=== PATIENT | female | born 1940 | race Caucasian/White ===

== ENCOUNTER → 2017-01-07 | Outpatient (CLI) | payer MEDICARE ==
[~2017-01-07] MED LIST: REGADENOSON 0.4 MG/5 ML SYRINGE IV ONE
--- NOTE | 2017-01-07 14:35 | NM ---
EXAMINATION TYPE: NM stress lexiscan cardiolite DATE OF EXAM: 01/07/2017 COMPARISON: NONE HISTORY: Shortness of breath TECHNIQUE: After the intravenous administration of 10.6 mCi Tc 99m Sestamibi - Cardiolite resting SP ECT images acquired 45 minutes post injection. The patient received 0.4mg Lexiscan, 28.1 mCi Tc 99m Sestamibi - Stress images obtained [address] injection FINDINGS: Review of stress and rest SPECT images demonstrates suggestion of a small area of stress-induced reve rsibility within the apex of the myocardium.. Gated analysis shows normal wall motion with an estima jazmyne left ventricular ejection fraction of 57 %. IMPRESSION: 1. Findings suggestive of an area of stress-induced reversibility apex of the myocardium. Some of thi s may be artifactual correlate clinically. A Yellow message has been communicated to Mike Loza MD via the [employer] [address] [employer] system on 01/07/2017 2:32 PM, Message ID [id number].
--- NOTE | 2017-01-07 16:17 | EST ---
EXERCISE STRESS AGE: 76 SEX: Female HT: 5'3" WT: 223 pounds PROTOCOL: Lexiscan Cardiolite STAGE: DURATION OF EXERCISE: HEART RATE REST: @@65 BLOOD PRESSURE REST: 141/55 MAXIMUM HEART RATE ACHIEVED: 80 MAXIMUM BLOOD PRESSURE: 216/51 85% MPHR: 121 100% MPHR: 142 METS: INDICATIONS: CLINICAL INFORMATION: Evaluate for CAD in a patient with type 2 diabetes, hypertension, hyperlipidemia. Baseline EKG revealed normal sinus rhythm with minor nonspecific ST abnormality. With Lexiscan administration, heart rate changed from 65 to 80 beats per minute. Blood pressure changed from 141/55 to 216/51 and then came back slowly to baseline. EKG revealed more prominent inferolateral ST-segment abnormality. However, given the fact there were some minor changes to begin with, this is considered as a technically inconclusive Lexiscan stress test, but ischemia cannot be totally excluded. The nuclear scan results, which are more pertinent, will be reported by the radiologist. By EKG criteria, this is considered as a positive stress test without subjective symptoms of angina. However, these changes may be considered equivocal, given the fact the patient had minor changes to begin with. The nuclear scan results, which are more pertinent, will be helpful in determining if she has ischemia or not. MMODL / IJN: [id number] /
== END | disposition home or self-care (01) ==
LOC: RADNMMAIN 08:55
PROVIDERS: ATTEND Internal Medicine
DX: R06.09 Other forms of dyspnea (principal)
CPT/HCPCS: 93017; 78452; A9500; J2785

== ENCOUNTER 2017-01-22 07:24 | Day surgery (SDC) | payer MEDICARE ==
[2017-01-16 15:54] VITALS: BMI 40.4
[~2017-01-22 07:24] MED LIST changes: +ALPRAZolam 0.25 MG TAB PO PRN; +ASPIRIN 325 MG TAB PO ONE; -REGADENOSON 0.4 MG/5 ML SYRINGE IV ONE; +SODIUM CHLORIDE 0.9% 1,000 ML in EMPTY BAG 1 BAG IV ONE
[2017-01-22] MEDS: SODIUM CHLORIDE 0.9% 1,000 ML IV SCH ×2 (08:16→20:11)
[2017-01-22 08:29] LABS: Glucose,Whole Blood 152 mg/dL (75-99)
[2017-01-22 08:34] LABS: Basophils # (A) 0.1 k/uL (0-0.2); Basophils % (A) 1 %; CH 30.1; CHCM 34.2; Eosinophils # (A) 0.2 k/uL (0-0.7); Eosinophils % (A) 2 %; HCT 33.5 % (34.0-46.0); HDW 2.53; HGB 10.9 gm/dL (11.4-16.0); Luc # (Auto) 0.23; Luc % (Auto) 2; Lymphocytes # (A) 2.1 k/uL (1.0-4.8); Lymphocytes % (A) 22 %; MCH 28.9 pg (25.0-35.0); MCHC 32.7 g/dL (31.0-37.0); MCV 88.4 fL (80.0-100.0); Monocytes # (A) 0.8 k/uL (0-1.0); Monocytes % (A) 8 %; Neutrophils # (A) 6.2 k/uL (1.3-7.7); Neutrophils % (A) 65 %; RBC 3.79 m/uL (3.80-5.40); RDW 15.1 % (11.5-15.5); WBC 9.6 k/uL (3.8-10.6); WBC (Perox) 9.95
[2017-01-22 08:44] LABS: Calcium 9.9 mg/dL (8.4-10.2); Potassium 4.5 mmol/L (3.5-5.1)
[2017-01-22] MEDS ORDERED: VERAPAMIL 2.5 MG/ML 2 ML AMP ONE (12:41)
[2017-01-22] MEDS ORDERED: LIDOCAINE 2% INJ 20 MG/ML (20 ML MDV) ONE (12:42)
[2017-01-22] MEDS ORDERED: diphenhydrAMINE 50 MG/ML 1 ML VIAL ONE (13:08)
[2017-01-22] MEDS ORDERED: fentaNYL (PF) 50 MCG/ML 2 ML AMP ONE (13:09)
[2017-01-22] MEDS ORDERED: fentaNYL (PF) 50 MCG/ML 2 ML AMP IV ONE (13:18)
[2017-01-22] MEDS ORDERED: diphenhydrAMINE 50 MG/ML 1 ML VIAL IVP ONE (13:18)
[2017-01-22] MEDS ORDERED: LIDOCAINE 2% INJ 20 MG/ML SQ ONE (13:19)
[2017-01-22] MEDS: VERAPAMIL SYRINGE (5 MG/10 ML) INTRAARTER ONE ×2 (13:20→13:35)
[2017-01-22] MEDS ORDERED: HEPARIN SODIUM 1,000 UN/ML (10ML VL) ONE (13:21)
[2017-01-22] MEDS ORDERED: MIDAZOLAM 2 MG/2 ML VIAL ONE (13:21)
[2017-01-22] MEDS ORDERED: HEPARIN SODIUM 1,000 UN/ML (10ML VL) IV ONE (13:23)
[2017-01-22] MEDS ORDERED: MIDAZOLAM 2 MG/2 ML VIAL IV ONE (13:24)
[2017-01-22] MEDS ORDERED: ADENOSINE 90 MG in SODIUM CHLORIDE 0.9% 60 ML IVP ONE (13:58)
[2017-01-22] MEDS ORDERED: IODIXANOL 320 MG/ML 100 ML INTRAARTER ONE (14:02)
[2017-01-22] MEDS ORDERED: RX INFO: IV CONTRAST WAS GIVEN 1 EACH MISC MISCELLANE PRN (14:25)
[2017-01-22] MEDS ORDERED: SODIUM CHLORIDE 0.9% 1,000 ML IV SCH (14:30)
[2017-01-22 15:56] LABS: Glucose,Whole Blood 167 mg/dL (75-99)
[2017-01-22 17:06] VITALS: RESP 18
[2017-01-22 17:06] LABS: Glucose,Whole Blood 211 mg/dL (75-99)
[2017-01-22] MEDS ORDERED: ATORVASTATIN 40 MG TAB PO SCH (17:30)
--- NOTE | 2017-01-22 19:36 | CC ---
CARDIAC CATHETERIZATION REPORT Mrs. Cruz is a 76-year-old female with known history of hypertension, hyperlipidemia, diabetes mellitus, who has been complaining of progressive dyspnea on exertion. In view of that, she underwent a myocardial perfusion imaging that revealed evidence of apical ischemia. In view of that, recommendation made regarding cardiac catheterization. The procedure as well as risks and complication were discussed with the patient who were in full understanding and agreement. PROCEDURE: Patient was brought to the dental laboratory technician in a fasting semi state after receiving fentanyl and Benadryl and achieving moderate conscious sedation state. Using Xylocaine anesthesia and Seldinger technique, a 6-Greenlandic sheath was introduced in the left radial artery. Selective right and left coronary angiography performed using 5-Greenlandic 3-1/2 bend right Olga catheter, attempt to cannulate the left main using his 5-Greenlandic 4 bend and 5-Greenlandic 3-1/2 bend left Olga were unsuccessful. Those catheters were exchanged to a 6-Greenlandic ultimate 1 catheter and images of the left main were obtained. Following that, a Doppler flow wire was introduced into the ultimate wire, positioned in the LAD and fractional flow reserve was calculated in the left main. Following the cath and sheaths were removed. Hemostasis was obtained with deployment of a TR band. There was no immediate complication. Patient is returned to her room in stable condition. Of note, the patient received 5000 units of intravenous heparin as well as intra-arterial verapamil. She received adenosine infusion per protocol. There was no immediate complication. RESULTS: 1. Fluoroscopy there was significant calcification involving all the coronary arteries. 2. Left main: This is a large-sized vessel, bifurcating into the left circumflex, left anterior descending artery. Left main coronary artery has a 40-50% plaque distally at the bifurcation. 3. Left anterior descending artery: This is a large-sized vessel reaching to the apex with a wraparound apex segment. It is calcified proximally, giving rise to 1 diagonal branch. The left anterior descending artery proximally has a 20% plaque. The rest of the vessel has no high-grade stenosis. 4. Left circumflex: This is a nondominant vessel giving rise to 2 large obtuse marginal branches that are proximal. The left circumflex proximally has a plaque of about 40-50%. The rest of the vessel has no high-grade stenosis. 5. Right coronary artery: This is a calcified artery proximally, dominant, bifurcating PDA and posterior lateral descending branches. The proximal segment of the right coronary artery has a 40-50% plaque. There is mild plaque in the distal segment. The rest of the vessel has no high-grade stenosis. 6. Left ventriculogram is not performed. HEMODYNAMICS: 1. There was no gradient across the aortic valve. The left ventricle end-diastolic pressure was 10-12 mm/Hg. CONCLUSION: 1. Calcified coronary artery. 2. Borderline lesion in the distal left main. 3. Mild disease involving the ostium right coronary artery as well as the proximal left circumflex and the proximal LAD. 4. Normal fractional flow reserve of the left main was 99%. RECOMMENDATION: In view of finding anatomy and results of the fractional flow reserve, I would recommend continue medical therapy and maximizing her treatment and depending on her progress further recommendation will be made. Those findings and recommendation were discussed with the patient and her family and they are in full understanding and agreement. Duration the procedure 45 minutes. LIMA / ROGELIO: [id number] /
--- NOTE | 2017-01-22 19:42 | LTR ---
January 22, 2017 RE: Carol Cruz Dear Dr. Loza: I had the pleasure of performing cardiac catheterization on Mrs. Cruz at [facility] on January 22 and full copy of procedure note will be forwarded to you. In brief she was found to have calcified coronary arteries with borderline lesion in the distal left main with mild disease in the proximal right coronary artery, left circumflex and the LAD. She underwent fractional flow reserve of the measurement of the left main that was nonhemodynamically significant. In view of that, I would recommend to maximize her medical therapy and depending on her progress further recommendation will be made. Thank you again for allowing me to participate in her care. Please feel free to call for any questions. Sincerely, MMRAOL / IJN: [id number] /
[2017-01-22] MEDS: amLODIPine 5 MG TAB PO SCH (20:09)
[2017-01-22] MEDS: hydrALAZINE HCL 25 MG TAB PO SCH (20:10)
[2017-01-22] MEDS: DORZOLAMIDE HCL 2% DROPS 10 ML BTL BOTH EYES SCH (20:10)
[2017-01-22] MEDS: FAMOTIDINE 20 MG TAB PO SCH (20:10)
[2017-01-22 22:14] LABS: Glucose,Whole Blood 192 mg/dL (75-99)
[2017-01-23 06:53] LABS: Glucose,Whole Blood 175 mg/dL (75-99)
[2017-01-23] MEDS: hydrALAZINE HCL 25 MG TAB PO SCH (08:26)
[2017-01-23] MEDS: FAMOTIDINE 20 MG TAB PO SCH (08:26)
[2017-01-23] MEDS: amLODIPine 5 MG TAB PO SCH (08:26)
--- NOTE | 2017-01-23 08:27 | PN ---
PROGRESS NOTE Ms. Cruz is a 76-year-old female with known history of hypertension, hyperlipidemia and diabetes mellitus, who presented with an abnormal myocardial perfusion imaging, underwent cardiac catheterization and was found to have a borderline lesion in the left main and underwent fractional flow reserve measurement that was 99%. She has some dyspnea on exertion, but no chest pain. No palpitation or syncope. She is continued to be on amlodipine 5 mg twice a day, aspirin once a day, Lipitor 40 mg daily, hydralazine 25 mg twice a day. PHYSICAL EXAMINATION: Blood pressure 140/59 with the heart rate in the 60s. LUNGS: Clear. HEART: Regular rate and rhythm. S1, S2. No S3 with systolic murmur. ABDOMEN: Soft, nontender. EXTREMITIES: No edema. Left radial pulse is intact. LAB DATA: Still pending. IMPRESSION: 1. 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 2. Hypertension. 3. Hyperlipidemia. 4. Diabetes mellitus. 5. Obesity. RECOMMENDATION: I reviewed the results of her lab data from today. If they are stable, she should be able to be discharged home. Continue to hold the Lasix for 2 days as well as the metformin. Depending on her progress, further recommendation will be made. MMODL / IJN: [id number] /
[2017-01-23] MEDS: DORZOLAMIDE HCL 2% DROPS 10 ML BTL BOTH EYES SCH (08:28)
[2017-01-23 08:52] LABS: Calcium 9.3 mg/dL (8.4-10.2); Potassium 4.5 mmol/L (3.5-5.1)
[2017-01-23] MEDS ORDERED: FLUCONAZOLE 100 MG TAB PO SCH (09:00)
[2017-01-23] MEDS ORDERED: ASPIRIN 81 MG PO SCH (09:00)
[2017-01-23] MEDS ORDERED: INSULIN GLARGINE 100 UNIT/ML 10 ML VIAL SQ SCH (09:00)
[2017-01-23] MEDS ORDERED: FERROUS SULFATE 325 MG TAB PO SCH (09:00)
[2017-01-23] MEDS ORDERED: FUROSEMIDE 20 MG TAB PO SCH (09:15)
[2017-01-23 11:52] LABS: Glucose,Whole Blood 298 mg/dL (75-99)
[2017-01-23 12:03] VITALS: BP 165/47; PULSE 82; TEMP 97.5
[2017-01-23 13:02] LABS: Hemoglobin A1C 6.8 % (4.2-6.1)
== END 2017-01-23 13:11 | disposition home or self-care (01) ==
LOC: CATHCVL 07:24 → 3OBS 14:02 → CATHCVL 01-23 13:11
PROVIDERS: ATTEND Internal Medicine Interventional Cardiology
DX: I25.10 Atherosclerotic heart disease of native coronary artery without angina pectoris (principal); I25.84 Coronary atherosclerosis due to calcified coronary lesion; E78.2 Mixed hyperlipidemia; E11.9 Type 2 diabetes mellitus without complications; I12.9 Hypertensive chronic kidney disease with stage 1 through stage 4 chronic kidney disease, or unspecified chronic kidney disease; N18.9 Chronic kidney disease, unspecified; E66.9 Obesity, unspecified; Z68.39 Body mass index [BMI] 39.0-39.9, adult; Z88.0 Allergy status to penicillin; Z88.2 Allergy status to sulfonamides; Z79.84 Long term (current) use of oral hypoglycemic drugs; Z79.82 Long term (current) use of aspirin; Z79.4 Long term (current) use of insulin; Z79.899 Other long term (current) drug therapy
CPT/HCPCS: 93571; 93458; 99153 ×2; 99152; 80048 ×2; 83036; 85025; C1894; C1769; J2001; J2250; J1200; Q9967; J3010; J1644; J0153

== ENCOUNTER → 2017-08-05 | Outpatient (CLI) | payer MEDICARE ==
--- NOTE | 2017-08-05 14:30 | MM ---
Reason for exam: additional evaluation requested from abnormal screening. Last mammogram was performed 1 month ago. History: Patient is postmenopausal. Benign excisional biopsy of the left breast. Benign excisional biopsy of the right breast. Physical Findings: Nurse did not find any significant physical abnormalities on exam. MG 3D Work Up W/Cad LT CC with magnification, LM with magnification, and LM view(s) were taken of the left breast. Prior study comparison: July 15, 2017, mammogram, performed at [facility]. May 08, 2016, mammogram, performed at [facility]. March 27, 2015, mammogram, performed at [facility]. Finding: There are increasing indeterminate calcifications in the upper central position of the left breast. These results were verbally communicated with the patient and result sheet given to the patient on 08/05/17. ASSESSMENT: Suspicious, BI-RAD 4 RECOMMENDATION: Stereotactic core biopsy of the left breast. Called Dr. Loza with mammographic findings and has scheduled an appointment for the patient for 08/21/17 at 9:[address] Pena. PRELIMINARY REPORT CALLED AND FAXED TO DR. PENA ON 08/05/17.
== END | disposition home or self-care (01) ==
LOC: RADMAMWWP 12:48
PROVIDERS: ATTEND Internal Medicine
DX: R92.8 Other abnormal and inconclusive findings on diagnostic imaging of breast (principal)
CPT/HCPCS: 77065; G0279

== ENCOUNTER → 2017-09-04 | Outpatient (CLI) | payer MEDICARE ==
[2017-09-04 12:09] LABS: HCT 37.6 % (34.0-46.0); HGB 12.3 gm/dL (11.4-16.0); MCH 29.9 pg (25.0-35.0); MCHC 32.6 g/dL (31.0-37.0); MCV 91.8 fL (80.0-100.0); Mean Platelet Volume 6.8; Platelet Count 383 k/uL (150-450); WBC 8.4 k/uL (3.8-10.6)
[2017-09-04 12:23] LABS: Albumin 4.3 g/dL (3.5-5.0); Calcium 10.1 mg/dL (8.4-10.2); Magnesium 1.7 mg/dL (1.6-2.3); Phosphorus 3.6 mg/dL (2.5-4.5); Potassium 4.5 mmol/L (3.5-5.1); Uric Acid 8.1 mg/dL (3.7-7.4)
[2017-09-04 12:43] LABS: Appearance,Urine Clear (Clear); Bacteria,Urine Rare /hpf; Bilirubin,Urine Negative (Negative); Blood,Urine Negative (Negative); Color,Urine Colorless; Glucose,Urine (UA) Negative (Negative); Ketones,Urine Negative (Negative); Leukocyte Esterase,Urine Moderate (Negative); Mucus,Urine Rare /hpf; Nitrite,Urine Negative (Negative); Protein,Urine Negative (Negative); RBC,Urine <1 /hpf (0-5); Specific Gravity,Urine 1.007 (1.001-1.035); Squamous Epithelial Cell,Urine <1 /hpf (0-4); Urobilinogen,Urine <2.0 mg/dL (<2.0); WBC,Urine 7 /hpf (0-5)
[2017-09-04 12:51] LABS: Hyaline Casts,Urine 3 /lpf (0-2)
[2017-09-04 16:55] LABS: Iron Saturation 14.45 (12.00-45.00)
[2017-09-04 17:03] LABS: Vitamin D 25 Hydroxy 30.1 ng/mL (30.0-100.0)
[2017-09-04 17:05] LABS: Parathyroid Hormone Intact 115.4 pg/mL (14.0-72.0)
[2017-09-04 21:42] LABS: Hemoglobin A1C 7.1 % (4.0-6.0)
== END | disposition home or self-care (01) ==
LOC: LABWHC1 11:26
PROVIDERS: ATTEND Nurse Practitioner Family
DX: E11.9 Type 2 diabetes mellitus without complications (principal); D50.9 Iron deficiency anemia, unspecified; E55.9 Vitamin D deficiency, unspecified; E21.3 Hyperparathyroidism, unspecified; N18.3 Chronic kidney disease, stage 3 (moderate); N39.0 Urinary tract infection, site not specified; R80.9 Proteinuria, unspecified; M10.9 Gout, unspecified
CPT/HCPCS: 36415; 80048; 81001; 82040; 82043; 82306; 82570; 82728; 83036; 83540; 83550; 83735; 83970; 84100; 84550; 85027

== ENCOUNTER → 2017-09-25 | Day surgery (SDC) | payer MEDICARE ==
[2017-09-25 07:43] VITALS: RESP 16; BMI 39.8
--- NOTE | 2017-09-25 09:26 | MM ---
EXAMINATION TYPE: MG stereo VAD BX LT DATE OF EXAM: 09/25/2017 COMPARISON: 08/05/2017 CLINICAL HISTORY: Indeterminate left breast calcifications for which stereotactic biopsy was recommended. TECHNIQUE: Stereotactic guided core biopsy of the left breast. FINDINGS: The procedure of stereotactic guided core biopsy was explained to the patient. Benefits, alternatives, and risks were discussed. An informed consent was then obtained. Preprocedural timeout was performed. The patient was informed of an increased risk of bleeding due to low dose aspirin intake but wish to proceed with the procedure. [facility]. Shortness pathway was CC from above approach. I performed the localization, then surgeon, Dr. Robert Caceres performed the remainder of the procedure. A vacuum assisted biopsy gun was used to obtain multiple core samples. The patient tolerated the procedure well without any immediate complication. The patient was kept in the radiology department for short stay after the procedure and then discharged home in stable condition. Targeted calcifications are identified in specimen mammogram. Post biopsy mammogram shows the clip to appear in satisfactory position relative to the targeted area of concern on the preprocedure images. IMPRESSION: SUCCESSFUL, UNCOMPLICATED STEREOTACTIC GUIDED CORE BIOPSY OF A 6 MM GROUP OF CALCIFICATIONS IN THE UPPER OUTER QUADRANT OF THE LEFT BREAST AT MIDDLE DEPTH, FULL PATHOLOGY RESULTS TO FOLLOW. Pathology Results: High Risk BREAST, LEFT, STEREOTACTIC CORE BIOPSY: Focal lobular neoplasia (ALH/LCIS). Fibroadenomatoid hyperplasia/fibroadenoma formation with hyalinization and calcifications. See note. Recommendation Surgical consult of the left breast. RONALDO
--- NOTE | 2017-09-25 09:47 | PCN ---
PROCEDURE NOTE PREPROCEDURE DIAGNOSIS: Microcalcifications of concern, left breast. The patient is a 76-year-old white female who on a mammogram was noted to have an area of microcalcifications of concern in the left breast. These were in the upper midportion of the breast and the approach used to localize these was lateral to medial. The patient on physical examination did not have any dominant mass or nodules of concern in either breast. Radiographs were reviewed and no other lesions of concern were identified in the right or left breast. The patient was taken to the stereo unit and placed on the stereo table. The area of concern in the left breast was identified. The area was targeted. The skin was prepped using Betadine. One percent lidocaine without epinephrine was used to anesthetize the area of concern. Approximately 20 mL total were used. Needle was driven to the correct coordinates. A vacuum-assisted core biopsy needle was utilized. Multiple core biopsies were obtained, approximately 12. The specimen was radiographed and evidence that the area of concern had been removed by microcalcifications in the specimen. The vacuum-assisted core biopsy was a 9-gauge needle. A [employer] top-western felt hat blocker was placed. The patient tolerated the procedure in stable condition with no immediate complications. The patient is going to follow with Dr. Jones in 1 week. The specimen was sent to pathology. MMODL / IJN: [id number] /
[2017-09-25 11:37] VITALS: BP 150/65; PULSE 68; TEMP 98.1
== END ==
LOC: RADMAMWWP 07:15
PROVIDERS: ATTEND Surgery
DX: D24.2 Benign neoplasm of left breast (principal); R92.8 Other abnormal and inconclusive findings on diagnostic imaging of breast; R92.1 Mammographic calcification found on diagnostic imaging of breast; N62 Hypertrophy of breast; Z88.0 Allergy status to penicillin; Z88.2 Allergy status to sulfonamides
CPT/HCPCS: 88305; 88342; 88341; 19081; A4648; J2001

== ENCOUNTER → 2017-10-03 | Outpatient (CLI) | payer MEDICARE ==
[2017-10-03 11:18] VITALS: BMI 39.8
--- NOTE | 2017-10-03 11:35 | P.PN ---
Progress Note - Text Progress Note Date: 10/03/17 Patient is status post stero-biopsy which showed lobular atypia/LCIS. The case was discussed with pathology. It is felt secondary to the atypia that re- excision of the area would be beneficial this would be done in the operating room. The patient understands the risks and benefits and this will be scheduled in the near future. The patient has had no complications related to the stereotactic core biopsy. The patient's puncture site is clean and dry with no evidence of any infection. Cc: Dr. Loza
== END ==
LOC: WWCWWP 11:11
PROVIDERS: ATTEND Surgery
DX: Z53.9 Procedure and treatment not carried out, unspecified reason (principal)

== ENCOUNTER 2017-11-04 10:16 | Day surgery (SDC) | payer MEDICARE ==
[2017-10-27 10:15] VITALS: BMI 39.6
[~2017-11-04 10:16] MED LIST changes: -ALPRAZolam 0.25 MG TAB PO PRN; -ASPIRIN 325 MG TAB PO ONE; +HEPARIN SODIUM,PORCINE 5,000 UNIT/ML 1 ML VIAL SQ ONE; +HYDROmorphone 0.5 MG/0.5 ML SYRINGE IVP PRN; +LACTATED RINGERS 1,000 ML IV SCH; +ONDANSETRON 4 MG/2 ML VIAL IVP ONE; +Pre Op ABX Message 1 EACH MISC MISCELLANE ONE; -SODIUM CHLORIDE 0.9% 1,000 ML in EMPTY BAG 1 BAG IV ONE
[2017-11-04 10:49] VITALS: TEMP 97.6
[2017-11-04 10:59] LABS: Glucose,Whole Blood 192 mg/dL (75-99)
[2017-11-04] MEDS ORDERED: ONDANSETRON 4 MG/2 ML VIAL IVP ONE (11:02)
[2017-11-04] MEDS ORDERED: ALPRAZolam 0.25 MG TAB PO ONE (11:03)
[2017-11-04] MEDS ORDERED: SODIUM BICARB 4% 5 ML VIAL (0.48 MEQ/ML) MISCELLANE ONE (11:50)
[2017-11-04] MEDS ORDERED: LIDOCAINE 2%-EPI 1:100,000 20 ML VIAL SQ ONE (11:50)
[2017-11-04] MEDS ORDERED: LIDOCAINE 1% INJ 10MG/ML (20 ML MDV) SQ ONE ×3 (11:50→15:00)
[2017-11-04] MEDS ORDERED: HEPARIN SODIUM,PORCINE 5,000 UNIT/ML 1 ML VIAL SQ ONE ×2 (13:06→13:43)
[2017-11-04] MEDS ORDERED: fentaNYL (PF) 50 MCG/ML 2 ML AMP ONE (13:57)
[2017-11-04] MEDS ORDERED: LIDOCAINE 1% INJ 10MG/ML (20 ML MDV) ONE (13:57)
[2017-11-04] MEDS ORDERED: MIDAZOLAM 2 MG/2 ML VIAL ONE (13:57)
[2017-11-04] MEDS ORDERED: SUCCINYLCHOLINE CHLORIDE 100 MG/5 ML SYR IV ONE (13:57)
[2017-11-04] MEDS ORDERED: PROPOFOL 10 MG/ML 20 ML VIAL IV ONE (13:57)
[2017-11-04] MEDS ORDERED: LACTATED RINGERS 1,000 ML IV ONE (14:50)
--- NOTE | 2017-11-04 15:03 | P.OP ---
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 Incision was made and carried down to the hook of the needle localization needle. Surrounding tissue was excised. Hemostasis was attained using electrocautery device and harmonic scalpel. After the specimen was removed it was painted for orientation. Was then sent to x-ray where confirmation that the area of concern about a removed was obtained. Following this the wound was well irrigated. The deep tissues were closed after titanium clips had been placed. There were closed using 3-0 Vicryl suture. Following this the skin was closed using a 4-0 Monocryl. Was further reimplanted first with a nylon suture. The patient tolerated the procedure in stable condition. All instrument and sponge counts were correct at the end of the case
--- NOTE | 2017-11-04 15:04 | P.DS ---
Providers Attending physician: Janey Pena Primary care physician: Mike Loza Plan - Discharge Summary New Discharge Prescriptions: No Action Ferrous Sulfate [Iron] 325 mg PO BID Dorzolamide 2% [Trusopt 2%] 1 drops BOTH EYES BID Aspirin [Adult Low Dose Aspirin EC] 81 mg PO QAM amLODIPine [Norvasc] 5 mg PO BID Furosemide [Lasix] 20 mg PO DAILY Ranitidine HCl 150 mg PO BID Insulin Glulisine [Apidra Solostar] 0 unit SQ AC-BID PRN PRN Reason: Blood Sugar - High metFORMIN HCL [Glucophage] 500 mg PO HS Insulin Glargine [Lantus] 60 unit SQ DAILY Spironolactone [Aldactone] 25 mg PO DAILY Losartan Potassium [Cozaar] 100 mg PO HS Allopurinol [Zyloprim] 100 mg PO DAILY Atorvastatin [Lipitor] 10 mg PO W/SUPPER Cholecalciferol (Vitamin D3) [Vitamin D3] 2,000 unit PO DAILY Acetaminophen [Tylenol Arthritis] 650 mg PO Q4H Discharge Medication List Aspirin [Adult Low Dose Aspirin EC] 81 mg PO QAM 01/16/17 [History] Dorzolamide 2% [Trusopt 2%] 1 drops BOTH EYES BID 01/16/17 [History] Ferrous Sulfate [Iron] 325 mg PO BID 01/16/17 [History] Furosemide [Lasix] 20 mg PO DAILY 01/16/17 [History] Insulin Glargine [Lantus] 60 unit SQ DAILY 01/16/17 [History] Insulin Glulisine [Apidra Solostar] 0 unit SQ AC-BID PRN 01/16/17 [History] Ranitidine HCl 150 mg PO BID 01/16/17 [History] amLODIPine [Norvasc] 5 mg PO BID 01/16/17 [History] metFORMIN HCL [Glucophage] 500 mg PO HS 01/16/17 [History] Allopurinol [Zyloprim] 100 mg PO DAILY 09/09/17 [History] Atorvastatin [Lipitor] 10 mg PO W/SUPPER 09/09/17 [History] Losartan Potassium [Cozaar] 100 mg PO HS 09/09/17 [History] Spironolactone [Aldactone] 25 mg PO DAILY 09/09/17 [History] Acetaminophen [Tylenol Arthritis] 650 mg PO Q4H 10/27/17 [History] Cholecalciferol (Vitamin D3) [Vitamin D3] 2,000 unit PO DAILY 10/27/17 [History] Follow up Appointment(s)/Referral(s): Janey Pena MD [STAFF PHYSICIAN] - 1 Week Activity/Diet/Wound Care/Special Instructions: Do not drive today Patient may shower after 48 hours Discharge Disposition: HOME SELF-CARE
[2017-11-04 15:15] VITALS: RESP 16
--- NOTE | 2017-11-04 15:15 | MM ---
EXAMINATION TYPE: MG pre op needle loc LT, MG surgical specimen LT DATE OF EXAM: 11/04/2017 COMPARISON: Stereotactic guided core biopsy September 25, 2017 and older studies. CLINICAL HISTORY: ALH/LCIS on recent stereotactic guided biopsy. TECHNIQUE: Needle localization with wire placement and surgical excision of area of concern in the le ft breast. FINDINGS: The procedure of needle localization with wire placement and than surgical excision was exp lained to the patient. Benefits, alternatives, and risks were discussed. An informed consent was th en obtained. The shortest pathway for procedure was chosen. Shortest pathway was cranial approach. The overlying skin was prepped and draped in usual sterile fashion. Lidocaine buffered with bicarbonate was used a s anesthetic into the skin and subcutaneous tissue up to the level of area of concern. A 5 cm needle was used. It was placed via a cranial approach under mammographic guidance. Subsequent 90 degrees mammogram show the needle to be in satisfactory position relative to the targeted area. At this poin t, wire was placed and the needle was withdrawn. Wire advanced roughly 3 to 4 cm deep to clip without needle. The wire was fixed to patient's skin. Images were marked for surgeon. The patient tolerated the procedure well without any immediate complication. The patient was kept in the radiology department for short stay after the procedure and then taken to surgery for surgical e xcision. Targeted biopsy clip and wire are identified in specimen mammogram. The patient was kept i hospital for short stay after the procedure and then discharged home in stable condition. IMPRESSION: Successful, uncomplicated needle localization with wire placement and surgical excision o f targeted biopsy clip in the left breast, full pathology results to follow.
[2017-11-04] MEDS ORDERED: MORPHINE SULFATE 4 MG/ML SYRINGE IVP ONE (16:45)
[2017-11-04 16:46] LABS: Glucose,Whole Blood 137 mg/dL (75-99)
[2017-11-04 17:08] VITALS: BP 134/49; PULSE 62
== END 2017-11-04 17:36 | disposition home or self-care (01) ==
LOC: OR 10:16
PROVIDERS: ATTEND Surgery
DX: D05.02 Lobular carcinoma in situ of left breast (principal); E11.9 Type 2 diabetes mellitus without complications; I10 Essential (primary) hypertension; E78.5 Hyperlipidemia, unspecified; M19.90 Unspecified osteoarthritis, unspecified site; G47.33 Obstructive sleep apnea (adult) (pediatric); I25.10 Atherosclerotic heart disease of native coronary artery without angina pectoris; K21.9 Gastro-esophageal reflux disease without esophagitis; N28.9 Disorder of kidney and ureter, unspecified; Z99.89 Dependence on other enabling machines and devices; Z88.0 Allergy status to penicillin; Z88.2 Allergy status to sulfonamides; Z79.82 Long term (current) use of aspirin; Z79.899 Other long term (current) drug therapy; Z79.4 Long term (current) use of insulin
CPT/HCPCS: 76098; 19281; 19125; J2250; J2270; J1644; J2405; J2001; J3010; J0330; J2704

== ENCOUNTER → 2017-11-14 | Outpatient (CLI) | payer MEDICARE ==
[2017-11-14 11:34] VITALS: BMI 39.3
--- NOTE | 2017-11-14 12:08 | P.PN ---
Progress Note - Text Progress Note Date: 11/14/17 The patient is a 77-year-old white female who presents for postoperative evaluation. 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 Radiographs were reviewed and it does appear that the whole area has been removed. I discussed with the patient the pathology findings as well as a recommendation to be followed by medical and radiation oncology and presented at tumor board. I do not believe there is any role for further surgical intervention. Physical examination: Incision clean and dry sutures removed Impression/Plan: 1. 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 Awaiting ER/[place] receptor status 3. appointment with medical and radiation oncology 4. Presentation at tumor board 5. Follow-up in 2 weeks cc: Dago
== END ==
LOC: WWCWWP 10:49
PROVIDERS: ATTEND Surgery
DX: Z53.9 Procedure and treatment not carried out, unspecified reason (principal)

== ENCOUNTER → 2017-12-04 | Outpatient (CLI) | payer MEDICARE ==
[2017-12-04 10:42] VITALS: BP 154/73; PULSE 66; RESP 16; TEMP 97.4; BMI 40.4
--- NOTE | 2017-12-04 11:11 | P.PN ---
Progress Note - Text Progress Note Date: 12/04/17 Patient is a 77-year-old white female status post left breast excisional biopsy which revealed an area of DCIS. This was completely excised. At this time she states that she has some mild erythema of the lateral aspect of the incision. Her case was presented at tumor board and this is ER/MO negative however to reduce the risk of a second cancer she would be a candidate for an estrogen receptor blocking agent. Additionally her case was discussed with respect to radiation oncology and they were willing to see her for discussion although she seems to be resistant to any radiation therapy. At this time there is no reason for further surgical intervention. Physical examination: Incision is clean and dry there is some mild erythema with slight swelling at the lateral aspect of the incision and what appears to be some reaction to tape at the lateral aspect of the incision just superior and inferior to the incision. The area of the lateral aspect was evaluated to assure that there was not a suture protruding and this was not the case. A clean dressing was applied. We discussed antibiotic treatment but at this time was not felt necessary. Impression/plan: 1. DCIS completely excised left breast 2. Results of tumor board discussion discussed with the patient and her daughter 3. Appointment with medical and radiation oncology 4. Follow up here in 2 weeks related to the incision if any questions will be happy to see her sooner 5. Continue follow-up with Dr. Loza 6. Left breast mammogram in 6 months time, bilateral mammogram in 1 year CC: Dr. Loza
== END | disposition home or self-care (01) ==
LOC: WWCWWP 09:57
PROVIDERS: ATTEND Surgery
DX: Z53.9 Procedure and treatment not carried out, unspecified reason (principal)

== ENCOUNTER → 2018-06-04 | Outpatient (CLI) | payer MEDICARE ==
[2018-06-04 11:50] VITALS: BP 185/77; PULSE 59; RESP 18; TEMP 96.1; BMI 38.6
== END ==
LOC: WWCWWP 10:54
PROVIDERS: ATTEND Surgery
DX: Z53.9 Procedure and treatment not carried out, unspecified reason (principal)

== ENCOUNTER → 2018-06-04 | Outpatient (CLI) | payer MEDICARE ==
--- NOTE | 2018-06-04 11:58 | MM ---
Reason for exam: follow-up at short interval from prior study. Last mammogram was performed 10 months ago. History: Patient is postmenopausal, has history of breast cancer at age 77, and has history of high-risk lesion on a previous biopsy at age 76. Malignant MG pre op needle loc LT of the left breast, November 04, 2017. Lumpectomy of the left breast, October 2017. High risk MG stereo VAD BX LT of the left breast, September 25, 2017. Benign excisional biopsy of the left breast. Benign excisional biopsy of the right breast. Physical Findings: Nurse did not find any significant physical abnormalities on exam. MG Diagnostic Mammo LT w CAD CC, MLO, and ML view(s) were taken of the left breast. Prior study comparison: August 05, 2017, left breast MG 3d work up w/cad LT. July 15, 2017, mammogram, performed at [facility]. There are scattered fibroglandular densities. Benign calcifications. Stable post operative changes left breast. No recurrent mass. These results were verbally communicated with the patient and result sheet given to the patient on 06/04/18. ASSESSMENT: Benign, BI-RAD 2 RECOMMENDATION: Follow-up diagnostic mammogram of both breasts in 1 month. Back on schedule for June 2018.
--- NOTE | 2018-06-04 12:23 | P.PN ---
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 This was completely excised. The patient was seen by both medical and radiation oncology and opted not to undergo any radiation therapy nor any hormonal therapy. The patient has no complaints at this time. The patient had a recent mammogram of her left performed today which is felt to be benign and repeat bilateral mammogram to back on schedule is recommended in one month. The patient denies any lumps masses or pain in her breasts. She has not plan of any nipple discharge or skin changes. She does not complain of any trauma or infection in the breast. Past surgical history: 1. Left breast lumpectomy 2. Bilateral breast biopsies in the past which were benign 3. gallbladder 4. tonsil 5. eye surgery, cataracts bilateral Past Medical History: 1. kidney function decreased 2. HTN Objective - Constitutional General appearance: Present: obese - EENT Eyes: Present: EOMI ENT: Present: hard of hearing - Neck Neck: Present: normal ROM - Respiratory Respiratory: bilateral: CTA - Cardiovascular Rhythm: regular Heart sounds: normal: S1, S2 - Gastrointestinal General gastrointestinal: Present: normal bowel sounds, soft - Integumentary Integumentary: Present: normal turgor - Musculoskeletal Musculoskeletal: Present: gait normal - Psychiatric Psychiatric: Present: A&O x's 3, appropriate affect, intact judgment & insight - Additional findings Additional findings: breast exam: Right breast: Multi-positional exam no dominant masses or nodules of concern Right axilla: No adenopathy of concern Left breast: Well-healed scar from prior lumpectomy no dominant masses or nodules of concern were multiple positional exam Left axilla: No adenopathy of concern Assessment and Plan Assessment: Impression: 1. 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 Fibrocystic breast changes 3. Hypertension 4. decreased hearing 5. decreased kidney function Plan: 1. Right breast mammogram in one month, I have discussed with the radiologist and there is no need to repeat the left breast mammogram in one month 2. If the right mammogram is nonsuspicious we'll repeat bilateral mammogram in 1 year 3. Physician exam here in 1 month after right breast mammogram CC: Dr. Loza
== END | disposition home or self-care (01) ==
LOC: RADMAMWWP 10:51
PROVIDERS: ATTEND Surgery
DX: Z08 Encounter for follow-up examination after completed treatment for malignant neoplasm (principal); Z85.3 Personal history of malignant neoplasm of breast
CPT/HCPCS: 77065

== ENCOUNTER → 2018-07-03 | Outpatient (CLI) | payer MEDICARE ==
--- NOTE | 2018-07-06 08:22 | MM ---
Reason for exam: additional evaluation requested from prior study. Last mammogram was performed 1 month ago. History: Patient is postmenopausal, has history of breast cancer at age 77, and has history of high-risk lesion on a previous biopsy at age 76. Family history of breast cancer in paternal grandmother at age 75. Malignant MG pre op needle loc LT of the left breast, November 04, 2017. Lumpectomy of the left breast, October 2017. High risk MG stereo VAD BX LT of the left breast, September 25, 2017. Benign excisional biopsy of the left breast. Benign excisional biopsy of the right breast. Physical Findings: Nurse did not find any significant physical abnormalities on exam. MG Diagnostic Mammo RT w CAD CC, MLO, and XCCL view(s) were taken of the right breast. Prior study comparison: June 04, 2018, left breast MG diagnostic mammo LT w CAD. August 05, 2017, left breast MG 3d work up w/cad LT. There are scattered fibroglandular densities. Finding: There are two 7 mm high density masses in the right breast. Previous mammotome biopsy in the right breast. These results were verbally communicated with the patient and result sheet given to the patient on 07/03/18. ASSESSMENT: Incomplete: need additional imaging evaluation, BI-RAD 0 RECOMMENDATION: Ultrasound of the right breast.
--- NOTE | 2018-07-06 08:24 | USB ---
Reason for exam: additional evaluation requested from abnormal screening. History: Patient is postmenopausal, has history of breast cancer at age 77, and has history of high-risk lesion on a previous biopsy at age 76. Family history of breast cancer in paternal grandmother at age 75. Malignant MG pre op needle loc LT of the left breast, November 04, 2017. Lumpectomy of the left breast, October 2017. High risk MG stereo VAD BX LT of the left breast, September 25, 2017. Benign excisional biopsy of the left breast. Benign excisional biopsy of the right breast. US Breast Limited RT Right limited breast ultrasound including focal area of concern, retroareolar and axilla demonstrates a 0.5 x 0.5 x 0.7cm oval, cystic cluster at 7 o'clock. These results were verbally communicated with the patient and result sheet given to the patient on 07/03/18. ASSESSMENT: Probably benign, BI-RAD 3 RECOMMENDATION: Follow-up diagnostic mammogram of the right breast in 6 months.
--- NOTE | 2018-07-08 12:19 | P.PN ---
Progress Note - Text Progress Note Date: 07/08/18 The patient was called with her mammogram and ultrasound results of her right breast. She is going to have a repeat right breast mammogram in 6 months with an appointment at that time, she may have a repeat ultrasound at well. She will call sooner if she has any concerns
== END | disposition home or self-care (01) ==
LOC: RADMAMWWP 13:51
PROVIDERS: ATTEND Surgery
DX: R92.8 Other abnormal and inconclusive findings on diagnostic imaging of breast (principal)
CPT/HCPCS: 77065

== ENCOUNTER → 2019-01-04 | Outpatient (CLI) | payer MEDICARE ==
--- NOTE | 2019-01-04 13:20 | MM ---
Reason for exam: follow-up at short interval from prior study. Last mammogram was performed 6 months ago. History: Patient is postmenopausal, has history of breast cancer at age 77, and has history of high-risk lesion on a previous biopsy at age 76. Family history of breast cancer in paternal grandmother at age 75. Malignant MG pre op needle loc LT of the left breast, November 04, 2017. Lumpectomy of the left breast, October 2017. High risk MG stereo VAD BX LT of the left breast, September 25, 2017. Benign excisional biopsy of the left breast. Benign excisional biopsy of the right breast. Physical Findings: Nurse did not find any significant physical abnormalities on exam. MG 3D Diag Mammo W/Cad MADDI Bilateral CC and MLO view(s) were taken. XCCL view(s) were taken of the right breast. Prior study comparison: July 03, 2018, right breast MG diagnostic mammo RT w CAD. June 04, 2018, left breast MG diagnostic mammo LT w CAD. Finding #1: Architectural distortion in the left breast. Finding #2: There are typically benign dystrophic, round calcifications in both breasts. Previous mammotome biopsy in the right breast at site of grouped heterogeneous calcifications. There is a chronic nodularity in the right breast increased in size. New finding, increase in size, and more defined since July 03, 2018 and June 04, 2018. These results were verbally communicated with the patient and result sheet given to the patient on 01/04/19. ASSESSMENT: Incomplete: need additional imaging evaluation, BI-RAD 0 RECOMMENDATION: Ultrasound of the right breast.
--- NOTE | 2019-01-04 13:21 | USB ---
Reason for exam: additional evaluation requested from abnormal screening. History: Patient is postmenopausal, has history of breast cancer at age 77, and has history of high-risk lesion on a previous biopsy at age 76. Family history of breast cancer in paternal grandmother at age 75. Malignant MG pre op needle loc LT of the left breast, November 04, 2017. Lumpectomy of the left breast, October 2017. High risk MG stereo VAD BX LT of the left breast, September 25, 2017. Benign excisional biopsy of the left breast. Benign excisional biopsy of the right breast. US Breast Limited RT Right limited breast ultrasound including focal area of concern, retroareolar and axilla demonstrates a 0.9 x 0.8 x 0.6cm oval, cystic lesion at 7 o'clock, cystic cluster or septated cyst, stable. These results were verbally communicated with the patient and result sheet given to the patient on 01/04/19. ASSESSMENT: Benign, BI-RAD 2 RECOMMENDATION: Follow-up diagnostic mammogram of both breasts in 1 year.
== END | disposition home or self-care (01) ==
LOC: RADMAMWWP 10:46
PROVIDERS: ATTEND Surgery
DX: Z08 Encounter for follow-up examination after completed treatment for malignant neoplasm (principal); R92.8 Other abnormal and inconclusive findings on diagnostic imaging of breast; Z85.3 Personal history of malignant neoplasm of breast
CPT/HCPCS: 77066; 76642; G0279; 77062

== ENCOUNTER → 2019-01-08 | Outpatient (CLI) | payer MEDICARE ==
[2019-01-08 13:27] VITALS: BP 174/59; PULSE 59; RESP 20; TEMP 97.5; BMI 39.4
--- NOTE | 2019-01-08 13:45 | P.PN ---
Subjective Progress Note Date: 01/08/19 The patient is a 68-year-old female who on a routine mammogram was noted to have an area of increased microcalcifications in the left breast in the upper central area. The patient denies any pain in her breast. The patient denies any nipple discharge bilaterally. The patient denies any masses in her breasts. The patient did have a biopsy of her left breast approximately 5 years ago which was benign as per the patient. Her mammograms were done at [facility]. This led to a stero biopsy on and the pathology was ALH/LCIS. This led to an open biopsy being performed on 11-05-17. Pathology from this revealed both DCIS and LCIS. ER/NE-. Margins were free with the closest margin being 6 mm from the DCIS. She was seen by both medical and radiation oncology and did not receive any additional treatment. The patient had a bilateral mammogram performed on 9918. This revealed chronic nodularity in the right breast which had increased in size. She therefore underwent a right breast ultrasound on the same day. This revealed a 0.9 x 0.6 cystic lesion at 7:00. This was felt to be benign BIRADS 2. Follow- up diagnostic mammogram of the left breast in 1 year is recommended. The patient denies any masses or lesions in her breast that she has any concern about this time. No abnormal nipple discharge. No skin lesions of concern. Family history: 1. Paternal grandmother with breast cancer at 75 Social history: Smoking: Negative Alcohol: Negative Drugs: Negative Hormonal history: Menstrual period started at 10 2 pregnancies she did not breast-feed her first was born at 23 Menopause at 48 She's -control pills for 5 years and did not use hormones Past surgical history: 1. Cholecystectomy 2. Cataract surgery as a child 3. left breast lumpectomy Past medical history: 1. 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 Hypertension Review of systems: HEENT: Cataracts, glaucoma Lungs: Negative, sleep apnea Heart: Decreased function she is uncertain as to what, HTN GI: Negative : Decreased kidney function Musculoskeletal: Arthritis Endocrine: Diabetes neurologic: none psychiatri: none hematologic: none Skin: Negative ALLERGIES: Negative endicrone: diabetes - Past Medical History Past Medical History: Diabetes Mellitus, Hyperlipidemia, Hypertension, Osteoarthritis (OA), Sleep Apnea/CPAPstopped BIPAP Additional Past Medical History / Comment(s): fast heart beat two months ago, sob, "blockage" in heart, decreased kidney function, low iron, History of Any Multi-Drug Resistant Organisms: None Reported Past Surgical History: Breast Surgery, Cholecystectomy Additional Past Surgical History / Comment(s): earle cataracts, mult earle eye surgeries, breast biopsy Past Anesthesia/Blood Transfusion Reactions: No Reported Reaction Past Psychological History: No Psychological Hx Reported Smoking Status: Never smoker Past Alcohol Use History: None Reported Past Drug Use History: None Reported - Past Family History Father Family Medical History: Deep Vein Thrombosis (DVT) Objective - Vital Signs Vital signs: Vital Signs Temp 97.5 F L 01/08/19 13:22 Pulse 59 L 01/08/19 13:22 Resp 20 01/08/19 13:22 BP 174/59 01/08/19 13:22 Pulse Ox 99 01/08/19 13:22 - Exam BMI 39.4 - Constitutional General appearance: Present: obese - EENT Eyes: Present: EOMI ENT: Present: hearing grossly normal - Neck Neck: Present: normal ROM - Respiratory Respiratory: bilateral: CTA - Cardiovascular Rhythm: regular Heart sounds: normal: S1, S2 - Gastrointestinal General gastrointestinal: Present: soft - Integumentary Integumentary: Present: normal turgor - Psychiatric Psychiatric: Present: A&O x's 3, appropriate affect, intact judgment & insight - Additional findings Additional findings: breast exam: bra 46 DD Right breast: Multi-positional exam fibrocystic changes no dominant masses or nodules of concern Right axilla: No adenopathy of concern Left breast: Multiple positional exam no dominant masses or nodules of concern, fibrocystic changes, well-healed scar from prior lumpectomy Left axilla: No adenopathy of concern no evidence of re-current disease Assessment and Plan Assessment: Impression: 1. 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 Hypertension 3. Prior history of left breast DCIS no evidence of recurrence 4. Family history of breast cancer 5. Fibrocystic breast changes 6. BMI Plan: 1. Repeat physician exam in 6 months 2. Repeat bilateral mammogram in 1 year 3. Medical management of medical conditions Cc: Dr. Loza
== END ==
LOC: WWCWWP 12:27
PROVIDERS: ATTEND Surgery
DX: Z53.9 Procedure and treatment not carried out, unspecified reason (principal)

== ENCOUNTER → 2019-01-08 | Outpatient (CLI) | payer MEDICARE ==
[2019-01-08 13:22] LABS: Basophils % (A) 1 %; Eosinophils # (A) 0.2 k/uL (0-0.7); Eosinophils % (A) 2 %; HCT 36.3 % (34.0-46.0); HGB 11.6 gm/dL (11.4-16.0); Lymphocytes # (A) 2.3 k/uL (1.0-4.8); Lymphocytes % (A) 34 %; MCH 31.8 pg (25.0-35.0); MCHC 31.9 g/dL (31.0-37.0); MCV 99.7 fL (80.0-100.0); Macrocytosis Slight; Monocytes # (A) 0.4 k/uL (0-1.0); Monocytes % (A) 6 %; Neutrophils # (A) 3.9 k/uL (1.3-7.7); Neutrophils % (A) 56 %; Platelet Count 301 k/uL (150-450); RBC 3.64 m/uL (3.80-5.40); RDW 14.5 % (11.5-15.5); WBC 6.9 k/uL (3.8-10.6)
[2019-01-08 13:42] LABS: Appearance,Urine Clear (Clear); Bacteria,Urine Rare /hpf; Bilirubin,Urine Negative (Negative); Blood,Urine Negative (Negative); Color,Urine Colorless; Glucose,Urine (UA) Negative (Negative); Hyaline Casts,Urine 4 /lpf (0-2); Ketones,Urine Negative (Negative); Leukocyte Esterase,Urine Moderate (Negative); Mucus,Urine Rare /hpf; Nitrite,Urine Negative (Negative); Protein,Urine Negative (Negative); RBC,Urine 1 /hpf (0-5); Specific Gravity,Urine 1.009 (1.001-1.035); Squamous Epithelial Cell,Urine <1 /hpf (0-4); Urobilinogen,Urine <2.0 mg/dL (<2.0); WBC,Urine 13 /hpf (0-5)
[2019-01-08 19:12] LABS: Iron Saturation 23.82 (12.00-45.00)
[2019-01-08 19:17] LABS: African American GFR (CKD) 37.7 (60.0-200.0); Albumin 4.2 g/dL (3.80-4.90); Anion Gap 7.2 mmol/L (4.00-12.00); Calcium 9.6 mg/dL (8.7-10.3); Carbon Dioxide 25.8 mmol/L (21.6-31.8); Magnesium 1.6 mg/dL (1.5-2.4); Non-African American GFR(CKD) 32.6 (60.0-200.0); Phosphorus 2.8 mg/dL (2.4-5.1); Potassium 4.6 mmol/L (3.5-5.5); Uric Acid 6.1 mg/dL (2.9-7.7)
[2019-01-08 19:21] LABS: Ferritin 302.2 ng/mL (10.0-291.0)
[2019-01-08 20:32] LABS: Total Protein,Urine Random 9.9 mg/dL (0.0-13.5)
[2019-01-08 20:33] LABS: Creatinine,Urine Random 26.3 mg/dL
[2019-01-08 20:47] LABS: Hemoglobin A1C 7.3 % (4.0-6.0)
== END | disposition home or self-care (01) ==
LOC: LABWHC1 12:23
PROVIDERS: ATTEND Internal Medicine Nephrology
DX: E55.9 Vitamin D deficiency, unspecified (principal); M10.9 Gout, unspecified; N39.0 Urinary tract infection, site not specified; D63.1 Anemia in chronic kidney disease; N25.81 Secondary hyperparathyroidism of renal origin; N18.3 Chronic kidney disease, stage 3 (moderate); E11.65 Type 2 diabetes mellitus with hyperglycemia
CPT/HCPCS: 36415; 80048; 81001; 82040; 82306; 82570; 82728; 83036; 83540; 83550; 83735; 83970; 84100; 84156; 84550; 85025

== ENCOUNTER → 2020-02-25 | Outpatient (CLI) | payer MEDICARE ==
--- NOTE | 2020-02-25 14:31 | MM ---
Reason for exam: additional evaluation requested from prior study. Last mammogram was performed 1 year and 2 months ago. History: Patient is postmenopausal, has history of breast cancer at age 77, and has history of high-risk lesion on a previous biopsy at age 76. Family history of breast cancer in paternal grandmother at age 75. Malignant MG pre op needle loc LT of the left breast, November 04, 2017. Lumpectomy of the left breast, October 2017. High risk MG stereo VAD BX LT of the left breast, September 25, 2017. Benign excisional biopsy of the left breast. Benign excisional biopsy of the right breast. Physical Findings: Nurse did not find any significant physical abnormalities on exam. MG 3D Diag Mammo W/Cad MADDI Bilateral CC and MLO view(s) were taken. Prior study comparison: January 04, 2019, bilateral MG 3d diag mammo w/cad MADDI. July 03, 2018, right breast MG diagnostic mammo RT w CAD. The breast tissue is heterogeneously dense. This may lower the sensitivity of mammography. Finding: Architectural distortion in the left breast. There is a chronic nodularity in the right breast, stable decreased in size. These results were verbally communicated with the patient and result sheet given to the patient on 02/25/20. ASSESSMENT: Benign, BI-RAD 2 RECOMMENDATION: Follow-up diagnostic mammogram of both breasts in 1 year.
== END | disposition home or self-care (01) ==
LOC: RADMAMWWP 12:50
PROVIDERS: ATTEND Surgery
DX: R92.8 Other abnormal and inconclusive findings on diagnostic imaging of breast (principal)
CPT/HCPCS: 77066; G0279; 77062

== ENCOUNTER → 2020-03-02 | Outpatient (CLI) | payer MEDICARE ==
[2020-03-02 10:39] VITALS: BP 156/67; PULSE 72; RESP 18; TEMP 97.5
--- NOTE | 2020-03-02 11:02 | P.PN ---
Subjective Progress Note Date: 03/02/20 Principal diagnosis: stage 0 left breast cancer Carol is an 79-year-old white female who is status post stereotactic core biopsy on [id number] and the pathology was ALHLCIS. [place] [id number]. Pathology from this revealed both DCIS and LCIS, ER/HI negative. Margins were free with the closest margin being 6 mm from the DCIS. She was seen by both medical and radiation oncology and did not receive any additional treatment. Her most recent mammogram this [id number]. This did not show any specific lesions of concern. There is chronic nodularity in the right breast this is felt to be benign BIRADS 2. At this time she is not complaining of any lumps masses or nodules in either breast. She has not had any recent breast trauma or infection. Caffeine: 1 cup/day Nicotine: Negative Theophylline:occasional Hormones: Negative Family history: Paternal grandmother with breast cancer at 75 Social history: Smoking: Negative Alcohol: Negative Drugs: Negative Hormonal history: Menstrual period started at 10 2 pregnancies she did not breast-feed her first was born at 23 Menopause at 48 She's -control pills for 5 years and did not use hormones Past surgical history: 1. Cholecystectomy 2. Cataract surgery as a child 3. left breast lumpectomy Past medical history: 1. 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 Hypertension 3. DM insulin dependant Review of systems: HEENT: Cataracts, glaucoma Lungs: Negative, sleep apnea Heart: Decreased function she is uncertain as to what, HTN GI: Negative : Decreased kidney function Musculoskeletal: Arthritis Endocrine: Diabetes neurologic: none psychiatri: none hematologic: none Skin: Negative ALLERGIES: Negative endicrone: diabetes Objective - Vital Signs Vital signs: Vital Signs Temp 97.5 F L 03/02/20 10:37 Pulse 72 03/02/20 10:37 Resp 18 03/02/20 10:37 BP 156/67 03/02/20 10:37 Pulse Ox 98 03/02/20 10:37 Intake & Output 03/01/20 03/02/20 03/02/20 18:59 06:59 18:59 Weight 99.79 kg - Exam BMI 39 - Constitutional General appearance: Present: obese - EENT Eyes: Present: EOMI ENT: Present: hearing grossly normal - Neck Neck: Present: normal ROM - Respiratory Respiratory: bilateral: CTA - Cardiovascular Rhythm: regular Heart sounds: normal: S1, S2 - Gastrointestinal General gastrointestinal: Present: normal bowel sounds, soft - Integumentary Integumentary: Present: normal turgor - Musculoskeletal Musculoskeletal: Present: gait normal - Psychiatric Psychiatric: Present: A&O x's 3, appropriate affect - Additional findings Additional findings: breast exam: 44DD inspection: A lateral grade 3 ptosis Palpation: Right breast: Multi-positional exam fibrocystic changes, no dominant masses or nodules of concern Right axilla: No adenopathy of concern left breast: Well-healed scars from prior surgery fibrocystic changes no dominant masses or nodules of concern Left axilla: No adenopathy of concern Under the left breast is fungal infection Assessment and Plan Assessment: Impression: 1. Diabetes 2. Hypertension 3. Fibrocystic breast changes 4. Stage 0 left breast cancer no evidence of residual or recurrent disease 5. Fungal infection in her left breast 6. Patient was seen by medical and radiation oncology and opted not to have additional treatment she is being followed closely 7. Recent bilateral mammogram 9 follow-up in 1 year Plan: 1. Bilateral mammogram in 1 year 2. Follow up here in 6 months just for breast examination 3. Nystatin 4. Follow-up sooner for questions or concerns CC: Vonda Mccall encounter 15 minutes, > 50% of time in planning and counselling
== END | disposition home or self-care (01) ==
LOC: WWCWWP 10:29
PROVIDERS: ATTEND Surgery
DX: Z53.9 Procedure and treatment not carried out, unspecified reason (principal)

== ENCOUNTER → 2020-08-31 | Outpatient (CLI) | payer MEDICARE ==
[2020-08-31 11:44] VITALS: BP 158/72; PULSE 65; RESP 18; TEMP 97.5
--- NOTE | 2020-08-31 12:05 | P.PN ---
Subjective Progress Note Date: 08/31/20 Principal diagnosis: DCIS left breast stage 0 left breast cancer Carol is an 79-year-old white female who [place] [address] and the pathology was ALHLCIS. [place] [address]. Pathology from this revealed both DCIS and LCIS, ER/MD negative. Margins were free with the closest margin being 6 mm from the DCIS. She was seen by both medical and radiation oncology and did not receive any additional treatment. Her most recent mammogram was [id number]. This did not show any specific lesions of concern. There is chronic nodularity in the right breast this is felt to be benign BIRADS 2. At this time she is not complaining of any lumps masses or nodules in either breast. She has not had any recent breast trauma or infection. Caffeine: 1 cup/day Nicotine: Negative Theophylline:occasional Hormones: Negative Family history: Paternal grandmother with breast cancer at 75 Social history: Smoking: Negative Alcohol: Negative Drugs: Negative Hormonal history: Menstrual period started at 10 2 pregnancies she did not breast-feed her first was born at 23 Menopause at 48 She's -control pills for 5 years and did not use hormones Past surgical history: 1. Cholecystectomy 2. Cataract surgery as a child 3. left breast lumpectomy Past medical history: 1. 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 Hypertension 3. DM insulin dependant Review of systems: HEENT: Cataracts, glaucoma Lungs: Negative, sleep apnea Heart: Decreased function she is uncertain as to what, HTN GI: Negative : Decreased kidney function Musculoskeletal: Arthritis Endocrine: Diabetes neurologic: none psychiatri: none hematologic: none Skin: Negative ALLERGIES: Negative endicrone: diabetes Objective - Vital Signs Vital signs: Vital Signs Temp 97.5 F L 08/31/20 11:40 Pulse 65 08/31/20 11:40 Resp 18 08/31/20 11:40 BP 158/72 08/31/20 11:40 Pulse Ox 98 08/31/20 11:40 Intake & Output 08/30/20 08/31/20 08/31/20 18:59 06:59 18:59 Weight 99.79 kg - Exam BMI 39 - Constitutional General appearance: Present: obese - EENT Eyes: Present: EOMI ENT: Present: hearing grossly normal - Neck Neck: Present: normal ROM - Respiratory Respiratory: bilateral: CTA - Cardiovascular Rhythm: regular Heart sounds: normal: S1, S2 - Gastrointestinal General gastrointestinal: Present: soft - Integumentary Integumentary: Present: normal turgor - Musculoskeletal Musculoskeletal Comment(s): uses a cane - Psychiatric Psychiatric: Present: A&O x's 3, appropriate affect, intact judgment & insight - Additional findings Additional findings: breast exam: BRA: 46DD inspection: Bilateral grade 3 ptosis, fungal infection starting under left medial breast Palpation: Right breast: Multi-positional exam fibrocystic changes no dominant masses or nodules of concern Right axilla: No adenopathy of concern Left breast multiple positional exam no dominant masses or nodules of concern, fibrocystic changes; well healed scar from prior lumpectomy, no evidence of recurrent cancer Left axilla: No adenopathy of concern Assessment and Plan Assessment: Impression: 1. 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 Hypertension 3. DM insulin dependant 4. fungal infection under left breast 5. Fibrocystic breast changes 6. No evidence of recurrent DCIS Plan: 1. Nystatin cream under left breast 2. Repeat bilateral mammogram January 2021 3. Follow-up. After repeat bilateral mammogram The patient is not taking any antihormone therapy her tumor was ER/MD negative, she did not have any radiation therapy. We have discussed that weight reduction may decrease estrogen levels in the body however her tumor was ER/MD negative. She is going to take this into consideration. COVID vaccine in left arm, last dose about 1 month ago Cc: Dr. Vonda Mccall
== END ==
LOC: WWCWWP 11:27
PROVIDERS: ATTEND Surgery
DX: N60.11 Diffuse cystic mastopathy of right breast (principal); N60.12 Diffuse cystic mastopathy of left breast; I10 Essential (primary) hypertension; E11.9 Type 2 diabetes mellitus without complications; B48.8 Other specified mycoses; R94.4 Abnormal results of kidney function studies; Z79.4 Long term (current) use of insulin

== ENCOUNTER → 2021-02-26 | Outpatient (CLI) | payer MEDICARE ==
--- NOTE | 2021-02-27 08:26 | MM ---
Reason for exam: additional evaluation requested from prior study. Last mammogram was performed 1 year ago. History: Patient is postmenopausal, has history of breast cancer at age 77, and has history of high-risk lesion on a previous biopsy at age 76. Family history of breast cancer in paternal grandmother at age 75. Malignant MG pre op needle loc LT of the left breast, November 04, 2017. Lumpectomy of the left breast, October 2017. High risk MG stereo VAD BX LT of the left breast, September 25, 2017. Benign excisional biopsy of the left breast. Benign excisional biopsy of the right breast. Physical Findings: Nurse did not find any significant physical abnormalities on exam. MG 3D Diag Mammo W/Cad MADDI Bilateral CC and MLO view(s) were taken. Prior study comparison: February 25, 2020, bilateral MG 3d diag mammo w/cad MADDI. January 04, 2019, bilateral MG 3d diag mammo w/cad MADDI. July 03, 2018, right breast MG diagnostic mammo RT w CAD. July 15, 2017, mammogram, performed at [facility]. There are scattered fibroglandular densities. Finding #1: Architectural distortion in the left breast consistent with prior biopsies. Finding #2: There are typically benign dystrophic calcifications in the left breast at site of previous biopsies. No significant changes in finding since February 25, 2020, January 04, 2019, July 03, 2018, and July 15, 2017. These results were verbally communicated with the patient and result sheet given to the patient on 02/26/21. ASSESSMENT: Probably benign, BI-RAD 3 RECOMMENDATION: Follow-up diagnostic mammogram of the left breast in 6 months.
== END | disposition home or self-care (01) ==
LOC: RADMAMWWP 13:05
PROVIDERS: ATTEND Internal Medicine
DX: R92.1 Mammographic calcification found on diagnostic imaging of breast (principal); Z80.3 Family history of malignant neoplasm of breast
CPT/HCPCS: 77066; G0279; 77062

== ENCOUNTER → 2021-08-27 | Outpatient (CLI) | payer MEDICARE ==
--- NOTE | 2021-08-27 13:55 | MM ---
Reason for exam: follow-up at short interval from prior study. Last mammogram was performed 6 months ago. History: Patient is postmenopausal, has history of breast cancer at age 77, and has history of high-risk lesion on a previous biopsy at age 76. Family history of breast cancer in paternal grandmother at age 75. Malignant MG pre op needle loc LT of the left breast, November 04, 2017. Lumpectomy of the left breast, October 2017. High risk MG stereo VAD BX LT of the left breast, September 25, 2017. Benign excisional biopsy of the left breast. Benign excisional biopsy of the right breast. Physical Findings: A clinical breast exam by your physician is recommended on an annual basis and results should be correlated with mammographic findings. MG 3D Diag Mammo W/Cad LT CC and MLO view(s) were taken of the left breast. Prior study comparison: February 26, 2021, bilateral MG 3d diag mammo w/cad MADDI. February 25, 2020, bilateral MG 3d diag mammo w/cad MADDI. The breast tissue is heterogeneously dense. This may lower the sensitivity of mammography. Stable dystrophic calcifications in the left breast. Stable post operative distortion left breast. Results were given to the patient verbally at the time of the exam. ASSESSMENT: Benign, BI-RAD 2 RECOMMENDATION: Routine screening mammogram of both breasts in 6 months. Back on schedule for February 2022.
== END | disposition home or self-care (01) ==
LOC: RADMAMWWP 13:11
PROVIDERS: ATTEND Surgery
DX: R92.1 Mammographic calcification found on diagnostic imaging of breast (principal); Z78.0 Asymptomatic menopausal state; Z85.3 Personal history of malignant neoplasm of breast; Z80.3 Family history of malignant neoplasm of breast
CPT/HCPCS: 77065; G0279; 77061

== ENCOUNTER 2021-10-09 14:25 | Inpatient (IN) | payer MEDICARE ==
--- NOTE | 2021-10-09 16:01 | XR ---
EXAMINATION TYPE: XR chest 2V DATE OF EXAM: 10/09/2021 COMPARISON: NONE HISTORY: Weakness and SOB TECHNIQUE: Frontal and lateral views of the chest are obtained. FINDINGS: Minimal infiltration is seen at the medial aspect of the right lung base, with linear atelectasis in the left lung base. Grossly unremarkable lungs otherwise. Small pleural effusions. No definite pneumothorax. Increased cardiac transverse diameter. Aortic athe rosclerotic calcifications. Degenerative changes of the lower cervical and thoracic spine. IMPRESSION: Questionable right medial basal pulmonary infiltration versus artifact, please correlate clinically. Otherwise no definite acute pulmonary abnormality identified.
--- NOTE | 2021-10-09 18:19 | ED ---
General Adult HPI - General Chief complaint: Weakness Stated complaint: SOB Time Seen by Provider: 10/09/21 17:21 Source: patient Mode of arrival: ambulatory Limitations: no limitations - History of Present Illness Initial comments: Patient is an 80-year-old female presenting with chief complaint of shortness of breath. Patient states that over the last few days she has had shortness of breath with ambulation. At rest she is asymptomatic. Today she noticed her symptoms acutely worsened, she was seen by her PCP who sent her to the ER for evaluation. She has a history of anemia as well as a history of coronary artery disease. Patient admits to urinary urgency and frequency. She denies any cough, chest pain, fever, chills, nausea, vomiting, palpitations, numbness, tingling, abdominal pain, diarrhea, dysuria, hematuria, back pain. - Related Data Home Medications Medication Instructions Recorded Confirmed Aspirin [Adult Low Dose Aspirin EC] 81 mg PO DAILY 01/16/17 10/09/21 Dorzolamide 2% [Trusopt 2%] 1 drops BOTH EYES BID 01/16/17 10/09/21 Ferrous Sulfate [Iron] 650 mg PO BID 01/16/17 10/09/21 Furosemide [Lasix] 40 mg PO DAILY 01/16/17 10/09/21 amLODIPine [Norvasc] 5 mg PO BID 01/16/17 10/09/21 Atorvastatin [Lipitor] 10 mg PO HS 09/09/17 10/09/21 Spironolactone [Aldactone] 25 mg PO DAILY 09/09/17 10/09/21 allopurinoL [Zyloprim] 100 mg PO HS 09/09/17 10/09/21 Acetaminophen [Tylenol Arthritis] 1,300 mg PO Q8HR 10/27/17 10/09/21 Famotidine [Pepcid] 20 mg PO BID 03/02/20 10/09/21 hydrALAZINE HCL 25 mg PO BID 08/31/20 10/09/21 Cholecalciferol [Vitamin D3 (25 50 mcg PO DAILY 10/09/21 10/09/21 Mcg = 1000 Iu)] Glucagon [Gvoke Pfs 1-Pack Syringe] 1 mg SQ ONCE PRN 10/09/21 10/09/21 Insulin Aspart [NovoLOG Flexpen] See Protocol SQ ACHS PRN 10/09/21 10/09/21 Insulin Glargine,Hum.rec.anlog 45 unit SQ DAILY 10/09/21 10/09/21 [Lantus Solostar Pen] Losartan Potassium 50 mg PO DAILY 10/09/21 10/09/21 Magnesium Oxide [Magox 400] 400 mg PO HS 10/09/21 10/09/21 Virt-Phos 250 Neutral 250 1 tab PO DAILY 10/09/21 10/09/21 calcitrioL [Calcitriol] 0.5 mcg PO SUWE 10/09/21 10/09/21 Allergies Allergy/AdvReac Type Severity Reaction Status Date / Time Penicillins Allergy Swelling Verified 10/09/21 15:06 Sulfa (Sulfonamide Allergy Swelling Verified 10/09/21 15:06 Antibiotics) Review of Systems ROS Statement: Those systems with pertinent positive or pertinent negative responses have been documented in the HPI. ROS Other: All systems not noted in ROS Statement are negative. Past Medical History Past Medical History: Coronary Artery Disease (CAD), Diabetes Mellitus, Hyperlipidemia, Hypertension, Osteoarthritis (OA), Renal Disease, Sleep Apnea/CPAP/BIPAP Additional Past Medical History / Comment(s): fast heart beat two months ago, sob, "blockage" in heart, decreased kidney function, low iron, has cpap History of Any Multi-Drug Resistant Organisms: None Reported Past Surgical History: Breast Surgery, Cholecystectomy Additional Past Surgical History / Comment(s): earle cataracts, mult earle eye surgeries, bilateral excisional biopsy-benign Past Anesthesia/Blood Transfusion Reactions: No Reported Reaction Past Psychological History: No Psychological Hx Reported Smoking Status: Never smoker Past Alcohol Use History: None Reported Past Drug Use History: None Reported - Past Family History Father Family Medical History: Deep Vein Thrombosis (DVT) General Exam Limitations: no limitations General appearance: alert, in no apparent distress Head exam: Present: atraumatic, normocephalic, normal inspection Eye exam: Present: normal appearance, EOMI. Absent: scleral icterus Neck exam: Present: normal inspection. Absent: tenderness, lymphadenopathy Respiratory exam: Present: rales (At the bases). Absent: respiratory distress, wheezes, rhonchi, stridor Cardiovascular Exam: Present: regular rate, normal rhythm, normal heart sounds. Absent: systolic murmur, diastolic murmur, rubs, gallop, clicks GI/Abdominal exam: Present: soft. Absent: distended, tenderness, guarding, rebound, rigid Neurological exam: Present: alert, oriented X3, CN II-XII intact Psychiatric exam: Present: normal affect, normal mood Skin exam: Present: warm, dry, intact, normal color. Absent: rash Course Vital Signs 10/09/21 10/09/21 10/09/21 15:03 17:39 18:16 Temperature 97.7 F Pulse Rate 78 79 Respiratory 18 18 18 Rate Blood Pressure 161/57 193/62 O2 Sat by Pulse 95 94 L Oximetry 10/09/21 10/09/21 20:53 22:03 Temperature Pulse Rate 82 75 Respiratory 18 18 Rate Blood Pressure 175/62 175/52 O2 Sat by Pulse 93 L 93 L Oximetry EKG Findings - EKG Comments: EKG Findings:: Sinus rhythm rate of 79. RI interval 159. QRS duration 93. There is no previous EKG for comparison. Medical Decision Making - Medical Decision Making Patient is an 80-year-old female presenting with chief complaint of shortness of breath. Patient states symptoms have been ongoing for the last several days, however today her symptoms acutely worsened. She was seen by her PCP who recommended evaluation in the ER. On examination lung bases are not clear to auscultation. Patient oxygen saturation is maintaining in the low 90's. WBC of 13, hemoglobin is 10.8. There is no previous EKG for comparison, current EKG shows some ST depression in T-wave abnormalities. BNP is 1370 and troponin is 0.130, and probably discussed these findings with my attending, who advised trending the troponins and scanning the chest for any pulmonary embolism, and not starting heparin at this time. BUN and creatinine are elevated at 30 and 1.17 respectively. Urine shows signs of contamination. Patient is negative for coronavirus and influenza. Chest x-ray shows questionable right mediobasal pulmonary infiltration. CTA of the chest shows no pulmonary embolism, there is cardiomegaly with bilateral pleural effusions and pulmonary vascular congestion. I spoke with Dr. Jewell from [facility] who agreed to admit the patient. Patient conveyed verbal understanding and agreed with the plan. I discussed this case with my attending Dr. Rodriguez. - Lab Data Result diagrams: 10/09/21 17:49 10/09/21 17:49 Lab Results 06/14/22 06/14/22 06/14/22 Range/Units 17:49 17:49 17:49 WBC 13.0 H (3.8-10.6) k/uL RBC 3.25 L (3.80-5.40) m/uL Hgb 10.8 L (11.4-16.0) gm/dL Hct 33.3 L (34.0-46.0) % MCV 102.3 H (80.0-100.0) fL MCH 33.3 (25.0-35.0) pg MCHC 32.5 (31.0-37.0) g/dL RDW 15.1 (11.5-15.5) % Plt Count 329 (150-450) k/uL MPV 7.5 Neutrophils % 81 % Lymphocytes % 12 % Monocytes % 4 % Eosinophils % 1 % Basophils % 0 % Neutrophils # 10.5 H (1.3-7.7) k/uL Lymphocytes # 1.6 (1.0-4.8) k/uL Monocytes # 0.6 (0-1.0) k/uL Eosinophils # 0.1 (0-0.7) k/uL Basophils # 0.1 (0-0.2) k/uL Macrocytosis Slight PT 10.0 (9.0-12.0) sec INR 0.9 (<1.2) APTT 18.5 L (22.0-30.0) sec Sodium (137-145) mmol/L Potassium (3.5-5.1) mmol/L Chloride (98-107) mmol/L Carbon Dioxide (22-30) mmol/L Anion Gap mmol/L BUN (7-17) mg/dL Creatinine (0.52-1.04) mg/dL Est GFR (CKD-EPI)AfAm (>60 ml/min/1.73 sqM) Est GFR (CKD-EPI)NonAf (>60 ml/min/1.73 sqM) Glucose (74-99) mg/dL Calcium (8.4-10.2) mg/dL Total Bilirubin (0.2-1.3) mg/dL AST (14-36) U/L ALT (4-34) U/L Alkaline Phosphatase (38-126) U/L Troponin I (0.000-0.034) ng/mL NT-Pro-B Natriuret Pep pg/mL Total Protein (6.3-8.2) g/dL Albumin (3.5-5.0) g/dL Urine Color Light Yellow Urine Appearance Clear (Clear) Urine pH 6.0 (5.0-8.0) Ur Specific [place] 1.016 (1.001-1.035) Urine Protein 3+ H (Negative) Urine Glucose (UA) 1+ H (Negative) Urine Ketones Negative (Negative) Urine Blood Trace H (Negative) Urine Nitrite Negative (Negative) Urine Bilirubin Negative (Negative) Urine Urobilinogen <2.0 (<2.0) mg/dL Ur Leukocyte Esterase Moderate H (Negative) Urine RBC 1 (0-5) /hpf Urine WBC 19 H (0-5) /hpf Ur Squamous Epith Cells 1 (0-4) /hpf Urine Mucus Rare H (None) /hpf Coronavirus (PCR) (Not Detectd) Influenza Type A RNA (Not Detectd) Influenza Type B (PCR) (Not Detectd) Blood Type Blood Type Confirm Blood Type Recheck Bld Type Recheck Status Antibody Screen Spec Expiration Date 10/09/21 10/09/21 10/09/21 Range/Units 17:49 17:49 17:49 WBC (3.8-10.6) k/uL RBC (3.80-5.40) m/uL Hgb (11.4-16.0) gm/dL Hct (34.0-46.0) % MCV (80.0-100.0) fL MCH (25.0-35.0) pg MCHC (31.0-37.0) g/dL RDW (11.5-15.5) % Plt Count (150-450) k/uL MPV Neutrophils % % Lymphocytes % % Monocytes % % Eosinophils % % Basophils % % Neutrophils # (1.3-7.7) k/uL Lymphocytes # (1.0-4.8) k/uL Monocytes # (0-1.0) k/uL Eosinophils # (0-0.7) k/uL Basophils # (0-0.2) k/uL Macrocytosis PT (9.0-12.0) sec INR (<1.2) APTT (22.0-30.0) sec Sodium 135 L (137-145) mmol/L Potassium 4.4 (3.5-5.1) mmol/L Chloride 111 H (98-107) mmol/L Carbon Dioxide 18 L (22-30) mmol/L Anion Gap 6 mmol/L BUN 30 H (7-17) mg/dL Creatinine 1.17 H (0.52-1.04) mg/dL Est GFR (CKD-EPI)AfAm 50 (>60 ml/min/1.73 sqM) Est GFR (CKD-EPI)NonAf 44 (>60 ml/min/1.73 sqM) Glucose 133 H (74-99) mg/dL Calcium 9.0 (8.4-10.2) mg/dL Total Bilirubin 1.4 H (0.2-1.3) mg/dL AST 24 (14-36) U/L ALT 20 (4-34) U/L Alkaline Phosphatase 111 (38-126) U/L Troponin I 0.130 H* (0.000-0.034) ng/mL NT-Pro-B Natriuret Pep 1370 pg/mL Total Protein 6.5 (6.3-8.2) g/dL Albumin 3.6 (3.5-5.0) g/dL Urine Color Urine Appearance (Clear) Urine pH (5.0-8.0) Ur Specific [place] (1.001-1.035) Urine Protein (Negative) Urine Glucose (UA) (Negative) Urine Ketones (Negative) Urine Blood (Negative) Urine Nitrite (Negative) Urine Bilirubin (Negative) Urine Urobilinogen (<2.0) mg/dL Ur Leukocyte Esterase (Negative) Urine RBC (0-5) /hpf Urine WBC (0-5) /hpf Ur Squamous Epith Cells (0-4) /hpf Urine Mucus (None) /hpf Coronavirus (PCR) (Not Detectd) Influenza Type A RNA (Not Detectd) Influenza Type B (PCR) (Not Detectd) Blood Type Blood Type Confirm Blood Type Recheck Bld Type Recheck Status Antibody Screen Spec Expiration Date 10/09/21 10/09/21 10/09/21 Range/Units 18:58 18:59 20:56 WBC (3.8-10.6) k/uL RBC (3.80-5.40) m/uL Hgb (11.4-16.0) gm/dL Hct (34.0-46.0) % MCV (80.0-100.0) fL MCH (25.0-35.0) pg MCHC (31.0-37.0) g/dL RDW (11.5-15.5) % Plt Count (150-450) k/uL MPV Neutrophils % % Lymphocytes % % Monocytes % % Eosinophils % % Basophils % % Neutrophils # (1.3-7.7) k/uL Lymphocytes # (1.0-4.8) k/uL Monocytes # (0-1.0) k/uL Eosinophils # (0-0.7) k/uL Basophils # (0-0.2) k/uL Macrocytosis PT (9.0-12.0) sec INR (<1.2) APTT (22.0-30.0) sec Sodium (137-145) mmol/L Potassium (3.5-5.1) mmol/L Chloride (98-107) mmol/L Carbon Dioxide (22-30) mmol/L Anion Gap mmol/L BUN (7-17) mg/dL Creatinine (0.52-1.04) mg/dL Est GFR (CKD-EPI)AfAm (>60 ml/min/1.73 sqM) Est GFR (CKD-EPI)NonAf (>60 ml/min/1.73 sqM) Glucose (74-99) mg/dL Calcium (8.4-10.2) mg/dL Total Bilirubin (0.2-1.3) mg/dL AST (14-36) U/L ALT (4-34) U/L Alkaline Phosphatase (38-126) U/L Troponin I (0.000-0.034) ng/mL NT-Pro-B Natriuret Pep pg/mL Total Protein (6.3-8.2) g/dL Albumin (3.5-5.0) g/dL Urine Color Urine Appearance (Clear) Urine pH (5.0-8.0) Ur Specific [place] (1.001-1.035) Urine Protein (Negative) Urine Glucose (UA) (Negative) Urine Ketones (Negative) Urine Blood (Negative) Urine Nitrite (Negative) Urine Bilirubin (Negative) Urine Urobilinogen (<2.0) mg/dL Ur Leukocyte Esterase (Negative) Urine RBC (0-5) /hpf Urine WBC (0-5) /hpf Ur Squamous Epith Cells (0-4) /hpf Urine Mucus (None) /hpf Coronavirus (PCR) (Not Detectd) Influenza Type A RNA Not Detected (Not Detectd) Influenza Type B (PCR) Not Detected (Not Detectd) Blood Type O Positive Blood Type Confirm O Positive Blood Type Recheck No Previous Record Bld Type Recheck Status CABO Indicated Antibody Screen NEGATIVE Spec Expiration Date 10/12/2021 - 235810/09/21 10/09/21 Range/Units 20:56 22:09 WBC (3.8-10.6) k/uL RBC (3.80-5.40) m/uL Hgb (11.4-16.0) gm/dL Hct (34.0-46.0) % MCV (80.0-100.0) fL MCH (25.0-35.0) pg MCHC (31.0-37.0) g/dL RDW (11.5-15.5) % Plt Count (150-450) k/uL MPV Neutrophils % % Lymphocytes % % Monocytes % % Eosinophils % % Basophils % % Neutrophils # (1.3-7.7) k/uL Lymphocytes # (1.0-4.8) k/uL Monocytes # (0-1.0) k/uL Eosinophils # (0-0.7) k/uL Basophils # (0-0.2) k/uL Macrocytosis PT (9.0-12.0) sec INR (<1.2) APTT (22.0-30.0) sec Sodium (137-145) mmol/L Potassium (3.5-5.1) mmol/L Chloride (98-107) mmol/L Carbon Dioxide (22-30) mmol/L Anion Gap mmol/L BUN (7-17) mg/dL Creatinine (0.52-1.04) mg/dL Est GFR (CKD-EPI)AfAm (>60 ml/min/1.73 sqM) Est GFR (CKD-EPI)NonAf (>60 ml/min/1.73 sqM) Glucose (74-99) mg/dL Calcium (8.4-10.2) mg/dL Total Bilirubin (0.2-1.3) mg/dL AST (14-36) U/L ALT (4-34) U/L Alkaline Phosphatase (38-126) U/L Troponin I 0.146 H* (0.000-0.034) ng/mL NT-Pro-B Natriuret Pep pg/mL Total Protein (6.3-8.2) g/dL Albumin (3.5-5.0) g/dL Urine Color Urine Appearance (Clear) Urine pH (5.0-8.0) Ur Specific [place] (1.001-1.035) Urine Protein (Negative) Urine Glucose (UA) (Negative) Urine Ketones (Negative) Urine Blood (Negative) Urine Nitrite (Negative) Urine Bilirubin (Negative) Urine Urobilinogen (<2.0) mg/dL Ur Leukocyte Esterase (Negative) Urine RBC (0-5) /hpf Urine WBC (0-5) /hpf Ur Squamous Epith Cells (0-4) /hpf Urine Mucus (None) /hpf Coronavirus (PCR) Not Detected (Not Detectd) Influenza Type A RNA (Not Detectd) Influenza Type B (PCR) (Not Detectd) Blood Type Blood Type Confirm Blood Type Recheck Bld Type Recheck Status Antibody Screen Spec Expiration Date Disposition Clinical Impression: CHF (congestive heart failure) Disposition: ADMITTED IP TO THIS [facility] Condition: Fair Time of Disposition: 22:32 Decision to Admit Reason: Admit from EC Decision Date: 10/09/21 Decision Time: 22:32
[2021-10-09 19:11] LABS: Basophils # (A) 0.1 k/uL (0-0.2); Basophils % (A) 0 %; Eosinophils # (A) 0.1 k/uL (0-0.7); Eosinophils % (A) 1 %; HCT 33.3 % (34.0-46.0); HGB 10.8 gm/dL (11.4-16.0); Lymphocytes # (A) 1.6 k/uL (1.0-4.8); Lymphocytes % (A) 12 %; MCH 33.3 pg (25.0-35.0); MCHC 32.5 g/dL (31.0-37.0); MCV 102.3 fL (80.0-100.0); Macrocytosis Slight; Mean Platelet Volume 7.5; Monocytes # (A) 0.6 k/uL (0-1.0); Monocytes % (A) 4 %; Neutrophils # (A) 10.5 k/uL (1.3-7.7); Neutrophils % (A) 81 %; Platelet Count 329 k/uL (150-450); RBC 3.25 m/uL (3.80-5.40); RDW 15.1 % (11.5-15.5)
[2021-10-09 19:19] LABS: Albumin 3.6 g/dL (3.5-5.0); Potassium 4.4 mmol/L (3.5-5.1); Total Bilirubin 1.4 mg/dL (0.2-1.3); Total Protein 6.5 g/dL (6.3-8.2)
[2021-10-09 19:36] LABS: INR 0.9 (<1.2)
[2021-10-09 19:55] LABS: Partial Thromboplastin Time 18.5 sec (22.0-30.0)
[2021-10-09] MEDS ORDERED: ASPIRIN 81 MG PO STA (19:55)
[2021-10-09] MEDS ORDERED: SODIUM CHLORIDE 0.9% 1,000 ML IV ONE (21:30)
--- NOTE | 2021-10-09 22:08 | CT ---
EXAMINATION TYPE: CT chest angio for PE CT DLP: 802.8 mGycm, Automated exposure control for dose reduction was used. DATE OF EXAM: 10/09/2021 9:52 PM COMPARISON: None CLINICAL INDICATION:Female, 80 years old with history of Shortness of breath; TECHNIQUE/CONTRAST: CTA scan of the thorax is performed with IV Contrast, patient injected with 80 mL of Isovue 370, pulm onary embolism protocol. MIP images are created and reviewed. FINDINGS: Pulmonary Artery: There is no evidence for a filling defect within the pulmonary vasculature to sugge st acute pulmonary embolism. The pulmonary artery is of normal size. Lungs/Pleura: Trace bilateral pleural effusions with thickening of the intralobular septa. Scattered mosaic/groundglass is seen throughout the lungs. No pneumothorax. Airway: Large airways are patent. Heart: Heart is enlarged for size. Coronary artery atherosclerosis. Vasculature: No evidence of aortic aneurysm. Mediastinum: No gross evidence of adenopathy. Small hiatal hernia. Musculoskeletal: Mild degenerative disc disease changes are present throughout the thoracolumbar spin e. Soft Tissues: Surgical clips in the left breast. Lower neck: No significant findings. Upper Abdomen: There is a prominent thoracic duct noted at the aortic hiatus. IMPRESSION: 1. No evidence of pulmonary embolism. 2. Cardiomegaly with bilateral pleural effusions and pulmonary vascular congestion. Correlate for con gestive heart failure. 3. Small hiatal hernia.
[2021-10-09 22:24] LABS: Appearance,Urine Clear (Clear); Bilirubin,Urine Negative (Negative); Blood,Urine Trace (Negative); Color,Urine Light Yellow; Glucose,Urine (UA) 1+ (Negative); Ketones,Urine Negative (Negative); Leukocyte Esterase,Urine Moderate (Negative); Mucus,Urine Rare /hpf; Nitrite,Urine Negative (Negative); Protein,Urine 3+ (Negative); RBC,Urine 1 /hpf (0-5); Specific Gravity,Urine 1.016 (1.001-1.035); Squamous Epithelial Cell,Urine 1 /hpf (0-4); Urobilinogen,Urine <2.0 mg/dL (<2.0); WBC,Urine 19 /hpf (0-5)
[2021-10-09] MEDS ORDERED: NALOXONE 0.4 MG/ML 1 ML VIAL IV PRN (22:29)
[2021-10-10] MEDS ORDERED: ATORVASTATIN 80 MG TAB PO STA (00:18)
--- NOTE | 2021-10-10 00:19 | P.HPIM ---
History of Present Illness H&P Date: 10/09/21 The patient is an 78-year-old female with a PMH of CHF (unknown type), type II DM, hypertension, hyperlipidemia, chronic kidney disease who presents to the emergency room for complaints of shortness of breath. The patient reports that her symptoms have been gradually worsening over the past 1 week, and that she was seen at her PCP earlier today. The patient was noted to be hypoxic upon ambulation, with SpO2 following into the low 80s, for which she was sent to the emergency room. Patient reports feeling somewhat better at the time of interview. She reports mildly worsened bilateral ankle swelling She reports compliance with her home Lasix as well as her other medications and diet. She d enies experiencing chest discomfort, nausea, vomiting, diaphoresis, palpitations, cough, fever, or chills. She does sleep in a recliner due to her chronic shoulder pain. Denies PND. Chest CT in the emergency room revealed findings consistent with congestive heart failure. Laboratory evaluation was remarkable for WBC count 13, hemoglobin 10.8, MCV 102.3, troponin 0.130, proBNP 1370, BUN 30, creatinine 1.17, coronavirus and influenza testing negative. EKG revealed Review of systems: Pertinent positives and negatives as discussed in HPI, a complete review of systems was performed and all other systems are negative. Physical examination: General: non toxic, no distress, appears at stated age, obese Derm: no unusual rashes/lesions, warm Head: atraumatic, normocephalic, symmetric Eyes: EOMI, no lid lag, anicteric sclera, pupils equal round reactive to light ENT: Nose and ears atraumatic Neck: No cervical lymphadenopathy, trachea midline, supple Mouth: no lip lesion, mucus membranes moist Cardiovascular: S1S2 reg, no murmur, positive dorsalis pedis pulse bilateral, 1+ bilateral lower extremity pitting edema Lungs: Bibasilar rales, no wheezing appreciated, no accessory muscle use Abdominal: soft, nontender to palpation, no guarding Ext: muscle strength 5 out of 5 in all 4 extremities grossly, no gross muscle atrophy, no contractures, Neuro: CN II-XI grossly intact, no gross focal neuro deficits Psych: Alert, oriented, appropriate affect Assessment/plan Acute hypoxic respiratory failure secondary to CHF exacerbation -Continue with Lasix -Cardiology consult -Cardiac monitoring -Intake and output -Daily weights -Fluid restriction Elevated troponin, suspected due to ongoing CHF exacerbation -Continue to trend for now -Cardiac monitoring -Continue with aspirin and statin Macrocytic anemia -At baseline -Check B12 and folate levels Chronic conditions: Chronic kidney disease, type II DM, hypertension, hyperlipidemia -Insulin sliding scale and blood glucose monitoring -Continue with home meds DVT prophylaxis -Heparin subcu The patient is admitted with an anticipated greater than 2 midnight stay for evaluation of CHF exacerbation CODE STATUS: Full Code Discussed with: Patient, Daughter Anticipated discharge date: 10/[address]: Home Past Medical History Past Medical History: Coronary Artery Disease (CAD), Diabetes Mellitus, Hyperlipidemia, Hypertension, Osteoarthritis (OA), Renal Disease, Sleep A pnea/CPAP/BIPAP Additional Past Medical History / Comment(s): fast heart beat two months ago, sob, "blockage" in heart, decreased kidney function, low iron, has cpap History of Any Multi-Drug Resistant Organisms: None Reported Past Surgical History: Breast Surgery, Cholecystectomy Additional Past Surgical History / Comment(s): earle cataracts, mult earle eye surgeries, bilateral excisional biopsy-benign Past Anesthesia/Blood Transfusion Reactions: No Reported Reaction Past Psychological History: No Psychological Hx Reported Smoking Status: Never smoker Past Alcohol Use History: None Reported Past Drug Use History: None Reported - Past Family History Father Family Medical History: Deep Vein Thrombosis (DVT) Medications and Allergies Home Medications Medication Instructions Recorded Confirmed Type Aspirin [Adult Low Dose Aspirin EC] 81 mg PO DAILY 01/16/17 10/09/21 History Dorzolamide 2% [Trusopt 2%] 1 drops BOTH EYES BID 01/16/17 10/09/21 History Ferrous Sulfate [Iron] 650 mg PO BID 01/16/17 10/09/21 History Furosemide [Lasix] 40 mg PO DAILY 01/16/17 10/09/21 History amLODIPine [Norvasc] 5 mg PO BID 01/16/17 10/09/21 History Atorvastatin [Lipitor] 10 mg PO HS 09/09/17 10/09/21 History Spironolactone [Aldactone] 25 mg PO DAILY 09/09/17 10/09/21 History allopurinoL [Zyloprim] 100 mg PO HS 09/09/17 10/09/21 History Acetaminophen [Tylenol Arthritis] 1,300 mg PO Q8HR 10/27/17 10/09/21 History Famotidine [Pepcid] 20 mg PO BID 03/02/20 10/09/21 History hydrALAZINE HCL 25 mg PO BID 08/31/20 10/09/21 History Cholecalciferol [Vitamin D3 (25 50 mcg PO DAILY 10/09/21 10/09/21 History Mcg = 1000 Iu)] Glucagon [Gvoke Pfs 1-Pack Syringe] 1 mg SQ ONCE PRN 10/09/21 10/09/21 History Insulin Aspart [NovoLOG Flexpen] See Protocol SQ ACHS PRN 10/09/21 10/09/21 History Insulin Glargine,Hum.rec.anlog 45 unit SQ DAILY 10/09/21 10/09/21 History [Lantus Solostar Pen] Losartan Potassium 50 mg PO DAILY 10/09/21 10/09/21 History Magnesium Oxide [Magox 400] 400 mg PO HS 10/09/21 10/09/21 History Virt-Phos 250 Neutral 250 1 tab PO DAILY 10/09/21 10/09/21 History calcitrioL [Calcitriol] 0.5 mcg PO SUWE 10/09/21 10/09/21 History Allergies Allergy/AdvReac Type Severity Reaction Status Date / Time Penicillins Allergy Swelling Verified 10/09/21 15:06 Sulfa (Sulfonamide Allergy Swelling Verified 10/09/21 15:06 Antibiotics) Physical Exam Vitals: Vital Signs Temp Pulse Resp BP Pulse Ox 10/09/21 22:03 75 18 175/52 93 L 10/09/21 20:53 82 18 175/62 93 L 10/09/21 18:16 79 18 193/62 94 L 10/09/21 17:39 18 10/09/21 15:03 97.7 F 78 18 161/57 95 Intake and Output 10/09/21 10/09/21 10/10/21 14:59 22:59 06:59 Other: Weight 95.254 kg Results CBC & Chem 7: 10/09/21 17:49 10/09/21 17:49 Labs: Abnormal Lab Results - Last 24 Hours (Table) 10/09/21 10/09/21 10/09/21 Range/Units 17:49 17:49 17:49 WBC 13.0 H (3.8-10.6) k/uL RBC 3.25 L (3.80-5.40) m/uL Hgb 10.8 L (11.4-16.0) gm/dL Hct 33.3 L (34.0-46.0) % MCV 102.3 H (80.0-100.0) fL Neutrophils # 10.5 H (1.3-7.7) k/uL APTT 18.5 L (22.0-30.0) sec Sodium (137-145) mmol/L Chloride (98-107) mmol/L Carbon Dioxide (22-30) mmol/L BUN (7-17) mg/dL Creatinine (0.52-1.04) mg/dL Glucose (74-99) mg/dL Total Bilirubin (0.2-1.3) mg/dL Troponin I (0.000-0.034) ng/mL Urine Protein 3+ H (Negative) Urine Glucose (UA) 1+ H (Negative) Urine Blood Trace H (Negative) Ur Leukocyte Esterase Moderate H (Negative) Urine WBC 19 H (0-5) /hpf Urine Mucus Rare H (None) /hpf 10/09/21 10/09/21 10/09/21 Range/Units 17:49 17:49 22:09 WBC (3.8-10.6) k/uL RBC (3.80-5.40) m/uL Hgb (11.4-16.0) gm/dL Hct (34.0-46.0) % MCV (80.0-100.0) fL Neutrophils # (1.3-7.7) k/uL APTT (22.0-30.0) sec Sodium 135 L (137-145) mmol/L Chloride 111 H (98-107) mmol/L Carbon Dioxide 18 L (22-30) mmol/L BUN 30 H (7-17) mg/dL Creatinine 1.17 H (0.52-1.04) mg/dL Glucose 133 H (74-99) mg/dL Total Bilirubin 1.4 H (0.2-1.3) mg/dL Troponin I 0.130 H* 0.146 H* (0.000-0.034) ng/mL Urine Protein (Negative) Urine Glucose (UA) (Negative) Urine Blood (Negative) Ur Leukocyte Esterase (Negative) Urine WBC (0-5) /hpf Urine Mucus (None) /hpf
[2021-10-10] MEDS: FUROSEMIDE 10 MG/ML 4 ML VIAL IV SCH ×3 (00:58→21:30)
[2021-10-10 07:45] LABS: Glucose,Whole Blood 148 mg/dL (75-99)
[2021-10-10 07:50] LABS: Basophils # (A) 0.1 k/uL (0-0.2); Basophils % (A) 1 %; Eosinophils # (A) 0.1 k/uL (0-0.7); Eosinophils % (A) 1 %; HCT 35.2 % (34.0-46.0); HGB 10.9 gm/dL (11.4-16.0); Lymphocytes # (A) 0.7 k/uL (1.0-4.8); Lymphocytes % (A) 6 %; MCH 31.6 pg (25.0-35.0); MCHC 30.8 g/dL (31.0-37.0); MCV 102.5 fL (80.0-100.0); Macrocytosis Slight; Mean Platelet Volume 7.1; Monocytes # (A) 0.5 k/uL (0-1.0); Monocytes % (A) 4 %; Neutrophils # (A) 10.3 k/uL (1.3-7.7); Neutrophils % (A) 87 %; Platelet Count 306 k/uL (150-450); RBC 3.44 m/uL (3.80-5.40); RDW 14.2 % (11.5-15.5); WBC 11.8 k/uL (3.8-10.6)
[2021-10-10] MEDS: INSULIN ASPART (NovoLOG) 100 UNIT/ML VIAL SQ SCH ×4 (07:59→21:29)
[2021-10-10] MEDS: HEPARIN SODIUM,PORCINE/PF 5,000 UNIT/0.5 ML SYRINGE SQ SCH ×2 (08:00→16:46)
[2021-10-10 08:04] LABS: Albumin 3.8 g/dL (3.5-5.0); Calcium 9.2 mg/dL (8.4-10.2); Potassium 4.1 mmol/L (3.5-5.1); Total Bilirubin 1.7 mg/dL (0.2-1.3); Total Protein 6.7 g/dL (6.3-8.2)
[2021-10-10] MEDS: ASPIRIN 81 MG PO SCH (08:04)
[2021-10-10] MEDS: SPIRONOLACTONE 25 MG TAB PO SCH (08:05)
[2021-10-10] MEDS: LOSARTAN 50 MG TAB PO SCH (08:06)
[2021-10-10] MEDS: amLODIPine 5 MG TAB PO SCH ×2 (08:06→21:29)
[2021-10-10] MEDS: hydrALAZINE HCL 25 MG TAB PO SCH ×2 (08:06→21:29)
--- NOTE | 2021-10-10 08:34 | P.CRDCN ---
History of Present Illness Consult reason: non-Q-wave [place], congestive heart failure History of present illness: 80-year-old lady with multiple medical problems including hypertension diabetes dyslipidemia coronary artery disease on medical therapy presented to Hospital with symptoms of not feeling well and shortness of breath. She has been feeling short of breath for the last several days and has episodes of diarrhea and nausea yesterday. She went to see her primary care physician and was told to come to the emergency room and get admitted. She was found to be in congestive heart failure with ST-T wave changes of ischemia and the EKG and mildly elevated troponin. She had been treated with IV Lasix with significant improvement in his symptoms. At the time of my evaluation she is oxygenating well on vent res piratory distress has mild leg edema and some wheezing bilaterally. Her clinical presentation is consistent with acute onset congestive heart failure and acute non-ST segment elevation [place] she had a cardiac catheterization in 2017 that revealed heavily calcified vessels including mild left Main coron jessica artery disease that we opted to manage medically. The plan at this stage is to treat her with IV diuretics optimal medical therapy IV heparin and consider cardiac catheterization on. Her creatinine is slightly elevated at 1.27 into the cardiac catheter tomorrow or the day after. Patient had a computed tomography scan of the chest that was negative for pulmonary embolism revealed cardiomegaly with bilateral mild pleural effusions Constitutional: Denies chills. Denies fever. Patient complained of not feeling well Eyes: Denies blurred vision. Denies pain. Ears, nose, mouth and throat: Denies headache. Denies sore throat. Cardiovascular: Denies chest pain. Denies shortness of breath. Respiratory: Denies cough. Complains of shortness of breath Gastrointestinal: Denies abdominal pain. Had diarrhea. Denies nausea. Denies vomiting. Musculoskeletal: Denies myalgias. Integumentary: Denies pruritus. Denies rash. Neurological: Denies numbness. Denies weakness. Psychiatric: Denies anxiety. Denies depression. Endocrine: Denies fatigue. Denies weight change. Genitourinary: Denies burning, hematuria, frequency of urination. Hematological: No anemia or excess bleeding. General: The patient is awake and alert, in no distress, and does not appear acutely ill. Skin: Skin is warm and dry and no rashes or lesions are noted. Eye: Pupils are equal, round and reactive to light, extra-ocular movements are intact; there is normal conjunctiva bilaterally. Ears, nose, mouth and throat: There are moist mucous membranes and no oral lesions. Neck: The neck is supple, there is no tenderness or JVD. Cardiovascular: There is a regular rate and rhythm. No murmur, rub or gallop is appreciated. Respiratory: Bilateral mild expiratory wheezes. Gastrointestinal: Soft, non-distended, non-tender abdomen without masses or organomegaly noted. There is no rebound or guarding present. Bowel sounds are unremarkable. Back: There is no tenderness to palpation in the midline. There is no obvious deformity. Musculoskeletal: Normal ROM, no tenderness, There is no pedal edema. There is no calf tenderness or swelling. Extremities: Bilateral 1+ edema Vascular: Femoral pulse is normal. Posterior tibial pulses are normal .Dorsalis pedis is palpable. Neurological: CN II-XII intact. There are no obvious motor or sensory deficits. Speech is normal. Psychiatric: Cooperative, appropriate mood & affect, normal judgment. Assessment and plan: Acute onset congestive heart failure Acute non-ST segment elevation [place] Coronary artery disease and medical therapy Hypertension Six-wtexbky-wyggdwtzf diabetes I will treat the patient with IV Lasix aspirin and Lipitor Norvasc continue the Cozaar that she is on will add Toprol-XL 25 mg daily I will start the patient and IV heparin Check an echocardiogram Possible cardiac cath over the next 48 hours we will watch the renal functions Past Medical History Past Medical History: Coronary Artery Disease (CAD), Diabetes Mellitus, Hyperlipidemia, Hypertension, Osteoarthritis (OA), Renal Disease, Sleep Apnea/CPAP/BIPAP Additional Past Medical History / Comment(s): fast heart beat two months ago, sob, "blockage" in heart, decreased kidney function, low iron, has cpap History of Any Multi-Drug Resistant Organisms: None Reported Past Surgical History: Breast Surgery, Cholecystectomy Additional Past Surgical History / Comment(s): earle cataracts, mult earle eye surgeries, bilateral excisional biopsy-benign Past Anesthesia/Blood Transfusion Reactions: No Reported Reaction Past Psychological History: No Psychological Hx Reported Smoking Status: Never smoker Past Alcohol Use History: None Reported Past Drug Use History: None Reported - Past Family History Father Family Medical History: Deep Vein Thrombosis (DVT) Medications and Allergies Home Medications Medication Instructions Recorded Confirmed Type Aspirin [Adult Low Dose Aspirin EC] 81 mg PO DAILY 01/16/17 10/09/21 History Dorzolamide 2% [Trusopt 2%] 1 drops BOTH EYES BID 01/16/17 10/09/21 History Ferrous Sulfate [Iron] 650 mg PO BID 01/16/17 10/09/21 History Furosemide [Lasix] 40 mg PO DAILY 01/16/17 10/09/21 History amLODIPine [Norvasc] 5 mg PO BID 01/16/17 10/09/21 History Atorvastatin [Lipitor] 10 mg PO HS 09/09/17 10/09/21 History Spironolactone [Aldactone] 25 mg PO DAILY 09/09/17 10/09/21 History allopurinoL [Zyloprim] 100 mg PO HS 09/09/17 10/09/21 History Acetaminophen [Tylenol Arthritis] 1,300 mg PO Q8HR 10/27/17 10/09/21 History Famotidine [Pepcid] 20 mg PO BID 03/02/20 10/09/21 History hydrALAZINE HCL 25 mg PO BID 08/31/20 10/09/21 History Cholecalciferol [Vitamin D3 (25 50 mcg PO DAILY 10/09/21 10/09/21 History Mcg = 1000 Iu)] Glucagon [Gvoke Pfs 1-Pack Syringe] 1 mg SQ ONCE PRN 10/09/21 10/09/21 History Insulin Aspart [NovoLOG Flexpen] See Protocol SQ ACHS PRN 10/09/21 10/09/21 History Insulin Glargine,Hum.rec.anlog 45 unit SQ DAILY 10/09/21 10/09/21 History [Lantus Solostar Pen] Losartan Potassium 50 mg PO DAILY 10/09/21 10/09/21 History Magnesium Oxide [Magox 400] 400 mg PO HS 10/09/21 10/09/21 History Virt-Phos 250 Neutral 250 1 tab PO DAILY 10/09/21 10/09/21 History calcitrioL [Calcitriol] 0.5 mcg PO SUWE 10/09/21 10/09/21 History Allergies Allergy/AdvReac Type Severity Reaction Status Date / Time Penicillins Allergy Swelling Verified 10/09/21 15:06 Sulfa (Sulfonamide Allergy Swelling Verified 10/09/21 15:06 Antibiotics) Physical Exam Vitals: Vital Signs Temp Pulse Resp BP Pulse Ox 10/10/21 04:00 98.0 F 70 20 142/49 95 10/10/21 02:57 74 24 141/41 90 L 10/10/21 00:53 97.0 F L 77 18 153/52 90 L 10/09/21 22:03 75 18 175/52 93 L 10/09/21 20:53 82 18 175/62 93 L 10/09/21 18:16 79 18 193/62 94 L 10/09/21 17:39 18 10/09/21 15:03 97.7 F 78 18 161/57 95 Intake and Output 10/09/21 10/10/21 10/10/21 22:59 06:59 14:59 Other: Weight 95.254 kg Results 10/10/21 07:24 10/10/21 07:24 Cardiac Enzymes 10/09/21 10/09/21 10/09/21 Range/Units 17:49 17:49 22:09 AST 24 (14-36) U/L Troponin I 0.130 H* 0.146 H* (0.000-0.034) ng/mL 10/10/21 10/10/21 Range/Units 00:34 07:24 AST 23 (14-36) U/L Troponin I 0.132 H* (0.000-0.034) ng/mL Coagulation 10/09/21 Range/Units 17:49 PT 10.0 (9.0-12.0) sec APTT 18.5 L (22.0-30.0) sec CBC 10/09/21 10/10/21 Range/Units 17:49 07:24 WBC 13.0 H 11.8 H (3.8-10.6) k/uL RBC 3.25 L 3.44 L (3.80-5.40) m/uL Hgb 10.8 L 10.9 L (11.4-16.0) gm/dL Hct 33.3 L 35.2 (34.0-46.0) % Plt Count 329 306 (150-450) k/uL Comprehensive Metabolic Panel 10/09/21 10/10/21 Range/Units 17:49 07:24 Sodium 135 L 138 (137-145) mmol/L Potassium 4.4 4.1 (3.5-5.1) mmol/L Chloride 111 H 109 H (98-107) mmol/L Carbon Dioxide 18 L 18 L (22-30) mmol/L BUN 30 H 29 H (7-17) mg/dL Creatinine 1.17 H 1.27 H (0.52-1.04) mg/dL Glucose 133 H 156 H (74-99) mg/dL Calcium 9.0 9.2 (8.4-10.2) mg/dL AST 24 23 (14-36) U/L ALT 20 19 (4-34) U/L Alkaline Phosphatase 111 114 (38-126) U/L Total Protein 6.5 6.7 (6.3-8.2) g/dL Albumin 3.6 3.8 (3.5-5.0) g/dL Current Medications Generic Name Dose Route Start Last Admin Trade Name Freq PRN Reason Stop Dose Admin Acetaminophen 650 mg 10/09/21 22:29 Acetaminophen Tab 325 Mg Tab PO Q6HR PRN Mild Pain or Fever > 100.5 Amlodipine Besylate 5 mg 10/10/21 09:00 10/10/21 08:06 Amlodipine 5 Mg Tab PO 5 mg BID LUMA Administration Aspirin 81 mg 10/10/21 09:00 10/10/21 08:04 Aspirin 81 Mg PO 81 mg DAILY LUMA Administration Atorvastatin Calcium 10 mg 10/10/21 21:00 Atorvastatin 10 Mg Tab PO HS LUMA Famotidine 20 mg 10/10/21 09:00 10/10/21 08:05 Famotidine 20 Mg Tab PO 20 mg BID LUMA Administration Furosemide 40 mg 10/10/21 00:15 10/10/21 08:17 Furosemide 10 Mg/Ml 4 Ml Vial IV 40 mg Q12HR LUMA Administration Heparin Sodium (Porcine) 5,000 unit 10/10/21 08:00 10/10/21 08:00 Heparin Sodium,Porcine/Pf 5,000 Unit/0.5 Ml Syringe SQ 5,000 unit Q8HR LUMA Administration Hydralazine HCl 25 mg 10/10/21 09:00 10/10/21 08:06 Hydralazine Hcl 25 Mg Tab PO 25 mg BID LUMA Administration Insulin Aspart 0 unit 10/10/21 07:30 10/10/21 07:59 Insulin Aspart (Novolog) 100 Unit/Ml Vial SQ 1 unit ACHS LUMA Administration Protocol Losartan Potassium 50 mg 10/10/21 09:00 10/10/21 08:06 Losartan 50 Mg Tab PO 50 mg DAILY LUMA Administration Naloxone HCl 0.2 mg 10/09/21 22:29 Naloxone 0.4 Mg/Ml 1 Ml Vial IV Q2M PRN Opioid Reversal Spironolactone 25 mg 10/10/21 09:00 10/10/21 08:05 Spironolactone 25 Mg Tab PO 25 mg DAILY LUMA Administration Intake and Output 10/09/21 10/10/21 10/10/21 22:59 06:59 14:59 Other: Weight 95.254 kg 10/10/21 07:24 10/10/21 07:24
[2021-10-10] MEDS ORDERED: FAMOTIDINE 20 MG TAB PO SCH (09:00)
[2021-10-10] MEDS ORDERED: FUROSEMIDE 40 MG TAB PO SCH (09:00)
[2021-10-10 10:11] LABS: INR 0.9 (<1.2); Partial Thromboplastin Time 25.5 sec (22.0-30.0); Prothrombin Time 10.3 sec (9.0-12.0)
--- NOTE | 2021-10-10 11:39 | CA ---
Transthoracic Echo Report Name: Carol Cruz Age: 80 Gender: F : 1940 Exam Date: 10/10/2021 08:17 Exam Location: [facility] Ht (in): 61 Wt (lb): 200 Ordering Physician: Royal Jewell MD Attending/Referring Phys: Leeann Bhatia MD ([id number]) Photographic Spotter Petty Frias RDCS Procedure CPT: Indications: chf Cardiac Hx: HTN, Hyperlipidemia. Technical Quality: Fair Contrast 1: Total Dose (mL): Contrast 2: Total Dose (mL): MEASUREMENTS (Male / Female) Normal Values 2D ECHO LV Diastolic Diameter PLAX 4.5 cm 4.2 - 5.9 / 3.9 - 5.3 cm LV Systolic Diameter PLAX 2.8 cm IVS Diastolic Thickness 1.2 cm 0.6 - 1.0 / 0.6 - 0.9 cm LVPW Diastolic Thickness 1.2 cm 0.6 - 1.0 / 0.6 - 0.9 cm LV Relative Wall Thickness 0.5 RV Internal Dim ED PLAX 2.5 cm LA Systolic Diameter LX 3.7 cm 3.0 - 4.0 / 2.7 - 3.8 cm LA Volume 45.3 cm??? 18 - 58 / 22 - 52 cm??? M-MODE Aortic Root Diameter MM 2.6 cm MV E Point Septal Separation 0.5 cm AV Cusp Separation MM 1.9 cm DOPPLER AV Peak Velocity 199.7 cm/s AV Peak Gradient 16.0 mmHg AV Mean Velocity 133.3 cm/s AV Mean Gradient 8.2 mmHg AV Velocity Time Integral 41.2 cm MV E' Velocity 7.4 cm/s TR Peak Velocity 389.2 cm/s TR Peak Gradient 60.6 mmHg Right Ventricular Systolic Press 64.5 mmHg FINDINGS Left Ventricle Left ventricular ejection fraction is estimated at 55-60 %. Left ventricular cavity size normal. Borderline left ventricular hypertrophy. Right Ventricle Normal right ventricular size and function. Severe pulmonary hypertension. Right Atrium Normal right atrial size. Left Atrium Normal left atrial size. No evidence for an atrial septal defect. Mitral Valve Structurally normal mitral valve. No mitral stenosis, regurgitation or prolapse. Aortic Valve Trileaflet aortic valve. No aortic valve stenosis or regurgitation. Tricuspid Valve Mild tricuspid regurgitation. Pulmonic Valve Structurally normal pulmonic valve. Pericardium Normal pericardium. No pericardial effusion. Aorta Normal size aortic root and proximal ascending aorta. CONCLUSIONS Normal LV size and systolic function. There is moderate to severe pulmonary hypertension. No pericardial effusion Previewed by: Dr. Wm Lobato MD (Electronically Signed) Final Date: 10 October 2021 11:38
[2021-10-10 12:18] LABS: Glucose,Whole Blood 276 mg/dL (75-99)
--- NOTE | 2021-10-10 14:39 | P.PN ---
Subjective Progress Note Date: 10/10/21 History of present illness: The patient is an 78-year-old female with a PMH of CHF (unknown type), type II DM, hypertension, hyperlipidemia, chronic kidney disease who presents to the emergency room for complaints of shortness of breath. The patient reports that her symptoms have been gradually worsening over the past 1 week, and that she was seen at her PCP earlier today. The patient was noted to be hypoxic upon ambulation, with SpO2 following into the low 80s, for which she was sent to the emergency room. Patient reports feeling somewhat better at the time of interview. She reports mildly worsened bilateral ankle swelling She reports compliance with her home Lasix as well as her other medications and diet. She denies experiencing chest discomfort, nausea, vomiting, diaphoresis, palpitations, cough, fever, or chills. She does sleep in a recliner due to her chronic shoulder pain. Denies PND. Chest CT in the emergency room revealed findings consistent with congestive heart failure. Laboratory evaluation was remarkable for WBC count 13, hemoglobin 10.8, MCV 102.3, troponin 0.130, proBNP 1370, BUN 30, creatinine 1.17, coronavirus and influenza testing negative. EKG revealed. Interval history: Patient was seen and examined at the bedside. She denies any chest pain. Patient was seen by cardiology and started on IV heparin. Per Cardiology note the patient be scheduled for left heart cath and next 24-48 hours Physical examination: General: non toxic, no distress, appears at stated age Derm: warm, dry Head: atraumatic, normocephalic, symmetric Eyes: EOMI, no lid lag, anicteric sclera Mouth: no lip lesion, mucus membranes moist Cardiovascular: S1S2 reg, no murmur, positive posterior tibial pulse bilateral, Lungs: CTA bilateral, no rhonchi, no rales , no accessory muscle use Abdominal: soft, nontender to palpation, no guarding, no appreciable organomegaly Ext: no gross muscle atrophy, no edema, no contractures Neuro: CN II-XI grossly intact, no focal neuro deficits Psych: Alert, oriented, appropriate affect Assessment and plan: #Acute hypoxic respiratory failure secondary to acute preserved ejection fraction CHF exacerbation. -Continue with Lasix -Cardiology consult -Degree echo showed normal LV size and systolic function. EF 55-60%. Moderate to severe pulmonary hypertension. No pericardial effusion -Cardiac monitoring -Intake and output -Daily weights -Fluid restriction #NSTEMI -Cardiology started patient IV heparin -Continue to trend for now -Cardiac monitoring -Continue with aspirin and statin #Macrocytic anemia -At baseline -Normal B12 is 351 #Chronic conditions: Chronic kidney disease, type II DM, hypertension, hyperlipidemia -Insulin sliding scale and blood glucose monitoring -Continue with home meds #DVT prophylaxis -Patient IV heparin Objective - Vital Signs Vital signs: Vital Signs Temp 98.0 F 10/10/21 04:00 Pulse 70 10/10/21 04:00 Resp 20 10/10/21 04:00 BP 142/49 10/10/21 04:00 Pulse Ox 95 10/10/21 04:00 FiO2 Intake & Output 10/09/21 10/10/21 10/10/21 18:59 06:59 18:59 Weight 95.254 kg - Labs CBC & Chem 7: 10/10/21 07:24 10/10/21 07:24 Labs: Abnormal Lab Results - Last 24 Hours (Table) 10/09/21 10/09/21 10/09/21 Range/Units 17:49 17:49 17:49 WBC 13.0 H (3.8-10.6) k/uL RBC 3.25 L (3.80-5.40) m/uL Hgb 10.8 L (11.4-16.0) gm/dL Hct 33.3 L (34.0-46.0) % MCV 102.3 H (80.0-100.0) fL MCHC (31.0-37.0) g/dL Neutrophils # 10.5 H (1.3-7.7) k/uL Lymphocytes # (1.0-4.8) k/uL APTT 18.5 L (22.0-30.0) sec Sodium (137-145) mmol/L Chloride (98-107) mmol/L Carbon Dioxide (22-30) mmol/L BUN (7-17) mg/dL Creatinine (0.52-1.04) mg/dL Glucose (74-99) mg/dL POC Glucose (mg/dL) (75-99) mg/dL Total Bilirubin (0.2-1.3) mg/dL Troponin I (0.000-0.034) ng/mL Urine Protein 3+ H (Negative) Urine Glucose (UA) 1+ H (Negative) Urine Blood Trace H (Negative) Ur Leukocyte Esterase Moderate H (Negative) Urine WBC 19 H (0-5) /hpf Urine Mucus Rare H (None) /hpf 10/09/21 10/09/21 10/09/21 Range/Units 17:49 17:49 22:09 WBC (3.8-10.6) k/uL RBC (3.80-5.40) m/uL Hgb (11.4-16.0) gm/dL Hct (34.0-46.0) % MCV (80.0-100.0) fL MCHC (31.0-37.0) g/dL Neutrophils # (1.3-7.7) k/uL Lymphocytes # (1.0-4.8) k/uL APTT (22.0-30.0) sec Sodium 135 L (137-145) mmol/L Chloride 111 H (98-107) mmol/L Carbon Dioxide 18 L (22-30) mmol/L BUN 30 H (7-17) mg/dL Creatinine 1.17 H (0.52-1.04) mg/dL Glucose 133 H (74-99) mg/dL POC Glucose (mg/dL) (75-99) mg/dL Total Bilirubin 1.4 H (0.2-1.3) mg/dL Troponin I 0.130 H* 0.146 H* (0.000-0.034) ng/mL Urine Protein (Negative) Urine Glucose (UA) (Negative) Urine Blood (Negative) Ur Leukocyte Esterase (Negative) Urine WBC (0-5) /hpf Urine Mucus (None) /hpf 10/10/21 10/10/21 10/10/21 Range/Units 00:34 07:24 07:24 WBC 11.8 H (3.8-10.6) k/uL RBC 3.44 L (3.80-5.40) m/uL Hgb 10.9 L (11.4-16.0) gm/dL Hct (34.0-46.0) % MCV 102.5 H (80.0-100.0) fL MCHC 30.8 L (31.0-37.0) g/dL Neutrophils # 10.3 H (1.3-7.7) k/uL Lymphocytes # 0.7 L (1.0-4.8) k/uL APTT (22.0-30.0) sec Sodium (137-145) mmol/L Chloride 109 H (98-107) mmol/L Carbon Dioxide 18 L (22-30) mmol/L BUN 29 H (7-17) mg/dL Creatinine 1.27 H (0.52-1.04) mg/dL Glucose 156 H (74-99) mg/dL POC Glucose (mg/dL) (75-99) mg/dL Total Bilirubin 1.7 H (0.2-1.3) mg/dL Troponin I 0.132 H* (0.000-0.034) ng/mL Urine Protein (Negative) Urine Glucose (UA) (Negative) Urine Blood (Negative) Ur Leukocyte Esterase (Negative) Urine WBC (0-5) /hpf Urine Mucus (None) /hpf 10/10/21 10/10/21 Range/Units 07:42 12:17 WBC (3.8-10.6) k/uL RBC (3.80-5.40) m/uL Hgb (11.4-16.0) gm/dL Hct (34.0-46.0) % MCV (80.0-100.0) fL MCHC (31.0-37.0) g/dL Neutrophils # (1.3-7.7) k/uL Lymphocytes # (1.0-4.8) k/uL APTT (22.0-30.0) sec Sodium (137-145) mmol/L Chloride (98-107) mmol/L Carbon Dioxide (22-30) mmol/L BUN (7-17) mg/dL Creatinine (0.52-1.04) mg/dL Glucose (74-99) mg/dL POC Glucose (mg/dL) 148 H 276 H (75-99) mg/dL Total Bilirubin (0.2-1.3) mg/dL Troponin I (0.000-0.034) ng/mL Urine Protein (Negative) Urine Glucose (UA) (Negative) Urine Blood (Negative) Ur Leukocyte Esterase (Negative) Urine WBC (0-5) /hpf Urine Mucus (None) /hpf Microbiology - Last 24 Hours (Table) 10/09/21 17:49 Urine Culture - Preliminary Urine,Voided
[2021-10-10 16:45] LABS: Glucose,Whole Blood 130 mg/dL (70-110)
[2021-10-10] MEDS ORDERED: HEPARIN SODIUM 1,000 UN/ML (10ML VL) IV ONE ×3 (18:35→19:15)
[2021-10-10] MEDS ORDERED: HEPARIN SODIUM 1,000 UN/ML (10ML VL) IV PRN (18:43)
[2021-10-10] MEDS ORDERED: HEPARIN SOD,PORK IN 0.45% NACL 25,000 UNIT in 0.45% NACL 1 250ML.BAG IV SCH (18:45)
[2021-10-10] MEDS ORDERED: HEPARIN SOD,PORK IN 0.45% NACL 25,000 UNIT in 0.45% NACL 1 250ML.BAG IV ONE (19:00)
[2021-10-10 20:29] LABS: Glucose,Whole Blood 270 mg/dL (70-110)
[2021-10-10] MEDS: ATORVASTATIN 10 MG TAB PO SCH (21:30)
[2021-10-10] MEDS: HEPARIN SOD,PORK IN 0.45% NACL 25,000 UNIT in 0.45% NACL 1 250ML.BAG IV SCH (21:30)
[2021-10-10 23:06] LABS: Chol/HDL Ratio 1.86 Ratio; LDL Cholesterol,Calculated 43.2 mg/dL (0.0-131.0); VLDL Calculation 14.68 mg/dL (5.00-40.00)
[2021-10-11] MEDS: INSULIN ASPART (NovoLOG) 100 UNIT/ML VIAL SQ SCH ×4 (06:57→20:28)
[2021-10-11 06:58] LABS: Glucose,Whole Blood 128 mg/dL (70-110)
[2021-10-11] MEDS ORDERED: FAMOTIDINE 20 MG TAB PO SCH (09:00)
[2021-10-11 09:11] LABS: Basophils % (A) 0 %; Eosinophils # (A) 0.1 k/uL (0-0.7); Eosinophils % (A) 1 %; HCT 33.2 % (34.0-46.0); HGB 10.6 gm/dL (11.4-16.0); Lymphocytes # (A) 1.2 k/uL (1.0-4.8); Lymphocytes % (A) 13 %; MCH 32.9 pg (25.0-35.0); MCHC 31.9 g/dL (31.0-37.0); MCV 103.1 fL (80.0-100.0); Macrocytosis Slight; Mean Platelet Volume 7.3; Monocytes # (A) 0.5 k/uL (0-1.0); Monocytes % (A) 5 %; Neutrophils # (A) 7.6 k/uL (1.3-7.7); Neutrophils % (A) 79 %; Platelet Count 317 k/uL (150-450); RBC 3.22 m/uL (3.80-5.40); RDW 14.9 % (11.5-15.5); WBC 9.6 k/uL (3.8-10.6)
[2021-10-11 09:23] LABS: INR 0.9 (<1.2)
[2021-10-11 09:34] LABS: Potassium 4.2 mmol/L (3.5-5.1)
[2021-10-11] MEDS: FAMOTIDINE 20 MG TAB PO SCH (10:01)
[2021-10-11] MEDS: LOSARTAN 50 MG TAB PO SCH (10:01)
[2021-10-11] MEDS: hydrALAZINE HCL 25 MG TAB PO SCH (10:01)
[2021-10-11] MEDS: amLODIPine 5 MG TAB PO SCH ×2 (10:01→20:27)
[2021-10-11] MEDS: ASPIRIN 81 MG PO SCH (10:01)
[2021-10-11] MEDS: FUROSEMIDE 10 MG/ML 4 ML VIAL IV SCH (10:01)
[2021-10-11] MEDS: SPIRONOLACTONE 25 MG TAB PO SCH (10:01)
[2021-10-11] MEDS: ACETAMINOPHEN TAB 325 MG TAB PO PRN ×2 (10:04→20:33)
[2021-10-11 11:56] LABS: Glucose,Whole Blood 188 mg/dL (70-110)
--- NOTE | 2021-10-11 12:20 | P.PN ---
Subjective Progress Note Date: 10/11/21 80-year-old lady with multiple medical problems including hypertension diabetes dyslipidemia coronary artery disease on medical therapy presented to Hospital with symptoms of not feeling well and shortness of breath. She has been feeling short of breath for the last several days and has episodes of diarrhea and nausea yesterday. She went to see her primary care physician and was told to come to the emergency room and get admitted. She was found to be in congestive heart failure with ST-T wave changes of ischemia and the EKG and mildly elevated troponin. Today patient is resting comfortably in the chair. She denies shortness of breath or chest pain. Patient's kidney function continues to worsen creatinine is 1.6 and BUN is 40 today. Will decrease Lasix to 40 mg daily and discontinue spironolactone. Will increase hydralazine to 50 mg 3 times a day and initiate nitro paste. Will continue to monitor kidney function once improved patient will undergo a heart catheterization with Dr. Bhatia. She is to be nothing by mouth at midnight for possible heart cath tomorrow Objective - Vital Signs Vital signs: Vital Signs Temp 97.7 F 10/11/21 08:00 Pulse 68 10/11/21 08:00 Resp 18 10/11/21 08:00 BP 168/67 10/11/21 08:00 Pulse Ox 99 10/11/21 08:00 FiO2 Intake & Output 10/10/21 10/11/21 10/11/21 18:59 06:59 18:59 Intake Total 47.333 Output Total 450 Balance -402.667 Weight 96.4 kg Intake: Intake, IV Titration 47.333 Amount Heparin Sod,Pork in 0.45% 47.333 NaCl 25,000 unit In 0.45 % NaCl 1 250ml.bag @ 10. 498 UNITS/KG/HR 10 mls/hr IV .Q24H [facility] Rx#: [id number] Output: Urine 450 Other: Voiding Method External Catheter # Voids 1 - Exam PHYSICAL EXAM: VITAL SIGNS: Reviewed. GENERAL: Well-developed in no acute distress. HEENT: Head is normocephalic. Pupils are equal, round. Sclerae anicteric. Mucous membranes of the mouth are moist. NECK: Supple. No JVD or thyromegaly RESPIRATORY: Respirations even and unlabored. Lungs diminished to auscultation bilaterally. CARDIO: Regular rate and rhythm. S1 and S2 heard. No murmur or gallops. EXTREMITIES: Normal range of motion. No clubbing or cyanosis. Peripheral pulses intact. Negative for bilateral lower extremity edema NEURO: Orientated to person, time, mood is appropriate - Labs CBC & Chem 7: 10/11/21 08:39 10/11/21 08:39 Labs: Abnormal Lab Results - Last 24 Hours (Table) 10/10/21 10/10/21 10/10/21 Range/Units 07:24 07:24 12:17 RBC (3.80-5.40) m/uL Hgb (11.4-16.0) gm/dL Hct (34.0-46.0) % MCV (80.0-100.0) fL APTT (22.0-30.0) sec Chloride (98-107) mmol/L Carbon Dioxide (22-30) mmol/L BUN (7-17) mg/dL Creatinine (0.52-1.04) mg/dL Glucose (74-99) mg/dL POC Glucose (mg/dL) 276 H (75-99) mg/dL Hemoglobin A1c 7.5 H (0.0-6.0) % HDL Cholesterol 67.10 H (40.00-60.00) mg/dL 10/10/21 10/10/21 10/11/21 Range/Units 16:43 20:27 00:27 RBC (3.80-5.40) m/uL Hgb (11.4-16.0) gm/dL Hct (34.0-46.0) % MCV (80.0-100.0) fL APTT 70.0 H (22.0-30.0) sec Chloride (98-107) mmol/L Carbon Dioxide (22-30) mmol/L BUN (7-17) mg/dL Creatinine (0.52-1.04) mg/dL Glucose (74-99) mg/dL POC Glucose (mg/dL) 130 H 270 H (75-99) mg/dL Hemoglobin A1c (0.0-6.0) % HDL Cholesterol (40.00-60.00) mg/dL 10/11/21 10/11/21 10/11/21 Range/Units 06:55 08:39 08:39 RBC 3.22 L (3.80-5.40) m/uL Hgb 10.6 L (11.4-16.0) gm/dL Hct 33.2 L (34.0-46.0) % MCV 103.1 H (80.0-100.0) fL APTT (22.0-30.0) sec Chloride 109 H (98-107) mmol/L Carbon Dioxide 20 L (22-30) mmol/L BUN 40 H (7-17) mg/dL Creatinine 1.61 H (0.52-1.04) mg/dL Glucose 156 H (74-99) mg/dL POC Glucose (mg/dL) 128 H (75-99) mg/dL Hemoglobin A1c (0.0-6.0) % HDL Cholesterol (40.00-60.00) mg/dL 10/11/21 10/11/21 Range/Units 08:39 11:54 RBC (3.80-5.40) m/uL Hgb (11.4-16.0) gm/dL Hct (34.0-46.0) % MCV (80.0-100.0) fL APTT 54.0 H (22.0-30.0) sec Chloride (98-107) mmol/L Carbon Dioxide (22-30) mmol/L BUN (7-17) mg/dL Creatinine (0.52-1.04) mg/dL Glucose (74-99) mg/dL POC Glucose (mg/dL) 188 H (75-99) mg/dL Hemoglobin A1c (0.0-6.0) % HDL Cholesterol (40.00-60.00) mg/dL Microbiology - Last 24 Hours (Table) 10/09/21 17:49 Urine Culture - Final Urine,Voided Assessment and Plan Assessment: Acute onset diastolic congestive heart failure Acute non-ST segment elevation SD Coronary artery disease and medical therapy Hypertension [id number] diabetes Plan: Decrease Lasix to 40 mg daily, discontinue spironolactone due to worsening kidney function Increase hydralazine to 50 mg 3 times a day due to elevated blood pressure. Start 1 inch of Nitropaste Continue with all other current cardiac medications Continue with telemetry monitoring Further recommendations based on clinical course The above impression and plan of care have been discussed and directed by the signing physician. Megan Prescott, nurse practitioner, acting as scribe for signing physician.
--- NOTE | 2021-10-11 13:12 | CDI ---
Documentation Clarification Form Date: 10/11/2021 12:59:23 PM From: Carol CamposBOUBACAR, CCDS Admit Date: 10/09/2021 10:44:00 PM Patient Name: Carol Cruz Visit Number: [id number] Discharge Date: ATTENTION: The Clinical Documentation Specialists (CDI) and [facility] Coding Staff appreciate your assistance in clarifying documentation. Please respond to the clarification below the line at the bottom and electronically sign. The CDI & [facility] Coding staff will review the response and follow-up if needed. Please note: Queries are made part of the Legal Health Record. If you have any questions, please contact the author of this message via ITS. Dr. Vamshi Kaye: Chronic Kidney Disease without further specificity of stage is documented in the 10/09 History & Physical and in the 10/11 Attending Progress Note. Per the 10/11 Cardiology Progress Note: Patient's kidney function continues to worsen, Creatinine is 1.6 and BUN is 40 today. Will decrease Lasix to 40 mg daily and discontinue Spironolactone. Will increase hydralazine to 50 mg 3 times a day and initiate Nitro paste. Will continue to monitor kidney function once improved patient will undergo a heart catheterization with Dr. Bhatia.She is to be nothing by mouth at midnight for possible heart cath tomorrow. Additional clarification regarding the stage of CKD is requested. History/Risk Factors per the 10/09 H/P: CHF, IDDM II, Hypertension, Hyperlipidemia, CKD, CAD, Osteoarthritis, Sleep Apnea. Clinical Indicators: Presented to the ED on 10/09 with Weakness and SOB with ambulation. Seen by her PCP and was sent to the ED for evaluation. History of anemia & CAD and admits to urinary urgency & frequency. Admit with Congestive Heart Failure. LAB: 10/09 BUN: 30. Creatinine 1.17 10/10 BUN: 29. Creatinine 1.27 10/11 BUN: 40. Creatinine 1.61 GFR: 10/09: 44. 10/10: 40. 10/11: 30 Historical GFR: 09/04/2017: 37. 04/13/2018: 42.9; 01/08/2019: 32.6. 10/10/2020: 25.9. 12/27/2020: 29.7. Treatment 10/09: Blood Glucose monitoring, Cardiology Consult, po Aspirin 324 mg x1, IV Na Chl 1,000 mls @ 999 mls/hr q1H, po Tylenol 650 mg q6H/prn, IV Lasix 40 mg q12H 10/10: PO Aspirin, Pepcid, Lasix (40 mg Daily), Apresoline, Cozaar, Alactone, IV Heparin. 10/11: po Pepcid, Apresoline, Nitropaste, IV Lasix 40 mg Daily. Nephrology is not consulted. Please clarify the stage of the CKD, if known: [ ] CKD Stage 3 (GFR 30-59) [ ] CKD Stage 3a (GFR 45-59) [ ] CKD Stage 3b (GFR 30-44) [ ] CKD Stage 4 (GFR 15-29) [ ] Other, please specify [ ] Unable to determine (Template Last revised: May 2020) 10/12 Query response documented in 10/11 Attending Physician Progress Note (Dr Kaye): DEBO on CKD III. (CDS: GOLDIE) MTDD
--- NOTE | 2021-10-11 13:18 | P.PN ---
Subjective History of present illness: The patient is an 78-year-old female with a PMH of CHF (unknown type), type II DM, hypertension, hyperlipidemia, chronic kidney disease who presents to the emergency room for complaints of shortness of breath. The patient reports that her symptoms have been gradually worsening over the past 1 week, and that she was seen at her PCP earlier today. The patient was noted to be hypoxic upon ambulation, with SpO2 following into the low 80s, for which she was sent to the emergency room. Patient reports feeling somewhat better at the time of interview. She reports mildly worsened bilateral ankle swelling She reports compliance with her home Lasix as well as her other medications and diet. She denies experiencing chest discomfort, nausea, vomiting, diaphoresis, palpitations, cough, fever, or chills. She does sleep in a recliner due to her chronic shoulder pain. Denies PND. Chest CT in the emergency room revealed findings consistent with congestive heart failure. Laboratory evaluation was remarkable for WBC count 13, hemoglobin 10.8, MCV 102.3, troponin 0.130, proBNP 1370, BUN 30, creatinine 1.17, coronavirus and influenza testing negative. EKG revealed. Interval history: Patient was seen and examined at the bedside. She denies any chest pain. She reports improvement in her breathing. She still on oxygen currently on 3 L Physical examination: General: non toxic, no distress, appears at stated age Derm: warm, dry Head: atraumatic, normocephalic, symmetric Eyes: EOMI, no lid lag, anicteric sclera Mouth: no lip lesion, mucus membranes moist Cardiovascular: S1S2 reg, no murmur, positive posterior tibial pulse bilateral, Lungs: CTA bilateral, no rhonchi, no rales , no accessory muscle use Abdominal: soft, nontender to palpation, no guarding, no appreciable organomegaly Ext: 2+ pitting edema bilaterally Neuro: CN II-XI grossly intact, no focal neuro deficits Psych: Alert, oriented, appropriate affect Assessment and plan: #Acute hypoxic respiratory failure secondary to acute preserved ejection fraction CHF exacerbation. -Lasix was decreased to 40 mg once daily teeth worsening kidney function -Cardiology added hydralazine 50 mg 3 times daily due to uncontrolled blood pressure -Degree echo showed normal LV size and systolic function. EF 55-60%. Moderate to severe pulmonary hypertension. No pericardial effusion -Cardiac monitoring -Intake and output -Daily weights -Fluid restriction #Mildly elevated troponin -Cardiology ordered IV heparin -Continue to trend for now -Cardiac monitoring -Continue with aspirin and statin #Acute kidney injury -Underlying chronic kidney disease stage III -Could be a combination off over diuresis and recently used IV contrast with CT of the chest on October 09 -[employer] decrease Lasix to 40 mg once daily -Consult nephrology #Macrocytic anemia -At baseline -Normal B12 is 351 #Uncontrolled hypertension -Cardiology added hydralazine -Patient on losartan consider discontinuing due to worsening kidney function would leave this decision and nephrology #Dyslipidemia -Insulin sliding scale and blood glucose monitoring -Continue with home meds #DVT prophylaxis -patient on heparin - Objective - Vital Signs Vital signs: Vital Signs Temp 97.7 F 10/11/21 08:00 Pulse 64 10/11/21 12:00 Resp 18 10/11/21 12:00 BP 128/70 10/11/21 12:00 Pulse Ox 97 10/11/21 12:00 FiO2 Intake & Output 10/10/21 10/11/21 10/11/21 18:59 06:59 18:59 Intake Total 47.333 Output Total 450 Balance -402.667 Weight 96.4 kg Intake: Intake, IV Titration 47.333 Amount Heparin Sod,Pork in 0.45% 47.333 NaCl 25,000 unit In 0.45 % NaCl 1 250ml.bag @ 10. 498 UNITS/KG/HR 10 mls/hr IV .Q24H [facility] Rx#: [id number] Output: Urine 450 Other: Voiding Method External Catheter # Voids 1 - Labs CBC & Chem 7: 10/11/21 08:39 10/11/21 08:39 Labs: Abnormal Lab Results - Last 24 Hours (Table) 10/10/21 10/10/21 10/10/21 Range/Units 07:24 07:24 16:43 RBC (3.80-5.40) m/uL Hgb (11.4-16.0) gm/dL Hct (34.0-46.0) % MCV (80.0-100.0) fL APTT (22.0-30.0) sec Chloride (98-107) mmol/L Carbon Dioxide (22-30) mmol/L BUN (7-17) mg/dL Creatinine (0.52-1.04) mg/dL Glucose (74-99) mg/dL POC Glucose (mg/dL) 130 H (70-110) mg/dL Hemoglobin A1c 7.5 H (0.0-6.0) % HDL Cholesterol 67.10 H (40.00-60.00) mg/dL 10/10/21 10/11/21 10/11/21 Range/Units 20:27 00:27 06:55 RBC (3.80-5.40) m/uL Hgb (11.4-16.0) gm/dL Hct (34.0-46.0) % MCV (80.0-100.0) fL APTT 70.0 H (22.0-30.0) sec Chloride (98-107) mmol/L Carbon Dioxide (22-30) mmol/L BUN (7-17) mg/dL Creatinine (0.52-1.04) mg/dL Glucose (74-99) mg/dL POC Glucose (mg/dL) 270 H 128 H (70-110) mg/dL Hemoglobin A1c (0.0-6.0) % HDL Cholesterol (40.00-60.00) mg/dL 10/11/21 10/11/21 10/11/21 Range/Units 08:39 08:39 08:39 RBC 3.22 L (3.80-5.40) m/uL Hgb 10.6 L (11.4-16.0) gm/dL Hct 33.2 L (34.0-46.0) % MCV 103.1 H (80.0-100.0) fL APTT 54.0 H (22.0-30.0) sec Chloride 109 H (98-107) mmol/L Carbon Dioxide 20 L (22-30) mmol/L BUN 40 H (7-17) mg/dL Creatinine 1.61 H (0.52-1.04) mg/dL Glucose 156 H (74-99) mg/dL POC Glucose (mg/dL) (70-110) mg/dL Hemoglobin A1c (0.0-6.0) % HDL Cholesterol (40.00-60.00) mg/dL 10/11/21 Range/Units 11:54 RBC (3.80-5.40) m/uL Hgb (11.4-16.0) gm/dL Hct (34.0-46.0) % MCV (80.0-100.0) fL APTT (22.0-30.0) sec Chloride (98-107) mmol/L Carbon Dioxide (22-30) mmol/L BUN (7-17) mg/dL Creatinine (0.52-1.04) mg/dL Glucose (74-99) mg/dL POC Glucose (mg/dL) 188 H (70-110) mg/dL Hemoglobin A1c (0.0-6.0) % HDL Cholesterol (40.00-60.00) mg/dL Microbiology - Last 24 Hours (Table) 10/09/21 17:49 Urine Culture - Final Urine,Voided
[2021-10-11 16:57] LABS: Glucose,Whole Blood 207 mg/dL (70-110)
[2021-10-11] MEDS: hydrALAZINE HCL 50 MG TAB PO SCH ×2 (17:14→20:27)
[2021-10-11] MEDS: NITROGLYCERIN OINT 1 INCH/GM PACKET TOPICAL SCH ×2 (17:14→23:36)
[2021-10-11] MEDS: HEPARIN SOD,PORK IN 0.45% NACL 25,000 UNIT in 0.45% NACL 1 250ML.BAG IV SCH (17:14)
[2021-10-11 20:26] LABS: Glucose,Whole Blood 223 mg/dL (70-110)
[2021-10-11] MEDS: ATORVASTATIN 10 MG TAB PO SCH (20:27)
[2021-10-11] MEDS ORDERED: NITROGLYCERIN OINT 1 INCH/GM PACKET TOPICAL ONE (23:35)
[2021-10-12 06:25] LABS: Glucose,Whole Blood 195 mg/dL (70-110)
[2021-10-12] MEDS: INSULIN ASPART (NovoLOG) 100 UNIT/ML VIAL SQ SCH ×4 (06:44→20:14)
[2021-10-12] MEDS: amLODIPine 5 MG TAB PO SCH ×2 (08:16→20:14)
[2021-10-12] MEDS: NITROGLYCERIN OINT 1 INCH/GM PACKET TOPICAL SCH ×3 (08:16→23:03)
[2021-10-12] MEDS: LOSARTAN 50 MG TAB PO SCH (08:17)
[2021-10-12] MEDS: hydrALAZINE HCL 50 MG TAB PO SCH ×3 (08:17→20:14)
[2021-10-12] MEDS: FAMOTIDINE 20 MG TAB PO SCH (08:17)
[2021-10-12] MEDS: FUROSEMIDE 10 MG/ML 4 ML VIAL IV SCH (08:17)
[2021-10-12] MEDS: ACETAMINOPHEN TAB 325 MG TAB PO PRN ×2 (08:17→22:18)
[2021-10-12] MEDS: ASPIRIN 81 MG PO SCH (08:17)
[2021-10-12 10:24] LABS: Basophils # (A) 0.1 k/uL (0-0.2); Basophils % (A) 1 %; Eosinophils # (A) 0.1 k/uL (0-0.7); Eosinophils % (A) 1 %; HCT 29.3 % (34.0-46.0); HGB 9.8 gm/dL (11.4-16.0); Lymphocytes # (A) 1.7 k/uL (1.0-4.8); Lymphocytes % (A) 19 %; MCH 33.7 pg (25.0-35.0); MCHC 33.4 g/dL (31.0-37.0); Macrocytosis Slight; Mean Platelet Volume 7.4; Monocytes # (A) 0.4 k/uL (0-1.0); Monocytes % (A) 5 %; Neutrophils # (A) 6.3 k/uL (1.3-7.7); Neutrophils % (A) 72 %; Platelet Count 295 k/uL (150-450); RDW 14.3 % (11.5-15.5); WBC 8.7 k/uL (3.8-10.6)
--- NOTE | 2021-10-12 10:27 | P.NPCON ---
History of Present Illness - Reason for Consult acute renal failure - History of Present Illness Patient is an 80-year-old female with history of hypertension, diabetes, dyslipidemia, chronic kidney disease NKF stage IIIa with previous creatinine around 1.2-1.3 mg/dL secondary to nephrosclerosis. Patient was admitted to the hospital with complaints of shortness of breath. She did report an episode of nausea and diarrhea as well prior to admission. Patient was noted to be in CHF she did have ST-T wave changes and ruled in for acute non-ST elevation [place]. Patient had a chest CTA done on 10/09/2021 No episodes of hypotension reported Serum creatinine was 1.17 on initial admission increased to 1.6 today. Patient stated she did have some difficulty in passing urine and had to stand up to be able to empty her bladder. There are plans for possible cardiac catheterization. Patient is currently chest pain-free. Review of Systems Assessment HPI Past Medical History Past Medical History: Coronary Artery Disease (CAD), Diabetes Mellitus, Hyperlipidemia, Hypertension, Osteoarthritis (OA), Renal Disease, Sleep Apnea/CPAP/BIPAP Additional Past Medical History / Comment(s): SOB, "watching a valve" in heart, decreased kidney function, low iron, has cpap History of Any Multi-Drug Resistant Organisms: None Reported Past Surgical History: Breast Surgery, Cholecystectomy, Heart Catheterization Additional Past Surgical History / Comment(s): earle cataracts, mult earle eye surgeries, bilateral excisional biopsy-benign Past Anesthesia/Blood Transfusion Reactions: No Reported Reaction Past Psychological History: No Psychological Hx Reported Smoking Status: Never smoker Past Alcohol Use History: None Reported Past Drug Use History: None Reported - Past Family History Father Family Medical History: Deep Vein Thrombosis (DVT) Medications and Allergies Home Medications Medication Instructions Recorded Confirmed Type Aspirin [Adult Low Dose Aspirin EC] 81 mg PO DAILY 01/16/17 10/09/21 History Dorzolamide 2% [Trusopt 2%] 1 drops BOTH EYES BID 01/16/17 10/09/21 History Ferrous Sulfate [Iron] 650 mg PO BID 01/16/17 10/09/21 History Furosemide [Lasix] 40 mg PO DAILY 01/16/17 10/09/21 History amLODIPine [Norvasc] 5 mg PO BID 01/16/17 10/09/21 History Atorvastatin [Lipitor] 10 mg PO HS 09/09/17 10/09/21 History Spironolactone [Aldactone] 25 mg PO DAILY 09/09/17 10/09/21 History allopurinoL [Zyloprim] 100 mg PO HS 09/09/17 10/09/21 History Acetaminophen [Tylenol Arthritis] 1,300 mg PO Q8HR 10/27/17 10/09/21 History Famotidine [Pepcid] 20 mg PO BID 03/02/20 10/09/21 History hydrALAZINE HCL 25 mg PO BID 08/31/20 10/09/21 History Cholecalciferol [Vitamin D3 (25 50 mcg PO DAILY 10/09/21 10/09/21 History Mcg = 1000 Iu)] Glucagon [Gvoke Pfs 1-Pack Syringe] 1 mg SQ ONCE PRN 10/09/21 10/09/21 History Insulin Aspart [NovoLOG Flexpen] See Protocol SQ ACHS PRN 10/09/21 10/09/21 History Insulin Glargine,Hum.rec.anlog 45 unit SQ DAILY 10/09/21 10/09/21 History [Lantus Solostar Pen] Losartan Potassium 50 mg PO DAILY 10/09/21 10/09/21 History Magnesium Oxide [Magox 400] 400 mg PO HS 10/09/21 10/09/21 History Virt-Phos 250 Neutral 250 1 tab PO DAILY 10/09/21 10/09/21 History calcitrioL [Calcitriol] 0.5 mcg PO SUWE 10/09/21 10/09/21 History Allergies Allergy/AdvReac Type Severity Reaction Status Date / Time Penicillins Allergy Swelling Verified 10/09/21 15:06 Sulfa (Sulfonamide Allergy Swelling Verified 10/09/21 15:06 Antibiotics) Physical Exam Vitals: Vital Signs Temp Pulse Resp BP Pulse Ox 10/12/21 03:45 98.5 F 82 18 152/62 93 L 10/12/21 00:00 97.3 F L 78 18 175/68 94 L 10/11/21 20:00 97.6 F 72 18 145/63 94 L 10/11/21 16:00 70 18 160/55 97 10/11/21 14:00 64 18 10/11/21 12:00 64 18 128/70 97 Intake and Output 10/11/21 10/12/21 10/12/21 22:59 06:59 14:59 Intake Total 121.425 Output Total 400 350 500 Balance -278.575 -350 -500 Intake: Intake, IV Titration 121.425 Amount Heparin Sod,Pork in 0.45% 121.425 NaCl 25,000 unit In 0.45 % NaCl 1 250ml.bag @ 10. 498 UNITS/KG/HR 10 mls/hr IV .Q24H [facility] Rx#: [id number] Output: Urine 400 350 500 Other: Voiding Method External Catheter External Catheter Weight 95.8 kg Patient is comfortable awake, not in any acute distress Examination of the heart S1 and S2 Examination lungs bilateral breath sounds are heard Abdomen is soft nontender Examination of lower extremities shows trace edema bilaterally UTILITY AGENT exam grossly intact Results - Lab Results Most recent lab results Calcium 9.0 mg/dL (8.4-10.2) 10/11/21 08:39 10/11/21 08:39 10/11/21 08:39 Assessment and Plan Assessment: 1. Acute kidney injury, ATN currently nonoliguric. Rule out urine retention. Etiology is contrast nephropathy as well as possible urine retention. No episodes of hypotension. UA shows 3+ protein which appears to be new. She did have elevated WBC suggesting possible underlying UTI but urine cultures are negative. Patient is maintained on Cozaar. I will decrease the dose to 25 mg but continue the medication unless renal function further worsens tomorrow. 2. Chronic kidney disease NKF stage III be secondary to nephrosclerosis however current UA shows 3+ protein. This will need to be quantified and repeated. Possible underlying diabetic kidney disease previous creatinine has been around 1.2-1.4 mg/dL 3. Acute diastolic CHF, maintained on IV Lasix. 4. Acute non-ST elevation [place] being followed by cardiology. Currently holding off on Due to worsening renal function 5. Volume overload currently improving 6. Moderate to severe pulmonary hypertension noted on current echocardiogram. EF was 55%. Plan: Check bladder scan rule out urine retention Check ultrasound of the kidney Recommend to hold cardiac catheterization in view of worsening renal function. Check labs from today Decrease dose of Cozaar Continue with IV Lasix Thank you for the consultation. We'll continue to follow the patient with you during her hospitalization
[2021-10-12 10:31] LABS: Calcium 9.1 mg/dL (8.4-10.2); Potassium 3.8 mmol/L (3.5-5.1)
[2021-10-12 11:27] LABS: Glucose,Whole Blood 182 mg/dL (70-110)
--- NOTE | 2021-10-12 12:46 | P.PN ---
Subjective Progress Note Date: 10/12/21 80-year-old lady with multiple medical problems including hypertension diabetes dyslipidemia coronary artery disease on medical therapy presented to Hospital with symptoms of not feeling well and shortness of breath. She has been feeling short of breath for the last several days and has episodes of diarrhea and nausea yesterday. She went to see her primary care physician and was told to come to the emergency room and get admitted. She was found to be in congestive heart failure with ST-T wave changes of ischemia and the EKG and mildly elevated troponin. Patient is examined resting comfortably in the chair. She remains free from shortness of breath or chest pain. Kidney function continues to worsen BUN is 49 creatinine is 1.89 nephrology is on the case, will follow recommends for diuretics. At this time will medically manage patient due to worsening kidney function. Her Cozaar has been decreased to 25 mg daily. We'll follow blood pressure if blood pressure is elevated will increase hydralazine Objective - Vital Signs Vital signs: Vital Signs Temp 97.7 F 10/12/21 11:39 Pulse 68 10/12/21 11:39 Resp 18 10/12/21 11:39 BP 138/67 10/12/21 11:39 Pulse Ox 97 10/12/21 11:39 FiO2 Intake & Output 10/11/21 10/12/21 10/12/21 18:59 06:59 18:59 Intake Total 121.425 Output Total 750 500 Balance 121.425 -750 -500 Weight 95.8 kg Intake: Intake, IV Titration 121.425 Amount Heparin Sod,Pork in 0.45% 121.425 NaCl 25,000 unit In 0.45 % NaCl 1 250ml.bag @ 10. 498 UNITS/KG/HR 10 mls/hr IV .Q24H [facility] Rx#: [id number] Output: Urine 750 500 Other: Voiding Method External Catheter External Catheter Toilet # Voids 1 225 - Exam PHYSICAL EXAM: VITAL SIGNS: Reviewed. GENERAL: Well-developed in no acute distress. HEENT: Head is normocephalic. Pupils are equal, round. Sclerae anicteric. Mucous membranes of the mouth are moist. NECK: Supple. No JVD or thyromegaly RESPIRATORY: Respirations even and unlabored. Lungs diminished to auscultation bilaterally. CARDIO: Regular rate and rhythm. S1 and S2 heard. No murmur or gallops. EXTREMITIES: Normal range of motion. No clubbing or cyanosis. Peripheral pulses intact. Negative for bilateral lower extremity edema NEURO: Orientated to person, time, mood is appropriate - Labs CBC & Chem 7: 10/12/21 09:47 10/12/21 09:47 Labs: Abnormal Lab Results - Last 24 Hours (Table) 10/10/21 10/11/21 10/11/21 Range/Units 07:24 16:56 20:25 RBC (3.80-5.40) m/uL Hgb (11.4-16.0) gm/dL Hct (34.0-46.0) % MCV (80.0-100.0) fL APTT (22.0-30.0) sec Chloride (98-107) mmol/L Carbon Dioxide (22-30) mmol/L BUN (7-17) mg/dL Creatinine (0.52-1.04) mg/dL Glucose (74-99) mg/dL POC Glucose (mg/dL) 207 H 223 H (70-110) mg/dL RBC Folate 834 H (280 - 791) ng/mL 10/12/21 10/12/21 10/12/21 Range/Units 06:16 09:47 09:47 RBC 2.90 L (3.80-5.40) m/uL Hgb 9.8 L (11.4-16.0) gm/dL Hct 29.3 L (34.0-46.0) % MCV 101.0 H (80.0-100.0) fL APTT (22.0-30.0) sec Chloride 109 H (98-107) mmol/L Carbon Dioxide 20 L (22-30) mmol/L BUN 49 H (7-17) mg/dL Creatinine 1.89 H (0.52-1.04) mg/dL Glucose 168 H (74-99) mg/dL POC Glucose (mg/dL) 195 H (70-110) mg/dL RBC Folate (280 - 791) ng/mL 10/12/21 10/12/21 Range/Units 09:47 11:26 RBC (3.80-5.40) m/uL Hgb (11.4-16.0) gm/dL Hct (34.0-46.0) % MCV (80.0-100.0) fL APTT 37.4 H (22.0-30.0) sec Chloride (98-107) mmol/L Carbon Dioxide (22-30) mmol/L BUN (7-17) mg/dL Creatinine (0.52-1.04) mg/dL Glucose (74-99) mg/dL POC Glucose (mg/dL) 182 H (70-110) mg/dL RBC Folate (280 - 791) ng/mL Microbiology - Last 24 Hours (Table) 10/09/21 17:49 Urine Culture - Final Urine,Voided Assessment and Plan Assessment: Acute onset diastolic congestive heart failure Acute non-ST segment elevation [place] Coronary artery disease and medical therapy Acute kidney injury Hypertension Trl-lymaawl-vxrxethto diabetes Plan: Continue with IV Lasix 40 mg daily titrated per nephrology Continue to monitor blood pressure Continue with all other current cardiac medications Continue with telemetry monitoring Further recommendations based on clinical course The above impression and plan of care have been discussed and directed by the signing physician. Megan Prescott, nurse practitioner, acting as scribe for signing physician.
--- NOTE | 2021-10-12 15:17 | P.PN ---
Subjective History of present illness: The patient is an 78-year-old female with a PMH of CHF (unknown type), type II DM, hypertension, hyperlipidemia, chronic kidney disease who presents to the emergency room for complaints of shortness of breath. The patient reports that her symptoms have been gradually worsening over the past 1 week, and that she was seen at her PCP earlier today. The patient was noted to be hypoxic upon ambulation, with SpO2 following into the low 80s, for which she was sent to the emergency room. Patient reports feeling somewhat better at the time of interview. She reports mildly worsened bilateral ankle swelling She reports compliance with her home Lasix as well as her other medications and diet. She denies experiencing chest discomfort, nausea, vomiting, diaphoresis, palpitations, cough, fever, or chills. She does sleep in a recliner due to her chronic shoulder pain. Denies PND. Chest CT in the emergency room revealed findings consistent with congestive heart failure. Laboratory evaluation was remarkable for WBC count 13, hemoglobin 10.8, MCV 102.3, troponin 0.130, proBNP 1370, BUN 30, creatinine 1.17, coronavirus and influenza testing negative. EKG revealed. Interval history: Patient was seen and examined at the bedside. She denies any chest pain. She reports improvement in her breathing. She currently room air. Patient had urinary retention Eduardo catheter orders placed in neurology consultation is following Physical examination: General: non toxic, no distress, appears at stated age Derm: warm, dry Head: atraumatic, normocephalic, symmetric Eyes: EOMI, no lid lag, anicteric sclera Mouth: no lip lesion, mucus membranes moist Cardiovascular: S1S2 reg, no murmur, positive posterior tibial pulse bilateral, Lungs: CTA bilateral, no rhonchi, no rales , no accessory muscle use Abdominal: soft, nontender to palpation, no guarding, no appreciable organomegaly Ext: 2+ pitting edema bilaterally Neuro: CN II-XI grossly intact, no focal neuro deficits Psych: Alert, oriented, appropriate affect Assessment and plan: #Acute hypoxic respiratory failure secondary to acute preserved ejection fraction CHF exacerbation. -Lasix was decreased to 40 mg once daily teeth worsening kidney function -Cardiology added hydralazine 50 mg 3 times daily due to uncontrolled blood pressure -Degree echo showed normal LV size and systolic function. EF 55-60%. Moderate to severe pulmonary hypertension. 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 to 40 mg once daily -Renal ultrasound -Nephrology following #Acute urinary retention -Urology consulted -Catheter placed #Macrocytic anemia -At baseline -Normal B12 is 351 #Hypertension -Cardiology added hydralazine -Nephrology decreased losartan 25 mg daily #Dyslipidemia -Insulin sliding scale and blood glucose monitoring -Continue with home meds #DVT prophylaxis -patient on heparin - Objective - Vital Signs Vital signs: Vital Signs Temp 97.7 F 10/12/21 11:39 Pulse 68 10/12/21 11:39 Resp 18 10/12/21 11:39 BP 138/67 10/12/21 11:39 Pulse Ox 97 10/12/21 11:39 FiO2 Intake & Output 10/11/21 10/12/21 10/12/21 18:59 06:59 18:59 Intake Total 121.425 118 Output Total 750 500 Balance 121.425 -750 -382 Weight 95.8 kg Intake: Intake, IV Titration 121.425 Amount Heparin Sod,Pork in 0.45% 121.425 NaCl 25,000 unit In 0.45 % NaCl 1 250ml.bag @ 10. 498 UNITS/KG/HR 10 mls/hr IV .Q24H [facility] Rx#: [id number] Oral 118 Output: Urine 750 500 Other: Voiding Method External Catheter External Catheter Toilet # Voids 1 225 - Labs CBC & Chem 7: 10/12/21 09:47 10/12/21 09:47 Labs: Abnormal Lab Results - Last 24 Hours (Table) 10/11/21 10/11/21 10/12/21 Range/Units 16:56 20:25 06:16 RBC (3.80-5.40) m/uL Hgb (11.4-16.0) gm/dL Hct (34.0-46.0) % MCV (80.0-100.0) fL APTT (22.0-30.0) sec Chloride (98-107) mmol/L Carbon Dioxide (22-30) mmol/L BUN (7-17) mg/dL Creatinine (0.52-1.04) mg/dL Glucose (74-99) mg/dL POC Glucose (mg/dL) 207 H 223 H 195 H (70-110) mg/dL 10/12/21 10/12/21 10/12/21 Range/Units 09:47 09:47 09:47 RBC 2.90 L (3.80-5.40) m/uL Hgb 9.8 L (11.4-16.0) gm/dL Hct 29.3 L (34.0-46.0) % MCV 101.0 H (80.0-100.0) fL APTT 37.4 H (22.0-30.0) sec Chloride 109 H (98-107) mmol/L Carbon Dioxide 20 L (22-30) mmol/L BUN 49 H (7-17) mg/dL Creatinine 1.89 H (0.52-1.04) mg/dL Glucose 168 H (74-99) mg/dL POC Glucose (mg/dL) (70-110) mg/dL 10/12/21 Range/Units 11:26 RBC (3.80-5.40) m/uL Hgb (11.4-16.0) gm/dL Hct (34.0-46.0) % MCV (80.0-100.0) fL APTT (22.0-30.0) sec Chloride (98-107) mmol/L Carbon Dioxide (22-30) mmol/L BUN (7-17) mg/dL Creatinine (0.52-1.04) mg/dL Glucose (74-99) mg/dL POC Glucose (mg/dL) 182 H (70-110) mg/dL Microbiology - Last 24 Hours (Table) 10/09/21 17:49 Urine Culture - Final Urine,Voided
--- NOTE | 2021-10-12 16:03 | US ---
EXAMINATION TYPE: US kidneys/renal and bladder DATE OF EXAM: 10/12/2021 COMPARISON: NONE CLINICAL HISTORY: 80-year-old female Acute kidney injury , rule out obstruction. TECHNIQUE: Multiple sonographic images of the kidneys and bladder are obtained. FINDINGS: EXAM MEASUREMENTS: Right Kidney: 10.2 x 4.9 x 5.8 cm Left Kidney: 9.7 x 4.3 x 4.3 cm Right Kidney: Small cortical cyst at the mid to lower pole measuring 0.9 x 0.8 x 1.0 cm. No hydroneph rosis. Left Kidney: Technically difficult to visualize. No definite hydronephrosis. Bladder: No gross abnormality seen. Limited by body habitus. IMPRESSION: Technically limited visualization of the left kidney. No obvious hydronephrosis on either side.
[2021-10-12 16:34] LABS: Glucose,Whole Blood 225 mg/dL (70-110)
[2021-10-12 19:58] LABS: Glucose,Whole Blood 333 mg/dL (70-110)
[2021-10-12] MEDS: ATORVASTATIN 10 MG TAB PO SCH (20:14)
[2021-10-12] MEDS: HEPARIN SODIUM,PORCINE/PF 5,000 UNIT/0.5 ML SYRINGE SQ SCH (20:14)
[2021-10-12 20:35] LABS: % Iron Saturation 25.19 (12.00-45.00)
[2021-10-13 05:20] LABS: Basophils % (A) 1 %; Eosinophils # (A) 0.1 k/uL (0-0.7); Eosinophils % (A) 2 %; HGB 8.9 gm/dL (11.4-16.0); Lymphocytes # (A) 1.6 k/uL (1.0-4.8); Lymphocytes % (A) 21 %; MCH 33.8 pg (25.0-35.0); MCHC 33.1 g/dL (31.0-37.0); MCV 102.2 fL (80.0-100.0); Macrocytosis Slight; Mean Platelet Volume 7.5; Monocytes # (A) 0.6 k/uL (0-1.0); Monocytes % (A) 7 %; Neutrophils # (A) 5.4 k/uL (1.3-7.7); Neutrophils % (A) 68 %; Platelet Count 293 k/uL (150-450); RBC 2.64 m/uL (3.80-5.40); RDW 14.4 % (11.5-15.5)
[2021-10-13 05:35] LABS: Calcium 8.7 mg/dL (8.4-10.2); Potassium 4.2 mmol/L (3.5-5.1)
[2021-10-13 06:15] LABS: Glucose,Whole Blood 211 mg/dL (70-110)
[2021-10-13] MEDS: carvediloL 6.25 MG TAB PO SCH ×2 (06:40→17:21)
[2021-10-13] MEDS: INSULIN ASPART (NovoLOG) 100 UNIT/ML VIAL SQ SCH ×6 (06:41→21:00)
[2021-10-13] MEDS: NITROGLYCERIN OINT 1 INCH/GM PACKET TOPICAL SCH ×3 (08:48→22:40)
[2021-10-13] MEDS: hydrALAZINE HCL 50 MG TAB PO SCH ×2 (08:49→20:59)
[2021-10-13] MEDS: FAMOTIDINE 20 MG TAB PO SCH (08:49)
[2021-10-13] MEDS: amLODIPine 5 MG TAB PO SCH ×2 (08:49→21:00)
[2021-10-13] MEDS: ASPIRIN 81 MG PO SCH (08:49)
[2021-10-13] MEDS: HEPARIN SODIUM,PORCINE/PF 5,000 UNIT/0.5 ML SYRINGE SQ SCH ×2 (08:50→21:00)
[2021-10-13] MEDS: FUROSEMIDE 10 MG/ML 4 ML VIAL IV SCH (08:50)
[2021-10-13] MEDS ORDERED: LOSARTAN 25 MG TAB PO SCH (09:00)
--- NOTE | 2021-10-13 12:02 | P.PN ---
Subjective Patient is seen for follow-up for acute kidney injury. She does have chronic kidney disease NKF stage IIIa with previous creatinine around 1.2-1.3 mg/dL. Etiology is nephrosclerosis. Patient was admitted to the hospital with shortness of breath. She did rule in for acute non-ST elevation [place] and also a was in CHF and has been diuresed. Patient had chest CTA done on 10/09/2021 Serum creatinine increased from around 1.17 on initial admission to 1.8 yesterday. Patient did have urine retention. No evidence of hypotension Serum creatinine decreased back down to 1.6 from 1.89 yesterday. Cozaar has been held. It was initially decreased and then discontinued yesterday after creatinine was noted to be higher. Cardiac catheterization has been postponed until Friday. Currently patient is chest pain-free Objective - Vital Signs Vital signs: Vital Signs Temp 97.7 F 10/13/21 11:38 Pulse 71 10/13/21 11:38 Resp 18 10/13/21 11:38 BP 179/69 10/13/21 11:38 Pulse Ox 95 10/13/21 11:38 FiO2 Intake & Output 10/12/21 10/13/21 10/13/21 18:59 06:59 18:59 Intake Total 236 500 270 Output Total 2105 700 Balance -1869 -200 270 Weight 96.5 kg Intake: Oral 236 500 270 Output: Urine 1700 700 Straight 600 Post Void Residual 405 Other: Voiding Method Toilet Indwelling Catheter Indwelling Catheter # Voids 225 - Exam Awake, alert oriented 3 Comfortable Not in any acute distress Examination of the heart S1 and S2 Examination lungs bilateral breath sounds are heard Abdomen is soft nontender Examination lower extremities shows trace edema bilaterally END STAPLER exam grossly intact - Labs CBC & Chem 7: 10/13/21 04:27 10/13/21 04:23 Labs: Abnormal Lab Results - Last 24 Hours (Table) 10/12/21 10/12/21 10/12/21 Range/Units 09:47 16:32 19:55 RBC (3.80-5.40) m/uL Hgb (11.4-16.0) gm/dL Hct (34.0-46.0) % MCV (80.0-100.0) fL Sodium (137-145) mmol/L Chloride (98-107) mmol/L Carbon Dioxide (22-30) mmol/L BUN (7-17) mg/dL Creatinine (0.52-1.04) mg/dL Glucose (74-99) mg/dL POC Glucose (mg/dL) 225 H 333 H (70-110) mg/dL Transferrin 173.0 L (204.0-354.0) mg/dL 10/13/21 10/13/21 10/13/21 Range/Units 04:23 04:27 06:14 RBC 2.64 L (3.80-5.40) m/uL Hgb 8.9 L (11.4-16.0) gm/dL Hct 27.0 L (34.0-46.0) % MCV 102.2 H (80.0-100.0) fL Sodium 135 L (137-145) mmol/L Chloride 108 H (98-107) mmol/L Carbon Dioxide 21 L (22-30) mmol/L BUN 54 H (7-17) mg/dL Creatinine 1.67 H (0.52-1.04) mg/dL Glucose 188 H (74-99) mg/dL POC Glucose (mg/dL) 211 H (70-110) mg/dL Transferrin (204.0-354.0) mg/dL Assessment and Plan Assessment: 1. Acute kidney injury, ATN currently nonoliguric. Urine retention noted. Etiology is contrast nephropathy as well as urine retention. No episodes of hypotension. UA shows 3+ protein which appears to be new. She did have elevated WBC suggesting possible underlying UTI but urine cultures are negative. Patient is maintained on Cozaar. This is currently on hold. 2. Chronic kidney disease NKF stage III be secondary to nephrosclerosis however current UA shows 3+ protein. This will need to be quantified and repeated. Possible underlying diabetic kidney disease previous creatinine has been around 1.2-1.4 mg/dL 3. Acute diastolic CHF, maintained on IV Lasix. 4. Acute non-ST elevation [place] being followed by cardiology. Currently holding off on Due to worsening renal function 5. Volume overload currently improving 6. Moderate to severe pulmonary hypertension noted on current echocardiogram. EF was 55%. Plan: Continue to hold angiotensin receptor blockers Continue with Eduardo catheter Avoid nephrotoxic agents Repeat labs in a.m. If renal function is further improved patient can likely proceed with cardiac catheterization on Friday.
[2021-10-13 12:10] LABS: Glucose,Whole Blood 466 mg/dL (70-110)
--- NOTE | 2021-10-13 12:32 | P.PN ---
Subjective History of present illness: The patient is an 78-year-old female with a PMH of CHF (unknown type), type II DM, hypertension, hyperlipidemia, chronic kidney disease who presents to the emergency room for complaints of shortness of breath. The patient reports that her symptoms have been gradually worsening over the past 1 week, and that she was seen at her PCP earlier today. The patient was noted to be hypoxic upon ambulation, with SpO2 following into the low 80s, for which she was sent to the emergency room. Patient reports feeling somewhat better at the time of interview. She reports mildly worsened bilateral ankle swelling She reports compliance with her home Lasix as well as her other medications and diet. She denies experiencing chest discomfort, nausea, vomiting, diaphoresis, palpitations, cough, fever, or chills. She does sleep in a recliner due to her chronic shoulder pain. Denies PND. Chest CT in the emergency room revealed findings consistent with congestive heart failure. Laboratory evaluation was remarkable for WBC count 13, hemoglobin 10.8, MCV 102.3, troponin 0.130, proBNP 1370, BUN 30, creatinine 1.17, coronavirus and influenza testing negative. EKG revealed. Interval history: Patient was seen and examined at the bedside. She denies any chest pain. She reports improvement in her breathing. She currently room air. Patient had urinary retention Eduardo catheter orders placed in neurology consultation is following Physical examination: General: non toxic, no distress, appears at stated age Derm: warm, dry Head: atraumatic, normocephalic, symmetric Eyes: EOMI, no lid lag, anicteric sclera Mouth: no lip lesion, mucus membranes moist Cardiovascular: S1S2 reg, no murmur, positive posterior tibial pulse bilateral, Lungs: CTA bilateral, no rhonchi, no rales , no accessory muscle use Abdominal: soft, nontender to palpation, no guarding, no appreciable organomegaly Ext: 2+ pitting edema bilaterally Neuro: CN II-XI grossly intact, no focal neuro deficits Psych: Alert, oriented, appropriate affect Assessment and plan: #Acute hypoxic respiratory failure secondary to acute preserved ejection fraction CHF exacerbation. -Lasix was decreased to 40 mg once daily teeth worsening kidney function -Cardiology added hydralazine 50 mg 3 times daily due to uncontrolled blood pressure -Degree echo showed normal LV size and systolic function. EF 55-60%. Moderate to severe pulmonary hypertension. No pericardial effusion -Cardiac monitoring -Intake and output -Daily weights -Fluid restriction #Mildly elevated troponin -Cardiology discontinued IV heparin -Continue to trend for now -Cardiac monitoring -Continue with aspirin and statin #Acute kidney injury -Worse , creatinine up to 1.89 -Underlying chronic kidney disease stage III -Could be a combination off over diuresis and recently used IV contrast with CT of the chest on October 09 -Neurology Hospitalist decreased Lasix to 40 mg once daily -Renal ultrasound -Nephrology following #Type 2 diabetes mellitus with uncontrolled hyperglycemia -Start basal bolus insulin -Check A1c #Acute urinary retention -Urology consulted -Catheter placed #Macrocytic anemia -At baseline -Normal B12 is 351 #Hypertension -Cardiology added hydralazine -Nephrology decreased losartan 25 mg daily #Dyslipidemia -Insulin sliding scale and blood glucose monitoring -Continue with home meds #DVT prophylaxis with subcutaneous heparin Objective - Vital Signs Vital signs: Vital Signs Temp 97.7 F 10/13/21 11:38 Pulse 71 10/13/21 11:38 Resp 18 10/13/21 11:38 BP 179/69 10/13/21 11:38 Pulse Ox 95 10/13/21 11:38 FiO2 Intake & Output 10/12/21 10/13/21 10/13/21 18:59 06:59 18:59 Intake Total 236 500 270 Output Total 2105 700 Balance -1869 -200 270 Weight 96.5 kg Intake: Oral 236 500 270 Output: Urine 1700 700 Straight 600 Post Void Residual 405 Other: Voiding Method Toilet Indwelling Catheter Indwelling Catheter # Voids 225 - Labs CBC & Chem 7: 10/13/21 04:27 10/13/21 04:23 Labs: Abnormal Lab Results - Last 24 Hours (Table) 10/12/21 10/12/21 10/12/21 Range/Units 09:47 16:32 19:55 RBC (3.80-5.40) m/uL Hgb (11.4-16.0) gm/dL Hct (34.0-46.0) % MCV (80.0-100.0) fL Sodium (137-145) mmol/L Chloride (98-107) mmol/L Carbon Dioxide (22-30) mmol/L BUN (7-17) mg/dL Creatinine (0.52-1.04) mg/dL Glucose (74-99) mg/dL POC Glucose (mg/dL) 225 H 333 H (70-110) mg/dL Transferrin 173.0 L (204.0-354.0) mg/dL 10/13/21 10/13/21 10/13/21 Range/Units 04:23 04:27 06:14 RBC 2.64 L (3.80-5.40) m/uL Hgb 8.9 L (11.4-16.0) gm/dL Hct 27.0 L (34.0-46.0) % MCV 102.2 H (80.0-100.0) fL Sodium 135 L (137-145) mmol/L Chloride 108 H (98-107) mmol/L Carbon Dioxide 21 L (22-30) mmol/L BUN 54 H (7-17) mg/dL Creatinine 1.67 H (0.52-1.04) mg/dL Glucose 188 H (74-99) mg/dL POC Glucose (mg/dL) 211 H (70-110) mg/dL Transferrin (204.0-354.0) mg/dL 10/13/21 Range/Units 11:50 RBC (3.80-5.40) m/uL Hgb (11.4-16.0) gm/dL Hct (34.0-46.0) % MCV (80.0-100.0) fL Sodium (137-145) mmol/L Chloride (98-107) mmol/L Carbon Dioxide (22-30) mmol/L BUN (7-17) mg/dL Creatinine (0.52-1.04) mg/dL Glucose (74-99) mg/dL POC Glucose (mg/dL) 466 H (70-110) mg/dL Transferrin (204.0-354.0) mg/dL
--- NOTE | 2021-10-13 12:39 | P.GSCN ---
History of Present Illness Consult date: 10/13/21 Reason for Consult: Urinary retention History of present illness: This is a 80-year-old female admitted to the hospital with CHF a exacerbation. Urology is consulted for urinary retention. The catheter was placed for a postvoid residual of 405 mL's. Denies any voiding issues at baseline. Indicated that she feels like she voids to completion. No history of gross hematuria, UTI or kidney stones. No previous history of urinary retention. Urine culture on admission is negative, renal ultrasound during this hospital admission showed no acute process. Review of Systems - Constitutional Denies fever, Denies weight loss - Cardiovascular Reports shortness of breath, Denies chest pain - Respiratory Reports cough, Reports dyspnea - Gastrointestinal Reports as per HPI - Genitourinary Genitourinary: Reports difficulty voiding - Integumentary Denies rash, Denies unusual bruising Past Medical History Past Medical History: Coronary Artery Disease (CAD), Diabetes Mellitus, Hyperlipidemia, Hypertension, Osteoarthritis (OA), Renal Disease, Sleep Apnea/CPAP/BIPAP Additional Past Medical History / Comment(s): SOB, "watching a valve" in heart, decreased kidney function, low iron, has cpap History of Any Multi-Drug Resistant Organisms: None Reported Past Surgical History: Breast Surgery, Cholecystectomy, Heart Catheterization Additional Past Surgical History / Comment(s): ealre cataracts, mult earle eye surgeries, bilateral excisional biopsy-benign Past Anesthesia/Blood Transfusion Reactions: No Reported Reaction Past Psychological History: No Psychological Hx Reported Smoking Status: Never smoker Past Alcohol Use History: None Reported Past Drug Use History: None Reported - Past Family History Father Family Medical History: Deep Vein Thrombosis (DVT) Medications and Allergies Home Medications Medication Instructions Recorded Confirmed Type Aspirin [Adult Low Dose Aspirin EC] 81 mg PO DAILY 01/16/17 10/09/21 History Dorzolamide 2% [Trusopt 2%] 1 drops BOTH EYES BID 01/16/17 10/09/21 History Ferrous Sulfate [Iron] 650 mg PO BID 01/16/17 10/09/21 History Furosemide [Lasix] 40 mg PO DAILY 01/16/17 10/09/21 History amLODIPine [Norvasc] 5 mg PO BID 01/16/17 10/09/21 History Atorvastatin [Lipitor] 10 mg PO HS 09/09/17 10/09/21 History Spironolactone [Aldactone] 25 mg PO DAILY 09/09/17 10/09/21 History allopurinoL [Zyloprim] 100 mg PO HS 09/09/17 10/09/21 History Acetaminophen [Tylenol Arthritis] 1,300 mg PO Q8HR 10/27/17 10/09/21 History Famotidine [Pepcid] 20 mg PO BID 03/02/20 10/09/21 History hydrALAZINE HCL 25 mg PO BID 08/31/20 10/09/21 History Cholecalciferol [Vitamin D3 (25 50 mcg PO DAILY 10/09/21 10/09/21 History Mcg = 1000 Iu)] Glucagon [Gvoke Pfs 1-Pack Syringe] 1 mg SQ ONCE PRN 10/09/21 10/09/21 History Insulin Aspart [NovoLOG Flexpen] See Protocol SQ ACHS PRN 10/09/21 10/09/21 History Insulin Glargine,Hum.rec.anlog 45 unit SQ DAILY 10/09/21 10/09/21 History [Lantus Solostar Pen] Losartan Potassium 50 mg PO DAILY 10/09/21 10/09/21 History Magnesium Oxide [Magox 400] 400 mg PO HS 10/09/21 10/09/21 History Virt-Phos 250 Neutral 250 1 tab PO DAILY 10/09/21 10/09/21 History calcitrioL [Calcitriol] 0.5 mcg PO SUWE 10/09/21 10/09/21 History Allergies Allergy/AdvReac Type Severity Reaction Status Date / Time Penicillins Allergy Swelling Verified 10/09/21 15:06 Sulfa (Sulfonamide Allergy Swelling Verified 10/09/21 15:06 Antibiotics) Surgical - Exam Vital Signs Temp Pulse Resp BP Pulse Ox 97.7 F 78 18 161/57 95 10/09/21 15:03 10/09/21 15:03 10/09/21 15:03 10/09/21 15:03 10/09/21 15:03 - General no distress, no pain - Eyes normal ocular movement, no pale - ENT normal nares, normal mucosa - Respiratory normal expansion, normal respiratory effort - Abdomen Abdomen: soft, non tender - Genitourinary Eduardo catheter in place draining clear yellow urine Results - Labs 10/13/21 04:27 10/13/21 04:23 Abnormal Lab Results - Last 24 Hours (Table) 10/12/21 10/12/21 10/12/21 Range/Units 09:47 16:32 19:55 RBC (3.80-5.40) m/uL Hgb (11.4-16.0) gm/dL Hct (34.0-46.0) % MCV (80.0-100.0) fL Sodium (137-145) mmol/L Chloride (98-107) mmol/L Carbon Dioxide (22-30) mmol/L BUN (7-17) mg/dL Creatinine (0.52-1.04) mg/dL Glucose (74-99) mg/dL POC Glucose (mg/dL) 225 H 333 H (70-110) mg/dL Transferrin 173.0 L (204.0-354.0) mg/dL 10/13/21 10/13/21 10/13/21 Range/Units 04:23 04:27 06:14 RBC 2.64 L (3.80-5.40) m/uL Hgb 8.9 L (11.4-16.0) gm/dL Hct 27.0 L (34.0-46.0) % MCV 102.2 H (80.0-100.0) fL Sodium 135 L (137-145) mmol/L Chloride 108 H (98-107) mmol/L Carbon Dioxide 21 L (22-30) mmol/L BUN 54 H (7-17) mg/dL Creatinine 1.67 H (0.52-1.04) mg/dL Glucose 188 H (74-99) mg/dL POC Glucose (mg/dL) 211 H (70-110) mg/dL Transferrin (204.0-354.0) mg/dL 10/13/21 Range/Units 11:50 RBC (3.80-5.40) m/uL Hgb (11.4-16.0) gm/dL Hct (34.0-46.0) % MCV (80.0-100.0) fL Sodium (137-145) mmol/L Chloride (98-107) mmol/L Carbon Dioxide (22-30) mmol/L BUN (7-17) mg/dL Creatinine (0.52-1.04) mg/dL Glucose (74-99) mg/dL POC Glucose (mg/dL) 466 H (70-110) mg/dL Transferrin (204.0-354.0) mg/dL Diabetes panel 10/13/21 Range/Units 04:23 Sodium 135 L (137-145) mmol/L Potassium 4.2 (3.5-5.1) mmol/L Chloride 108 H (98-107) mmol/L Carbon Dioxide 21 L (22-30) mmol/L BUN 54 H (7-17) mg/dL Creatinine 1.67 H (0.52-1.04) mg/dL Glucose 188 H (74-99) mg/dL Calcium 8.7 (8.4-10.2) mg/dL Calcium panel 10/13/21 Range/Units 04:23 Calcium 8.7 (8.4-10.2) mg/dL Pituitary panel 10/13/21 Range/Units 04:23 Sodium 135 L (137-145) mmol/L Potassium 4.2 (3.5-5.1) mmol/L Chloride 108 H (98-107) mmol/L Carbon Dioxide 21 L (22-30) mmol/L BUN 54 H (7-17) mg/dL Creatinine 1.67 H (0.52-1.04) mg/dL Glucose 188 H (74-99) mg/dL Calcium 8.7 (8.4-10.2) mg/dL Adrenal panel 10/13/21 Range/Units 04:23 Sodium 135 L (137-145) mmol/L Potassium 4.2 (3.5-5.1) mmol/L Chloride 108 H (98-107) mmol/L Carbon Dioxide 21 L (22-30) mmol/L BUN 54 H (7-17) mg/dL Creatinine 1.67 H (0.52-1.04) mg/dL Glucose 188 H (74-99) mg/dL Calcium 8.7 (8.4-10.2) mg/dL Assessment and Plan Assessment: 80-year-old female with urinary retention, Eduardo was placed yesterday for a postvoid residual 405 mL, no previous history of retention her voiding issues at baseline -Eduardo catheter can be removed prior to discharge, a postvoid residual is less than 400 mL then can keep catheter out, but if persistantly elevated then can reinsert the catheter. If no voiding issues after catheter removal can follow- up with urology on as-needed basis
[2021-10-13 13:38] LABS: Glucose,Whole Blood 473 mg/dL (70-110)
[2021-10-13] MEDS ORDERED: hydrALAZINE HCL 50 MG TAB PO STA (13:54)
--- NOTE | 2021-10-13 13:57 | P.PN ---
Subjective Progress Note Date: 10/13/21 80-year-old lady with multiple medical problems including hypertension diabetes dyslipidemia coronary artery disease on medical therapy presented to Hospital with symptoms of not feeling well and shortness of breath. She has been feeling short of breath for the last several days and has episodes of diarrhea and nausea yesterday. She went to see her primary care physician and was told to come to the emergency room and get admitted. She was found to be in congestive heart failure with ST-T wave changes of ischemia and the EKG and mildly elevated troponin. Patient is seen today resting comfortably in bed she denies increased shortness of breath or chest pain. Patient continues to be followed by nephrology for elevated kidney function, BUN is 54 creatinine is 1.67 which has improved from yesterday. Will continue to follow kidney function. If continues to improve possible cardiac catheterization on Friday with Dr. Bhatia. The pressure is elevated increase hydralazine to 100 mg twice a day Objective - Vital Signs Vital signs: Vital Signs Temp 97.7 F 10/13/21 11:38 Pulse 71 10/13/21 11:38 Resp 18 10/13/21 11:38 BP 179/69 10/13/21 11:38 Pulse Ox 95 10/13/21 11:38 FiO2 Intake & Output 10/12/21 10/13/21 10/13/21 18:59 06:59 18:59 Intake Total 236 500 270 Output Total 2105 700 Balance -1869 -200 270 Weight 96.5 kg Intake: Oral 236 500 270 Output: Urine 1700 700 Straight 600 Post Void Residual 405 Other: Voiding Method Toilet Indwelling Catheter Indwelling Catheter # Voids 225 - Exam PHYSICAL EXAM: VITAL SIGNS: Reviewed. GENERAL: Well-developed in no acute distress. HEENT: Head is normocephalic. Pupils are equal, round. Sclerae anicteric. Mucous membranes of the mouth are moist. NECK: Supple. No JVD or thyromegaly RESPIRATORY: Respirations even and unlabored. Lungs diminished to auscultation bilaterally. CARDIO: Regular rate and rhythm. S1 and S2 heard. No murmur or gallops. EXTREMITIES: Normal range of motion. No clubbing or cyanosis. Peripheral pulses intact. Negative for bilateral lower extremity edema NEURO: Orientated to person, time, mood is appropriate - Labs CBC & Chem 7: 10/13/21 04:27 10/13/21 04:23 Labs: Abnormal Lab Results - Last 24 Hours (Table) 10/12/21 10/12/21 10/12/21 Range/Units 09:47 16:32 19:55 RBC (3.80-5.40) m/uL Hgb (11.4-16.0) gm/dL Hct (34.0-46.0) % MCV (80.0-100.0) fL Sodium (137-145) mmol/L Chloride (98-107) mmol/L Carbon Dioxide (22-30) mmol/L BUN (7-17) mg/dL Creatinine (0.52-1.04) mg/dL Glucose (74-99) mg/dL POC Glucose (mg/dL) 225 H 333 H (70-110) mg/dL Transferrin 173.0 L (204.0-354.0) mg/dL 10/13/21 10/13/21 10/13/21 Range/Units 04:23 04:27 06:14 RBC 2.64 L (3.80-5.40) m/uL Hgb 8.9 L (11.4-16.0) gm/dL Hct 27.0 L (34.0-46.0) % MCV 102.2 H (80.0-100.0) fL Sodium 135 L (137-145) mmol/L Chloride 108 H (98-107) mmol/L Carbon Dioxide 21 L (22-30) mmol/L BUN 54 H (7-17) mg/dL Creatinine 1.67 H (0.52-1.04) mg/dL Glucose 188 H (74-99) mg/dL POC Glucose (mg/dL) 211 H (70-110) mg/dL Transferrin (204.0-354.0) mg/dL 10/13/21 10/13/21 Range/Units 11:50 13:36 RBC (3.80-5.40) m/uL Hgb (11.4-16.0) gm/dL Hct (34.0-46.0) % MCV (80.0-100.0) fL Sodium (137-145) mmol/L Chloride (98-107) mmol/L Carbon Dioxide (22-30) mmol/L BUN (7-17) mg/dL Creatinine (0.52-1.04) mg/dL Glucose (74-99) mg/dL POC Glucose (mg/dL) 466 H 473 H (70-110) mg/dL Transferrin (204.0-354.0) mg/dL Assessment and Plan Assessment: Acute onset diastolic congestive heart failure Acute non-ST segment elevation [place] Coronary artery disease and medical therapy Acute kidney injury Hypertension [id number] diabetes Plan: Continue with IV Lasix 40 mg daily titrated per nephrology Increase hydralazine to 100 mg twice a day Continue to monitor blood pressure Continue with all other current cardiac medications Continue with telemetry monitoring Further recommendations based on clinical course The above impression and plan of care have been discussed and directed by the signing physician. Megan Prescott, nurse practitioner, acting as scribe for signing physician.
[2021-10-13 16:51] LABS: Glucose,Whole Blood 170 mg/dL (70-110)
[2021-10-13 19:58] LABS: Glucose,Whole Blood 287 mg/dL (70-110)
[2021-10-13] MEDS: INSULIN DETEMIR (LEVEMIR) 100 UNIT/ML SYR SQ SCH (20:59)
[2021-10-13] MEDS: ATORVASTATIN 10 MG TAB PO SCH (21:00)
[2021-10-13] MEDS: ACETAMINOPHEN TAB 325 MG TAB PO PRN (22:40)
[2021-10-14 07:10] LABS: Glucose,Whole Blood 280 mg/dL (70-110)
[2021-10-14] MEDS: INSULIN ASPART (NovoLOG) 100 UNIT/ML VIAL SQ SCH ×7 (07:17→20:52)
[2021-10-14] MEDS: carvediloL 6.25 MG TAB PO SCH ×2 (07:17→17:09)
[2021-10-14] MEDS: NITROGLYCERIN OINT 1 INCH/GM PACKET TOPICAL SCH ×3 (08:25→23:43)
[2021-10-14] MEDS: HEPARIN SODIUM,PORCINE/PF 5,000 UNIT/0.5 ML SYRINGE SQ SCH ×2 (08:25→20:51)
[2021-10-14] MEDS: FUROSEMIDE 10 MG/ML 4 ML VIAL IV SCH (08:25)
[2021-10-14] MEDS: amLODIPine 5 MG TAB PO SCH ×2 (08:26→20:51)
[2021-10-14] MEDS: ASPIRIN 81 MG PO SCH (08:26)
[2021-10-14] MEDS: hydrALAZINE HCL 50 MG TAB PO SCH ×2 (08:26→20:51)
[2021-10-14] MEDS: FAMOTIDINE 20 MG TAB PO SCH (08:26)
[2021-10-14] MEDS: ACETAMINOPHEN TAB 325 MG TAB PO PRN ×2 (08:33→20:51)
--- NOTE | 2021-10-14 09:47 | P.PN ---
Subjective Patient is seen for follow-up for acute kidney injury. She does have chronic kidney disease NKF stage IIIa with previous creatinine around 1.2-1.3 mg/dL. Etiology is nephrosclerosis. Patient was admitted to the hospital with shortness of breath. She did rule in for acute non-ST elevation [place] and also a was in CHF and has been diuresed. Patient had chest CTA done on 10/09/2021 Serum creatinine increased from around 1.17 on initial admission to 1.8 yesterday. Patient did have urine retention. No evidence of hypotension Serum creatinine decreased back down to 1.6 from 1.89 yesterday. Cozaar has been held. It was initially decreased and then discontinued yesterday after creatinine was noted to be higher. Cardiac catheterization has been postponed until Friday. Currently patient is chest pain-free 24 hour urine output 1.4 L Objective - Vital Signs Vital signs: Vital Signs Temp 98.5 F 10/14/21 07:39 Pulse 67 10/14/21 08:00 Resp 16 10/14/21 08:00 BP 151/65 10/14/21 07:39 Pulse Ox 94 L 10/14/21 07:39 FiO2 Intake & Output 10/13/21 10/14/21 10/14/21 18:59 06:59 18:59 Intake Total 1080 Output Total 1100 300 Balance -20 -300 Weight 96.5 kg Intake: Oral 1080 Output: Urine 1100 300 Other: Voiding Method Indwelling Catheter Indwelling Catheter Indwelling Catheter - Exam Awake, alert oriented 3 Comfortable Not in any acute distress Examination of the heart S1 and S2 Examination lungs bilateral breath sounds are heard Abdomen is soft nontender Examination lower extremities shows trace edema bilaterally DIRECTOR OF MARKETING exam grossly intact - Labs CBC & Chem 7: 10/13/21 04:27 10/13/21 04:23 Labs: Abnormal Lab Results - Last 24 Hours (Table) 10/13/21 10/13/21 10/13/21 Range/Units 04:27 11:50 13:36 POC Glucose (mg/dL) 466 H 473 H (70-110) mg/dL Hemoglobin A1c 7.6 H (0.0-6.0) % 10/13/21 10/13/21 10/14/21 Range/Units 16:39 19:57 07:05 POC Glucose (mg/dL) 170 H 287 H 280 H (70-110) mg/dL Hemoglobin A1c (0.0-6.0) % Assessment and Plan Assessment: 1. Acute kidney injury, ATN currently nonoliguric. Urine retention noted. Etiology is contrast nephropathy as well as urine retention. No episodes of hypotension. UA shows 3+ protein which appears to be new. She did have elevated WBC suggesting possible underlying UTI but urine cultures are negative. Patient is maintained on Cozaar. This is currently on hold. 2. Chronic kidney disease NKF stage III be secondary to nephrosclerosis however current UA shows 3+ protein. This will need to be quantified and repeated. Possible underlying diabetic kidney disease previous creatinine has been around 1.2-1.4 mg/dL 3. Acute diastolic CHF, maintained on IV Lasix. 4. Acute non-ST elevation [place] being followed by cardiology. Currently holding off on Due to worsening renal function 5. Volume overload currently improving 6. Moderate to severe pulmonary hypertension noted on current echocardiogram. EF was 55%. Plan: Continue to hold angiotensin receptor blockers Continue with Eduardo catheter Avoid nephrotoxic agents Change Lasix to by mouth Repeat labs in a.m. If renal function is further improved patient can likely proceed with cardiac catheterization on Friday.
[2021-10-14 11:01] LABS: Potassium 3.8 mmol/L (3.5-5.1)
--- NOTE | 2021-10-14 11:01 | P.PN ---
Subjective History of present illness: The patient is an 78-year-old female with a PMH of CHF (unknown type), type II DM, hypertension, hyperlipidemia, chronic kidney disease who presents to the emergency room for complaints of shortness of breath. The patient reports that her symptoms have been gradually worsening over the past 1 week, and that she was seen at her PCP earlier today. The patient was noted to be hypoxic upon ambulation, with SpO2 following into the low 80s, for which she was sent to the emergency room. Patient reports feeling somewhat better at the time of interview. She reports mildly worsened bilateral ankle swelling She reports compliance with her home Lasix as well as her other medications and diet. She denies experiencing chest discomfort, nausea, vomiting, diaphoresis, palpitations, cough, fever, or chills. She does sleep in a recliner due to her chronic shoulder pain. Denies PND. Chest CT in the emergency room revealed findings consistent with congestive heart failure. Laboratory evaluation was remarkable for WBC count 13, hemoglobin 10.8, MCV 102.3, troponin 0.130, proBNP 1370, BUN 30, creatinine 1.17, coronavirus and influenza testing negative. EKG revealed. Interval history: Patient was seen and examined at the bedside. She denies any chest pain. Patient reports improvement in her shortness of breath also swelling in the lower extremities. She currently room air. No acute changes overnight. Physical examination: General: non toxic, no distress, appears at stated age Derm: warm, dry Head: atraumatic, normocephalic, symmetric Eyes: EOMI, no lid lag, anicteric sclera Mouth: no lip lesion, mucus membranes moist Cardiovascular: S1S2 reg, no murmur, positive posterior tibial pulse bilateral, Lungs: CTA bilateral, no rhonchi, no rales , no accessory muscle use Abdominal: soft, nontender to palpation, no guarding, no appreciable organomegaly Ext: 1+ pitting edema bilaterally Neuro: CN II-XI grossly intact, no focal neuro deficits Psych: Alert, oriented, appropriate affect Assessment and plan: #Acute hypoxic respiratory failure secondary to acute preserved ejection fraction CHF exacerbation. -Lasix was decreased to 40 mg once daily teeth worsening kidney function -Cardiology added hydralazine 50 mg 3 times daily due to uncontrolled blood pressure -Degree echo showed normal LV size and systolic function. EF 55-60%. Moderate to severe pulmonary hypertension. No pericardial effusion -Cardiac monitoring -Intake and output -Daily weights -Fluid restriction #Mildly elevated troponin -Cardiology discontinued IV heparin -Continue to trend for now -Cardiac monitoring -Continue with beta negrita, aspirin and statin -Possible plan for left heart cath on Friday per cardiology if her kidney function continued to improve #Acute kidney injury -Improving -Underlying chronic kidney disease stage III -Could be a combination off over diuresis and recently used IV contrast with CT of the chest on October 09 -Bioinformatics Programmer decreased Lasix to 40 mg once daily -Losartan discontinued -Renal ultrasound without obstruction -Nephrology following #Type 2 diabetes mellitus with uncontrolled hyperglycemia -Resume basal bolus insulin -A1c 7.5 #Acute urinary retention -Urology consulted -Catheter placed -Urology recommended voiding trials prior to discharge #Macrocytic anemia -At baseline -Normal B12 is 351 #Hypertension -Cardiology added hydralazine -Losartan discontinued -Resume Coreg 6.25 twice daily #Dyslipidemia -Insulin sliding scale and blood glucose monitoring -Continue with home meds #DVT prophylaxis with subcutaneous heparin Objective - Vital Signs Vital signs: Vital Signs Temp 98.5 F 10/14/21 07:39 Pulse 67 10/14/21 08:00 Resp 16 10/14/21 08:00 BP 151/65 10/14/21 07:39 Pulse Ox 94 L 10/14/21 07:39 FiO2 Intake & Output 10/13/21 10/14/21 10/14/21 18:59 06:59 18:59 Intake Total 1080 Output Total 1100 300 Balance -20 -300 Weight 96.5 kg Intake: Oral 1080 Output: Urine 1100 300 Other: Voiding Method Indwelling Catheter Indwelling Catheter Indwelling Catheter - Labs CBC & Chem 7: 10/13/21 04:27 10/13/21 04:23 Labs: Abnormal Lab Results - Last 24 Hours (Table) 10/13/21 10/13/21 10/13/21 Range/Units 04:27 11:50 13:36 POC Glucose (mg/dL) 466 H 473 H (70-110) mg/dL Hemoglobin A1c 7.6 H (0.0-6.0) % 10/13/21 10/13/21 10/14/21 Range/Units 16:39 19:57 07:05 POC Glucose (mg/dL) 170 H 287 H 280 H (70-110) mg/dL Hemoglobin A1c (0.0-6.0) %
[2021-10-14 11:06] LABS: Basophils # (A) 0.1 k/uL (0-0.2); Basophils % (A) 1 %; Eosinophils # (A) 0.2 k/uL (0-0.7); Eosinophils % (A) 2 %; HCT 28.1 % (34.0-46.0); HGB 9.2 gm/dL (11.4-16.0); Lymphocytes # (A) 1.6 k/uL (1.0-4.8); Lymphocytes % (A) 19 %; MCH 33.4 pg (25.0-35.0); MCHC 32.6 g/dL (31.0-37.0); MCV 102.5 fL (80.0-100.0); Macrocytosis Slight; Mean Platelet Volume 7.2; Monocytes # (A) 0.6 k/uL (0-1.0); Monocytes % (A) 7 %; Neutrophils # (A) 6.1 k/uL (1.3-7.7); Neutrophils % (A) 69 %; Platelet Count 318 k/uL (150-450); RBC 2.74 m/uL (3.80-5.40); RDW 14.9 % (11.5-15.5); WBC 8.8 k/uL (3.8-10.6)
[2021-10-14 11:56] LABS: Glucose,Whole Blood 136 mg/dL (70-110)
--- NOTE | 2021-10-14 14:21 | P.PN ---
Subjective Progress Note Date: 10/14/21 80-year-old lady with multiple medical problems including hypertension diabetes dyslipidemia coronary artery disease on medical therapy presented to Hospital with symptoms of not feeling well and shortness of breath. She has been feeling short of breath for the last several days and has episodes of diarrhea and nausea yesterday. She went to see her primary care physician and was told to come to the emergency room and get admitted. She was found to be in congestive heart failure with ST-T wave changes of ischemia and the EKG and mildly elevated troponin. Patient is seen today resting comfortably in bed. She remains free from increased shortness of breath or chest pain. Patient continues to be followed by nephrology for elevated kidney function, BUN is 59 creatinine is 1.8. Due to worsening kidney function is recommended to continue with medical management at this time. Patient will undergo heart catheterization when kidney function improves and cleared by nephrology. Blood pressure is better controlled today. Continue with all current cardiac medications. Lasix to be dosed by nephrology Objective - Vital Signs Vital signs: Vital Signs Temp 98.5 F 10/14/21 07:39 Pulse 58 L 10/14/21 12:00 Resp 16 10/14/21 12:00 BP 136/65 10/14/21 12:00 Pulse Ox 94 L 10/14/21 12:00 FiO2 Intake & Output 10/13/21 10/14/21 10/14/21 18:59 06:59 18:59 Intake Total 1080 Output Total 1100 300 400 Balance -20 -300 -400 Weight 96.5 kg Intake: Oral 1080 Output: Urine 1100 300 400 Other: Voiding Method Indwelling Catheter Indwelling Catheter Indwelling Catheter - Exam PHYSICAL EXAM: VITAL SIGNS: Reviewed. GENERAL: Well-developed in no acute distress. HEENT: Head is normocephalic. Pupils are equal, round. Sclerae anicteric. Mucous membranes of the mouth are moist. NECK: Supple. No JVD or thyromegaly RESPIRATORY: Respirations even and unlabored. Lungs diminished to auscultation bilaterally. CARDIO: Regular rate and rhythm. S1 and S2 heard. No murmur or gallops. EXTREMITIES: Normal range of motion. No clubbing or cyanosis. Peripheral pulses intact. Negative for bilateral lower extremity edema NEURO: Orientated to person, time, mood is appropriate - Labs CBC & Chem 7: 10/14/21 10:17 10/14/21 10:17 Labs: Abnormal Lab Results - Last 24 Hours (Table) 10/13/21 10/13/21 10/13/21 Range/Units 04:27 16:39 19:57 RBC (3.80-5.40) m/uL Hgb (11.4-16.0) gm/dL Hct (34.0-46.0) % MCV (80.0-100.0) fL Sodium (137-145) mmol/L Chloride (98-107) mmol/L Carbon Dioxide (22-30) mmol/L BUN (7-17) mg/dL Creatinine (0.52-1.04) mg/dL Glucose (74-99) mg/dL POC Glucose (mg/dL) 170 H 287 H (70-110) mg/dL Hemoglobin A1c 7.6 H (0.0-6.0) % 10/14/21 10/14/21 10/14/21 Range/Units 07:05 10:17 10:17 RBC 2.74 L (3.80-5.40) m/uL Hgb 9.2 L (11.4-16.0) gm/dL Hct 28.1 L (34.0-46.0) % MCV 102.5 H (80.0-100.0) fL Sodium 136 L (137-145) mmol/L Chloride 108 H (98-107) mmol/L Carbon Dioxide 20 L (22-30) mmol/L BUN 59 H (7-17) mg/dL Creatinine 1.81 H (0.52-1.04) mg/dL Glucose 164 H (74-99) mg/dL POC Glucose (mg/dL) 280 H (70-110) mg/dL Hemoglobin A1c (0.0-6.0) % 10/14/21 Range/Units 11:55 RBC (3.80-5.40) m/uL Hgb (11.4-16.0) gm/dL Hct (34.0-46.0) % MCV (80.0-100.0) fL Sodium (137-145) mmol/L Chloride (98-107) mmol/L Carbon Dioxide (22-30) mmol/L BUN (7-17) mg/dL Creatinine (0.52-1.04) mg/dL Glucose (74-99) mg/dL POC Glucose (mg/dL) 136 H (70-110) mg/dL Hemoglobin A1c (0.0-6.0) % Assessment and Plan Assessment: Acute onset diastolic congestive heart failure Acute non-ST segment elevation UT Coronary artery disease and medical therapy Acute kidney injury Hypertension Nte-jwjmyet-hckmklmke diabetes Plan: Continue with Lasix 40 mg daily titrated per nephrology Continue hydralazine to 100 mg twice a day Continue to monitor blood pressure Continue with all other current cardiac medications Continue with telemetry monitoring At this time continue with medical management, we'll consider cardiac catheterization once kidney function improved and cleared by nephrology Further recommendations based on clinical course The above impression and plan of care have been discussed and directed by the signing physician. Megan Prescott, nurse practitioner, acting as scribe for signing physician.
[2021-10-14 17:01] LABS: Glucose,Whole Blood 215 mg/dL (70-110)
[2021-10-14 20:33] LABS: Glucose,Whole Blood 230 mg/dL (70-110)
[2021-10-14] MEDS: ATORVASTATIN 10 MG TAB PO SCH (20:51)
[2021-10-14] MEDS: INSULIN DETEMIR (LEVEMIR) 100 UNIT/ML SYR SQ SCH (20:52)
[2021-10-15 03:11] LABS: Glucose,Whole Blood 183 mg/dL (70-110)
[2021-10-15 05:58] LABS: Glucose,Whole Blood 175 mg/dL (70-110)
[2021-10-15] MEDS: carvediloL 6.25 MG TAB PO SCH ×2 (06:41→17:13)
[2021-10-15] MEDS: INSULIN ASPART (NovoLOG) 100 UNIT/ML VIAL SQ SCH ×7 (06:41→21:14)
[2021-10-15] MEDS: hydrALAZINE HCL 50 MG TAB PO SCH ×2 (08:37→21:14)
[2021-10-15] MEDS: amLODIPine 5 MG TAB PO SCH ×2 (08:37→21:14)
[2021-10-15] MEDS: NITROGLYCERIN OINT 1 INCH/GM PACKET TOPICAL SCH ×3 (08:37→23:50)
[2021-10-15] MEDS: ASPIRIN 81 MG PO SCH (08:37)
[2021-10-15] MEDS: FAMOTIDINE 20 MG TAB PO SCH (08:37)
[2021-10-15] MEDS: FUROSEMIDE 40 MG TAB PO SCH (08:40)
[2021-10-15 09:51] LABS: Basophils # (A) 0.1 k/uL (0-0.2); Basophils % (A) 1 %; Eosinophils # (A) 0.2 k/uL (0-0.7); Eosinophils % (A) 2 %; HCT 28.2 % (34.0-46.0); HGB 9.4 gm/dL (11.4-16.0); Lymphocytes # (A) 1.8 k/uL (1.0-4.8); Lymphocytes % (A) 21 %; MCHC 33.5 g/dL (31.0-37.0); MCV 101.4 fL (80.0-100.0); Macrocytosis Slight; Mean Platelet Volume 7.5; Monocytes # (A) 0.6 k/uL (0-1.0); Monocytes % (A) 7 %; Neutrophils # (A) 5.9 k/uL (1.3-7.7); Neutrophils % (A) 67 %; Platelet Count 303 k/uL (150-450); RBC 2.78 m/uL (3.80-5.40); RDW 14.4 % (11.5-15.5); WBC 8.7 k/uL (3.8-10.6)
[2021-10-15 10:11] LABS: Calcium 9.2 mg/dL (8.4-10.2); Magnesium 1.8 mg/dL (1.6-2.3); Potassium 4.1 mmol/L (3.5-5.1)
--- NOTE | 2021-10-15 10:53 | P.PN ---
Subjective Patient is seen in follow-up for acute kidney injury and chronic kidney disease. Renal function low better today. Patient is sitting up in chair. Denies chest pain or shortness of breath. Oral intake has been good. Nonoliguric. Has a Eduardo catheter. Vital signs are stable. General: Awake. No acute distress. HEENT: Head exam is unremarkable. LUNGS: Breath sounds decreased. HEART: Rate and Rhythm are regular. ABDOMEN: Soft, no distention. EXTREMITITES: No edema. Objective - Vital Signs Vital signs: Vital Signs Temp 98.4 F 10/15/21 08:00 Pulse 58 L 10/15/21 08:00 Resp 20 10/15/21 08:00 BP 143/62 10/15/21 08:00 Pulse Ox 94 L 10/15/21 08:00 FiO2 Intake & Output 10/14/21 10/15/21 10/15/21 18:59 06:59 18:59 Intake Total 490 Output Total 400 800 Balance 90 -800 Weight 97 kg Intake: IV 10 0.9 10 Oral 480 Output: Urine 400 800 Other: Voiding Method Indwelling Catheter Indwelling Catheter Indwelling Catheter - Labs CBC & Chem 7: 10/15/21 09:02 10/15/21 09:02 Labs: Abnormal Lab Results - Last 24 Hours (Table) 10/14/21 10/14/21 10/14/21 Range/Units 10:17 10:17 11:55 RBC 2.74 L (3.80-5.40) m/uL Hgb 9.2 L (11.4-16.0) gm/dL Hct 28.1 L (34.0-46.0) % MCV 102.5 H (80.0-100.0) fL Sodium 136 L (137-145) mmol/L Chloride 108 H (98-107) mmol/L Carbon Dioxide 20 L (22-30) mmol/L BUN 59 H (7-17) mg/dL Creatinine 1.81 H (0.52-1.04) mg/dL Glucose 164 H (74-99) mg/dL POC Glucose (mg/dL) 136 H (70-110) mg/dL 10/14/21 10/14/21 10/15/21 Range/Units 17:00 20:29 03:06 RBC (3.80-5.40) m/uL Hgb (11.4-16.0) gm/dL Hct (34.0-46.0) % MCV (80.0-100.0) fL Sodium (137-145) mmol/L Chloride (98-107) mmol/L Carbon Dioxide (22-30) mmol/L BUN (7-17) mg/dL Creatinine (0.52-1.04) mg/dL Glucose (74-99) mg/dL POC Glucose (mg/dL) 215 H 230 H 183 H (70-110) mg/dL 10/15/21 10/15/21 10/15/21 Range/Units 05:56 09:02 09:02 RBC 2.78 L (3.80-5.40) m/uL Hgb 9.4 L (11.4-16.0) gm/dL Hct 28.2 L (34.0-46.0) % MCV 101.4 H (80.0-100.0) fL Sodium 134 L (137-145) mmol/L Chloride (98-107) mmol/L Carbon Dioxide 19 L (22-30) mmol/L BUN 60 H (7-17) mg/dL Creatinine 1.66 H (0.52-1.04) mg/dL Glucose 151 H (74-99) mg/dL POC Glucose (mg/dL) 175 H (70-110) mg/dL Assessment and Plan Plan: Assessment: 1. Acute kidney injury secondary to contrast-induced acute kidney injury and urinary retention. Renal function improving. Creatinine 1.66 today. No hydronephrosis noted on kidney ultrasound. Patient received IV contrast for ch est CTA on 10/09/2021. 2. Chronic kidney disease stage IIIB with baseline creatinine in the range of 1.2-1.3 secondary to diabetic kidney disease and nephrosclerosis. 3. Acute on chronic diastolic CHF with severe pulmonary hypertension. 4. Diabetes mellitus. 5. Volume overload. Improved. 6. Urinary retention area and has a Eduardo catheter. 7. Anemia of chronic kidney disease. Iron replete. Plan: Maintain oral Lasix. Add Flomax. Okay to discontinue Eduardo catheter from nephrology standpoint and monitor serial postvoid residuals. Avoid nephrotoxins. Add Aranesp. Case discussed with cardiology. No plans for cardiac catheterization this admission.
[2021-10-15 11:51] LABS: Glucose,Whole Blood 212 mg/dL (70-110)
[2021-10-15] MEDS ORDERED: DARBEPOETIN ALFA 40 MCG/0.4 ML SYRINGE SQ SCH (12:00)
[2021-10-15] MEDS: HEPARIN SODIUM,PORCINE/PF 5,000 UNIT/0.5 ML SYRINGE SQ SCH ×2 (12:25→21:14)
[2021-10-15] MEDS: TAMSULOSIN 0.4 MG CAP.ER.24H PO SCH (12:29)
[2021-10-15 12:56] VITALS: BMI 40.4
--- NOTE | 2021-10-15 13:47 | P.PN ---
Subjective Progress Note Date: 10/15/21 HISTORY OF PRESENT ILLNESS: Patient seen and examined this morning. She is sitting up in the chair. She denies chest pain or pressure. She reports her shortness of breath is improv ing. She has been transitioned to oral Lasix. Patient's creatinine remains elevated today at 1.66. Echocardiogram completed reveals preserved ejection fraction. PHYSICAL EXAM: VITAL SIGNS: Reviewed. GENERAL: Well-developed in no acute distress. NECK: Supple. No JVD or thyromegaly LUNGS: Respirations even and unlabored. Lungs essentially clear to auscultation bilaterally. HEART: Regular rate and rhythm. S1 and S2 heard. EXTREMITIES: Normal range of motion. No clubbing or cyanosis. Peripheral pulses intact. No lower extremity edema ASSESSMENT: Acute on chronic heart failure with preserved ejection fraction Abnormal troponins, flat, with no complaints of chest pain, echo revealing preserved EF, possible NSTEMI Acute kidney injury Hypertension PLAN: Continue current cardiac medications Continue with medical management at this time Patient is currently stable Will plan for outpatient cardiac cath secondary to patients acute kidney injury She may be discharged home today and follow up outpatient Nurse practitioner note has been reviewed by physician. Signing provider agrees with the documented findings, assessment, and plan of care. Objective - Vital Signs Vital signs: Vital Signs Temp 97.5 F L 10/15/21 11:57 Pulse 61 10/15/21 11:57 Resp 16 10/15/21 11:57 BP 138/68 10/15/21 11:57 Pulse Ox 96 10/15/21 11:57 FiO2 Intake & Output 10/14/21 10/15/21 10/15/21 18:59 06:59 18:59 Intake Total 490 Output Total 400 800 700 Balance 90 -800 -700 Weight 97 kg 97 kg Intake: IV 10 0.9 10 Oral 480 Output: Urine 400 800 700 Uretheral (Eduardo) 700 Other: Voiding Method Indwelling Catheter Indwelling Catheter Indwelling Catheter - Labs CBC & Chem 7: 10/15/21 09:02 10/15/21 09:02 Labs: Abnormal Lab Results - Last 24 Hours (Table) 10/14/21 10/14/21 10/15/21 Range/Units 17:00 20:29 03:06 RBC (3.80-5.40) m/uL Hgb (11.4-16.0) gm/dL Hct (34.0-46.0) % MCV (80.0-100.0) fL Sodium (137-145) mmol/L Carbon Dioxide (22-30) mmol/L BUN (7-17) mg/dL Creatinine (0.52-1.04) mg/dL Glucose (74-99) mg/dL POC Glucose (mg/dL) 215 H 230 H 183 H (70-110) mg/dL 10/15/21 10/15/21 10/15/21 Range/Units 05:56 09:02 09:02 RBC 2.78 L (3.80-5.40) m/uL Hgb 9.4 L (11.4-16.0) gm/dL Hct 28.2 L (34.0-46.0) % MCV 101.4 H (80.0-100.0) fL Sodium 134 L (137-145) mmol/L Carbon Dioxide 19 L (22-30) mmol/L BUN 60 H (7-17) mg/dL Creatinine 1.66 H (0.52-1.04) mg/dL Glucose 151 H (74-99) mg/dL POC Glucose (mg/dL) 175 H (70-110) mg/dL 10/15/21 Range/Units 11:49 RBC (3.80-5.40) m/uL Hgb (11.4-16.0) gm/dL Hct (34.0-46.0) % MCV (80.0-100.0) fL Sodium (137-145) mmol/L Carbon Dioxide (22-30) mmol/L BUN (7-17) mg/dL Creatinine (0.52-1.04) mg/dL Glucose (74-99) mg/dL POC Glucose (mg/dL) 212 H (70-110) mg/dL
--- NOTE | 2021-10-15 13:59 | P.PN ---
Subjective Progress Note Date: 10/15/21 Hospital course: The patient is a very pleasant 80-year-old female with a past medical history of CAD, hypertension, hyperlipidemia, chronic kidney disease, and chronic diastolic heart failure.she presented to the emergency department on 10/09/21 with a chief complaint of shortness of breath stating exertional dyspnea 1 week progressively worsening accompanied by bilateral lower extremity edema. in the emergency department, patient underwent full evaluation. She was found to have leukocytosis with WBC count of 13.0, macrocytic anemia with hemoglobin of 10.8 and MCV of 102.3 . ProBNP 1370 and troponin was elevated at 0.130. Patient was admitted under our services for consultation to cardiology. Troponins were trended and flat with results 0.130, 0.146, and 0.132. EKG showing sinus rhythm at 79 bpm with T-wave inversion in leads 1 and aVL. CTA chest negative for pulmonary emboli revealing cardiomegaly with bilateral pleural effusions and pulmonary vascular congestion correlating for congestive heart failure along with small hiatal hernia. Chest x-ray revealing questionable right medial basal pulmonary infiltration versus artifact. Echocardiogram revealing normal EF 55- 60% with moderate to severe pulmonary hypertension. Patient was treated with IV diuresis and on 10/11/21 was found to have an acute kidney injury with BUN of 40, creatinine 1.61, and GFR of 30. Ultrasound kidneys, renal, and bladder negative for acute process. Urinalysis questionable for infection, however patient was asymptomatic. Urine culture negative, therefore ruling out UTI. Nephrology was consulted. Physical examination: Patient seen and fully evaluated at bedside this morning. Patient doing well.currently she denies having any complaints or needs at this time including headache, lightheadedness, dizziness, chest pain, palpitations, or shortness of breath at rest. Patient reports she never experienced chest pain prior to arrival stating she was experiencing exertional dyspnea. Patient reports that she continues to have exertional dyspnea but has had significant improvement since arrival to our facility. Patient remains on Lasix 40 mg daily and has had 1200 mL of documented output over the past 24 hours.morning labs reviewed and stable, proBNP decreasing to 1040 and renal function slightly improving with BUN of 40, creatinine 1.61, and GFR of 30. Cardiology reports no plans for cardiac cath at this time. We will continue to diurese and monitor closely. General: non toxic, no distress, appears at stated age Derm: warm, dry Head: atraumatic, normocephalic, symmetric Eyes: EOMI, no lid lag, anicteric sclera Mouth: no lip lesion, mucus membranes moist Cardiovascular: S1S2 reg, no murmur, positive posterior tibial pulse bilateral, Lungs: CTA bilateral, no rhonchi, no rales , no accessory muscle use Abdominal: soft, nontender to palpation, no guarding, no appreciable organomegaly Ext: 1+ pitting edema bilaterally Neuro: CN II-XI grossly intact, no focal neuro deficits Psych: Alert, oriented, appropriate affect Assessment and plan of care: Acute hypoxic respiratory failure secondary to acute preserved ejection fraction CHF exacerbation Elevated troponin, flat. Likely secondary to acute exacerbation of chronic diastolic heart failure with preserved EF 55-60%. -Lasix was decreased to 40 mg once daily -Cardiology added hydralazine 50 mg 3 times daily due to uncontrolled blood pressure -Echo showed normal LV size and systolic function. EF 55-60%. Moderate to severe pulmonary hypertension. No pericardial effusion -Cardiac monitoring -Intake and output -Daily weights -Fluid restriction -Cardiology following, no plans for cardiac cath this admission -Continue Cardiac monitoring -Continue with cardiac medication regimen consisting of aspirin, amlodipine, atorvastatin, carvedilol, hydralazine, and lasix. Acute kidney injuryon chronic kidney disease stage III -Improving -Could be a combination off over diuresis and recently used IV contrast with CT of the chest on October 09 -[employer] decreased Lasix to 40 mg once daily -Losartan discontinued -Renal ultrasound without obstruction -Nephrology following Type 2 diabetes mellitus with uncontrolled hyperglycemia -Glycemic protocol with NovoLog sliding scale along with NovoLog 10 units 3 times daily with meals and 45 units of Levemir nightly. -A1c 7.5 Acute urinary retention -Urology consulted -Catheter placed -Urology recommended voiding trials prior to discharge Macrocytic anemia -Nephrology started patient on Aranesp. -Normal B12 is 351 Hypertension -losartan discontinued and cardiology added on hydralazine secondary to persistent hypertension. -vital signs stable at this time and we will continue to monitor vital signs and patient to continue daily medication regimen with amlodipine, carvedilol, and hydralazine. Dyslipidemia -Continue with home medication regimen with atorvastatin CODE STATUS: full code DVT prophylaxis: heparin Discussed with: patient, cardiology, and RN Anticipated discharge date: clinical course to determine Anticipated discharge place: home A total of 38 minutes was spent on the care of this complex patient more than 50% of the time was spent in counseling and care coordination. Objective - Vital Signs Vital signs: Vital Signs Temp 98.4 F 10/15/21 08:00 Pulse 58 L 10/15/21 08:00 Resp 20 10/15/21 08:00 BP 143/62 10/15/21 08:00 Pulse Ox 94 L 10/15/21 08:00 FiO2 Intake & Output 10/14/21 10/15/21 10/15/21 18:59 06:59 18:59 Intake Total 490 Output Total 400 800 Balance 90 -800 Weight 97 kg Intake: IV 10 0.9 10 Oral 480 Output: Urine 400 800 Other: Voiding Method Indwelling Catheter Indwelling Catheter Indwelling Catheter - Labs CBC & Chem 7: 10/15/21 09:02 10/15/21 09:02 Labs: Abnormal Lab Results - Last 24 Hours (Table) 10/14/21 10/14/21 10/14/21 Range/Units 10:17 11:55 17:00 RBC 2.74 L (3.80-5.40) m/uL Hgb 9.2 L (11.4-16.0) gm/dL Hct 28.1 L (34.0-46.0) % MCV 102.5 H (80.0-100.0) fL Sodium (137-145) mmol/L Carbon Dioxide (22-30) mmol/L BUN (7-17) mg/dL Creatinine (0.52-1.04) mg/dL Glucose (74-99) mg/dL POC Glucose (mg/dL) 136 H 215 H (70-110) mg/dL 10/14/21 10/15/21 10/15/21 Range/Units 20:29 03:06 05:56 RBC (3.80-5.40) m/uL Hgb (11.4-16.0) gm/dL Hct (34.0-46.0) % MCV (80.0-100.0) fL Sodium (137-145) mmol/L Carbon Dioxide (22-30) mmol/L BUN (7-17) mg/dL Creatinine (0.52-1.04) mg/dL Glucose (74-99) mg/dL POC Glucose (mg/dL) 230 H 183 H 175 H (70-110) mg/dL 10/15/21 10/15/21 Range/Units 09:02 09:02 RBC 2.78 L (3.80-5.40) m/uL Hgb 9.4 L (11.4-16.0) gm/dL Hct 28.2 L (34.0-46.0) % MCV 101.4 H (80.0-100.0) fL Sodium 134 L (137-145) mmol/L Carbon Dioxide 19 L (22-30) mmol/L BUN 60 H (7-17) mg/dL Creatinine 1.66 H (0.52-1.04) mg/dL Glucose 151 H (74-99) mg/dL POC Glucose (mg/dL) (70-110) mg/dL
[2021-10-15 14:30] LABS: Basophils # (A) 0.1 k/uL (0-0.2); Basophils % (A) 1 %; Eosinophils # (A) 0.2 k/uL (0-0.7); Eosinophils % (A) 3 %; HGB 9.9 gm/dL (11.4-16.0); Lymphocytes # (A) 1.7 k/uL (1.0-4.8); Lymphocytes % (A) 18 %; MCH 33.4 pg (25.0-35.0); MCHC 32.9 g/dL (31.0-37.0); MCV 101.4 fL (80.0-100.0); Macrocytosis Slight; Mean Platelet Volume 7.9; Monocytes # (A) 0.5 k/uL (0-1.0); Monocytes % (A) 5 %; Neutrophils # (A) 6.6 k/uL (1.3-7.7); Neutrophils % (A) 71 %; Platelet Count 327 k/uL (150-450); RBC 2.96 m/uL (3.80-5.40); RDW 14.5 % (11.5-15.5); WBC 9.3 k/uL (3.8-10.6)
[2021-10-15 16:11] LABS: Glucose,Whole Blood 250 mg/dL (70-110)
[2021-10-15 20:51] LABS: Glucose,Whole Blood 269 mg/dL (70-110)
[2021-10-15] MEDS: ATORVASTATIN 10 MG TAB PO SCH (21:14)
[2021-10-15] MEDS: INSULIN DETEMIR (LEVEMIR) 100 UNIT/ML SYR SQ SCH (21:15)
[2021-10-15] MEDS: ACETAMINOPHEN TAB 325 MG TAB PO PRN (21:15)
[2021-10-16 06:22] LABS: HCT 27.4 % (34.0-46.0); HGB 9.1 gm/dL (11.4-16.0); MCH 33.8 pg (25.0-35.0); MCHC 33.1 g/dL (31.0-37.0); MCV 101.9 fL (80.0-100.0); Macrocytosis Slight; Mean Platelet Volume 7.5; Platelet Count 326 k/uL (150-450); RBC 2.69 m/uL (3.80-5.40); RDW 14.7 % (11.5-15.5); WBC 10.1 k/uL (3.8-10.6)
[2021-10-16 07:29] LABS: Glucose,Whole Blood 142 mg/dL (70-110)
[2021-10-16] MEDS: amLODIPine 5 MG TAB PO SCH (08:36)
[2021-10-16] MEDS: carvediloL 6.25 MG TAB PO SCH ×2 (08:36→18:56)
[2021-10-16] MEDS: FUROSEMIDE 40 MG TAB PO SCH (08:36)
[2021-10-16] MEDS: FAMOTIDINE 20 MG TAB PO SCH (08:36)
[2021-10-16] MEDS: hydrALAZINE HCL 50 MG TAB PO SCH (08:37)
[2021-10-16] MEDS: INSULIN ASPART (NovoLOG) 100 UNIT/ML VIAL SQ SCH ×6 (08:37→18:55)
[2021-10-16] MEDS: NITROGLYCERIN OINT 1 INCH/GM PACKET TOPICAL SCH ×2 (08:37→18:56)
[2021-10-16] MEDS: TAMSULOSIN 0.4 MG CAP.ER.24H PO SCH (08:37)
[2021-10-16] MEDS: ASPIRIN 81 MG PO SCH (08:37)
[2021-10-16] MEDS: HEPARIN SODIUM,PORCINE/PF 5,000 UNIT/0.5 ML SYRINGE SQ SCH (08:37)
--- NOTE | 2021-10-16 10:14 | P.PN ---
Subjective Patient is seen in follow-up for acute kidney injury and chronic kidney disease. Creatinine 1.66 yesterday. Patient is sitting up in chair. Denies chest pain or shortness of breath. Oral intake has been good. Nonoliguric. Eduardo catheter removed. Vital signs are stable. General: Awake. No acute distress. HEENT: Head exam is unremarkable. LUNGS: Breath sounds decreased. HEART: Rate and Rhythm are regular. ABDOMEN: Soft, no distention. EXTREMITITES: No edema. Objective - Vital Signs Vital signs: Vital Signs Temp 97.5 F L 10/16/21 05:00 Pulse 61 10/16/21 05:00 Resp 18 10/16/21 05:00 BP 146/56 10/16/21 05:00 Pulse Ox 95 10/16/21 05:00 FiO2 Intake & Output 10/15/21 10/16/21 10/16/21 18:59 06:59 18:59 Intake Total 120 350 Output Total 800 Balance -680 350 Weight 97 kg 98.5 kg Intake: IV 150 0.9 150 Oral 120 200 Output: Urine 800 Uretheral (Eduardo) 700 Other: Voiding Method Toilet Toilet # Voids 0 1 - Labs CBC & Chem 7: 10/16/21 05:30 10/15/21 09:02 Labs: Abnormal Lab Results - Last 24 Hours (Table) 10/15/21 10/15/21 10/15/21 Range/Units 09:02 11:49 14:15 RBC 2.96 L (3.80-5.40) m/uL Hgb 9.9 L (11.4-16.0) gm/dL Hct 30.0 L (34.0-46.0) % MCV 101.4 H (80.0-100.0) fL Sodium 134 L (137-145) mmol/L Carbon Dioxide 19 L (22-30) mmol/L BUN 60 H (7-17) mg/dL Creatinine 1.66 H (0.52-1.04) mg/dL Glucose 151 H (74-99) mg/dL POC Glucose (mg/dL) 212 H (70-110) mg/dL 10/15/21 10/15/21 10/16/21 Range/Units 16:09 20:50 05:30 RBC 2.69 L (3.80-5.40) m/uL Hgb 9.1 L (11.4-16.0) gm/dL Hct 27.4 L (34.0-46.0) % MCV 101.9 H (80.0-100.0) fL Sodium (137-145) mmol/L Carbon Dioxide (22-30) mmol/L BUN (7-17) mg/dL Creatinine (0.52-1.04) mg/dL Glucose (74-99) mg/dL POC Glucose (mg/dL) 250 H 269 H (70-110) mg/dL 10/16/21 Range/Units 07:17 RBC (3.80-5.40) m/uL Hgb (11.4-16.0) gm/dL Hct (34.0-46.0) % MCV (80.0-100.0) fL Sodium (137-145) mmol/L Carbon Dioxide (22-30) mmol/L BUN (7-17) mg/dL Creatinine (0.52-1.04) mg/dL Glucose (74-99) mg/dL POC Glucose (mg/dL) 142 H (70-110) mg/dL Assessment and Plan Plan: Assessment: 1. Acute kidney injury secondary to contrast-induced acute kidney injury and urinary retention. Renal function improving. Creatinine 1.66 yesterday. No hydronephrosis noted on kidney ultrasound. Patient received IV contrast for chest CTA on 10/09/2021. 2. Chronic kidney disease stage IIIB with baseline creatinine in the range of 1.2-1.3 secondary to diabetic kidney disease and nephrosclerosis. 3. Acute on chronic diastolic CHF with severe pulmonary hypertension. 4. Diabetes mellitus. 5. Volume overload. Improved. 6. Urinary retention. Eduardo catheter removed. On Flomax. 7. Anemia of chronic kidney disease. Iron replete. On Aranesp. Plan: Maintain oral Lasix. Continue to monitor postvoid residuals to make sure no retention. Avoid nephrotoxins. Case discussed with cardiology. No plans for cardiac catheterization this admission. Follow-up outpatient in 1-2 weeks post discharge.
--- NOTE | 2021-10-16 10:38 | P.PN ---
Subjective Progress Note Date: 10/16/21 Hospital course: The patient is a very pleasant 80-year-old female with a past medical history of CAD, hypertension, hyperlipidemia, chronic kidney disease, and chronic diastolic heart failure.she presented to the emergency department on 10/09/21 with a chief complaint of shortness of breath stating exertional dyspnea 1 week progressively worsening accompanied by bilateral lower extremity edema. in the emergency department, patient underwent full evaluation. She was found to have leukocytosis with WBC count of 13.0, macrocytic anemia with hemoglobin of 10.8 and MCV of 102.3 . ProBNP 1370 and troponin was elevated at 0.130. Patient was admitted under our services for consultation to cardiology. Troponins were trended and flat with results 0.130, 0.146, and 0.132. EKG showing sinus rhythm at 79 bpm with T-wave inversion in leads 1 and aVL. CTA chest negative for pulmonary emboli revealing cardiomegaly with bilateral pleural effusions and pulmonary vascular congestion correlating for congestive heart failure along with small hiatal hernia. Chest x-ray revealing questionable right medial basal pulmonary infiltration versus artifact. Echocardiogram revealing normal EF 55- 60% with moderate to severe pulmonary hypertension. Patient was treated with IV diuresis and on 10/11/21 was found to have an acute kidney injury with BUN of 40, creatinine 1.61, and GFR of 30. Ultrasound kidneys, renal, and bladder negative for acute process. Urinalysis questionable for infection, however patient was asymptomatic. Urine culture negative, therefore ruling out UTI. Nephrology was consulted. Physical examination: Patient seen and fully evaluated at bedside this morning. Patient doing well.currently she denies having any complaints or needs at this time including headache, lightheadedness, dizziness, chest pain, palpitations, or shortness of breath at rest. Patient reports she never experienced chest pain prior to arrival stating she was experiencing exertional dyspnea. Patient reports that she continues to have exertional dyspnea but has had significant improvement since arrival to our facility. Patient remains on Lasix 40 mg daily and has had 1200 mL of documented output over the past 24 hours.morning labs reviewed and stable, proBNP decreasing to 1040 and renal function slightly improving with BUN of 40, creatinine 1.61, and GFR of 30. Cardiology reports no plans for cardiac cath at this time. We will continue to diurese and monitor closely. General: non toxic, no distress, appears at stated age Derm: warm, dry Head: atraumatic, normocephalic, symmetric Eyes: EOMI, no lid lag, anicteric sclera Mouth: no lip lesion, mucus membranes moist Cardiovascular: S1S2 reg, no murmur, positive posterior tibial pulse bilateral, Lungs: CTA bilateral, no rhonchi, no rales , no accessory muscle use Abdominal: soft, nontender to palpation, no guarding, no appreciable organomegaly Ext: 1+ pitting edema bilaterally Neuro: CN II-XI grossly intact, no focal neuro deficits Psych: Alert, oriented, appropriate affect Assessment and plan of care: Acute hypoxic respiratory failure secondary to acute preserved ejection fraction CHF exacerbation Elevated troponin, flat. Likely secondary to acute exacerbation of chronic diastolic heart failure with preserved EF 55-60%. -Lasix was decreased to 40 mg once daily -Cardiology added hydralazine 50 mg 3 times daily due to uncontrolled blood pressure -Echo showed normal LV size and systolic function. EF 55-60%. Moderate to severe pulmonary hypertension. No pericardial effusion -Cardiac monitoring -Intake and output -Daily weights -Fluid restriction -Cardiology following, no plans for cardiac cath this admission -Continue Cardiac monitoring -Continue with cardiac medication regimen consisting of aspirin, amlodipine, atorvastatin, carvedilol, hydralazine, and lasix. Acute kidney injuryon chronic kidney disease stage III -Improving -Could be a combination off over diuresis and recently used IV contrast with CT of the chest on October 09 -Line Lead decreased Lasix to 40 mg once daily -Losartan discontinued -Renal ultrasound without obstruction -Nephrology following Type 2 diabetes mellitus with uncontrolled hyperglycemia -Glycemic protocol with NovoLog sliding scale along with NovoLog 10 units 3 times daily with meals and 45 units of Levemir nightly. -A1c 7.5 Acute urinary retention -Urology consulted -Catheter placed -Urology recommended voiding trials prior to discharge Macrocytic anemia -Nephrology started patient on Aranesp. -Normal B12 is 351 Hypertension -losartan discontinued and cardiology added on hydralazine secondary to persistent hypertension. -vital signs stable at this time and we will continue to monitor vital signs and patient to continue daily medication regimen with amlodipine, carvedilol, and hydralazine. Dyslipidemia -Continue with home medication regimen with atorvastatin CODE STATUS: full code DVT prophylaxis: heparin Discussed with: patient, cardiology, and RN Anticipated discharge date: clinical course to determine Anticipated discharge place: home A total of 38 minutes was spent on the care of this complex patient more than 50% of the time was spent in counseling and care coordination. Objective - Vital Signs Vital signs: Vital Signs Temp 97.5 F L 10/16/21 05:00 Pulse 61 10/16/21 05:00 Resp 18 10/16/21 05:00 BP 146/56 10/16/21 05:00 Pulse Ox 95 10/16/21 05:00 FiO2 Intake & Output 10/15/21 10/16/21 10/16/21 18:59 06:59 18:59 Intake Total 120 350 Output Total 800 Balance -680 350 Weight 97 kg 98.5 kg Intake: IV 150 0.9 150 Oral 120 200 Output: Urine 800 Uretheral (Eduardo) 700 Other: Voiding Method Toilet Toilet # Voids 0 1 - Labs CBC & Chem 7: 10/16/21 05:30 10/15/21 09:02 Labs: Abnormal Lab Results - Last 24 Hours (Table) 10/15/21 10/15/21 10/15/21 Range/Units 11:49 14:15 16:09 RBC 2.96 L (3.80-5.40) m/uL Hgb 9.9 L (11.4-16.0) gm/dL Hct 30.0 L (34.0-46.0) % MCV 101.4 H (80.0-100.0) fL POC Glucose (mg/dL) 212 H 250 H (70-110) mg/dL 10/15/21 10/16/21 10/16/21 Range/Units 20:50 05:30 07:17 RBC 2.69 L (3.80-5.40) m/uL Hgb 9.1 L (11.4-16.0) gm/dL Hct 27.4 L (34.0-46.0) % MCV 101.9 H (80.0-100.0) fL POC Glucose (mg/dL) 269 H 142 H (70-110) mg/dL
[2021-10-16 11:42] LABS: African American GFR (CKD) 32 (>60 ml/min/1.73 sqM); Anion Gap 9 mmol/L; Blood Urea Nitrogen 65 mg/dL (7-17); Calcium 9.1 mg/dL (8.4-10.2); Carbon Dioxide 20 mmol/L (22-30); Chloride 106 mmol/L (98-107); Glucose 152 mg/dL (74-99); Non-African American GFR(CKD) 28 (>60 ml/min/1.73 sqM); Sodium 135 mmol/L (137-145)
[2021-10-16] MEDS: MAGNESIUM SULFATE-D5W PMX 1 GM in DEXTROSE/WATER 1 100ML.BAG IVPB SCH ×2 (12:17→13:38)
[2021-10-16 12:33] LABS: Glucose,Whole Blood 132 mg/dL (70-110)
--- NOTE | 2021-10-16 12:44 | P.DS ---
Providers Date of admission: 10/09/21 22:44 Expected date of discharge: 10/16/21 Attending physician: Royal Jewell MD Consults: 10/09/21 22:29 Consult Physician Urgent Consulting Provider: [facility] Consult Reason/Comments: chf exacerbation, elevated troponin Do you want consulting provider notified?: Yes 10/11/21 13:02 Consult Physician Routine Consulting Provider: Lesley Pisano Consult Reason/Comments: DEBO Do you want consulting provider notified?: Yes 10/13/21 07:44 Consult Physician Routine Consulting Provider: Kye Gil Consult Reason/Comments: urinary retention Do you want consulting provider notified?: Yes Primary care physician: Godwin Jc MD Hospital Course: Discharge Diagnosis: Acute hypoxic respiratory failure secondary to acute preserved ejection fraction CHF exacerbation Acute exacerbation of chronic diastolic heart failure with preserved EF 55-60%. Patient underwent IV diuresis and being discharged home on oral Lasix 40 mg daily. Patient to follow up outpatient with cardiology for outpatient cardiac cath once renal function improves. Elevated troponin, flat. Secondary to acute exacerbation of chronic diastolic heart failure. Continue with cardiac medication regimen consisting of aspirin, amlodipine, atorvastatin, carvedilol, hydralazine, and lasix. Moderate to severe pulmonary hypertension Acute kidney injury on chronic kidney disease stage III, patient was evaluated by nephrology started patient on Aranesp. Nephrology recommending patient to continue Lasix and follow-up in their office outpatient in 1 week. Insulin-dependent Type 2 diabetes mellitus with hemoglobin A1c of 7.5. Resume home NovoLog sliding scale and Lantus Acute urinary retention, resolved. Patient was started on Flomax. Macrocytic anemia. Nephrology started patient on Aranesp. -Normal B12 is 351 Hypertension. Monitor vital signs. Patient to continue daily medication regimen with amlodipine, Losartan was discontinued and cardiology increased hydralazine to 100 mg twice daily. Dyslipidemia. Continue with home medication regimen with atorvastatin Hospital Course: The patient is a very pleasant 80-year-old female with a past medical history of CAD, hypertension, hyperlipidemia, chronic kidney disease, and chronic diastolic heart failure.she presented to the emergency department on 10/09/21 with a chief complaint of shortness of breath stating exertional dyspnea 1 week progressively worsening accompanied by bilateral lower extremity edema. in the emergency department, patient underwent full evaluation. She was found to have leukocytosis with WBC count of 13.0, macrocytic anemia with hemoglobin of 10.8 and MCV of 102.3 . ProBNP 1370 and troponin was elevated at 0.130. Patient was admitted under our services for consultation to cardiology. Troponins were trended and flat with results 0.130, 0.146, and 0.132. EKG showing sinus rhythm at 79 bpm with T-wave inversion in leads 1 and aVL. CTA chest negative for pulmonary emboli revealing cardiomegaly with bilateral pleural effusions and pulmonary vascular congestion correlating for congestive heart failure along with small hiatal hernia. Chest x-ray revealing questionable right medial basal pulmonary infiltration versus artifact. Echocardiogram revealing normal EF 55- 60% with moderate to severe pulmonary hypertension. Patient was treated with IV diuresis and on 10/11/21 was found to have an acute kidney injury with BUN of 40, creatinine 1.61, and GFR of 30. Ultrasound kidneys, renal, and bladder negative for acute process. Urinalysis questionable for infection, however patient was asymptomatic. Urine culture negative, therefore ruling out UTI. Nephrology was consulted and started patient on Aranesp. Patient was found to have urinary retention and Eduardo catheter was placed. Patient was started on Flomax and Eduardo catheter was removed and patient continues to urinate without any reported difficulties. Patient denies feeling as though she is retaining and RN did not report any post void residuals at this time. Patient has had 800 mL of documented urinary output over the past 24 hours. Cardiology recommending patient follow-up in our office outpatient and plan for outpatient cardiac catheterization once renal function improves. Cardiology clearing patient from cardiac standpoint for discharge. Renal function stable however remains elevated but slowly improving with BUN 60, creatinine 1.66, and GFR of 29. Nephrology recommending continuation of Lasix 40 mg daily and for patient to follow-up outpatient in their office in 1-2 weeks. Medically, patient is stable at this time. Vital signs are unremarkable with blood pressure 146/56, re spiratory rate 18, heart rate 61, temperature 97.5F, and pulse ox 95% on room air. Patient is stable for discharge home at this time and to follow-up with PCP, nephrology, and cardiology as directed. Patient being discharged home on Lasix 40 mg daily, Aldactone and losartan were discontinued and patient's hydralazine was increased to 100 mg twice daily by cardiology. Prescription also being provided for patient to have repeat labs in 3 days to closely monitor renal function and electrolyte levels. Lab results to be sent to PCP and nephrology for follow-up. Physical examination: Patient seen and fully evaluated at bedside this morning. Patient was resting comfortably in the chair, reports that she is ready to go home. Patient denies having any chest pain, palpitations, shortness of breath, or dyspnea with exertion. Patient reports she has been walking around the room without any difficulties. Patient denies having any dizziness or lightheadedness. Vital signs are stable. Patient medically stable for discharge and to follow up outpatient with PCP, nephrology, and cardiology as discussed. General: non toxic, no distress, appears at stated age Derm: warm, dry Head: atraumatic, normocephalic, symmetric Eyes: EOMI, no lid lag, anicteric sclera Mouth: no lip lesion, mucus membranes moist Cardiovascular: S1S2 reg, no murmur, positive posterior tibial pulse bilateral, Lungs: CTA bilateral, no rhonchi, no rales , no accessory muscle use Abdominal: soft, nontender to palpation, no guarding, no appreciable organomegaly Ext: 1+ pitting edema bilaterally Neuro: CN II-XI grossly intact, no focal neuro deficits Psych: Alert, oriented, appropriate affect A total of 41 minutes of time were spent preparing this complex discharge summary. Pt was discharged on 10/16/21 11:33 AM. Patient Condition at Discharge: Stable Plan - Discharge Summary New Discharge Prescriptions: New hydrALAZINE HCL [Apresoline] 100 mg PO BID 30 Days #60 tab Tamsulosin [Flomax] 0.4 mg PO PC-BRKFST 30 Days #30 cap Continue Ferrous Sulfate [Iron] 650 mg PO BID Dorzolamide 2% [Trusopt 2%] 1 drops BOTH EYES BID Aspirin [Adult Low Dose Aspirin EC] 81 mg PO DAILY amLODIPine [Norvasc] 5 mg PO BID Furosemide [Lasix] 40 mg PO DAILY allopurinoL [Zyloprim] 100 mg PO HS Atorvastatin [Lipitor] 10 mg PO HS Acetaminophen [Tylenol Arthritis] 1,300 mg PO Q8HR Famotidine [Pepcid] 20 mg PO BID Virt-Phos 250 Neutral 250 1 tab PO DAILY calcitrioL [Calcitriol] 0.5 mcg PO SUWE Magnesium Oxide [Magox 400] 400 mg PO HS Insulin Aspart [NovoLOG Flexpen] See Protocol SQ ACHS PRN PRN Reason: high blood sugar Glucagon [Gvoke Pfs 1-Pack Syringe] 1 mg SQ ONCE PRN PRN Reason: LOW BLOOD SUGAR Cholecalciferol [Vitamin D3 (25 Mcg = 1000 Iu)] 50 mcg PO DAILY Insulin Glargine,Hum.rec.anlog [Lantus Solostar Pen] 45 unit SQ DAILY Discontinued Spironolactone [Aldactone] 25 mg PO DAILY hydrALAZINE HCL 25 mg PO BID Losartan Potassium 50 mg PO DAILY Discharge Medication List Aspirin [Adult Low Dose Aspirin EC] 81 mg PO DAILY 01/16/17 [History] Dorzolamide 2% [Trusopt 2%] 1 drops BOTH EYES BID 01/16/17 [History] Ferrous Sulfate [Iron] 650 mg PO BID 01/16/17 [History] Furosemide [Lasix] 40 mg PO DAILY 01/16/17 [History] amLODIPine [Norvasc] 5 mg PO BID 01/16/17 [History] Atorvastatin [Lipitor] 10 mg PO HS 09/09/17 [History] allopurinoL [Zyloprim] 100 mg PO HS 09/09/17 [History] Acetaminophen [Tylenol Arthritis] 1,300 mg PO Q8HR 10/27/17 [History] Famotidine [Pepcid] 20 mg PO BID 03/02/20 [History] Cholecalciferol [Vitamin D3 (25 Mcg = 1000 Iu)] 50 mcg PO DAILY 10/09/21 [Histo ry] Glucagon [Gvoke Pfs 1-Pack Syringe] 1 mg SQ ONCE PRN 10/09/21 [History] Insulin Aspart [NovoLOG Flexpen] See Protocol SQ ACHS PRN 10/09/21 [History] Insulin Glargine,Hum.rec.anlog [Lantus Solostar Pen] 45 unit SQ DAILY 10/09/21 [History] Magnesium Oxide [Magox 400] 400 mg PO HS 10/09/21 [History] Virt-Phos 250 Neutral 250 1 tab PO DAILY 10/09/21 [History] calcitrioL [Calcitriol] 0.5 mcg PO SUWE 10/09/21 [History] Tamsulosin [Flomax] 0.4 mg PO PC-BRKFST 30 Days #30 cap 10/16/21 [Rx] hydrALAZINE HCL [Apresoline] 100 mg PO BID 30 Days #60 tab 10/16/21 [Rx] Follow up Appointment(s)/Referral(s): García Wick MD [STAFF PHYSICIAN] - 1 Week (The office line is saying that all lines are busy we have attempted to call mutiple times please call and make follow up appointment.) Godwin Jc MD [Primary Care Provider] - 1-2 days Bert Young DO [STAFF PHYSICIAN] - 11/20/21 11:20 am (There are no appointments in [place] the month of october so you will be seen in the [place] office.) Ambulatory/Diagnostic Orders: Basic Metabolic Panel [LAB.AMB] Time Frame: 3 Days, Location: None Selected Magnesium [LAB.AMB] Location: None Selected Activity/Diet/Wound Care/Special Instructions: Activity: As tolerated. Take breaks as needed. Diet: Heart healthy and carb consistent diet. Avoid salts, or foods with hidden salts such as canned or boxed foods and frozen dinners. Extra salt makes your heart work harder and traps the fluid in your body for longer. Special Instructions: Take all of your medications as directed and remember to keep all of your doctor's appointments and follow-up as needed. Thank you for allowing us to participate in your care, it was truly a pleasure having you for our patient!!! [employer] on Aging . Discharge Disposition: HOME WITH HOME HEALTH SERVICES
[2021-10-16 13:09] VITALS: BP 136/71; PULSE 55; RESP 16; TEMP 97.4
[2021-10-16 17:12] LABS: Glucose,Whole Blood 208 mg/dL (70-110)
[2021-10-17] MEDS ORDERED: MAGNESIUM OXIDE 400 MG TAB PO SCH (09:00)
== END 2021-10-16 23:34 | disposition home health service (06) | DRG 291 ==
LOC: EC 14:25 → 3SCARD 22:44 → 5NMEDONC 10-16 00:15
PROVIDERS: ADMIT Internal Medicine; ATTEND Internal Medicine
DX: I13.0 Hypertensive heart and chronic kidney disease with heart failure and stage 1 through stage 4 chronic kidney disease, or unspecified chronic kidney disease (principal); I50.33 Acute on chronic diastolic (congestive) heart failure; J96.01 Acute respiratory failure with hypoxia; N17.0 Acute kidney failure with tubular necrosis; N39.0 Urinary tract infection, site not specified; D53.9 Nutritional anemia, unspecified; D63.1 Anemia in chronic kidney disease; D72.829 Elevated white blood cell count, unspecified; E11.22 Type 2 diabetes mellitus with diabetic chronic kidney disease; R39.15 Urgency of urination; I25.10 Atherosclerotic heart disease of native coronary artery without angina pectoris; E78.5 Hyperlipidemia, unspecified; G89.29 Other chronic pain; R77.8 Other specified abnormalities of plasma proteins; I27.20 Pulmonary hypertension, unspecified; N14.1 Nephropathy induced by other drugs, medicaments and biological substances; N18.32 Chronic kidney disease, stage 3b; Z90.49 Acquired absence of other specified parts of digestive tract; T50.8X5A Adverse effect of diagnostic agents, initial encounter; Z79.4 Long term (current) use of insulin; Z79.82 Long term (current) use of aspirin; Z79.84 Long term (current) use of oral hypoglycemic drugs; Z79.899 Other long term (current) drug therapy; Z98.42 Cataract extraction status, left eye; Z98.41 Cataract extraction status, right eye; M19.90 Unspecified osteoarthritis, unspecified site; G47.30 Sleep apnea, unspecified; Z88.0 Allergy status to penicillin; Z88.2 Allergy status to sulfonamides; Z83.2 Family history of diseases of the blood and blood-forming organs and certain disorders involving the immune mechanism; Z98.890 Other specified postprocedural states
CPT/HCPCS: 36415; 71046; 71275; 76770; 80048; 80053; 80061; 81001; 82607; 82747; 83036; 83540; 83550; 83735; 83880; 84484; 85025; 85027; 85610; 85730; 86850; 86900; 86901; 87086; 87502; 87635; 93005; 93306

== ENCOUNTER 2021-12-14 16:16 | Inpatient (IN) | payer MEDICARE ==
--- NOTE | 2021-12-14 16:53 | ED ---
General Adult HPI - General Chief complaint: Shortness of Breath Stated complaint: TAMERA,low pulse ox Time Seen by Provider: 12/14/21 16:26 Source: patient, family, RN notes reviewed, old records reviewed Mode of arrival: wheelchair - History of Present Illness Initial comments: 81-year-old female history of coronary artery disease, chronic kidney disease, CHF presenting for evaluation of increased dyspnea and hypoxia. Patient had recent admission within the past several months with CHF and fluid overload. She is awaiting heart catheterization but due to kidney issue she's been unable to have this test performed. Patient denies chest pain currently. Denies fever or cough. She does report bilateral lower extremity edema. - Related Data Home Medications Medication Instructions Recorded Confirmed Aspirin [Adult Low Dose Aspirin EC] 81 mg PO DAILY 01/16/17 12/06/21 Dorzolamide 2% [Trusopt 2%] 1 drops BOTH EYES BID 01/16/17 12/06/21 Ferrous Sulfate [Iron] 650 mg PO BID 01/16/17 12/06/21 Furosemide [Lasix] 40 mg PO DAILY 01/16/17 12/06/21 amLODIPine [Norvasc] 5 mg PO BID 01/16/17 12/06/21 Atorvastatin [Lipitor] 10 mg PO HS 09/09/17 12/06/21 allopurinoL [Zyloprim] 100 mg PO HS 09/09/17 12/06/21 Acetaminophen [Tylenol Arthritis] 1,300 mg PO Q8HR PRN 10/27/17 12/06/21 Famotidine [Pepcid] 20 mg PO DAILY 03/02/20 12/06/21 Cholecalciferol [Vitamin D3 (25 50 mcg PO DAILY 10/09/21 12/06/21 Mcg = 1000 Iu)] Glucagon [Gvoke Pfs 1-Pack Syringe] 1 mg SQ ONCE PRN 10/09/21 12/06/21 Insulin Aspart [NovoLOG Flexpen] See Protocol SQ ACHS PRN 10/09/21 12/06/21 Insulin Glargine,Hum.rec.anlog 40 unit SQ DAILY 10/09/21 12/06/21 [Lantus Solostar Pen] Magnesium Oxide [Magox 400] 400 mg PO HS 10/09/21 12/06/21 Virt-Phos 250 Neutral 250 1 tab PO DAILY 10/09/21 12/06/21 calcitrioL [Calcitriol] 0.5 mcg PO SUWE 10/09/21 12/06/21 carvediloL [Coreg] 3.125 mg PO BID 12/06/21 Previous Rx's Medication Instructions Recorded Tamsulosin [Flomax] 0.4 mg PO PC-BRKFST 30 Days #30 cap 10/16/21 hydrALAZINE HCL [Apresoline] 100 mg PO BID 30 Days #60 tab 10/16/21 Allergies Allergy/AdvReac Type Severity Reaction Status Date / Time Penicillins Allergy Swelling Verified 12/14/21 16:24 Sulfa (Sulfonamide Allergy Swelling Verified 12/14/21 16:24 Antibiotics) Review of Systems ROS Statement: Those systems with pertinent positive or pertinent negative responses have been documented in the HPI. ROS Other: All systems not noted in ROS Statement are negative. Past Medical History Past Medical History: Coronary Artery Disease (CAD), Diabetes Mellitus, GERD/Reflux, Hyperlipidemia, Hypertension, Osteoarthritis (OA), Renal Disease, Sleep Apnea/CPAP/BIPAP Additional Past Medical History / Comment(s): increased SOB uses 2 liters 02 was just released 10/16/21 for SOB. "watching a valve" in heart, decreased kidney function, low iron, has cpap doesnt use at this time. edema to bilateral legs and feet. low hemaglobin- iron infusions History of Any Multi-Drug Resistant Organisms: None Reported Past Surgical History: Breast Surgery, Cholecystectomy, Heart Catheterization Additional Past Surgical History / Comment(s): earle cataracts, mult earle eye surgeries, bilateral breast excisional biopsy-benign Past Anesthesia/Blood Transfusion Reactions: No Reported Reaction Past Psychological History: No Psychological Hx Reported Smoking Status: Never smoker Past Alcohol Use History: None Reported Past Drug Use History: None Reported - Past Family History Father Family Medical History: Deep Vein Thrombosis (DVT) General Exam General appearance: alert, in no apparent distress Head exam: Present: atraumatic, normocephalic Eye exam: Present: normal appearance, PERRL Neck exam: Present: normal inspection Respiratory exam: Present: respiratory distress, wheezes, rales, decreased breath sounds Cardiovascular Exam: Present: regular rate, normal rhythm GI/Abdominal exam: Present: soft. Absent: distended, tenderness Extremities exam: Present: pedal edema Neurological exam: Present: alert, oriented X3, CN II-XII intact. Absent: motor sensory deficit Skin exam: Present: warm, dry, intact. Absent: cyanosis, diaphoretic Course Vital Signs 12/14/21 12/14/21 12/14/21 16:18 16:55 17:49 Temperature 98.1 F Pulse Rate 81 90 89 Respiratory 18 24 20 Rate Blood Pressure 151/57 188/87 180/69 O2 Sat by Pulse 78 L 84 L 96 Oximetry 12/14/21 17:57 Temperature Pulse Rate Respiratory 22 Rate Blood Pressure O2 Sat by Pulse Oximetry EKG Findings - EKG Comments: EKG Findings:: Sinus rhythm, low voltage T-wave inversion in the inferior and lateral precordial leads rate is 74 MA interval 174, QRS duration 84, QTC [address] segment elevation. Medical Decision Making - Medical Decision Making 81-year-old female presenting with worsening dyspnea over the past several wee ks. Patient scheduled for heart catheterization. She had previous hospital admission with CHF, and chronic kidney disease. Her creatinine today is improved at 1.37. She has chronic stable anemia. Her troponin is negative. BNP is elevated at 1700. Her chest x-ray shows pulmonary vascular congestion with bilateral pleural effusions. She's given a dose of Lasix in the emergency department. She is maintained on 6 L nasal cannula with improved work of breathing. She will be admitted to [facility] with cardiology on consult. - Lab Data Result diagrams: 12/14/21 16:38 12/14/21 16:38 Lab Results 12/14/21 12/14/21 12/14/21 Range/Units 16:38 16:38 16:38 WBC 8.7 (3.8-10.6) k/uL RBC 2.85 L (3.80-5.40) m/uL Hgb 9.5 L (11.4-16.0) gm/dL Hct 29.7 L (34.0-46.0) % MCV 104.0 H (80.0-100.0) fL MCH 33.2 (25.0-35.0) pg MCHC 31.9 (31.0-37.0) g/dL RDW 14.9 (11.5-15.5) % Plt Count 277 (150-450) k/uL MPV 8.5 Neutrophils % 80 % Lymphocytes % 10 % Monocytes % 7 % Eosinophils % 1 % Basophils % 1 % Neutrophils # 6.9 (1.3-7.7) k/uL Lymphocytes # 0.9 L (1.0-4.8) k/uL Monocytes # 0.6 (0-1.0) k/uL Eosinophils # 0.1 (0-0.7) k/uL Basophils # 0.1 (0-0.2) k/uL Manual Slide Review Performed Hypersegmented Neuts Present Hypochromasia Moderate Macrocytosis Moderate PT 10.9 (9.0-12.0) sec INR 1.0 (<1.2) APTT 22.7 (22.0-30.0) sec Sodium 141 (137-145) mmol/L Potassium 4.1 (3.5-5.1) mmol/L Chloride 102 (98-107) mmol/L Carbon Dioxide 27 (22-30) mmol/L Anion Gap 12 mmol/L BUN 54 H (7-17) mg/dL Creatinine 1.37 H (0.52-1.04) mg/dL Est GFR (CKD-EPI)AfAm 41 (>60 ml/min/1.73 sqM) Est GFR (CKD-EPI)NonAf 36 (>60 ml/min/1.73 sqM) Glucose 210 H (74-99) mg/dL Calcium 9.9 (8.4-10.2) mg/dL Magnesium 2.1 (1.6-2.3) mg/dL Total Bilirubin 1.6 H (0.2-1.3) mg/dL AST 22 (14-36) U/L ALT 12 (4-34) U/L Alkaline Phosphatase 111 (38-126) U/L Troponin I (0.000-0.034) ng/mL NT-Pro-B Natriuret Pep pg/mL Total Protein 6.8 (6.3-8.2) g/dL Albumin 4.0 (3.5-5.0) g/dL 12/14/21 12/14/21 Range/Units 16:38 16:38 WBC (3.8-10.6) k/uL RBC (3.80-5.40) m/uL Hgb (11.4-16.0) gm/dL Hct (34.0-46.0) % MCV (80.0-100.0) fL MCH (25.0-35.0) pg MCHC (31.0-37.0) g/dL RDW (11.5-15.5) % Plt Count (150-450) k/uL MPV Neutrophils % % Lymphocytes % % Monocytes % % Eosinophils % % Basophils % % Neutrophils # (1.3-7.7) k/uL Lymphocytes # (1.0-4.8) k/uL Monocytes # (0-1.0) k/uL Eosinophils # (0-0.7) k/uL Basophils # (0-0.2) k/uL Manual Slide Review Hypersegmented Neuts Hypochromasia Macrocytosis PT (9.0-12.0) sec INR (<1.2) APTT (22.0-30.0) sec Sodium (137-145) mmol/L Potassium (3.5-5.1) mmol/L Chloride (98-107) mmol/L Carbon Dioxide (22-30) mmol/L Anion Gap mmol/L BUN (7-17) mg/dL Creatinine (0.52-1.04) mg/dL Est GFR (CKD-EPI)AfAm (>60 ml/min/1.73 sqM) Est GFR (CKD-EPI)NonAf (>60 ml/min/1.73 sqM) Glucose (74-99) mg/dL Calcium (8.4-10.2) mg/dL Magnesium (1.6-2.3) mg/dL Total Bilirubin (0.2-1.3) mg/dL AST (14-36) U/L ALT (4-34) U/L Alkaline Phosphatase (38-126) U/L Troponin I <0.012 (0.000-0.034) ng/mL NT-Pro-B Natriuret Pep 1770 pg/mL Total Protein (6.3-8.2) g/dL Albumin (3.5-5.0) g/dL Disposition Clinical Impression: CHF (congestive heart failure) Disposition: ADMITTED IP TO THIS [facility] Condition: Stable Is patient prescribed a controlled substance at d/c from ED?: No Referrals: Godwin Jc MD [Primary Care Provider] - 1-2 days Time of Disposition: 18:47
[2021-12-14 17:15] LABS: Basophils # (A) 0.1 k/uL (0-0.2); Basophils % (A) 1 %; Eosinophils # (A) 0.1 k/uL (0-0.7); Eosinophils % (A) 1 %; HCT 29.7 % (34.0-46.0); HGB 9.5 gm/dL (11.4-16.0); Hypochromasia Moderate; Lymphocytes # (A) 0.9 k/uL (1.0-4.8); Lymphocytes % (A) 10 %; MCH 33.2 pg (25.0-35.0); MCHC 31.9 g/dL (31.0-37.0); Macrocytosis Moderate; Mean Platelet Volume 8.5; Monocytes # (A) 0.6 k/uL (0-1.0); Monocytes % (A) 7 %; Neutrophils # (A) 6.9 k/uL (1.3-7.7); Neutrophils % (A) 80 %; Platelet Count 277 k/uL (150-450); RBC 2.85 m/uL (3.80-5.40); RDW 14.9 % (11.5-15.5); WBC 8.7 k/uL (3.8-10.6)
[2021-12-14 17:17] LABS: Calcium 9.9 mg/dL (8.4-10.2); Total Bilirubin 1.6 mg/dL (0.2-1.3); Total Protein 6.8 g/dL (6.3-8.2)
[2021-12-14 17:26] LABS: Magnesium 2.1 mg/dL (1.6-2.3); Potassium 4.1 mmol/L (3.5-5.1)
[2021-12-14 17:29] LABS: Partial Thromboplastin Time 22.7 sec (22.0-30.0); Prothrombin Time 10.9 sec (9.0-12.0)
[2021-12-14 17:52] LABS: Hypersegmented Neutrophils Present
--- NOTE | 2021-12-14 18:43 | XR ---
EXAMINATION TYPE: XR chest 2V DATE OF EXAM: 12/14/2021 COMPARISON: 10/09/2021 HISTORY: Short of breath TECHNIQUE: 2 views FINDINGS: Heart is enlarged. There is pulmonary interstitial and airspace edema. There is blunting of the costophrenic angles. IMPRESSION: Congestive heart failure with pleural effusions which is mostly new compared to old exam.
[2021-12-14] MEDS ORDERED: NALOXONE 0.4 MG/ML 1 ML VIAL IV PRN (18:45)
[2021-12-14] MEDS ORDERED: FUROSEMIDE 10 MG/ML 4 ML VIAL IV STA (18:45)
[2021-12-14 21:13] LABS: Glucose,Whole Blood 200 mg/dL (70-110)
[2021-12-14] MEDS: INSULIN ASPART (NovoLOG) 100 UNIT/ML VIAL SQ SCH (21:15)
[2021-12-14] MEDS: allopurinoL 100 MG TAB PO SCH (21:15)
[2021-12-14] MEDS: ATORVASTATIN 10 MG TAB PO SCH (21:15)
[2021-12-14] MEDS: hydrALAZINE HCL 50 MG TAB PO SCH (21:15)
[2021-12-14] MEDS: amLODIPine 5 MG TAB PO SCH (21:15)
[2021-12-14] MEDS: carvediloL 3.125 MG TAB PO SCH (21:19)
--- NOTE | 2021-12-14 22:23 | P.HPIM ---
History of Present Illness H&P Date: 12/14/21 Chief Complaint: increase dyspnea 81 year old female with DM on insulin , hypertension poorly controlled, CKD patient comes in with increase SOB even at rest. her body weight has been ranging between 212 and 217 lbs. she denies any recent illness, fever, chills, cough , abd pain , nausea or vomiting. she reports increase shortness of breath gradually over the past few weeks. she was not on home oxygen until recently , about a month ago, her PCP started her on 3-4 L NC, due to low ambulatory oxygen sat. she claims to be compliant with her meds. despite that she has noticed increase leg edema and worsening dyspnea. she was supposed to have a left heart cath but her doctor was waiting for improvement in her renal function and insurance auth. she was hospitalized for similar issue mid September , and was diagnosed with CHF with preserved EF. she has left heart cath done 2017 with recommendations for maximal medical therapy. her meds were adjusted prior to discharge, losartan and aldactone were discontinued, hydralazine dose increased, and flomax added for urinary retention denies any recent travel, or history of blood clots , she is not on blood thinners. denies any GI bleeding, or changes in her bowel or urinary habits. denies any chest pain. workup in the ED, showed increase pulmonary vascular congestion , and pleural effusion on the CXR. blood work showed stable anemia , improved renal function , and elevated pro BNP patient was given lasix inthe ED, as she was hypoxic in the low 70s on 3-4 L NC, which is currently at 6 LPM denies smoking, illicit drugs or heavy alcohol consumption Review of Systems Pertinent positives as noted in HPI. All other systems were reviewed and are negative Past Medical History Past Medical History: Coronary Artery Disease (CAD), Diabetes Mellitus, GERD/Reflux, Hyperlipidemia, Hypertension, Osteoarthritis (OA), Renal Disease, Sleep Apnea/CPAP/BIPAP Additional Past Medical History / Comment(s): increased SOB uses 2 liters 02 was just released 10/16/21 for SOB. "watching a valve" in heart, decreased kidney fun ction, low iron, has cpap doesnt use at this time. edema to bilateral legs and feet. low hemaglobin- iron infusions History of Any Multi-Drug Resistant Organisms: None Reported Past Surgical History: Breast Surgery, Cholecystectomy, Heart Catheterization Additional Past Surgical History / Comment(s): earle cataracts, mult earle eye surgeries, bilateral breast excisional biopsy-benign Past Anesthesia/Blood Transfusion Reactions: No Reported Reaction Past Psychological History: No Psychological Hx Reported Smoking Status: Never smoker Past Alcohol Use History: None Reported Past Drug Use History: None Reported - Past Family History Father Family Medical History: Deep Vein Thrombosis (DVT) Additional Family Medical History / Comment(s): mom of stroke , history of heart disease Medications and Allergies Home Medications Medication Instructions Recorded Confirmed Type Aspirin [Adult Low Dose Aspirin EC] 81 mg PO DAILY 01/16/17 12/14/21 History Dorzolamide 2% [Trusopt 2%] 1 drops BOTH EYES BID 01/16/17 12/14/21 History Ferrous Sulfate [Iron] 650 mg PO BID 01/16/17 12/14/21 History Furosemide [Lasix] 20 mg PO BID@0900,1500 01/16/17 12/14/21 History amLODIPine [Norvasc] 5 mg PO BID 01/16/17 12/14/21 History Atorvastatin [Lipitor] 10 mg PO HS 09/09/17 12/14/21 History allopurinoL [Zyloprim] 100 mg PO HS 09/09/17 12/14/21 History Acetaminophen [Tylenol Arthritis] 1,300 mg PO Q8HR PRN 10/27/17 12/14/21 History Famotidine [Pepcid] 20 mg PO DAILY 03/02/20 12/14/21 History Cholecalciferol [Vitamin D3 (25 50 mcg PO DAILY 10/09/21 12/14/21 History Mcg = 1000 Iu)] Insulin Aspart [NovoLOG Flexpen] See Protocol SQ ACHS PRN 10/09/21 12/14/21 History Insulin Glargine,Hum.rec.anlog 40 unit SQ DAILY 10/09/21 12/14/21 History [Lantus Solostar Pen] Magnesium Oxide [Magox 400] 400 mg PO HS 10/09/21 12/14/21 History Virt-Phos 250 Neutral 250 1 tab PO DAILY 10/09/21 12/14/21 History calcitrioL [Calcitriol] 0.5 mcg PO SUWE 10/09/21 12/14/21 History Tamsulosin [Flomax] 0.4 mg PO PC-BRKFST 30 Days #30 cap 10/16/21 12/14/21 Rx hydrALAZINE HCL [Apresoline] 100 mg PO BID 30 Days #60 tab 10/16/21 12/14/21 Rx carvediloL [Coreg] 3.125 mg PO BID 12/06/21 12/14/21 History Allergies Allergy/AdvReac Type Severity Reaction Status Date / Time Penicillins Allergy Swelling Verified 12/14/21 16:24 Sulfa (Sulfonamide Allergy Swelling Verified 12/14/21 16:24 Antibiotics) Physical Exam Vitals: Vital Signs Temp Pulse Resp BP Pulse Ox 12/14/21 19:00 74 24 156/98 94 L 12/14/21 17:57 22 12/14/21 17:49 89 20 180/69 96 12/14/21 16:55 90 24 188/87 84 L 12/14/21 16:18 98.1 F 81 18 151/57 78 L Intake and Output 12/14/21 12/14/21 12/14/21 06:59 14:59 22:59 Other: Weight 98.43 kg Constitutional: No acute distress, conversant, pleasant Eyes: Anicteric sclerae, moist conjunctiva, Pupils equal round reactive to light ENMT: NC/AT Oropharynx clear, no erythema, or exudates Neck: Supple, no masses, or JVD No carotid bruits No thyromegaly Lungs: decrease breath sounds at lung basis Clear to percussion Normal respiratory effort, no accessory muscle use Cardiovascular: Heart regular in rate and rhythm, systolic murmurs, no gallops, or rubs +2 bilateral peripheral leg edema Abdominal: Soft Nontender, no guarding, rebound or rigidity Abdomen moving with respiration Normoactive bowel sounds No hepatomegaly, No splenomegaly No palpable mass No abdominal wall hernia noted Skin: Normal temperature, tone, texture, turgor No induration No subcutaneous nodules No rash, lesions No ulcers Extremities: No digital cyanosis No clubbing Pedal pulses intact and symmetrical Radial pulses intact and symmetrical No calf tenderness Psychiatric: Alert and oriented to person, place and time Appropriate affect fair judgement Neuro Muscles Strength 4/5 in all 4 extremities Sensation to light touch grossly present throughout Cranial nerves II-XII grossly intact No focal sensory deficits Lymphatics: no palpable cervical or supraclavicular , or inguinal lymph nodes Results CBC & Chem 7: 12/14/21 16:38 12/14/21 16:38 Labs: Abnormal Lab Results - Last 24 Hours (Table) 12/14/21 12/14/21 Range/Units 16:38 16:38 RBC 2.85 L (3.80-5.40) m/uL Hgb 9.5 L (11.4-16.0) gm/dL Hct 29.7 L (34.0-46.0) % MCV 104.0 H (80.0-100.0) fL Lymphocytes # 0.9 L (1.0-4.8) k/uL BUN 54 H (7-17) mg/dL Creatinine 1.37 H (0.52-1.04) mg/dL Glucose 210 H (74-99) mg/dL Total Bilirubin 1.6 H (0.2-1.3) mg/dL Assessment and Plan Assessment: acute on chronic hypoxic respiratory failure acute diastolic CHF exacerbation uncontrolled hypertension hypertensive heart disease CKD 3 stable , improving DM , A1C 7.5% plan CXR showed pleural effusion and pulmonary vascular congestion resume home cardiac meds, coreg, amlodipine , hydralazine, ASA statin IV lasix BID daily weight alarm security or surveillance monitor trops negative EKG showing infero lateral leads with T wave inversion cardiology was planning on OP left heart cath cardio consult fluid restriction 1500 cc daily insulin sliding scale basal insulin dose at home is 40 units, will continue with 10 units daily to avoid hypoglycemia , due to poor appetite supplemental oxygen to keep oxygen sat >94% monitor renal function DVT PPX heparin sc tid full code
[2021-12-14] MEDS: HEPARIN SODIUM,PORCINE/PF 5,000 UNIT/0.5 ML SYRINGE SQ SCH (23:49)
[2021-12-15] MEDS: carvediloL 3.125 MG TAB PO SCH ×2 (06:23→16:53)
[2021-12-15] MEDS: INSULIN ASPART (NovoLOG) 100 UNIT/ML VIAL SQ SCH ×4 (06:23→20:17)
[2021-12-15] MEDS: INSULIN DETEMIR (LEVEMIR) 100 UNIT/ML SYR SQ SCH (06:23)
[2021-12-15 06:25] LABS: Glucose,Whole Blood 117 mg/dL (70-110)
[2021-12-15] MEDS: FAMOTIDINE 20 MG TAB PO SCH (08:08)
[2021-12-15] MEDS: hydrALAZINE HCL 50 MG TAB PO SCH ×2 (08:08→20:18)
[2021-12-15] MEDS: ASPIRIN 81 MG PO SCH (08:08)
[2021-12-15] MEDS: TAMSULOSIN 0.4 MG CAP.ER.24H PO SCH (08:08)
[2021-12-15] MEDS: HEPARIN SODIUM,PORCINE/PF 5,000 UNIT/0.5 ML SYRINGE SQ SCH ×3 (08:09→23:17)
[2021-12-15] MEDS: amLODIPine 5 MG TAB PO SCH ×2 (08:09→20:18)
[2021-12-15] MEDS ORDERED: FUROSEMIDE 10 MG/ML 4 ML VIAL IV SCH (09:00)
[2021-12-15 11:29] LABS: Glucose,Whole Blood 232 mg/dL (70-110)
--- NOTE | 2021-12-15 15:04 | P.CRDCN ---
History of Present Illness History of present illness: HISTORY OF PRESENTING ILLNESS Issues pleasant 81-year-old female with history of hypertension, hyperlipidemia, diabetes mellitus, congestive heart failure, CAD with previous 40-50% left main disease who presents secondary to worsen shortness of breath and dyspnea on exertion as well as chest pressure sensation over the last 2 months but especially over last to 3 weeks. She states she has been worked up by Dr. Bhatia with recommendations for a heart catheterization this coming Friday h owever is awaiting insurance. Her symptoms however have progressed and now she cannot do more than walk across the flores without becoming short of breath. When she walks across the flores she will also get a chest tightness sensation. She is severely limited her activity secondary to this. Additionally she has been sitting in a recliner most of the days and has been getting increased lower extremity edema. She states she has been compliant with all of her medications. She also has chronic kidney disease with varying creatinines. Blood work shows hemoglobin 9.5, creatinine 1.3, troponin normal 1, proBNP 1700. Chest x-ray shows congestive heart failure with pleural effusions. She has 2+ lower extremity edema. EKG shows sinus rhythm with downsloping ST depressions in the inferior and lateral leads. Previous echo 10/10/2021 showed EF 55-60% with RVSP of 60 REVIEW OF SYSTEMS At the time of my exam: CONSTITUTIONAL: Denies fever or chills. CARDIOVASCULAR: +chest pain, +shortness of breath, +orthopnea, no PND or palpitations. RESPIRATORY: Denies cough. GASTROINTESTINAL: Denies abdominal pain, diarrhea, constipation, nausea or vomiting. MUSCULOSKELETAL: Denies myalgias. NEUROLOGIC: Denies numbness, tingling or weakness. ENDOCRINE: Denies fatigue, weight change, polydipsia or polyurina. GENITOURINARY: Denies burning, hematuria or urgency with micturation. HEMATOLOGIC: Denies history of anemia or bleeding. PHYSICAL EXAMINATION Vital signs reviewed. CONSTITUTIONAL: No apparent distress. HEENT: Head is normocephalic. Pupils are equal, round. Sclerae anicteric. Mucous membranes of the mouth are moist. No JVD. No carotid bruit. CHEST EXAMINATION: Crackles at bases HEART EXAMINATION: Regular rate and rhythm. S1, S2 heard. No murmurs, gallops or rub. ABDOMEN: Soft, nontender. Positive bowel sounds. EXTREMITIES: 2+ peripheral pulses, 2+ lower extremity edema and no calf tenderness. NEUROLOGIC EXAMINATION: Patient is awake, alert and oriented x3. ASSESSMENT 1. Acute on chronic systolic heart failure 2. New severe dyspnea on exertion, chest pressure with minimal exertion and ischemic-appearing EKG concerning for unstable angina, new over last 3-4 weeks 3. CAD with prior heart catheterization 2016 showing left main 40-50% stenosis 4. Hypertension 5. Hyperlipidemia 6. Chronic kidney disease 7. Anemia 8. Pulmonary hypertension PLAN Patient with volume overload and heart failure however additional concern of underlying CAD and possible unstable angina. Check repeat troponin. Monitor symptoms. Diuresis patient and monitor creatinine closely. Likely heart catheterization Friday or Friday pending further workup and kidney function and ability to lie flat. Concern of progression of left main disease. Past Medical History Past Medical History: Coronary Artery Disease (CAD), Diabetes Mellitus, GERD/Reflux, Hyperlipidemia, Hypertension, Osteoarthritis (OA), Renal Disease, Sleep Apnea/CPAP/BIPAP Additional Past Medical History / Comment(s): increased SOB uses 2 liters 02 was just released 10/16/21 for SOB. "watching a valve" in heart, decreased kidney function, low iron, has cpap doesnt use at this time. edema to bilateral legs and feet. low hemaglobin- iron infusions History of Any Multi-Drug Resistant Organisms: None Reported Past Surgical History: Breast Surgery, Cholecystectomy, Heart Catheterization Additional Past Surgical History / Comment(s): earle cataracts, mult earle eye surgeries, bilateral breast excisional biopsy-benign Past Anesthesia/Blood Transfusion Reactions: No Reported Reaction Past Psychological History: No Psychological Hx Reported Smoking Status: Never smoker Past Alcohol Use History: None Reported Past Drug Use History: None Reported - Past Family History Father Family Medical History: Deep Vein Thrombosis (DVT) Additional Family Medical History / Comment(s): mom of stroke , history of heart disease Medications and Allergies Home Medications Medication Instructions Recorded Confirmed Type Aspirin [Adult Low Dose Aspirin EC] 81 mg PO DAILY 01/16/17 12/14/21 History Dorzolamide 2% [Trusopt 2%] 1 drops BOTH EYES BID 01/16/17 12/14/21 History Ferrous Sulfate [Iron] 650 mg PO BID 01/16/17 12/14/21 History Furosemide [Lasix] 20 mg PO BID@0900,1500 01/16/17 12/14/21 History amLODIPine [Norvasc] 5 mg PO BID 01/16/17 12/14/21 History Atorvastatin [Lipitor] 10 mg PO HS 09/09/17 12/14/21 History allopurinoL [Zyloprim] 100 mg PO HS 09/09/17 12/14/21 History Acetaminophen [Tylenol Arthritis] 1,300 mg PO Q8HR PRN 10/27/17 12/14/21 History Famotidine [Pepcid] 20 mg PO DAILY 03/02/20 12/14/21 History Cholecalciferol [Vitamin D3 (25 50 mcg PO DAILY 10/09/21 12/14/21 History Mcg = 1000 Iu)] Insulin Aspart [NovoLOG Flexpen] See Protocol SQ ACHS PRN 10/09/21 12/14/21 History Insulin Glargine,Hum.rec.anlog 40 unit SQ DAILY 10/09/21 12/14/21 History [Lantus Solostar Pen] Magnesium Oxide [Magox 400] 400 mg PO HS 10/09/21 12/14/21 History Virt-Phos 250 Neutral 250 1 tab PO DAILY 10/09/21 12/14/21 History calcitrioL [Calcitriol] 0.5 mcg PO SUWE 10/09/21 12/14/21 History Tamsulosin [Flomax] 0.4 mg PO PC-BRKFST 30 Days #30 cap 10/16/21 12/14/21 Rx hydrALAZINE HCL [Apresoline] 100 mg PO BID 30 Days #60 tab 10/16/21 12/14/21 Rx carvediloL [Coreg] 3.125 mg PO BID 12/06/21 12/14/21 History Allergies Allergy/AdvReac Type Severity Reaction Status Date / Time Penicillins Allergy Swelling Verified 12/14/21 16:24 Sulfa (Sulfonamide Allergy Swelling Verified 12/14/21 16:24 Antibiotics) Physical Exam Vitals: Vital Signs Temp Pulse Pulse Resp BP BP Pulse Ox 12/15/21 12:38 98.2 F 63 18 152/66 97 12/15/21 08:00 97.9 F 70 18 135/63 96 12/15/21 03:55 98.3 F 59 L 18 127/73 96 12/14/21 23:46 97.9 F 65 16 141/52 96 12/14/21 21:00 97.6 F 84 22 168/56 91 L 12/14/21 20:30 74 22 130/67 95 12/14/21 19:00 74 24 156/98 94 L 12/14/21 17:57 22 12/14/21 17:49 89 20 180/69 96 12/14/21 16:55 90 24 188/87 84 L 12/14/21 16:18 98.1 F 81 18 151/57 78 L Intake and Output 12/15/21 12/15/21 12/15/21 06:59 14:59 22:59 Intake Total 450 Output Total 350 Balance 100 Intake: Oral 450 Output: Urine 350 Other: Voiding Method Bedside Commode # Voids 2 1 # Bowel Movements 0 Weight 98.2 kg Results 12/14/21 16:38 12/14/21 16:38 Cardiac Enzymes 12/14/21 12/14/21 Range/Units 16:38 16:38 AST 22 (14-36) U/L Troponin I <0.012 (0.000-0.034) ng/mL Coagulation 12/14/21 Range/Units 16:38 PT 10.9 (9.0-12.0) sec APTT 22.7 (22.0-30.0) sec CBC 12/14/21 Range/Units 16:38 WBC 8.7 (3.8-10.6) k/uL RBC 2.85 L (3.80-5.40) m/uL Hgb 9.5 L (11.4-16.0) gm/dL Hct 29.7 L (34.0-46.0) % Plt Count 277 (150-450) k/uL Comprehensive Metabolic Panel 12/14/21 Range/Units 16:38 Sodium 141 (137-145) mmol/L Potassium 4.1 (3.5-5.1) mmol/L Chloride 102 (98-107) mmol/L Carbon Dioxide 27 (22-30) mmol/L BUN 54 H (7-17) mg/dL Creatinine 1.37 H (0.52-1.04) mg/dL Glucose 210 H (74-99) mg/dL Calcium 9.9 (8.4-10.2) mg/dL AST 22 (14-36) U/L ALT 12 (4-34) U/L Alkaline Phosphatase 111 (38-126) U/L Total Protein 6.8 (6.3-8.2) g/dL Albumin 4.0 (3.5-5.0) g/dL Current Medications Generic Name Dose Route Start Last Admin Trade Name Freq PRN Reason Stop Dose Admin Acetaminophen 650 mg 12/14/21 18:45 Acetaminophen Tab 325 Mg Tab PO Q6HR PRN Mild Pain or Fever > 100.5 Allopurinol 100 mg 12/14/21 21:00 12/14/21 21:15 Allopurinol 100 Mg Tab PO 100 mg HS LUMA Administration Amlodipine Besylate 5 mg 12/14/21 21:00 12/15/21 08:09 Amlodipine 5 Mg Tab PO 5 mg BID LUMA Administration Aspirin 81 mg 12/15/21 09:00 12/15/21 08:08 Aspirin 81 Mg PO 81 mg DAILY LUMA Administration Atorvastatin Calcium 10 mg 12/14/21 21:00 12/14/21 21:15 Atorvastatin 10 Mg Tab PO 10 mg HS LUMA Administration Calcitriol 0.5 mcg 12/16/21 09:00 Calcitriol 0.25 Mcg Cap PO SUWE LUMA Carvedilol 3.125 mg 12/14/21 21:00 12/15/21 06:23 Carvedilol 3.125 Mg Tab PO 3.125 mg AC-BID LUMA Administration Famotidine 20 mg 12/15/21 09:00 12/15/21 08:08 Famotidine 20 Mg Tab PO 20 mg DAILY LUMA Administration Furosemide 40 mg 12/15/21 09:00 12/15/21 08:09 Furosemide 10 Mg/Ml 4 Ml Vial IV 40 mg Q12HR LUMA Administration Heparin Sodium (Porcine) 5,000 unit 12/15/21 00:00 12/15/21 08:09 Heparin Sodium,Porcine/Pf 5,000 Unit/0.5 Ml Syringe SQ 5,000 unit Q8HR LUMA Administration Hydralazine HCl 100 mg 12/14/21 21:00 12/15/21 08:08 Hydralazine Hcl 50 Mg Tab PO 100 mg BID LUMA Administration Insulin Aspart 0 unit 12/14/21 21:00 12/15/21 11:58 Insulin Aspart (Novolog) 100 Unit/Ml Vial SQ 6 unit ACHS LUMA Administration Protocol Insulin Detemir 10 unit 12/15/21 07:00 12/15/21 06:23 Insulin Detemir (Levemir) 100 Unit/Ml Syr SQ 10 unit DAILY@0700 LUMA Administration Naloxone HCl 0.2 mg 12/14/21 18:45 Naloxone 0.4 Mg/Ml 1 Ml Vial IV Q2M PRN Opioid Reversal Tamsulosin HCl 0.4 mg 12/15/21 08:30 12/15/21 08:08 Tamsulosin 0.4 Mg Cap.Er.24h PO 0.4 mg PC-BRKFST LUMA Administration Intake and Output 12/15/21 12/15/21 12/15/21 06:59 14:59 22:59 Intake Total 450 Output Total 350 Balance 100 Intake: Oral 450 Output: Urine 350 Other: Voiding Method Bedside Commode # Voids 2 1 # Bowel Movements 0 Weight 98.2 kg Patient Weight 12/16/21 06:59 Weight 98.2 kg 12/14/21 16:38 12/14/21 16:38
--- NOTE | 2021-12-15 15:46 | P.PN ---
Subjective Progress Note Date: 12/15/21 Principal diagnosis: Acute CHF exacerbation The patient 81-year-old female with history of hypertension, diabetes type 2, coronary disease previous 40-50% left main disease, digestive heart failure who presented with chest pain and progressive shortness of breath. The patient also described inability to lie flat on increasing lower extremity edema. The patient shown to have a creatinine of 1.3, she had normal cardiac enzymes 1, elevated BNP BNP at 1700, chest x-ray with evidence of congestive heart failure and pleural effusions. Objective - Vital Signs Vital signs: Vital Signs Temp 98.2 F 12/15/21 12:38 Pulse 63 12/15/21 12:38 Resp 18 12/15/21 12:38 BP 152/66 12/15/21 12:38 Pulse Ox 97 12/15/21 12:38 FiO2 Intake & Output 12/14/21 12/15/21 12/15/21 18:59 06:59 18:59 Intake Total 450 Output Total 350 Balance 100 Weight 98.43 kg 98.43 kg 98.2 kg Intake: Oral 450 Output: Urine 350 Other: Voiding Method Bedside Commode # Voids 2 1 # Bowel Movements 1 0 - Constitutional General appearance: Present: no acute distress - Respiratory Respiratory: bilateral: diminished - Cardiovascular Rhythm: regular - Peripheral edema ankle Peripheral Edema: bilateral: 2+ - Gastrointestinal General gastrointestinal: Present: normal bowel sounds - Labs CBC & Chem 7: 12/14/21 16:38 12/14/21 16:38 Labs: Abnormal Lab Results - Last 24 Hours (Table) 12/14/21 12/14/21 12/14/21 Range/Units 16:38 16:38 21:11 RBC 2.85 L (3.80-5.40) m/uL Hgb 9.5 L (11.4-16.0) gm/dL Hct 29.7 L (34.0-46.0) % MCV 104.0 H (80.0-100.0) fL Lymphocytes # 0.9 L (1.0-4.8) k/uL BUN 54 H (7-17) mg/dL Creatinine 1.37 H (0.52-1.04) mg/dL Glucose 210 H (74-99) mg/dL POC Glucose (mg/dL) 200 H (70-110) mg/dL Total Bilirubin 1.6 H (0.2-1.3) mg/dL 12/15/21 12/15/21 Range/Units 06:13 11:28 RBC (3.80-5.40) m/uL Hgb (11.4-16.0) gm/dL Hct (34.0-46.0) % MCV (80.0-100.0) fL Lymphocytes # (1.0-4.8) k/uL BUN (7-17) mg/dL Creatinine (0.52-1.04) mg/dL Glucose (74-99) mg/dL POC Glucose (mg/dL) 117 H 232 H (70-110) mg/dL Total Bilirubin (0.2-1.3) mg/dL Assessment and Plan (1) CHF (congestive heart failure) Narrative/Plan: Continue IV diuresis, appreciate cardiology input, plan for cardiac catheterization Current Visit: Yes Status: Acute Code(s): I50.9 - HEART FAILURE, UNSPECIFIED SNOMED Code(s): 30692830 Plan: Monitor renal function, continue IV diuresis, supplemental oxygen await timing of cardiac catheterization to evaluate for progressive coronary disease plan for Friday or Friday appreciate cardiology input
[2021-12-15 16:41] LABS: Glucose,Whole Blood 162 mg/dL (70-110)
[2021-12-15 20:03] LABS: Glucose,Whole Blood 180 mg/dL (70-110)
[2021-12-15] MEDS: FUROSEMIDE 10 MG/ML 10 ML VIAL IV SCH (20:17)
[2021-12-15] MEDS: ATORVASTATIN 10 MG TAB PO SCH (20:18)
[2021-12-15] MEDS: allopurinoL 100 MG TAB PO SCH (20:18)
[2021-12-16 05:56] LABS: Glucose,Whole Blood 124 mg/dL (70-110)
[2021-12-16] MEDS: INSULIN ASPART (NovoLOG) 100 UNIT/ML VIAL SQ SCH ×4 (06:05→21:35)
[2021-12-16] MEDS: carvediloL 3.125 MG TAB PO SCH ×2 (06:27→16:58)
[2021-12-16] MEDS: INSULIN DETEMIR (LEVEMIR) 100 UNIT/ML SYR SQ SCH (06:27)
[2021-12-16] MEDS: hydrALAZINE HCL 50 MG TAB PO SCH ×2 (08:03→21:13)
[2021-12-16] MEDS: FUROSEMIDE 10 MG/ML 10 ML VIAL IV SCH ×2 (08:03→21:12)
[2021-12-16] MEDS: HEPARIN SODIUM,PORCINE/PF 5,000 UNIT/0.5 ML SYRINGE SQ SCH ×3 (08:03→23:35)
[2021-12-16] MEDS: amLODIPine 5 MG TAB PO SCH ×2 (08:03→21:13)
[2021-12-16] MEDS: FAMOTIDINE 20 MG TAB PO SCH (08:03)
[2021-12-16] MEDS: TAMSULOSIN 0.4 MG CAP.ER.24H PO SCH (08:03)
[2021-12-16] MEDS: ASPIRIN 81 MG PO SCH (08:03)
[2021-12-16 08:18] LABS: Calcium 9.3 mg/dL (8.4-10.2); Potassium 3.5 mmol/L (3.5-5.1)
--- NOTE | 2021-12-16 10:41 | P.PN ---
Subjective Progress Note Date: 12/16/21 Principal diagnosis: Dypsnea secondary to acute CHF exacerbation The patient 81-year-old female with history of hypertension, diabetes type 2, coronary disease previous 40-50% left main disease, digestive heart failure who presented with chest pain and progressive shortness of breath. The patient also described inability to lie flat on increasing lower extremity edema. The p atient shown to have a creatinine of 1.3, she had normal cardiac enzymes 1, elevated BNP BNP at 1700, chest x-ray with evidence of congestive heart failure and pleural effusions. 12/16: Since states she is feeling more able to lie flat her creatinine is trending up 1.59 Objective - Vital Signs Vital signs: Vital Signs Temp 97.9 F 12/16/21 08:00 Pulse 67 12/16/21 08:00 Resp 18 12/16/21 08:00 BP 136/62 12/16/21 08:00 Pulse Ox 95 12/16/21 08:00 FiO2 Intake & Output 12/15/21 12/16/21 12/16/21 18:59 06:59 18:59 Intake Total 200 Output Total 250 600 Balance -250 -400 Weight 98.2 kg 98 kg Intake: Oral 200 Output: Urine 250 600 Other: Voiding Method Toilet # Voids 1 # Bowel Movements 0 - Constitutional General appearance: Present: no acute distress - Respiratory Respiratory: bilateral: diminished - Cardiovascular Rhythm: regular - Peripheral edema ankle Peripheral Edema: bilateral: 2+ - Gastrointestinal General gastrointestinal: Present: normal bowel sounds - Musculoskeletal Musculoskeletal: Present: strength equal bilaterally - Psychiatric Psychiatric: Present: appropriate affect - Labs CBC & Chem 7: 12/14/21 16:38 12/16/21 07:36 Labs: Abnormal Lab Results - Last 24 Hours (Table) 12/15/21 12/15/21 12/15/21 Range/Units 11:28 16:39 20:01 BUN (7-17) mg/dL Creatinine (0.52-1.04) mg/dL Glucose (74-99) mg/dL POC Glucose (mg/dL) 232 H 162 H 180 H (70-110) mg/dL 12/16/21 12/16/21 Range/Units 05:54 07:36 BUN 51 H (7-17) mg/dL Creatinine 1.59 H (0.52-1.04) mg/dL Glucose 123 H (74-99) mg/dL POC Glucose (mg/dL) 124 H (70-110) mg/dL Assessment and Plan (1) CHF (congestive heart failure) Narrative/Plan: Continue IV diuresis Lasix increased to 80 mg IV every 12 hours appreciate cardiology input, plan for cardiac catheterization either Friday or Friday depending on patient's ability to lie flat Current Visit: Yes Status: Acute Code(s): I50.9 - HEART FAILURE, UNSPECIFIED SNOMED Code(s): 52698916 (2) Diabetes Narrative/Plan: Continue outpatient regimen to monitor sliding scale Current Visit: Yes Status: Acute Code(s): E11.9 - TYPE 2 DIABETES MELLITUS WITHOUT COMPLICATIONS SNOMED Code(s): 25298638 (3) Abnormal stress test Narrative/Plan: Patient was planned to have an outpatient cardiac catheterization. Continue Coreg cardiac catheterization planned for Friday or Friday Current Visit: No Status: Acute Code(s): R94.39 - ABNORMAL RESULT OF OTHER CARDIOVASCULAR FUNCTION STUDY SNOMED Code(s): 029699842 Plan: Monitor renal function creatinine is trending up, continue IV diuresis, supplem ental oxygen await timing of cardiac catheterization to evaluate for progressive coronary disease plan for Friday or Friday appreciate cardiology input
[2021-12-16 11:31] LABS: Glucose,Whole Blood 194 mg/dL (70-110)
--- NOTE | 2021-12-16 12:31 | P.PN ---
Subjective HISTORY OF PRESENTING ILLNESS Issues pleasant 81-year-old female with history of hypertension, hyperlipidemia, diabetes mellitus, congestive heart failure, CAD with previous 40-50% left main disease who presents secondary to worsen shortness of breath and dyspnea on exertion as well as chest pressure sensation over the last 2 months but especially over last to 3 weeks. She states she has been worked up by Dr. Bhatia with recommendations for a heart catheterization this coming Friday however is awaiting insurance. Her symptoms however have progressed and now she cannot do more than walk across the flores without becoming short of breath. When she walks across the flores she will also get a chest tightness sensation. She is severely limited her activity secondary to this. Additionally she has been sitting in a recliner most of the days and has been getting increased lower extremity edema. She states she has been compliant with all of her medications. She also has chronic kidney disease with varying creatinines. Blood work shows hemoglobin 9.5, creatinine 1.3, troponin normal 1, proBNP 1700. Chest x-ray shows congestive heart failure with pleural effusions. She has 2+ lower extremity edema. EKG shows sinus rhythm with downsloping ST depressions in the inferior and lateral leads. Previous echo 10/10/2021 showed EF 55-60% with RVSP of 60 12/16 Patient seen and examined. Patient admits she is feeling somewhat better. Was placed on diuretics and mild increasing creatinine up to 1.59. Admits to good urine output. Systolic blood pressures in the 120s to 140s. PHYSICAL EXAMINATION Vital signs reviewed. CONSTITUTIONAL: No apparent distress. HEENT: Head is normocephalic. Pupils are equal, round. Sclerae anicteric. Mucous membranes of the mouth are moist. No JVD. No carotid bruit. CHEST EXAMINATION: Crackles at bases HEART EXAMINATION: Regular rate and rhythm. S1, S2 heard. No murmurs, gallops or rub. ABDOMEN: Soft, nontender. Positive bowel sounds. EXTREMITIES: 2+ peripheral pulses, 2+ lower extremity edema and no calf tenderness. NEUROLOGIC EXAMINATION: Patient is awake, alert and oriented x3. ASSESSMENT 1. Acute on chronic diastolic heart failure 2. New severe dyspnea on exertion, chest pressure with minimal exertion and ischemic-appearing EKG concerning for unstable angina, new over last 3-4 weeks 3. CAD with prior heart catheterization 2016 showing left main 40-50% stenosis 4. Hypertension 5. Hyperlipidemia 6. Chronic kidney disease 7. Anemia 8. Pulmonary hypertension PLAN Patient with volume overload and heart failure however additional concern of underlying CAD and possible unstable angina. Continue diuretics and monitor creatinine closely with mild increase in Cr. Likely heart catheterization Friday or Friday pending further workup and kidney function and ability to lie flat. Concern of progression of left main disease. Objective - Vital Signs Vital signs: Vital Signs Temp 97.7 F 12/16/21 12:10 Pulse 63 12/16/21 12:10 Resp 18 12/16/21 12:10 BP 121/67 12/16/21 12:10 Pulse Ox 95 12/16/21 12:10 FiO2 Intake & Output 12/15/21 12/16/21 12/16/21 18:59 06:59 18:59 Intake Total 200 Output Total 250 600 Balance -250 -400 Weight 98.2 kg 98 kg Intake: Oral 200 Output: Urine 250 600 Other: Voiding Method Toilet # Voids 1 # Bowel Movements 0 - Labs CBC & Chem 7: 12/14/21 16:38 12/16/21 07:36 Labs: Abnormal Lab Results - Last 24 Hours (Table) 12/15/21 12/15/21 12/16/21 Range/Units 16:39 20:01 05:54 BUN (7-17) mg/dL Creatinine (0.52-1.04) mg/dL Glucose (74-99) mg/dL POC Glucose (mg/dL) 162 H 180 H 124 H (70-110) mg/dL 12/16/21 12/16/21 Range/Units 07:36 11:30 BUN 51 H (7-17) mg/dL Creatinine 1.59 H (0.52-1.04) mg/dL Glucose 123 H (74-99) mg/dL POC Glucose (mg/dL) 194 H (70-110) mg/dL
[2021-12-16 16:10] LABS: Glucose,Whole Blood 205 mg/dL (70-110)
[2021-12-16 19:51] LABS: Glucose,Whole Blood 237 mg/dL (70-110)
[2021-12-16] MEDS: allopurinoL 100 MG TAB PO SCH (21:13)
[2021-12-16] MEDS: ATORVASTATIN 10 MG TAB PO SCH (21:13)
[2021-12-17 05:52] LABS: Glucose,Whole Blood 172 mg/dL (70-110)
[2021-12-17] MEDS: INSULIN ASPART (NovoLOG) 100 UNIT/ML VIAL SQ SCH ×6 (06:17→20:08)
[2021-12-17] MEDS: INSULIN DETEMIR (LEVEMIR) 100 UNIT/ML SYR SQ SCH (06:17)
[2021-12-17] MEDS: carvediloL 3.125 MG TAB PO SCH ×2 (06:17→17:24)
[2021-12-17 08:11] LABS: Calcium 9.7 mg/dL (8.4-10.2); Potassium 3.4 mmol/L (3.5-5.1)
[2021-12-17] MEDS ORDERED: POTASSIUM CHLORIDE ER 20 MEQ TAB.ER PO STA (09:32)
[2021-12-17] MEDS: hydrALAZINE HCL 50 MG TAB PO SCH ×2 (09:59→20:08)
[2021-12-17] MEDS: ASPIRIN 81 MG PO SCH (09:59)
[2021-12-17] MEDS: FUROSEMIDE 10 MG/ML 10 ML VIAL IV SCH ×2 (09:59→20:08)
[2021-12-17] MEDS: amLODIPine 5 MG TAB PO SCH ×2 (09:59→20:08)
[2021-12-17] MEDS: TAMSULOSIN 0.4 MG CAP.ER.24H PO SCH (09:59)
[2021-12-17] MEDS: FAMOTIDINE 20 MG TAB PO SCH (10:00)
--- NOTE | 2021-12-17 10:56 | P.PN ---
Subjective Progress Note Date: 12/17/21 Principal diagnosis: shortness of breath Patient is an 81-year-old female with a history of hypertension, diabetes mellitus requiring insulin, chronic kidney disease, coronary artery disease, and chronic respiratory failure requiring 3-4 L nasal cannula who presented to the ER with complaints of lower extremity edema and leg swelling. Dr. Bhatia has been monitoring her closely with plans for possible outpatient. In the ER she underwent underwent an extensive evaluation. She was hypoxic at 78% on 3 L on arrival. Chest x-ray showed pulmonary vascular congestion. Labatory analysis was significant for HgB 9.5, Cr 1.37 with baseline 1.6, T bili of 1.6, and glucose of 200. Inital Troponin was negative. She was started on diuresis and admitted. Cardiology was consulted. Plan is for cath once able to lay flat. Patient seen and examined at bedside. She reports that her breathing is better than on admisison, her edema is slightly better, she is still short of breath. She reports that she does not want to leave without a cardiac cath. We discussed that she will need to be able to lay flat to have a cardiac cath. She complains of scabbing in her nose and inability to breath--she then removes these manually and has nasal bleeding. General: nontoxic, no distress, appears at stated age Derm: warm, dry Head: atraumatic, normocephalic, symmetric Eyes: EOMI, no lid lag, anicteric sclera Mouth: no lip lesion, mucus membranes moist Cardiovascular: S1S2 reg, no murmur, positive posterior tibial pulse bilateral, Lungs: Ronchi bilateral bases, no accessory muscle use Abdominal: soft, nontender to palpation, no guarding, no appreciable organomegaly Ext: no gross muscle atrophy, 3+ edema, no contractures Neuro: CN II-XI grossly intact, no focal neuro deficits Psych: Alert, oriented, appropriate affect Assessment/Plan: Acute exacerabtion of diastolic CHF, last echo 10/17 EF 55-60% per cardio Aute on chornic hypoxic respiratory failure Pulm HTN HTN HLD CAD - coreg, lasix, - norvasc, hydralazine - lipitor CKD III - Cr better than baseline - avoid nephrotoxic agents - follow renal function Anemia - HgB 9.5 at baseline - follow CBC - conitnued outpatient follow-up. DM II, insulin requiring - SSI - Long acting - follow BS DVT: Heparin Objective - Vital Signs Vital signs: Vital Signs Temp 97.8 F 12/17/21 09:58 Pulse 87 12/17/21 09:58 Resp 18 12/17/21 09:58 BP 152/95 12/17/21 09:58 Pulse Ox 91 L 12/17/21 09:58 FiO2 Intake & Output 12/16/21 12/17/21 12/17/21 18:59 06:59 18:59 Intake Total 500 Output Total 850 800 450 Balance -350 -800 -450 Weight 97.8 kg Intake: Oral 500 Output: Urine 850 800 450 Other: Voiding Method Toilet # Voids 1 # Bowel Movements 1 - Labs CBC & Chem 7: 12/14/21 16:38 12/17/21 07:07 Labs: Abnormal Lab Results - Last 24 Hours (Table) 12/16/21 12/16/21 12/16/21 Range/Units 11:30 16:07 19:50 Potassium (3.5-5.1) mmol/L BUN (7-17) mg/dL Creatinine (0.52-1.04) mg/dL Glucose (74-99) mg/dL POC Glucose (mg/dL) 194 H 205 H 237 H (70-110) mg/dL 12/17/21 12/17/21 Range/Units 05:49 07:07 Potassium 3.4 L (3.5-5.1) mmol/L BUN 52 H (7-17) mg/dL Creatinine 1.52 H (0.52-1.04) mg/dL Glucose 147 H (74-99) mg/dL POC Glucose (mg/dL) 172 H (70-110) mg/dL
[2021-12-17 11:35] LABS: Glucose,Whole Blood 258 mg/dL (70-110)
--- NOTE | 2021-12-17 12:06 | P.PN ---
Subjective This is a pleasant 81-year-old female with history of hypertension, hyperlipidemia, diabetes mellitus, congestive heart failure, CAD with previous 40-50% left main disease who presents secondary to worsen shortness of breath and dyspnea on exertion as well as chest pressure sensation over the last 2 months but especially over last to 3 weeks. She states she has been worked up by Dr. Bhatia with recommendations for a heart catheterization this coming Friday however is awaiting insurance. Her symptoms however have progressed and now she cannot do more than walk across the flores without becoming short of breath. When she walks across the flores she will also get a chest tightness sensation. She is severely limited her activity secondary to this. Additionally she has been sitting in a recliner most of the days and has been getting increased lower extremity edema. She states she has been compliant with all of her medications. Previous echo 10/10/2021 showed EF 55-60% with RVSP of 60 12/17/2021 Patient seen and examined. Patient admits she is feeling somewhat better, continues to have significant shortness of breath with activity and significant bilateral LE edema. Was placed on diuretics IV Lasix 80mg BID and mild increasing creatinine up to 1.52, appears back to baseline. Admits to good urine output. Vital signs are stable. 1.6 L urine output over the past 24 hours. Decreased memory noted. Patient is maintained on 5 L nasal cannula. PHYSICAL EXAMINATION Vital signs reviewed. CONSTITUTIONAL: No apparent distress. HEENT: Head is normocephalic. Neck supple, no JVD CHEST EXAMINATION: Crackles at bases bilaterally HEART EXAMINATION: Regular rate and rhythm. S1, S2 heard. ABDOMEN: Soft, nontender. Positive bowel sounds. EXTREMITIES: 2+ peripheral pulses, 3+ lower extremity edema and no calf tenderness. NEUROLOGIC EXAMINATION: Patient is awake, alert and oriented x3. ASSESSMENT Acute on chronic heart failure with preserved ejection fraction New severe dyspnea on exertion, chest pressure with minimal exertion and ischemic-appearing EKG concerning for unstable angina, new over last 3-4 weeks CAD with prior heart catheterization 2016 showing left main 40-50% stenosis Hypertension Hyperlipidemia Chronic kidney disease Anemia Pulmonary hypertension PLAN Patient with volume overload and heart failure however additional concern of underlying CAD and possible unstable angina. Continue diuretics and monitor creatinine closely Monitor I/Os, daily weights. Continue current cardiac medications Patient not on ACEI/ARB secondary to renal function Likely heart catheterization while inpatient secondary to concern of progression of left main disease, timing pending further workup and kidney function and geoffrey lity to lie flat. Will make NPO after midnight, pending progress Further recommendations based on clinical course Nurse practitioner note has been reviewed by physician. Signing provider agrees with the documented findings, assessment, and plan of care. Objective - Vital Signs Vital signs: Vital Signs Temp 97.6 F 12/17/21 03:25 Pulse 71 12/17/21 03:25 Resp 20 12/17/21 03:25 BP 153/54 12/17/21 03:25 Pulse Ox 95 12/17/21 03:25 FiO2 Intake & Output 12/16/21 12/17/21 12/17/21 18:59 06:59 18:59 Intake Total 500 Output Total 850 800 450 Balance -350 -800 -450 Weight 97.8 kg Intake: Oral 500 Output: Urine 850 800 450 Other: Voiding Method Toilet # Voids 1 # Bowel Movements 1 - Labs CBC & Chem 7: 12/14/21 16:38 12/17/21 07:07 Labs: Abnormal Lab Results - Last 24 Hours (Table) 12/16/21 12/16/21 12/16/21 Range/Units 11:30 16:07 19:50 Potassium (3.5-5.1) mmol/L BUN (7-17) mg/dL Creatinine (0.52-1.04) mg/dL Glucose (74-99) mg/dL POC Glucose (mg/dL) 194 H 205 H 237 H (70-110) mg/dL 12/17/21 12/17/21 Range/Units 05:49 07:07 Potassium 3.4 L (3.5-5.1) mmol/L BUN 52 H (7-17) mg/dL Creatinine 1.52 H (0.52-1.04) mg/dL Glucose 147 H (74-99) mg/dL POC Glucose (mg/dL) 172 H (70-110) mg/dL
[2021-12-17] MEDS: HEPARIN SODIUM,PORCINE/PF 5,000 UNIT/0.5 ML SYRINGE SQ SCH ×2 (12:30→17:24)
[2021-12-17 16:14] LABS: Glucose,Whole Blood 215 mg/dL (70-110)
[2021-12-17 19:58] LABS: Glucose,Whole Blood 248 mg/dL (70-110)
[2021-12-17] MEDS: allopurinoL 100 MG TAB PO SCH (20:08)
[2021-12-17] MEDS: ATORVASTATIN 10 MG TAB PO SCH (20:08)
[2021-12-18] MEDS: HEPARIN SODIUM,PORCINE/PF 5,000 UNIT/0.5 ML SYRINGE SQ SCH ×4 (00:04→23:12)
[2021-12-18] MEDS: ACETAMINOPHEN TAB 325 MG TAB PO PRN ×2 (00:07→23:18)
[2021-12-18 06:07] LABS: Glucose,Whole Blood 166 mg/dL (70-110)
[2021-12-18] MEDS: INSULIN ASPART (NovoLOG) 100 UNIT/ML VIAL SQ SCH ×7 (06:35→20:32)
[2021-12-18] MEDS: carvediloL 3.125 MG TAB PO SCH (06:35)
[2021-12-18] MEDS: INSULIN DETEMIR (LEVEMIR) 100 UNIT/ML SYR SQ SCH (06:35)
[2021-12-18] MEDS ORDERED: HEPARIN SODIUM,PORCINE 10,000 UNIT in SODIUM CHLORIDE 0.9% 1,000 ML IRRIGATION PRN (07:00)
[2021-12-18] MEDS ORDERED: HEPARIN SODIUM,PORCINE 2,500 UNIT in SODIUM CHLORIDE 0.9% 250 ML IRRIGATION PRN (07:00)
[2021-12-18 07:59] LABS: Calcium 9.3 mg/dL (8.4-10.2); Potassium 3.8 mmol/L (3.5-5.1)
[2021-12-18 08:01] LABS: Calcium 9.3 mg/dL (8.4-10.2); Magnesium 1.8 mg/dL (1.6-2.3); Potassium 3.8 mmol/L (3.5-5.1)
[2021-12-18] MEDS ORDERED: NITROGLYCERIN SL TABS 0.4 MG TAB SUBLINGUAL PRN (09:15)
[2021-12-18] MEDS ORDERED: ALPRAZolam 0.5 MG TAB PO PRN (09:15)
[2021-12-18] MEDS ORDERED: ASPIRIN 325 MG TAB PO STA (10:03)
[2021-12-18] MEDS: ASPIRIN 81 MG PO SCH (10:03)
[2021-12-18] MEDS: amLODIPine 5 MG TAB PO SCH ×2 (10:09→20:31)
[2021-12-18] MEDS: TAMSULOSIN 0.4 MG CAP.ER.24H PO SCH (10:09)
[2021-12-18] MEDS: hydrALAZINE HCL 50 MG TAB PO SCH ×2 (10:09→20:31)
[2021-12-18] MEDS: FAMOTIDINE 20 MG TAB PO SCH (10:09)
[2021-12-18] MEDS ORDERED: VERAPAMIL 2.5 MG/ML 2 ML AMP ONE (10:31)
[2021-12-18] MEDS ORDERED: fentaNYL (PF) 50 MCG/ML 2 ML AMP ONE (10:31)
[2021-12-18] MEDS ORDERED: HEPARIN SODIUM 1,000 UN/ML (10ML VL) ONE (10:31)
--- NOTE | 2021-12-18 10:49 | P.PN ---
Subjective This is a pleasant 81-year-old female with history of hypertension, hyperlipidemia, diabetes mellitus, congestive heart failure, CAD with previous 40-50% left main disease who presents secondary to worsen shortness of breath and dyspnea on exertion as well as chest pressure sensation over the last 2 months but especially over last to 3 weeks. She states she has been worked up by Dr. Bhatia with recommendations for a heart catheterization this coming Friday however is awaiting insurance. Her symptoms however have progressed and now she cannot do more than walk across the flores without becoming short of breath. When she walks across the flores she will also get a chest tightness sensation. She is severely limited her activity secondary to this. Additionally she has been sitting in a recliner most of the days and has been getting increased lower extremity edema. She states she has been compliant with all of her medications. Previous echo 10/10/2021 showed EF 55-60% with RVSP of 60 12/18/2021 Patient seen and examined. Patient admits she is feeling somewhat better, her breathing has improved, she was able to lie flat in the bed. Her LE edema has improved. Was placed on diuretics IV Lasix 80mg BID and creatinine is stable at 1.57, appears back to baseline. Admits to good urine output. -300mL fluid luis fernando ce. Vital signs are stable. 1.6 L urine output over the past 24 hours. Decrease in weight noted. Patient oxygen requirements have decreased, on maintained on 4 L nasal cannula. PHYSICAL EXAMINATION Vital signs reviewed. CONSTITUTIONAL: No apparent distress. HEENT: Head is normocephalic. Neck supple, no JVD CHEST EXAMINATION: Crackles at bases bilaterally HEART EXAMINATION: Regular rate and rhythm. S1, S2 heard. ABDOMEN: Soft, nontender. Positive bowel sounds. EXTREMITIES: 2+ peripheral pulses, 2+ bilateral lower extremity edema and no calf tenderness. NEUROLOGIC EXAMINATION: Patient is awake, alert and oriented x3. ASSESSMENT Acute on chronic heart failure with preserved ejection fraction New severe dyspnea on exertion, chest pressure with minimal exertion and ischemic-appearing EKG concerning for unstable angina, new over last 3-4 weeks CAD with prior heart catheterization 2017 showing left main 40-50% stenosis Hypertension Hyperlipidemia Chronic kidney disease Anemia Pulmonary hypertension PLAN -Plan for right and left cardiac catheterization with Dr. Bhatia. -I have discussed the risks, benefits and alternative therapies for the above- mentioned procedure and for both sedation/analgesia as well as necessary blood product administration, if indicated, as they pertain to this patient. The patient has indicated understanding and acceptance of the risks and procedures discussed. Questions have been answered appropriately and she is agreeable to move forward with the above-stated procedure. -Continue diuretics and monitor creatinine closely -Monitor I/Os, daily weights. -Continue current cardiac medications -Patient not on ACEI/ARB secondary to renal function -Further recommendations based on clinical course Nurse practitioner note has been reviewed by physician. Signing provider agrees with the documented findings, assessment, and plan of care. Objective - Vital Signs Vital signs: Vital Signs Temp 97.7 F 12/17/21 20:00 Pulse 65 12/18/21 04:00 Resp 18 12/18/21 04:00 BP 141/62 12/18/21 04:00 Pulse Ox 92 L 12/18/21 04:00 FiO2 Intake & Output 12/17/21 12/18/21 12/18/21 18:59 06:59 18:59 Intake Total 850 Output Total 450 700 Balance 400 -700 Weight 96.9 kg 95.9 kg Intake: Oral 850 Output: Urine 450 700 Other: Voiding Method Toilet Toilet # Voids 1 # Bowel Movements 1 - Labs CBC & Chem 7: 12/14/21 16:38 12/18/21 07:22 Labs: Abnormal Lab Results - Last 24 Hours (Table) 12/17/21 12/17/21 12/17/21 Range/Units 07:07 11:33 16:13 Potassium 3.4 L (3.5-5.1) mmol/L BUN 52 H (7-17) mg/dL Creatinine 1.52 H (0.52-1.04) mg/dL Glucose 147 H (74-99) mg/dL POC Glucose (mg/dL) 258 H 215 H (70-110) mg/dL 12/17/21 12/18/21 Range/Units 19:57 06:03 Potassium (3.5-5.1) mmol/L BUN (7-17) mg/dL Creatinine (0.52-1.04) mg/dL Glucose (74-99) mg/dL POC Glucose (mg/dL) 248 H 166 H (70-110) mg/dL
[2021-12-18] MEDS ORDERED: LIDOCAINE 1% INJ 10MG/ML (5 ML VIAL-PF) SQ ONE ×2 (11:02→11:05)
[2021-12-18] MEDS ORDERED: fentaNYL (PF) 50 MCG/ML 2 ML AMP IV ONE (11:02)
[2021-12-18] MEDS ORDERED: VERAPAMIL SYRINGE (5 MG/10 ML) INTRAARTER ONE (11:04)
[2021-12-18] MEDS ORDERED: SODIUM CHLORIDE 0.9% 1,000 ML IV ONE (11:05)
[2021-12-18] MEDS ORDERED: HEPARIN SODIUM 1,000 UN/ML (10ML VL) IV ONE (11:12)
[2021-12-18] MEDS ORDERED: IOPAMIDOL-370 125ML BTL INJ ONE (11:20)
[2021-12-18] MEDS ORDERED: RX INFO: IV CONTRAST WAS GIVEN 1 EACH MISC MISCELLANE PRN (11:29)
[2021-12-18] MEDS ORDERED: SODIUM CHLORIDE 0.9% 1,000 ML IV SCH (11:30)
--- NOTE | 2021-12-18 11:37 | P.CARDCATH ---
Date of Procedure: 12/18/21 Description of Procedure: Cardiac Catheterization: The patient is an 81-year-old female with known history of CAD, hypertension, hyperlipidemia and chronic kidney disease who presented with symptoms of progressive dyspnea and evidence of CHF. She had a prior abnormal MPI. Recommendations were made regarding cardiac catheterization, the risks and the complications were discussed with the patient who is in full understanding and agreement. Procedure Description: Patient was brought to sleep lab technician in fasting semi-sedated state after receiving Fentanyl and Benadryl achieiving moderate conscious sedated state. Using Xylocaine Anesthesia and Seldinger technique, a 6-[place] sheath was introduced in the right radial artery . Subsequently, selective coronary angiography was performed using a 5-[place] 3.5 bend Olga catheter. Multiple views of the coronary artery including hemiaxial views were obtained. The right Olga catheter was used to cross the aortic valve and LVEDP was calculated. Attempt to exchange the intravenous sheath in the right brachial area through a wire were unsuccessful to advance the wire. Following that, catheter and sheath were removed. Hemostasis was obtained with deployment of TR band . There was no immediate complication. Patient was returned to room in stable condition. Of note, the patient received a total of 5000 units of intravenous heparin as well as intra-arterial verapamil. Findings: Fluoroscopy: Calcification of the ostium of the RCA and the left main and LAD were noted. Left main: This is a large size vessel, bifurcating into left circumflex and LAD, 30-40% plaque was noted in the distal main LAD: This is a large size vessel, patient to the apex with a wraparound apex segment, giving rise to a moderately sized diagonal branch in the mid segment. The proximal LAD at the takeoff of the first septal verification clerk, has a 20-30% plaque. The rest of the vessel has no high-grade stenosis Left circumflex: This is a nondominant vessel giving rise to 2 obtuse marginal branch. The ostium of the left circumflex has an 80% plaque the rest of the vessel has no high-grade stenosis RCA: This is a dominant vessel, large in caliber. The ostium of the RCA has 20- 30% plaque, the distal RCA has an eccentric 50% plaque. No high-grade stenosis is noted in the midsegment Left Ventriculogram: Not performed Hemodynamics: There was no gradient across the aortic valve , LVEDP was 25-30 mmHg Conclusion: 1. Calcified coronary arteries 2. Moderate distal left main disease 3. And mild disease in the proximal LAD 4. Significant disease in the ostium of the left circumflex with no progression compared to 2017 5. Mild to moderate disease in the RCA Recommendations: Comparing the images to 2017 I see no significant progression, in view of her overall status, her anatomy and a history of chronic kidney disease I would recommend maximizing medical therapy and depending on her progress further recommendations will be made. The findings and the recommendations were discussed with the patient and the family and they were in full understanding and agreement. Duration of sedation is 21 minutes.
[2021-12-18] MEDS: ISOSORBIDE MONONITRATE ER 30 MG TAB.ER.24H PO SCH (11:56)
[2021-12-18 12:03] LABS: Glucose,Whole Blood 109 mg/dL (70-110)
[2021-12-18] MEDS: FUROSEMIDE 10 MG/ML 10 ML VIAL IV SCH (15:22)
[2021-12-18 16:59] LABS: Glucose,Whole Blood 187 mg/dL (70-110)
[2021-12-18] MEDS: carvediloL 6.25 MG TAB PO SCH (17:24)
--- NOTE | 2021-12-18 17:31 | P.PN ---
Subjective Progress Note Date: 12/18/21 (delayed charting seen at 1045) Principal diagnosis: shortness of breath Patient is an 81-year-old female with a history of hypertension, diabetes mellitus requiring insulin, chronic kidney disease, coronary artery disease, and chronic respiratory failure requiring 3-4 L nasal cannula who presented to the ER with complaints of lower extremity edema and leg swelling. Dr. Bhatia has been monitoring her closely with plans for possible outpatient. In the ER she underwent underwent an extensive evaluation. She was hypoxic at 78% on 3 L on arrival. Chest x-ray showed pulmonary vascular congestion. Labatory analysis was significant for HgB 9.5, Cr 1.37 with baseline 1.6, T bili of 1.6, and glucose of 200. Inital Troponin was negative. She was started on diuresis and admitted. Cardiology was consulted. Patient underwent cardiac catheterization on 12/18/21 which showed stable coronary artery disease. No need for intervention. Patient seen and examined at bedside. Reports that her breathing is feeling better. She overall feels better and is glad she is going for cath today. General: nontoxic, no distress, appears at stated age Derm: warm, dry Head: atraumatic, normocephalic, symmetric Eyes: EOMI, no lid lag, anicteric sclera Mouth: no lip lesion, mucus membranes moist Cardiovascular: S1S2 reg, no murmur, positive posterior tibial pulse bilateral, + JVD Lungs: Decreased breath sounds bilateral bases, no accessory muscle use Abdominal: soft, nontender to palpation, no guarding, no appreciable organomegaly Ext: no gross muscle atrophy, 3+ edema, no contractures Neuro: CN II-XI grossly intact, no focal neuro deficits Psych: Alert, oriented, appropriate affect Assessment/Plan: Acute exacerabtion of diastolic CHF, last echo 10/17 EF 55-60% per cardio Aute on chornic hypoxic respiratory failure Pulm HTN HTN HLD CAD - coreg, lasix, - norvasc, hydralazine - lipitor CKD III - Cr better than baseline - avoid nephrotoxic agents - follow renal function Anemia - HgB 9.5 at baseline - follow CBC - conitnued outpatient follow-up. DM II, insulin requiring - SSI, fixed dose - Long acting - follow BS DVT: Heparin Active Medications Generic Name Dose Route Start Last Admin Trade Name Freq PRN Reason Stop Dose Admin Acetaminophen 650 mg 12/14/21 18:45 12/18/21 00:07 Acetaminophen Tab 325 Mg Tab PO 650 mg Q6HR PRN Administration Mild Pain or Fever > 100.5 Allopurinol 100 mg 12/14/21 21:00 12/17/21 20:08 Allopurinol 100 Mg Tab PO 100 mg HS LUMA Administration Alprazolam 0.25 mg 12/18/21 09:15 Alprazolam 0.25 Mg Tab PO Q6HR PRN Mild Anxiety Alprazolam 0.5 mg 12/18/21 09:15 Alprazolam 0.5 Mg Tab PO Q6HR PRN Moderate Anxiety Amlodipine Besylate 5 mg 12/14/21 21:00 12/18/21 10:09 Amlodipine 5 Mg Tab PO 5 mg BID LUMA Administration Aspirin 81 mg 12/15/21 09:00 12/18/21 10:03 Aspirin 81 Mg PO Not Given DAILY LUMA Atorvastatin Calcium 40 mg 12/18/21 21:00 Atorvastatin 40 Mg Tab PO HS LUMA Calcitriol 0.5 mcg 12/16/21 09:00 12/16/21 08:03 Calcitriol 0.25 Mcg Cap PO 0.5 mcg SUWE LUMA Administration Carvedilol 6.25 mg 12/18/21 17:30 12/18/21 17:24 Carvedilol 6.25 Mg Tab PO 6.25 mg AC-BID LUMA Administration Famotidine 20 mg 12/15/21 09:00 12/18/21 10:09 Famotidine 20 Mg Tab PO 20 mg DAILY LUMA Administration Heparin Sodium (Porcine) 5,000 unit 12/15/21 00:00 12/18/21 17:24 Heparin Sodium,Porcine/Pf 5,000 Unit/0.5 Ml Syringe SQ 5,000 unit Q8HR LUMA Administration Hydralazine HCl 100 mg 12/14/21 21:00 12/18/21 10:09 Hydralazine Hcl 50 Mg Tab PO 100 mg BID LUMA Administration Heparin Sodium (Porcine) 10, 1,001 mls @ 999 mls/hr 12/18/21 07:00 000 unit/ Sodium Chloride IRRIGATION 12/18/21 23:00 ONCE PRN INTRA-OP Heparin Sodium (Porcine) 2,500 250.5 mls @ 250 mls/hr 12/18/21 07:00 unit/ Sodium Chloride IRRIGATION 12/18/21 23:00 ONCE PRN INTRA-OP Insulin Aspart 0 unit 12/14/21 21:00 12/18/21 17:24 Insulin Aspart (Novolog) 100 Unit/Ml Vial SQ 3 unit ACHS [facility] Administration Protocol Insulin Aspart 2 unit 12/17/21 12:30 12/18/21 17:24 Insulin Aspart (Novolog) 100 Unit/Ml Vial SQ 2 unit AC-TID LUMA Administration Insulin Detemir 10 unit 12/15/21 07:00 12/18/21 06:35 Insulin Detemir (Levemir) 100 Unit/Ml Syr SQ 10 unit DAILY@0700 [facility] Administration Isosorbide Mononitrate 30 mg 12/18/21 11:45 12/18/21 11:56 Isosorbide Mononitrate Er 30 Mg Tab.Er.24h PO 30 mg DAILY [facility] Administration Miscellaneous Information 1 each 12/18/21 11:29 Rx Info: Iv Contrast Was Given 1 Each Misc MISCELLANE 12/20/21 11:29 DAILY PRN Per Protocol Naloxone HCl 0.2 mg 12/14/21 18:45 Naloxone 0.4 Mg/Ml 1 Ml Vial IV Q2M PRN Opioid Reversal Nitroglycerin 0.4 mg 12/18/21 09:15 Nitroglycerin Sl Tabs 0.4 Mg Tab SUBLINGUAL Q5M PRN Chest Pain Tamsulosin HCl 0.4 mg 12/15/21 08:30 12/18/21 10:09 Tamsulosin 0.4 Mg Cap.Er.24h PO 0.4 mg [id number] [facility] Administration Objective - Vital Signs Vital signs: Vital Signs Temp 98.0 F 12/18/21 09:12 Pulse 67 12/18/21 09:12 Resp 18 12/18/21 15:32 BP 137/64 12/18/21 12:14 Pulse Ox 94 L 12/18/21 12:14 FiO2 Intake & Output 12/17/21 12/18/21 12/18/21 18:59 06:59 18:59 Intake Total 850 75 Output Total 450 700 Balance 400 -700 75 Weight 96.9 kg 95.9 kg Intake: IV 75 Oral 850 Output: Urine 450 700 Other: Voiding Method Toilet Toilet Toilet # Voids 1 0 # Bowel Movements 1 0 - Labs CBC & Chem 7: 12/14/21 16:38 08/23/22 07:22 Labs: Abnormal Lab Results - Last 24 Hours (Table) 12/17/21 12/18/21 12/18/21 Range/Units 19:57 06:03 07:22 Carbon Dioxide 31 H (22-30) mmol/L BUN 53 H (7-17) mg/dL Creatinine 1.59 H (0.52-1.04) mg/dL Glucose 151 H (74-99) mg/dL POC Glucose (mg/dL) 248 H 166 H (70-110) mg/dL 12/18/21 12/18/21 Range/Units 07:22 16:57 Carbon Dioxide 31 H (22-30) mmol/L BUN 52 H (7-17) mg/dL Creatinine 1.57 H (0.52-1.04) mg/dL Glucose 151 H (74-99) mg/dL POC Glucose (mg/dL) 187 H (70-110) mg/dL
[2021-12-18 20:20] LABS: Glucose,Whole Blood 183 mg/dL (70-110)
[2021-12-18] MEDS: ATORVASTATIN 40 MG TAB PO SCH (20:31)
[2021-12-18] MEDS: allopurinoL 100 MG TAB PO SCH (20:31)
[2021-12-18] MEDS: ALPRAZolam 0.25 MG TAB PO PRN (23:18)
[2021-12-19 06:26] LABS: Glucose,Whole Blood 172 mg/dL (70-110)
[2021-12-19] MEDS: INSULIN ASPART (NovoLOG) 100 UNIT/ML VIAL SQ SCH ×7 (06:33→20:33)
[2021-12-19] MEDS: INSULIN DETEMIR (LEVEMIR) 100 UNIT/ML SYR SQ SCH (06:33)
[2021-12-19] MEDS: carvediloL 6.25 MG TAB PO SCH ×2 (06:33→17:16)
[2021-12-19] MEDS: HEPARIN SODIUM,PORCINE/PF 5,000 UNIT/0.5 ML SYRINGE SQ SCH ×3 (08:20→23:02)
[2021-12-19] MEDS: ISOSORBIDE MONONITRATE ER 30 MG TAB.ER.24H PO SCH (08:34)
[2021-12-19] MEDS: hydrALAZINE HCL 50 MG TAB PO SCH ×2 (08:35→20:33)
[2021-12-19] MEDS: FAMOTIDINE 20 MG TAB PO SCH (08:35)
[2021-12-19] MEDS: amLODIPine 5 MG TAB PO SCH ×2 (08:35→20:33)
[2021-12-19] MEDS: ASPIRIN 81 MG PO SCH (08:35)
[2021-12-19] MEDS: TAMSULOSIN 0.4 MG CAP.ER.24H PO SCH (08:35)
[2021-12-19] MEDS ORDERED: FUROSEMIDE 40 MG TAB PO SCH (09:00)
[2021-12-19 09:38] LABS: Calcium 8.9 mg/dL (8.4-10.2); Potassium 3.6 mmol/L (3.5-5.1)
[2021-12-19 09:57] LABS: Basophils % (A) 1 %; Eosinophils # (A) 0.2 k/uL (0-0.7); Eosinophils % (A) 2 %; HCT 27.2 % (34.0-46.0); HGB 8.2 gm/dL (11.4-16.0); Hypochromasia Marked; Lymphocytes # (A) 0.8 k/uL (1.0-4.8); Lymphocytes % (A) 10 %; MCH 31.8 pg (25.0-35.0); MCHC 30.2 g/dL (31.0-37.0); MCV 105.2 fL (80.0-100.0); Macrocytosis Moderate; Mean Platelet Volume 8.4; Monocytes # (A) 0.5 k/uL (0-1.0); Monocytes % (A) 7 %; Neutrophils % (A) 79 %; Platelet Count 245 k/uL (150-450); RBC 2.58 m/uL (3.80-5.40); RDW 14.8 % (11.5-15.5); WBC 7.6 k/uL (3.8-10.6)
[2021-12-19] MEDS ORDERED: SODIUM CHLORIDE 0.9% 1,000 ML IV STA (11:41)
[2021-12-19 11:58] LABS: Glucose,Whole Blood 288 mg/dL (70-110)
--- NOTE | 2021-12-19 14:37 | P.PN ---
Subjective This is a pleasant 81-year-old female with history of hypertension, hyperlipidemia, diabetes mellitus, congestive heart failure, CAD with previous 40-50% left main disease who presents secondary to worsen shortness of breath and dyspnea on exertion as well as chest pressure sensation over the last 2 months but especially over last to 3 weeks. She states she has been worked up by Dr. Bhatia with recommendations for a heart catheterization this coming Friday however is awaiting insurance. Her symptoms however have progressed and now she cannot do more than walk across the flores without becoming short of breath. When she walks across the flores she will also get a chest tightness sensation. She is severely limited her activity secondary to this. Additionally she has been sitting in a recliner most of the days and has been getting increased lower extremity edema. She states she has been compliant with all of her medications. Previous echo 10/10/2021 showed EF 55-60% with RVSP of 60 12/18: Patient underwent cardiac catheterization with Dr. Bhatia which revealed no significant progression of coronary artery disease. Moderate distal left main disease, and mild disease in the proximal LAD, Significant disease in the ostium of the left circumflex with no progression compared to 2017, Mild to moderate disease in the RCA 12/19/2021 Patient seen and examined. Patient's breathing has improved, she is able to to lie flat in the bed. Her LE edema has improved. Was placed on diuretics PO diuretics and creatinine is increased 1.8, after cardiac cath. Vital signs are stable. -325mL fluid balance. Decrease in weight noted. Patient oxygen requirements have decreased, on maintained on 4 L nasal cannula. PHYSICAL EXAMINATION Vital signs reviewed. CONSTITUTIONAL: No apparent distress. HEENT: Head is normocephalic. Neck supple, no JVD CHEST EXAMINATION: Crackles at bases bilaterally HEART EXAMINATION: Regular rate and rhythm. S1, S2 heard. ABDOMEN: Soft, nontender. Positive bowel sounds. EXTREMITIES: 2+ peripheral pulses, 2+ bilateral lower extremity edema and no calf tenderness. NEUROLOGIC EXAMINATION: Patient is awake, alert and oriented x3. ASSESSMENT Acute on chronic heart failure with preserved ejection fraction New severe dyspnea on exertion, chest pressure with minimal exertion and ischem ic-appearing EKG concerning for unstable angina, new over last 3-4 weeks CAD with prior heart catheterization 2016 showing left main 40-50% stenosis Hypertension Hyperlipidemia Acute on Chronic kidney disease Anemia Pulmonary hypertension PLAN -Start IV Fluids -Hold diuretics today -Monitor renal function and electrolytes -Monitor I/Os, daily weights. -Continue current cardiac medications -Patient not on ACEI/ARB secondary to renal function -Further recommendations based on clinical course -Hopefully discharge home in the next 2448 hours Nurse practitioner note has been reviewed by physician. Signing provider agrees with the documented findings, assessment, and plan of care. Objective - Vital Signs Vital signs: Vital Signs Temp 97.1 F L 12/19/21 13:04 Pulse 68 12/19/21 13:04 Resp 16 12/19/21 13:04 BP 139/61 12/19/21 13:04 Pulse Ox 94 L 12/19/21 13:04 FiO2 Intake & Output 12/18/21 12/19/21 12/19/21 18:59 06:59 18:59 Intake Total 75 118 Output Total 400 250 Balance -325 -132 Weight 97.7 kg Intake: IV 75 Oral 118 Output: Urine 400 250 Other: Voiding Method Toilet Toilet Toilet # Voids 0 1 # Bowel Movements 0 1 1 - Labs CBC & Chem 7: 12/19/21 08:50 12/19/21 08:50 Labs: Abnormal Lab Results - Last 24 Hours (Table) 12/18/21 12/18/21 12/19/21 Range/Units 16:57 20:18 06:24 RBC (3.80-5.40) m/uL Hgb (11.4-16.0) gm/dL Hct (34.0-46.0) % MCV (80.0-100.0) fL MCHC (31.0-37.0) g/dL Lymphocytes # (1.0-4.8) k/uL Carbon Dioxide (22-30) mmol/L BUN (7-17) mg/dL Creatinine (0.52-1.04) mg/dL Glucose (74-99) mg/dL POC Glucose (mg/dL) 187 H 183 H 172 H (70-110) mg/dL 12/19/21 12/19/21 12/19/21 Range/Units 08:50 08:50 11:56 RBC 2.58 L (3.80-5.40) m/uL Hgb 8.2 L (11.4-16.0) gm/dL Hct 27.2 L (34.0-46.0) % MCV 105.2 H (80.0-100.0) fL MCHC 30.2 L (31.0-37.0) g/dL Lymphocytes # 0.8 L (1.0-4.8) k/uL Carbon Dioxide 31 H (22-30) mmol/L BUN 51 H (7-17) mg/dL Creatinine 1.82 H (0.52-1.04) mg/dL Glucose 218 H (74-99) mg/dL POC Glucose (mg/dL) 288 H (70-110) mg/dL
--- NOTE | 2021-12-19 16:05 | P.PN ---
Subjective Progress Note Date: 12/19/21 (delayed charting seen at 1030) Principal diagnosis: shortness of breath Patient is an 81-year-old female with a history of hypertension, diabetes mellitus requiring insulin, chronic kidney disease, coronary artery disease, and chronic respiratory failure requiring 3-4 L nasal cannula who presented to the ER with complaints of lower extremity edema and leg swelling. Dr. Bhatia has been monitoring her closely with plans for possible outpatient. In the ER she underwent underwent an extensive evaluation. She was hypoxic at 78% on 3 L on arrival. Chest x-ray showed pulmonary vascular congestion. Labatory analysis was significant for HgB 9.5, Cr 1.37 with baseline 1.6, T bili of 1.6, and glucose of 200. Inital Troponin was negative. She was started on diuresis and admitted. Cardiology was consulted. Patient underwent cardiac catheterization on 12/18/21 which showed stable coronary artery disease. No need for intervention. Patient seen and examined at bedside. C/O shortness of breath, no chest pain, still with LE edema, no nausea, no vomiting. General: nontoxic, no distress, appears at stated age Derm: warm, dry Head: atraumatic, normocephalic, symmetric Eyes: EOMI, no lid lag, anicteric sclera Mouth: no lip lesion, mucus membranes moist Cardiovascular: S1S2 reg, no murmur, positive posterior tibial pulse bilateral Lungs: Decreased breath sounds bilateral bases, no accessory muscle use Abdominal: soft, nontender to palpation, no guarding, no appreciable organomegaly Ext: no gross muscle atrophy, 2+ edema, no contractures Neuro: CN II-XI grossly intact, no focal neuro deficits Psych: Alert, oriented, appropriate affect Assessment/Plan: Acute exacerabtion of diastolic CHF, last echo 10/17 EF 55-60% per cardio Aute on chornic hypoxic respiratory failure Pulm HTN HTN HLD CAD - coreg - lasix on hold per cardiology - norvasc, hydralazine - lipitor CKD III - no DEBO baseline Cr 1.8, stop IVF as patient is fluid overloaded. - Cr better than baseline - avoid nephrotoxic agents - follow renal function Anemia - HgB 9.5 at baseline - slightly below baseline, continue to monitor, no over signs of bleeding - follow CBC - continued outpatient follow-up. DM II, insulin requiring - SSI, fixed dose - Long acting - follow BS DVT: Heparin Discharge in 24-48 hours with home health Objective - Vital Signs Vital signs: Vital Signs Temp 97.1 F L 12/19/21 13:04 Pulse 68 12/19/21 13:04 Resp 16 12/19/21 13:04 BP 139/61 12/19/21 13:04 Pulse Ox 94 L 12/19/21 13:04 FiO2 Intake & Output 12/18/21 12/19/21 12/19/21 18:59 06:59 18:59 Intake Total 75 118 Output Total 400 250 Balance -325 -132 Weight 97.7 kg Intake: IV 75 Oral 118 Output: Urine 400 250 Other: Voiding Method Toilet Toilet Toilet # Voids 0 1 # Bowel Movements 0 1 1 - Labs CBC & Chem 7: 12/19/21 08:50 12/19/21 08:50 Labs: Abnormal Lab Results - Last 24 Hours (Table) 12/18/21 12/18/21 12/19/21 Range/Units 16:57 20:18 06:24 RBC (3.80-5.40) m/uL Hgb (11.4-16.0) gm/dL Hct (34.0-46.0) % MCV (80.0-100.0) fL MCHC (31.0-37.0) g/dL Lymphocytes # (1.0-4.8) k/uL Carbon Dioxide (22-30) mmol/L BUN (7-17) mg/dL Creatinine (0.52-1.04) mg/dL Glucose (74-99) mg/dL POC Glucose (mg/dL) 187 H 183 H 172 H (70-110) mg/dL 12/19/21 12/19/21 12/19/21 Range/Units 08:50 08:50 11:56 RBC 2.58 L (3.80-5.40) m/uL Hgb 8.2 L (11.4-16.0) gm/dL Hct 27.2 L (34.0-46.0) % MCV 105.2 H (80.0-100.0) fL MCHC 30.2 L (31.0-37.0) g/dL Lymphocytes # 0.8 L (1.0-4.8) k/uL Carbon Dioxide 31 H (22-30) mmol/L BUN 51 H (7-17) mg/dL Creatinine 1.82 H (0.52-1.04) mg/dL Glucose 218 H (74-99) mg/dL POC Glucose (mg/dL) 288 H (70-110) mg/dL
[2021-12-19 16:32] LABS: Glucose,Whole Blood 227 mg/dL (70-110)
[2021-12-19 20:14] LABS: Glucose,Whole Blood 182 mg/dL (70-110)
[2021-12-19] MEDS: allopurinoL 100 MG TAB PO SCH (20:33)
[2021-12-19] MEDS: ATORVASTATIN 40 MG TAB PO SCH (20:33)
[2021-12-20 07:01] LABS: Glucose,Whole Blood 185 mg/dL (70-110)
[2021-12-20] MEDS: INSULIN DETEMIR (LEVEMIR) 100 UNIT/ML SYR SQ SCH (07:02)
[2021-12-20] MEDS: carvediloL 6.25 MG TAB PO SCH ×2 (07:02→16:53)
[2021-12-20] MEDS: INSULIN ASPART (NovoLOG) 100 UNIT/ML VIAL SQ SCH ×7 (07:03→20:33)
[2021-12-20] MEDS: HEPARIN SODIUM,PORCINE/PF 5,000 UNIT/0.5 ML SYRINGE SQ SCH ×3 (08:05→23:12)
[2021-12-20] MEDS: FAMOTIDINE 20 MG TAB PO SCH (08:10)
[2021-12-20] MEDS: hydrALAZINE HCL 50 MG TAB PO SCH ×2 (08:10→20:32)
[2021-12-20] MEDS: ASPIRIN 81 MG PO SCH (08:10)
[2021-12-20] MEDS: ISOSORBIDE MONONITRATE ER 30 MG TAB.ER.24H PO SCH (08:11)
[2021-12-20] MEDS: TAMSULOSIN 0.4 MG CAP.ER.24H PO SCH (08:11)
[2021-12-20] MEDS: amLODIPine 5 MG TAB PO SCH ×2 (08:11→20:32)
[2021-12-20 08:18] LABS: HCT 26.8 % (34.0-46.0); HGB 8.1 gm/dL (11.4-16.0); Hypochromasia Marked; MCH 31.8 pg (25.0-35.0); MCHC 30.3 g/dL (31.0-37.0); Macrocytosis Moderate; Mean Platelet Volume 9.1; Platelet Count 250 k/uL (150-450); RBC 2.56 m/uL (3.80-5.40); RDW 14.8 % (11.5-15.5); WBC 8.5 k/uL (3.8-10.6)
[2021-12-20 08:33] LABS: Calcium 9.1 mg/dL (8.4-10.2); Potassium 3.7 mmol/L (3.5-5.1)
--- NOTE | 2021-12-20 11:37 | P.PN ---
Subjective This is a pleasant 81-year-old female with history of hypertension, hyperlipidemia, diabetes mellitus, congestive heart failure, CAD with previous 40-50% left main disease who presents secondary to worsen shortness of breath and dyspnea on exertion as well as chest pressure sensation over the last 2 months but especially over last to 3 weeks. She states she has been worked up by Dr. Bhatia with recommendations for a heart catheterization this coming Friday however is awaiting insurance. Her symptoms however have progressed and now she cannot do more than walk across the flores without becoming short of breath. When she walks across the flores she will also get a chest tightness sensation. She is severely limited her activity secondary to this. Additionally she has been sitting in a recliner most of the days and has been getting increased lower extremity edema. She states she has been compliant with all of her medications. Previous echo 10/10/2021 showed EF 55-60% with RVSP of 60 12/18: Patient underwent cardiac catheterization with Dr. Bhatia which revealed no significant progression of coronary artery disease. Moderate distal left main disease, and mild disease in the proximal LAD, Significant disease in the ostium of the left circumflex with no progression compared to 2017, Mild to moderate disease in the RCA 12/20/2021 Patient seen and examined. Patient's breathing has improved. Her LE edema has i mproved. She continues to have some shortness of breath. Vital signs are stable. Patient was started on IV fluids and Lasix was hold secondary to increased creatinine yesterday. patient with negative fluid balance, -332mL fluid balance. Patient oxygen requirements, on maintained on 4 L nasal cannula. PHYSICAL EXAMINATION Vital signs reviewed. CONSTITUTIONAL: No apparent distress. HEENT: Head is normocephalic. Neck supple, no JVD CHEST EXAMINATION: Crackles at bases bilaterally HEART EXAMINATION: Regular rate and rhythm. S1, S2 heard. ABDOMEN: Soft, nontender. Positive bowel sounds. EXTREMITIES: 2+ peripheral pulses, 2+ bilateral lower extremity edema and no calf tenderness. NEUROLOGIC EXAMINATION: Patient is awake, alert and oriented x3. ASSESSMENT Acute on chronic heart failure with preserved ejection fraction New severe dyspnea on exertion, chest pressure with minimal exertion and ischemic-appearing EKG concerning for unstable angina, new over last 3-4 weeks CAD with prior heart catheterization 2016 showing left main 40-50% stenosis Hypertension Hyperlipidemia Acute on Chronic kidney disease Anemia Pulmonary hypertension PLAN -Start PO Lasix 40mg tonight -Monitor renal function and electrolytes -Monitor I/Os, daily weights. -Continue current cardiac medications -Patient not on ACEI/ARB secondary to renal function -Further recommendations based on clinical course Nurse practitioner note has been reviewed by physician. Signing provider agrees with the documented findings, assessment, and plan of care. Objective - Vital Signs Vital signs: Vital Signs Temp 97.9 F 12/20/21 07:57 Pulse 74 12/20/21 07:57 Resp 15 12/20/21 07:57 BP 124/54 12/20/21 07:57 Pulse Ox 91 L 12/20/21 07:57 FiO2 Intake & Output 12/19/21 12/20/21 12/20/21 18:59 06:59 18:59 Intake Total 118 118 Output Total 450 Balance -332 118 Weight 97.7 kg Intake: Oral 118 118 Output: Urine 450 Other: Voiding Method Toilet Toilet # Bowel Movements 1 - Labs CBC & Chem 7: 12/20/21 07:51 12/20/21 07:51 Labs: Abnormal Lab Results - Last 24 Hours (Table) 12/19/21 12/19/21 12/19/21 Range/Units 11:56 16:30 20:13 RBC (3.80-5.40) m/uL Hgb (11.4-16.0) gm/dL Hct (34.0-46.0) % MCV (80.0-100.0) fL MCHC (31.0-37.0) g/dL BUN (7-17) mg/dL Creatinine (0.52-1.04) mg/dL Glucose (74-99) mg/dL POC Glucose (mg/dL) 288 H 227 H 182 H (70-110) mg/dL 12/20/21 12/20/21 12/20/21 Range/Units 06:59 07:51 07:51 RBC 2.56 L (3.80-5.40) m/uL Hgb 8.1 L (11.4-16.0) gm/dL Hct 26.8 L (34.0-46.0) % MCV 105.0 H (80.0-100.0) fL MCHC 30.3 L (31.0-37.0) g/dL BUN 52 H (7-17) mg/dL Creatinine 1.90 H (0.52-1.04) mg/dL Glucose 196 H (74-99) mg/dL POC Glucose (mg/dL) 185 H (70-110) mg/dL
[2021-12-20 12:16] LABS: Glucose,Whole Blood 220 mg/dL (70-110)
--- NOTE | 2021-12-20 14:44 | P.PN ---
Subjective Progress Note Date: 12/20/21 (delayed charting seen at 0930) Principal diagnosis: shortness of breath Patient is an 81-year-old female with a history of hypertension, diabetes mellitus requiring insulin, chronic kidney disease, coronary artery disease, and chronic respiratory failure requiring 3-4 L nasal cannula who presented to the ER with complaints of lower extremity edema and leg swelling. Dr. Bhatia has been monitoring her closely with plans for possible outpatient. In the ER she underwent underwent an extensive evaluation. She was hypoxic at 78% on 3 L on arrival. Chest x-ray showed pulmonary vascular congestion. Labatory analysis was significant for HgB 9.5, Cr 1.37 with baseline 1.6, T bili of 1.6, and glucose of 200. Initial Troponin was negative. She was started on diuresis and admitted. Cardiology was consulted. Patient underwent cardiac catheterization on 12/18/21 which showed stable coronary artery disease. No need for intervention. She continued to progress. Patient seen and examined at bedside. C/O being tired and cold. States breathing is unchanged, edema unchanged per her. Feeling frustrated that breathing is not better. General: nontoxic, no distress, appears at stated age Derm: warm, dry Head: atraumatic, normocephalic, symmetric Eyes: EOMI, no lid lag, anicteric sclera Mouth: no lip lesion, mucus membranes moist Cardiovascular: S1S2 reg, no murmur, positive posterior tibial pulse bilateral Lungs: Decreased breath sounds bilateral bases, no accessory muscle use Abdominal: soft, nontender to palpation, no guarding, no appreciable organomegaly Ext: no gross muscle atrophy, 1+ edema, no contractures Neuro: CN II-XI grossly intact, no focal neuro deficits Psych: Alert, oriented, appropriate affect Assessment/Plan: Acute exacerabtion of diastolic CHF, last echo 10/17 EF 55-60% per cardio Aute on chornic hypoxic respiratory failure Pulm HTN HTN HLD CAD - coreg - lasix oral to start today - norvasc, hydralazine - lipitor CKD III - no DEBO baseline Cr 1.8 - avoid nephrotoxic agents - follow renal function Anemia - HgB 9.5 at baseline - slightly below baseline, continue to monitor, no over signs of bleeding - follow CBC - continued outpatient follow-up. DM II, insulin requiring - SSI, fixed dose - Long acting increased - follow BS DVT: Heparin Discharge in AM with home health Objective - Vital Signs Vital signs: Vital Signs Temp 97.9 F 12/20/21 07:57 Pulse 71 12/20/21 11:33 Resp 15 12/20/21 07:57 BP 146/64 12/20/21 11:33 Pulse Ox 92 L 12/20/21 11:33 FiO2 Intake & Output 12/19/21 12/20/21 12/20/21 18:59 06:59 18:59 Intake Total 118 236 Output Total 450 Balance -332 236 Weight 97.7 kg 97.7 kg Intake: Oral 118 236 Output: Urine 450 Other: Voiding Method Toilet Toilet # Bowel Movements 1 - Labs CBC & Chem 7: 12/20/21 07:51 12/20/21 07:51 Labs: Abnormal Lab Results - Last 24 Hours (Table) 12/19/21 12/19/21 12/20/21 Range/Units 16:30 20:13 06:59 RBC (3.80-5.40) m/uL Hgb (11.4-16.0) gm/dL Hct (34.0-46.0) % MCV (80.0-100.0) fL MCHC (31.0-37.0) g/dL BUN (7-17) mg/dL Creatinine (0.52-1.04) mg/dL Glucose (74-99) mg/dL POC Glucose (mg/dL) 227 H 182 H 185 H (70-110) mg/dL 12/20/21 12/20/21 12/20/21 Range/Units 07:51 07:51 12:13 RBC 2.56 L (3.80-5.40) m/uL Hgb 8.1 L (11.4-16.0) gm/dL Hct 26.8 L (34.0-46.0) % MCV 105.0 H (80.0-100.0) fL MCHC 30.3 L (31.0-37.0) g/dL BUN 52 H (7-17) mg/dL Creatinine 1.90 H (0.52-1.04) mg/dL Glucose 196 H (74-99) mg/dL POC Glucose (mg/dL) 220 H (70-110) mg/dL
[2021-12-20] MEDS: FUROSEMIDE 40 MG TAB PO SCH (16:53)
[2021-12-20 16:58] LABS: Glucose,Whole Blood 245 mg/dL (70-110)
[2021-12-20 20:13] LABS: Glucose,Whole Blood 217 mg/dL (70-110)
[2021-12-20] MEDS: ATORVASTATIN 40 MG TAB PO SCH (20:32)
[2021-12-20] MEDS: allopurinoL 100 MG TAB PO SCH (20:32)
[2021-12-21] MEDS: carvediloL 6.25 MG TAB PO SCH ×2 (06:24→17:53)
[2021-12-21 07:44] LABS: Glucose,Whole Blood 234 mg/dL (70-110)
[2021-12-21] MEDS: HEPARIN SODIUM,PORCINE/PF 5,000 UNIT/0.5 ML SYRINGE SQ SCH ×3 (08:13→20:35)
[2021-12-21] MEDS: INSULIN ASPART (NovoLOG) 100 UNIT/ML VIAL SQ SCH ×7 (08:14→20:35)
[2021-12-21] MEDS: INSULIN DETEMIR (LEVEMIR) 100 UNIT/ML SYR SQ SCH (08:14)
[2021-12-21] MEDS: FAMOTIDINE 20 MG TAB PO SCH (08:15)
[2021-12-21] MEDS: FUROSEMIDE 40 MG TAB PO SCH ×2 (08:15→15:07)
[2021-12-21] MEDS: ASPIRIN 81 MG PO SCH (08:15)
[2021-12-21] MEDS: amLODIPine 5 MG TAB PO SCH ×2 (08:15→20:34)
[2021-12-21] MEDS: TAMSULOSIN 0.4 MG CAP.ER.24H PO SCH (08:15)
[2021-12-21] MEDS: hydrALAZINE HCL 50 MG TAB PO SCH ×2 (08:15→20:34)
[2021-12-21] MEDS: ISOSORBIDE MONONITRATE ER 30 MG TAB.ER.24H PO SCH (08:15)
[2021-12-21 08:58] LABS: Calcium 9.3 mg/dL (8.4-10.2); Potassium 4.1 mmol/L (3.5-5.1)
[2021-12-21] MEDS ORDERED: MAGNESIUM SULFATE-D5W PMX 1 GM in DEXTROSE/WATER 1 100ML.BAG IVPB ONE (10:37)
--- NOTE | 2021-12-21 10:40 | P.PN ---
Subjective Progress Note Date: 12/21/21 Principal diagnosis: CHF exacerbation, V. tach Patient was seen and examined. No acute events overnight. Patient had a 14 beat NSVT overnight asymptomatic. She complains of shortness of breath that has not improved since admission. She is currently on 6L NC saturation 90-92%. General: nontoxic, no distress, appears at stated age Derm: warm, dry Head: atraumatic, normocephalic, symmetric Eyes: EOMI, no lid lag, anicteric sclera Mouth: no lip lesion, mucus membranes moist Cardiovascular: S1S2 reg, no murmur, positive DP pulse bilateral Lungs: Decreased breath sounds bilateral bases, no accessory muscle use Ext: no gross muscle atrophy, 1+ edema, no contractures Neuro: no focal neuro deficits Psych: Alert, oriented, appropriate affect Assessment/Plan: Acute exacerbation of diastolic CHF, last echo 10/17 EF 55-60% per cardio Acute on chronic hypoxic respiratory failure Pulm HTN HTN HLD CAD Cardiac cath done during this admission shows no significant progression of CAD. CTA chest was done in 09/2021 which showed on PE. - coreg - lasix oral to start 12/21 - norvasc, hydralazine - lipitor - repeat CXR ordered today NSVT - maintain K > 4 and Mg > 2 - continue coreg - telemetry monitoring DEBO on CKD III - baseline Cr 1.8 - avoid nephrotoxic agents - follow renal function Anemia - HgB 9.5 at baseline - slightly below baseline, continue to monitor, no over signs of bleeding - follow CBC - continued outpatient follow-up. DM II, insulin requiring - SSI, fixed dose - Long acting increased - follow BS DVT: Heparin Patient continues to feel shortness of breath with increased oxygen requirements. 14 beat NSVT on telemetry. Repeat CXR ordered. Magnesium replaced. Continue to monitor. Objective - Vital Signs Vital signs: Vital Signs Temp 98 F 12/20/21 20:00 Pulse 65 12/21/21 08:00 Resp 18 12/21/21 06:23 BP 122/48 12/21/21 08:00 Pulse Ox 91 L 12/21/21 08:00 FiO2 Intake & Output 12/20/21 12/21/21 12/21/21 18:59 06:59 18:59 Intake Total 736 Output Total 180 200 Balance 556 -200 Weight 97.7 kg Intake: Oral 736 Output: Urine 180 200 Other: Voiding Method Toilet Toilet Toilet - Labs CBC & Chem 7: 12/20/21 07:51 12/21/21 08:07 Labs: Abnormal Lab Results - Last 24 Hours (Table) 12/20/21 12/20/21 12/20/21 Range/Units 12:13 16:56 20:11 BUN (7-17) mg/dL Creatinine (0.52-1.04) mg/dL Glucose (74-99) mg/dL POC Glucose (mg/dL) 220 H 245 H 217 H (70-110) mg/dL 12/21/21 12/21/21 Range/Units 07:42 08:07 BUN 57 H (7-17) mg/dL Creatinine 2.18 H (0.52-1.04) mg/dL Glucose 197 H (74-99) mg/dL POC Glucose (mg/dL) 234 H (70-110) mg/dL
--- NOTE | 2021-12-21 11:25 | P.PN ---
Subjective This is a pleasant 81-year-old female with history of hypertension, hyperlipidemia, diabetes mellitus, congestive heart failure, CAD with previous 40-50% left main disease who presents secondary to worsen shortness of breath and dyspnea on exertion as well as chest pressure sensation over the last 2 months but especially over last to 3 weeks. She states she has been worked up by Dr. Bhatia with recommendations for a heart catheterization this coming Friday however is awaiting insurance. Her symptoms however have progressed and now she cannot do more than walk across the flores without becoming short of breath. When she walks across the flores she will also get a chest tightness sensation. She is severely limited her activity secondary to this. Additionally she has been sitting in a recliner most of the days and has been getting increased lower extremity edema. She states she has been compliant with all of her medications. Previous echo 10/10/2021 showed EF 55-60% with RVSP of 60 12/18: Patient underwent cardiac catheterization with Dr. Bhatia which revealed no significant progression of coronary artery disease. Moderate distal left main disease, and mild disease in the proximal LAD, Significant disease in the ostium of the left circumflex with no progression compared to 2017, Mild to moderate disease in the RCA 12/21/2021 Patient seen and examined. Continues to have some shortness of breath this morn ing. Her LE edema has improved. Telemetry reviewed, with a 14beat run of NSVT, HR in the high 50s-60s BP is stable. Patient was started on IV fluids and Lasix was hold secondary to increased creatinine on 12/19. Her creatinine has increased today to 2.18. Patient oxygen requirements increased on maintained on 6 L nasal cannula. PHYSICAL EXAMINATION Vital signs reviewed. CONSTITUTIONAL: No apparent distress. HEENT: Head is normocephalic. Neck supple, no JVD CHEST EXAMINATION: Crackles at bases bilaterally HEART EXAMINATION: Regular rate and rhythm. S1, S2 heard. ABDOMEN: Soft, nontender. Positive bowel sounds. EXTREMITIES: 1-2+ bilateral lower extremity edema and no calf tenderness. NEUROLOGIC EXAMINATION: Patient is awake, alert and oriented x3. ASSESSMENT Acute on chronic heart failure with preserved ejection fraction New severe dyspnea on exertion, chest pressure with minimal exertion and ischemic-appearing EKG concerning for unstable angina, new over last 3-4 weeks CAD with prior heart catheterization 2016 showing left main 40-50% stenosis Hypertension Hyperlipidemia Acute on Chronic kidney disease Anemia Pulmonary hypertension NSVT PLAN -Lasix 40mg BID -Continue to monitor on telemetry, will not increase beta negrita at this time with HR in the 50s noted on telemetry -Continue aspirin, statin, carvedilol, hydralazine, Imdur -Monitor renal function and electrolytes -Monitor I/Os, daily weights. -Patient not on ACEI/ARB secondary to renal function -Further recommendations based on clinical course Nurse practitioner note has been reviewed by physician. Signing provider agrees with the documented findings, assessment, and plan of care. Objective - Vital Signs Vital signs: Vital Signs Temp 98 F 12/20/21 20:00 Pulse 65 12/21/21 08:00 Resp 18 12/21/21 06:23 BP 122/48 12/21/21 08:00 Pulse Ox 91 L 12/21/21 08:00 FiO2 Intake & Output 12/20/21 12/21/21 12/21/21 18:59 06:59 18:59 Intake Total 736 Output Total 180 200 Balance 556 -200 Weight 97.7 kg Intake: Oral 736 Output: Urine 180 200 Other: Voiding Method Toilet Toilet Toilet - Labs CBC & Chem 7: 12/20/21 07:51 12/21/21 08:07 Labs: Abnormal Lab Results - Last 24 Hours (Table) 12/20/21 12/20/21 12/20/21 Range/Units 12:13 16:56 20:11 BUN (7-17) mg/dL Creatinine (0.52-1.04) mg/dL Glucose (74-99) mg/dL POC Glucose (mg/dL) 220 H 245 H 217 H (70-110) mg/dL 12/21/21 12/21/21 Range/Units 07:42 08:07 BUN 57 H (7-17) mg/dL Creatinine 2.18 H (0.52-1.04) mg/dL Glucose 197 H (74-99) mg/dL POC Glucose (mg/dL) 234 H (70-110) mg/dL
[2021-12-21 11:59] LABS: Glucose,Whole Blood 292 mg/dL (70-110)
--- NOTE | 2021-12-21 16:36 | XR ---
EXAMINATION TYPE: XR chest 2V DATE OF EXAM: 12/21/2021 4:28 PM COMPARISON: Chest radiographs from 12/14/2021 TECHNIQUE: XR chest 2V Frontal and lateral views of the chest. CLINICAL INDICATION:Female, 81 years old with history of CHF; FINDINGS: Lungs/Pleura: No evidence of focal consolidation or pneumothorax. Blunting of the costophrenic angles is present. Pulmonary vascularity: Pulmonary vascular congestion. Heart/mediastinum: Cardiomediastinal silhouette is enlarged and stable. Musculoskeletal: No acute osseous pathology. IMPRESSION: Similar Cardiomegaly and mild pulmonary vascular congestion.
[2021-12-21 16:45] LABS: Glucose,Whole Blood 224 mg/dL (70-110)
[2021-12-21 20:08] LABS: Glucose,Whole Blood 245 mg/dL (70-110)
[2021-12-21] MEDS: allopurinoL 100 MG TAB PO SCH (20:34)
[2021-12-21] MEDS: ATORVASTATIN 40 MG TAB PO SCH (20:34)
[2021-12-21] MEDS: ALPRAZolam 0.25 MG TAB PO PRN (20:34)
[2021-12-21] MEDS ORDERED: FUROSEMIDE 10 MG/ML 4 ML VIAL IV STA (23:51)
[2021-12-22 06:06] LABS: Glucose,Whole Blood 202 mg/dL (70-110)
[2021-12-22] MEDS: carvediloL 6.25 MG TAB PO SCH ×2 (06:39→16:51)
[2021-12-22 07:21] LABS: Glucose,Whole Blood 199 mg/dL (70-110)
[2021-12-22] MEDS: HEPARIN SODIUM,PORCINE/PF 5,000 UNIT/0.5 ML SYRINGE SQ SCH ×3 (08:08→22:37)
[2021-12-22] MEDS: INSULIN DETEMIR (LEVEMIR) 100 UNIT/ML SYR SQ SCH (08:42)
[2021-12-22] MEDS: INSULIN ASPART (NovoLOG) 100 UNIT/ML VIAL SQ SCH ×7 (08:43→20:08)
[2021-12-22] MEDS: TAMSULOSIN 0.4 MG CAP.ER.24H PO SCH (08:44)
[2021-12-22] MEDS: amLODIPine 5 MG TAB PO SCH ×2 (08:44→20:07)
[2021-12-22] MEDS: ASPIRIN 81 MG PO SCH (08:44)
[2021-12-22] MEDS: hydrALAZINE HCL 50 MG TAB PO SCH ×2 (08:44→20:08)
[2021-12-22] MEDS: FUROSEMIDE 40 MG TAB PO SCH ×2 (08:44→16:51)
[2021-12-22] MEDS: ISOSORBIDE MONONITRATE ER 30 MG TAB.ER.24H PO SCH (08:44)
[2021-12-22] MEDS: FAMOTIDINE 20 MG TAB PO SCH (08:44)
[2021-12-22 10:36] LABS: Calcium 9.2 mg/dL (8.4-10.2); Potassium 4.3 mmol/L (3.5-5.1)
--- NOTE | 2021-12-22 11:00 | P.PN ---
Subjective Progress Note Date: 12/22/21 Principal diagnosis: CHF exacerbation, V. tach Patient is an 81-year-old female with a history of hypertension, diabetes mellitus requiring insulin, chronic kidney disease, coronary artery disease, and chronic respiratory failure requiring 3-4 L nasal cannula who presented to the ER with complaints of lower extremity edema and leg swelling. Dr. Bhatia has been monitoring her closely with plans for possible outpatient. In the ER she underwent underwent an extensive evaluation. She was hypoxic at 78% on 3 L on arrival. Chest x-ray showed pulmonary vascular congestion. Laboratory analysis was significant for Hg 9.5, Cr 1.37 with baseline 1.6, T bili of 1.6, and glucose of 200. Initial Troponin was negative. She was started on diuresis and admitted. Cardiology was consulted. Patient underwent cardiac catheterization on 12/18/21 which showed stable coronary artery disease. No need for intervention. She had 14 beat NSVT on 12/20. Patient was seen and examined. No acute events overnight. She complains of shortness of breath that has not improved since admission. She is currently on 8L HFNC saturation 90-92%. CXR ordered yesterday showed mild pulmonary vascular congestion. BMP shows slightly worsened Cr of 2.25. General: nontoxic, no distress, appears at stated age Derm: warm, dry Head: atraumatic, normocephalic, symmetric Eyes: EOMI, no lid lag, anicteric sclera Mouth: no lip lesion, mucus membranes moist Cardiovascular: S1S2 reg, no murmur, positive DP pulse bilateral Lungs: Decreased breath sounds bilateral bases, no accessory muscle use Ext: no gross muscle atrophy, 1+ edema, no contractures Neuro: no focal neuro deficits Psych: Alert, oriented, appropriate affect Assessment/Plan: Acute exacerbation of diastolic CHF, last echo 10/17 EF 55-60% per cardio Acute on chronic hypoxic respiratory failure Pulm HTN HTN HLD CAD Cardiac cath done during this admission shows no significant progression of CAD. CTA chest was done in 09/2021 which showed on PE. - coreg - s/p 2 doses of lasix 40 mg IV on 12/21 - continue lasix 40 mg by mouth twice a day - norvasc, hydralazine - lipitor NSVT - maintain K > 4 and Mg > 2 - continue coreg - telemetry monitoring DEBO on CKD III - baseline Cr 1.8 - avoid nephrotoxic agents - follow renal function Anemia - Hg 9.5 at baseline - slightly below baseline, continue to monitor, no over signs of bleeding - follow CBC - continued outpatient follow-up. DM II, insulin requiring - SSI, fixed dose - Long acting increased - follow BS DVT: Heparin Patient continues to feel shortness of breath with increased oxygen requirements. She is pending clinical improvement. Cardiology on board. Objective - Vital Signs Vital signs: Vital Signs Temp 97.9 F 12/21/21 20:00 Pulse 60 12/22/21 06:38 Resp 18 12/22/21 04:00 BP 137/54 12/22/21 06:38 Pulse Ox 90 L 12/22/21 08:31 FiO2 50 12/22/21 08:07 Intake & Output 12/21/21 12/22/21 12/22/21 18:59 06:59 18:59 Output Total 250 750 Balance -250 -750 Weight 99.1 kg Output: Urine 250 750 Other: Voiding Method Toilet Toilet # Voids 1 - Labs CBC & Chem 7: 12/20/21 07:51 12/22/21 08:36 Labs: Abnormal Lab Results - Last 24 Hours (Table) 12/21/21 12/21/21 12/21/21 Range/Units 11:57 16:44 20:06 BUN (7-17) mg/dL Creatinine (0.52-1.04) mg/dL Glucose (74-99) mg/dL POC Glucose (mg/dL) 292 H 224 H 245 H (70-110) mg/dL 12/22/21 12/22/21 12/22/21 Range/Units 06:05 07:20 08:36 BUN 61 H (7-17) mg/dL Creatinine 2.25 H (0.52-1.04) mg/dL Glucose 186 H (74-99) mg/dL POC Glucose (mg/dL) 202 H 199 H (70-110) mg/dL
[2021-12-22 11:44] LABS: Glucose,Whole Blood 325 mg/dL (70-110)
--- NOTE | 2021-12-22 15:30 | P.PN ---
Subjective Progress Note Date: 12/22/21 This is a pleasant 81-year-old female with history of hypertension, hyperlipidemia, diabetes mellitus, CHF and CAD who presented to the hospital secondary to worsening shortness of breath and dyspnea on exertion as well as chest pressure over the last 2 months progressively getting even worse over the last 3 weeks. She was initially scheduled to undergo outpatient cardiac catheterization however this was delayed due to insurance authorization so the patient came to the emergency department for further evaluation. She underwent cardiac catheterization which revealed no significant progression of coronary artery disease, moderate distal left main disease and mild disease involving the proximal LAD, significant disease in the ostium of the left circumflex with no progression compared to 2017 in mild to moderate disease in the RCA. She had worsening shortness of breath yesterday and received IV Lasix. She did have a 14 beat run of nonsustained ventricular tachycardia but is otherwise maintaining sinus mechanism with a heart rate of 50s to 60s. Labs this morning show worsening renal function with a creatinine of 2.25. She is currently requiring 8 L nasal cannula oxygen. Patient was seen and examined resting comfortably in a reclining chair. She feels her breathing is quite a bit better. Her vital signs are stable and she remains afebrile. Objective - Vital Signs Vital signs: Vital Signs Temp 97.5 F L 12/22/21 12:00 Pulse 52 L 12/22/21 13:06 Resp 14 12/22/21 13:06 BP 120/63 12/22/21 12:00 Pulse Ox 96 12/22/21 12:00 FiO2 50 12/22/21 08:07 Intake & Output 12/21/21 12/22/21 12/22/21 18:59 06:59 18:59 Output Total 250 750 Balance -250 -750 Weight 99.1 kg Output: Urine 250 750 Other: Voiding Method Toilet Toilet Toilet # Voids 1 - Exam PHYSICAL EXAMINATION: HEENT: Head is atraumatic, normocephalic. Pupils equal, round. Neck is supple. There is no elevated jugular venous pressure. HEART EXAMINATION: Heart sounds regular, S1 and S2 normal. CHEST EXAMINATION: Lungs reveal diminished air entry bilaterally with faint bibasilar crackles. No chest wall tenderness is noted on palpation or with deep breathing. ABDOMEN: Soft, nontender. Bowel sounds are heard. No organomegaly noted. EXTREMITIES: 2+ peripheral pulses with evidence of mild peripheral edema and no calf tenderness noted. NEUROLOGIC patient is awake, alert and oriented x3. . - Labs CBC & Chem 7: 12/20/21 07:51 12/22/21 08:36 Labs: Abnormal Lab Results - Last 24 Hours (Table) 12/21/21 12/21/21 12/22/21 Range/Units 16:44 20:06 06:05 BUN (7-17) mg/dL Creatinine (0.52-1.04) mg/dL Glucose (74-99) mg/dL POC Glucose (mg/dL) 224 H 245 H 202 H (70-110) mg/dL 12/22/21 12/22/21 12/22/21 Range/Units 07:20 08:36 11:42 BUN 61 H (7-17) mg/dL Creatinine 2.25 H (0.52-1.04) mg/dL Glucose 186 H (74-99) mg/dL POC Glucose (mg/dL) 199 H 325 H (70-110) mg/dL Assessment and Plan Assessment: Acute on chronic heart failure with preserved ejection fraction New severe dyspnea on exertion, chest pressure with minimal exertion and ischemic-appearing EKG concerning for unstable angina, new over last 3-4 weeks CAD, recent cardiac catheterization showed stable disease compared to 2017 Hypertension Hyperlipidemia Acute on Chronic kidney disease Anemia Pulmonary hypertension NSVT Plan: From cardiology's perspective medications were reviewed and we will continue the same. We will continue to follow the patient closely. Continue to monitor renal function, electrolytes and daily weights. Further recommendations to follow. SUBWAY TRAIN DRIVER note has been reviewed, I agree with a documented findings and plan of care. Patient was seen and examined.
[2021-12-22 16:43] LABS: Glucose,Whole Blood 241 mg/dL (70-110)
[2021-12-22 20:00] LABS: Glucose,Whole Blood 236 mg/dL (70-110)
[2021-12-22] MEDS: allopurinoL 100 MG TAB PO SCH (20:07)
[2021-12-22] MEDS: ALPRAZolam 0.25 MG TAB PO PRN (20:08)
[2021-12-22] MEDS: ATORVASTATIN 40 MG TAB PO SCH (20:08)
[2021-12-23] MEDS: carvediloL 6.25 MG TAB PO SCH ×2 (06:29→16:43)
[2021-12-23 07:23] LABS: Glucose,Whole Blood 216 mg/dL (70-110)
[2021-12-23] MEDS: FAMOTIDINE 20 MG TAB PO SCH (08:28)
[2021-12-23] MEDS: FUROSEMIDE 40 MG TAB PO SCH (08:28)
[2021-12-23] MEDS: ASPIRIN 81 MG PO SCH (08:28)
[2021-12-23] MEDS: ISOSORBIDE MONONITRATE ER 30 MG TAB.ER.24H PO SCH (08:28)
[2021-12-23] MEDS: hydrALAZINE HCL 50 MG TAB PO SCH ×2 (08:29→21:06)
[2021-12-23] MEDS: amLODIPine 5 MG TAB PO SCH ×2 (08:29→21:06)
[2021-12-23] MEDS: TAMSULOSIN 0.4 MG CAP.ER.24H PO SCH (08:29)
[2021-12-23] MEDS: INSULIN DETEMIR (LEVEMIR) 100 UNIT/ML SYR SQ SCH (08:29)
[2021-12-23] MEDS: INSULIN ASPART (NovoLOG) 100 UNIT/ML VIAL SQ SCH ×7 (08:29→21:06)
[2021-12-23] MEDS: HEPARIN SODIUM,PORCINE/PF 5,000 UNIT/0.5 ML SYRINGE SQ SCH ×3 (08:33→21:48)
[2021-12-23 09:29] LABS: Calcium 9.3 mg/dL (8.4-10.2); Potassium 4.5 mmol/L (3.5-5.1)
[2021-12-23 11:43] LABS: Glucose,Whole Blood 312 mg/dL (70-110)
--- NOTE | 2021-12-23 13:51 | P.PN ---
Subjective Progress Note Date: 12/23/21 Principal diagnosis: Shortness of breath Interval history:Patient is an 81-year-old female with a history of hypertension, diabetes mellitus requiring insulin, chronic kidney disease, coronary artery disease, and chronic respiratory failure requiring 3-4 L nasal cannula who presented to the ER with complaints of lower extremity edema and leg swelling. Dr. Bhatia has been monitoring her closely with plans for possible outpatient. In the ER she underwent underwent an extensive evaluation. She was hypoxic at 78% on 3 L on arrival. Chest x-ray showed pulmonary vascular tasia estion. Laboratory analysis was significant for Hg 9.5, Cr 1.37 with baseline 1.6, T bili of 1.6, and glucose of 200. Initial Troponin was negative. She was started on diuresis and admitted. Cardiology was consulted. Patient underwent cardiac catheterization on 12/18/21 which showed stable coronary artery disease. No need for intervention. She had 14 beat NSVT on 12/20. She continues to require high level of oxygen support she's currently on 8 L high flow nasal cannula. She continues to show some ulnar vascular congestion on chest x-ray. Her creatinine function continues to worsen Objective - Vital Signs Vital signs: Vital Signs Temp 97.3 F L 12/23/21 12:00 Pulse 63 12/23/21 12:00 Resp 16 12/23/21 12:00 BP 119/57 12/23/21 12:00 Pulse Ox 90 L 12/23/21 12:00 FiO2 50 12/22/21 08:07 Intake & Output 12/22/21 12/23/21 12/23/21 18:59 06:59 18:59 Output Total 300 200 Balance -300 -200 Output: Urine 300 200 Other: Voiding Method Toilet Toilet Toilet - Exam General: nontoxic, no distress, appears at stated age Derm: warm, dry Head: atraumatic, normocephalic, symmetric Eyes: EOMI, no lid lag, anicteric sclera Mouth: no lip lesion, mucus membranes moist Cardiovascular: S1S2 reg, no murmur, positive DP pulse bilateral Lungs: Decreased breath sounds bilateral bases, no accessory muscle use Ext: no gross muscle atrophy, 1+ edema, no contractures Neuro: no focal neuro deficits Psych: Alert, oriented, appropriate affect - Labs CBC & Chem 7: 12/20/21 07:51 12/23/21 07:37 Labs: Abnormal Lab Results - Last 24 Hours (Table) 12/22/21 12/22/21 12/23/21 Range/Units 16:41 19:59 07:22 BUN (7-17) mg/dL Creatinine (0.52-1.04) mg/dL Glucose (74-99) mg/dL POC Glucose (mg/dL) 241 H 236 H 216 H (70-110) mg/dL 12/23/21 12/23/21 Range/Units 07:37 11:41 BUN 71 H (7-17) mg/dL Creatinine 2.66 H (0.52-1.04) mg/dL Glucose 181 H (74-99) mg/dL POC Glucose (mg/dL) 312 H (70-110) mg/dL Assessment and Plan (1) CHF (congestive heart failure) Current Visit: Yes Status: Acute Code(s): I50.9 - HEART FAILURE, UNSPECIFIED SNOMED Code(s): 34543993 Plan: Acute exacerbation of diastolic CHF, last echo 10/17 EF 55-60% per cardio Acute on chronic hypoxic respiratory failure Pulm HTN HTN HLD CAD Cardiac cath done during this admission shows no significant progression of CAD. CTA chest was done in 09/2021 which showed no PE. - coreg - s/p 2 doses of lasix 40 mg IV on 12/21 - continue lasix 40 mg by mouth twice a day - norvasc, hydralazine - lipitor NSVT - maintain K > 4 and Mg > 2 - continue coreg - telemetry monitoring DEBO on CKD III -Patient's creatinine function worsened today. Now 2.66 -Patient's baseline kidney function was 1.8 -Secondary likely to cardiorenal syndrome, overdiuresis -Nephrology team consulted Anemia -Patient hemoglobin currently remains stable at 8.1. We'll continue to monitor for any signs of active bleeding DM II, insulin requiring -Patient's blood sugars continue to remain elevated. We will increase long- acting insulin -Continue with sliding scale coverage and fixed prandial insulin DVT: Heparin Disposition: Patient continues to have significant shortness of breath and still requiring high level of oxygen support.
--- NOTE | 2021-12-23 14:07 | P.PN ---
Subjective Progress Note Date: 12/23/21 This is a pleasant 81-year-old female with history of hypertension, hyperlipidemia, diabetes mellitus, CHF and CAD who presented to the hospital secondary to worsening shortness of breath and dyspnea on exertion as well as chest pressure over the last 2 months progressively getting even worse over the last 3 weeks. She was initially scheduled to undergo outpatient cardiac catheterization however this was delayed due to insurance authorization so the patient came to the emergency department for further evaluation. She underwent cardiac catheterization which revealed no significant progression of coronary artery disease, moderate distal left main disease and mild disease involving the proximal LAD, significant disease in the ostium of the left circumflex with no progression compared to 2017 in mild to moderate disease in the RCA. She had worsening shortness of breath yesterday and received IV Lasix. She did have a 14 beat run of nonsustained ventricular tachycardia but is otherwise maintaining sinus mechanism with a heart rate of 50s to 60s. Labs this morning show worsening renal function with a creatinine of 2.25. She is currently requiring 8 L nasal cannula oxygen. Patient was seen and examined resting comfortably in a reclining chair. She feels her breathing is quite a bit better. Her vital signs are stable and she remains afebrile. 12/23/2021 Patient was seen and examined resting comfortably in a recliner chair. Overall she feels a bit better today. She feels her breathing is stable. Labs show worsening renal function. She is currently on Lasix 40 mg by mouth twice a day. Vital signs stable she remains on 8 L high flow oxygen. Objective - Vital Signs Vital signs: Vital Signs Temp 97.3 F L 12/23/21 12:00 Pulse 63 12/23/21 12:00 Resp 16 12/23/21 12:00 BP 119/57 12/23/21 12:00 Pulse Ox 90 L 12/23/21 12:00 FiO2 50 12/22/21 08:07 Intake & Output 12/22/21 12/23/21 12/23/21 18:59 06:59 18:59 Output Total 300 200 Balance -300 -200 Output: Urine 300 200 Other: Voiding Method Toilet Toilet Toilet - Exam PHYSICAL EXAMINATION: HEENT: Head is atraumatic, normocephalic. Pupils equal, round. Neck is supple. There is no elevated jugular venous pressure. HEART EXAMINATION: Heart sounds regular, S1 and S2 normal. CHEST EXAMINATION: Lungs reveal diminished air entry bilaterally with faint bibasilar crackles. No chest wall tenderness is noted on palpation or with deep breathing. ABDOMEN: Soft, nontender. Bowel sounds are heard. No organomegaly noted. EXTREMITIES: 2+ peripheral pulses with evidence of mild peripheral edema and no calf tenderness noted. NEUROLOGIC patient is awake, alert and oriented x3. . - Labs CBC & Chem 7: 12/20/21 07:51 12/23/21 07:37 Labs: Abnormal Lab Results - Last 24 Hours (Table) 12/22/21 12/22/21 12/23/21 Range/Units 16:41 19:59 07:22 BUN (7-17) mg/dL Creatinine (0.52-1.04) mg/dL Glucose (74-99) mg/dL POC Glucose (mg/dL) 241 H 236 H 216 H (70-110) mg/dL 12/23/21 12/23/21 Range/Units 07:37 11:41 BUN 71 H (7-17) mg/dL Creatinine 2.66 H (0.52-1.04) mg/dL Glucose 181 H (74-99) mg/dL POC Glucose (mg/dL) 312 H (70-110) mg/dL Assessment and Plan Assessment: Acute on chronic heart failure with preserved ejection fraction New severe dyspnea on exertion, chest pressure with minimal exertion and ischemic-appearing EKG concerning for unstable angina, new over last 3-4 weeks CAD, recent cardiac catheterization showed stable disease compared to 2017 Hypertension Hyperlipidemia Acute on Chronic kidney disease, worsening Anemia Pulmonary hypertension NSVT Plan: From cardiology's perspective we will decrease diuretics. We will consult nephrology due to her worsening renal function. We will continue to follow the patient and provide further recommendations accordingly. PHARMACY INTAKE TECHNICIAN note has been reviewed, I agree with a documented findings and plan of care. Patient was seen and examined.
[2021-12-23 16:31] LABS: Glucose,Whole Blood 272 mg/dL (70-110)
[2021-12-23 19:47] LABS: Glucose,Whole Blood 260 mg/dL (70-110)
[2021-12-23] MEDS: allopurinoL 100 MG TAB PO SCH (21:05)
[2021-12-23] MEDS: ATORVASTATIN 40 MG TAB PO SCH (21:06)
--- NOTE | 2021-12-23 21:12 | XR ---
EXAMINATION TYPE: XR chest 1V portable DATE OF EXAM: 12/23/2021 COMPARISON: 12/21/2021 HISTORY: Hypoxemia TECHNIQUE: FINDINGS: There is pulmonary interstitial and airspace edema. There is blunting of the costophrenic a ngles. There are chest leads. Heart appears enlarged. IMPRESSION: Congestive heart failure with pleural effusions and pulmonary edema which is not signific antly different than recent exam.
[2021-12-23] MEDS ORDERED: FUROSEMIDE 10 MG/ML 10 ML VIAL IV STA (21:23)
[2021-12-24 05:41] LABS: Glucose,Whole Blood 170 mg/dL (70-110)
[2021-12-24] MEDS: INSULIN DETEMIR (LEVEMIR) 100 UNIT/ML SYR SQ SCH (06:33)
[2021-12-24] MEDS: carvediloL 6.25 MG TAB PO SCH ×2 (06:33→17:06)
[2021-12-24] MEDS: INSULIN ASPART (NovoLOG) 100 UNIT/ML VIAL SQ SCH ×7 (06:33→20:33)
[2021-12-24 08:24] LABS: Basophils % (A) 0 %; Eosinophils # (A) 0.3 k/uL (0-0.7); Eosinophils % (A) 4 %; HCT 25.8 % (34.0-46.0); Hypochromasia Marked; Lymphocytes # (A) 0.7 k/uL (1.0-4.8); Lymphocytes % (A) 9 %; MCH 32.6 pg (25.0-35.0); MCHC 31.1 g/dL (31.0-37.0); MCV 104.7 fL (80.0-100.0); Macrocytosis Moderate; Mean Platelet Volume 9.7; Monocytes # (A) 0.7 k/uL (0-1.0); Monocytes % (A) 8 %; Neutrophils # (A) 6.1 k/uL (1.3-7.7); Neutrophils % (A) 77 %; Platelet Count 256 k/uL (150-450); RBC 2.47 m/uL (3.80-5.40); RDW 15.7 % (11.5-15.5); WBC 7.8 k/uL (3.8-10.6)
[2021-12-24 08:31] LABS: Calcium 9.2 mg/dL (8.4-10.2); Potassium 4.1 mmol/L (3.5-5.1)
--- NOTE | 2021-12-24 09:21 | P.NPCON ---
History of Present Illness - Reason for Consult acute renal failure, chronic renal failure - History of Present Illness Reason for consultation: Acute kidney injury on chronic kidney disease History of present illness: Patient is a 81-year-old female seen in renal consultation for acute kidney injury on chronic kidney disease. Patient presented to the hospital on 12/14/2021 with worsening shortness of breath. Patient was receiving IV Lasix and was transitioned to oral diuretics yesterday. She is currently on Lasix 40 mg orally once daily. She also underwent cardiac catheterization on 12/18/2021 which showed calcified coronary arteries with moderate distal left main disease and mild to moderate disease in the RCA. She's being followed by cardiology. She does wear oxygen at home. She is currently on 8 L high flow cannula. Blood pressure stable. She has been voiding. Denies hematuria or dysuria. No vomiting or diarrhea. No chest pain. Patient has chronic kidney disease stage IV secondary to diabetic kidney disease and nephrosclerosis. Her baseline creatinine is near 1.6. Renal function gradually worsened the last few days with creatinine peaking at 2.66 yesterday. It is stable at 2.65 today. Patient has long-standing history of diabetes. Denies use of nonsteroidals. Vital signs stable. General: NAD. HEENT: Head exam is unremarkable. On NC. LUNGS: Breath sounds decreased. HEART: Regular rhythm. ABDOMEN: Soft, obese. EXTREMITITES: 1+ edema. Past Medical History Past Medical History: Coronary Artery Disease (CAD), Diabetes Mellitus, GERD/Reflux, Hyperlipidemia, Hypertension, Osteoarthritis (OA), Renal Disease, Sleep Apnea/CPAP/BIPAP Additional Past Medical History / Comment(s): increased SOB uses 2 liters 02 was just released 10/16/21 for SOB. "watching a valve" in heart, decreased kidney function, low iron, has cpap doesnt use at this time. edema to bilateral legs and feet. low hemaglobin- iron infusions History of Any Multi-Drug Resistant Organisms: None Reported Past Surgical History: Breast Surgery, Cholecystectomy, Heart Catheterization Additional Past Surgical History / Comment(s): earle cataracts, mult earle eye surgeries, bilateral breast excisional biopsy-benign Past Anesthesia/Blood Transfusion Reactions: No Reported Reaction Past Psychological History: No Psychological Hx Reported Smoking Status: Never smoker Past Alcohol Use History: None Reported Past Drug Use History: None Reported - Past Family History Father Family Medical History: Deep Vein Thrombosis (DVT) Additional Family Medical History / Comment(s): mom of stroke , history of heart disease Medications and Allergies Home Medications Medication Instructions Recorded Confirmed Type Aspirin [Adult Low Dose Aspirin EC] 81 mg PO DAILY 01/16/17 12/14/21 History Dorzolamide 2% [Trusopt 2%] 1 drops BOTH EYES BID 01/16/17 12/14/21 History Ferrous Sulfate [Iron] 650 mg PO BID 01/16/17 12/14/21 History Furosemide [Lasix] 20 mg PO BID@0900,1500 01/16/17 12/14/21 History amLODIPine [Norvasc] 5 mg PO BID 01/16/17 12/14/21 History Atorvastatin [Lipitor] 10 mg PO HS 09/09/17 12/14/21 History allopurinoL [Zyloprim] 100 mg PO HS 09/09/17 12/14/21 History Acetaminophen [Tylenol Arthritis] 1,300 mg PO Q8HR PRN 10/27/17 12/14/21 History Famotidine [Pepcid] 20 mg PO DAILY 03/02/20 12/14/21 History Cholecalciferol [Vitamin D3 (25 50 mcg PO DAILY 10/09/21 12/14/21 History Mcg = 1000 Iu)] Insulin Aspart [NovoLOG Flexpen] See Protocol SQ ACHS PRN 10/09/21 12/14/21 History Insulin Glargine,Hum.rec.anlog 40 unit SQ DAILY 10/09/21 12/14/21 History [Lantus Solostar Pen] Magnesium Oxide [Magox 400] 400 mg PO HS 10/09/21 12/14/21 History Virt-Phos 250 Neutral 250 1 tab PO DAILY 10/09/21 12/14/21 History calcitrioL [Calcitriol] 0.5 mcg PO SUWE 10/09/21 12/14/21 History Tamsulosin [Flomax] 0.4 mg PO PC-BRKFST 30 Days #30 cap 10/16/21 12/14/21 Rx hydrALAZINE HCL [Apresoline] 100 mg PO BID 30 Days #60 tab 10/16/21 12/14/21 Rx carvediloL [Coreg] 3.125 mg PO BID 12/06/21 12/14/21 History Allergies Allergy/AdvReac Type Severity Reaction Status Date / Time Penicillins Allergy Swelling Verified 12/14/21 16:24 Sulfa (Sulfonamide Allergy Swelling Verified 12/14/21 16:24 Antibiotics) Physical Exam Vitals: Vital Signs Temp Pulse Pulse Resp BP Pulse Ox 12/24/21 08:00 93 L 12/24/21 03:03 49 L 20 118/51 91 L 12/24/21 02:00 50 L 18 12/24/21 01:19 91 L 12/24/21 00:59 97 12/24/21 00:35 18 94 L 12/24/21 00:01 20 90 L 12/24/21 00:00 50 L 20 127/63 100 12/23/21 20:10 96 12/23/21 20:01 85 L 12/23/21 20:00 97.7 F 60 20 132/57 84 L 12/23/21 16:00 97.9 F 61 18 126/60 90 L 12/23/21 14:00 63 14 12/23/21 12:00 97.3 F L 63 16 119/57 90 L Intake and Output 12/23/21 12/24/21 12/24/21 22:59 06:59 14:59 Output Total 450 400 Balance -450 -400 Output: Urine 450 400 Other: Voiding Method Bedside Commode Bedside Commode Diaper Diaper # Voids 1 1 Results - Lab Results Most recent lab results Calcium 9.2 mg/dL (8.4-10.2) 12/24/21 07:26 Magnesium 2.1 mg/dL (1.6-2.3) 12/22/21 08:36 12/24/21 07:26 12/24/21 07:26 Assessment and Plan Plan: Assessment: 1. Acute kidney injury secondary to ATN secondary to cardiorenal syndrome and contrast-induced acute kidney injury. Creatinine peaked at 2.66 this admission and is 2.65 today. UA from October 2021 showed proteinuria. 2. Chronic kidney disease stage IV with baseline creatinine near 1.6 secondary to diabetic kidney disease and nephrosclerosis. 3. Acute on chronic diastolic CHF. 4. Volume overload. 5. Coronary artery disease status post cardiac catheterization this admission. 6. Diabetes mellitus. 7. Anemia of chronic kidney disease. Rule out iron deficiency. 8. Chronic kidney disease mineral bone disease maintained on calcitriol. 9. Hypertension with chronic kidney disease. Stable. Plan: Maintain oral Lasix. Maintain low salt diet and fluid restriction. Check renal ultrasound. Check iron studies. Check serum free light chains an elective recent studies. Continue to monitor renal function and urine output. Hold amlodipine for systolic blood pressure less than 120. Thank you for the consultation. I will continue to follow the patient with you during her hospital stay.
[2021-12-24] MEDS: amLODIPine 5 MG TAB PO SCH ×2 (09:51→20:33)
[2021-12-24] MEDS: TAMSULOSIN 0.4 MG CAP.ER.24H PO SCH (09:52)
[2021-12-24] MEDS: ISOSORBIDE MONONITRATE ER 30 MG TAB.ER.24H PO SCH (09:52)
[2021-12-24] MEDS: hydrALAZINE HCL 50 MG TAB PO SCH ×2 (09:52→20:32)
[2021-12-24] MEDS: FUROSEMIDE 40 MG TAB PO SCH (09:52)
[2021-12-24] MEDS: ASPIRIN 81 MG PO SCH (09:52)
[2021-12-24] MEDS: HEPARIN SODIUM,PORCINE/PF 5,000 UNIT/0.5 ML SYRINGE SQ SCH ×3 (09:52→20:32)
[2021-12-24] MEDS: FAMOTIDINE 20 MG TAB PO SCH (09:52)
--- NOTE | 2021-12-24 10:03 | US ---
EXAMINATION TYPE: US kidneys/renal and bladder DATE OF EXAM: 12/24/2021 COMPARISON: Renal ultrasound 10/12/2021 CLINICAL HISTORY: johana. known johana EXAM MEASUREMENTS: Right Kidney: not seen Left Kidney: 10.1 x 3.8 x 4.9 cm Right Kidney: unable to view due to bowel gas, habitus and patient in chair during scan Left Kidney: No hydronephrosis or masses seen Bladder: unable to view due to obese and in recliner IMPRESSION: Limited exam without evidence for left hydronephrosis. The right kidney and bladder were not visualiz ed.
[2021-12-24 11:56] LABS: Glucose,Whole Blood 228 mg/dL (70-110)
--- NOTE | 2021-12-24 12:28 | P.PN ---
Subjective This is a pleasant 81-year-old female with history of hypertension, hyperlipidemia, diabetes mellitus, congestive heart failure, CAD with previous 40-50% left main disease who presents secondary to worsen shortness of breath and dyspnea on exertion as well as chest pressure sensation over the last 2 months but especially over last to 3 weeks. She states she has been worked up by Dr. Bhatia with recommendations for a heart catheterization this coming Friday however is awaiting insurance. Her symptoms however have progressed and now she cannot do more than walk across the [place] without becoming short of breath. When she walks across the [place] she will also get a chest tightness sensation. She is severely limited her activity secondary to this. Additionally she has been sitting in a recliner most of the days and has been getting increased lower extremity edema. She states she has been compliant with all of her medications. Previous echo 10/10/2021 showed EF 55-60% with RVSP of 60 12/18: Patient underwent cardiac catheterization with Dr. Bhatia which revealed no significant progression of coronary artery disease. Moderate distal left main disease, and mild disease in the proximal LAD, Significant disease in the ostium of the left circumflex with no progression compared to 2017, Mild to moderate disease in the RCA Hospital course has been complicated by worsening renal function and nephrology has been consulted 12/24/2021 Patient seen and examined at bedside, no acute distress. She is seen in the [facility] chair. She continues to have some shortness of breath and lower extremity edema. She denies any chest pain, lightheadedness or dizziness. Serum creatinine 2.6 this yesterday, stable to 2.65. She's currently maintained on PO Lasix 40mg daily. -850mL fluid balance today. Nephrology consulted yesterday for worsening renal function. PHYSICAL EXAMINATION Vital signs reviewed. CONSTITUTIONAL: No apparent distress. HEENT: Head is normocephalic. Neck supple, no JVD CHEST EXAMINATION: Breath sounds are decreased bilaterally HEART EXAMINATION: Regular rate and rhythm. S1, S2 heard. ABDOMEN: Soft, nontender. Positive bowel sounds. EXTREMITIES: 2+ bilateral lower extremity edema and no calf tenderness. NEUROLOGIC EXAMINATION: Patient is awake, alert and oriented x3. ASSESSMENT Acute on chronic heart failure with preserved ejection fraction New severe dyspnea on exertion, chest pressure with minimal exertion and ischemic-appearing EKG concerning for unstable angina, new over last 3-4 weeks CAD with prior heart catheterization 2016 showing left main 40-50% stenosis Hypertension Hyperlipidemia Acute on Chronic kidney disease Anemia Pulmonary hypertension NSVT PLAN -Lasix 40mg Daily -Continue aspirin, statin, carvedilol, hydralazine, Imdur -Monitor renal function and electrolytes -Monitor I/Os, daily weights. -Patient not on ACEI/ARB secondary to renal function -Nephrology consulted -Further recommendations based on clinical course Nurse practitioner note has been reviewed by physician. Signing provider agrees with the documented findings, assessment, and plan of care. Objective - Vital Signs Vital signs: Vital Signs Temp 98.1 F 12/24/21 09:20 Pulse 54 L 12/24/21 09:20 Resp 18 12/24/21 09:20 BP 111/43 12/24/21 09:20 Pulse Ox 91 L 12/24/21 09:20 FiO2 50 12/22/21 08:07 Intake & Output 12/23/21 12/24/21 12/24/21 18:59 06:59 18:59 Intake Total 240 Output Total 250 600 Balance -250 -600 240 Intake: Oral 240 Output: Urine 250 600 Other: Voiding Method Toilet Bedside Commode Bedside Commode Diaper Diaper # Voids 1 - Labs CBC & Chem 7: 12/24/21 07:26 12/24/21 07:26 Labs: Abnormal Lab Results - Last 24 Hours (Table) 12/23/21 12/23/21 12/24/21 Range/Units 16: 19:45 05:39 RBC (3.80-5.40) m/uL Hgb (11.4-16.0) gm/dL Hct (34.0-46.0) % MCV (80.0-100.0) fL RDW (11.5-15.5) % Lymphocytes # (1.0-4.8) k/uL BUN (7-17) mg/dL Creatinine (0.52-1.04) mg/dL Glucose (74-99) mg/dL POC Glucose (mg/dL) 272 H 260 H 170 H (70-110) mg/dL 12/24/21 12/24/21 12/24/21 Range/Units 07:26 07:26 11:47 RBC 2.47 L (3.80-5.40) m/uL Hgb 8.0 L (11.4-16.0) gm/dL Hct 25.8 L (34.0-46.0) % MCV 104.7 H (80.0-100.0) fL RDW 15.7 H (11.5-15.5) % Lymphocytes # 0.7 L (1.0-4.8) k/uL BUN 80 H (7-17) mg/dL Creatinine 2.65 H (0.52-1.04) mg/dL Glucose 156 H (74-99) mg/dL POC Glucose (mg/dL) 228 H (70-110) mg/dL
--- NOTE | 2021-12-24 12:33 | P.PN ---
Subjective Progress Note Date: 12/24/21 Principal diagnosis: Shortness of breath Interval history:Patient is an 81-year-old female with a history of hypertension, diabetes mellitus requiring insulin, chronic kidney disease, coronary artery disease, and chronic respiratory failure requiring 3-4 L nasal cannula who presented to the ER with complaints of lower extremity edema and leg swelling. Dr. Bhatia has been monitoring her closely with plans for possible outpatient. In the ER she underwent underwent an extensive evaluation. She was hypoxic at 78% on 3 L on arrival. Chest x-ray showed pulmonary vascular tasia estion. Laboratory analysis was significant for Hg 9.5, Cr 1.37 with baseline 1.6, T bili of 1.6, and glucose of 200. Initial Troponin was negative. She was started on diuresis and admitted. Cardiology was consulted. Patient underwent cardiac catheterization on 12/18/21 which showed stable coronary artery disease. No need for intervention. She had 14 beat NSVT on 12/20. 12/24/2021: Patient continues to remain high level oxygen support 8 L. Denies any chest pain. Patient is complaining of some pressure discomfort in her right ear. Objective - Vital Signs Vital signs: Vital Signs Temp 98.1 F 12/24/21 09:20 Pulse 54 L 12/24/21 09:20 Resp 18 12/24/21 09:20 BP 111/43 12/24/21 09:20 Pulse Ox 91 L 12/24/21 09:20 FiO2 50 12/22/21 08:07 Intake & Output 12/23/21 12/24/21 12/24/21 18:59 06:59 18:59 Intake Total 240 Output Total 250 600 Balance -250 -600 240 Intake: Oral 240 Output: Urine 250 600 Other: Voiding Method Toilet Bedside Commode Bedside Commode Diaper Diaper # Voids 1 - Labs CBC & Chem 7: 12/24/21 07:26 12/24/21 07:26 Labs: Abnormal Lab Results - Last 24 Hours (Table) 12/23/21 12/23/21 12/24/21 Range/Units 16:29 19:45 05:39 RBC (3.80-5.40) m/uL Hgb (11.4-16.0) gm/dL Hct (34.0-46.0) % MCV (80.0-100.0) fL RDW (11.5-15.5) % Lymphocytes # (1.0-4.8) k/uL BUN (7-17) mg/dL Creatinine (0.52-1.04) mg/dL Glucose (74-99) mg/dL POC Glucose (mg/dL) 272 H 260 H 170 H (70-110) mg/dL 12/24/21 12/24/21 12/24/21 Range/Units 07:26 07:26 11:47 RBC 2.47 L (3.80-5.40) m/uL Hgb 8.0 L (11.4-16.0) gm/dL Hct 25.8 L (34.0-46.0) % MCV 104.7 H (80.0-100.0) fL RDW 15.7 H (11.5-15.5) % Lymphocytes # 0.7 L (1.0-4.8) k/uL BUN 80 H (7-17) mg/dL Creatinine 2.65 H (0.52-1.04) mg/dL Glucose 156 H (74-99) mg/dL POC Glucose (mg/dL) 228 H (70-110) mg/dL Assessment and Plan (1) CHF (congestive heart failure) Current Visit: Yes Status: Acute Code(s): I50.9 - HEART FAILURE, UNSPECIFIED SNOMED Code(s): 07898251 Plan: Acute exacerbation of diastolic CHF, last echo 10/17 EF 55-60% per cardio Acute on chronic hypoxic respiratory failure Pulm HTN HTN HLD CAD Cardiac cath done during this admission shows no significant progression of CAD. CTA chest was done in 09/2021 which showed no PE. - coreg - continue lasix 40 mg daily - norvasc, hydralazine - lipitor DEBO on CKD III -Patient's creatinine function has now plateaued. Creatinine is 2.65 -Patient's baseline kidney function was 1.8 -Secondary likely to cardiorenal syndrome, overdiuresis -Nephrology team and is now following. NSVT - maintain K > 4 and Mg > 2 - continue coreg - telemetry monitoring Anemia -Patient hemoglobin currently remains stable at 8.1. Iron studies pending DM II, insulin requiring -Continue to adjust patient's insulin DVT: Heparin Disposition: Patient continues to have significant shortness of breath and still requiring high level of oxygen support.
[2021-12-24 16:48] LABS: Glucose,Whole Blood 252 mg/dL (70-110)
[2021-12-24] MEDS: ACETAMINOPHEN TAB 325 MG TAB PO PRN (17:06)
[2021-12-24 17:08] LABS: Protein, Total 6.3 g/dL (6.2-8.2)
[2021-12-24 17:19] LABS: % Iron Saturation 10.34 (12.00-45.00)
[2021-12-24 20:20] LABS: Glucose,Whole Blood 234 mg/dL (70-110)
[2021-12-24] MEDS: ATORVASTATIN 40 MG TAB PO SCH (20:32)
[2021-12-24] MEDS: allopurinoL 100 MG TAB PO SCH (20:33)
[2021-12-25 06:22] LABS: Glucose,Whole Blood 174 mg/dL (70-110)
[2021-12-25] MEDS: INSULIN ASPART (NovoLOG) 100 UNIT/ML VIAL SQ SCH ×7 (06:39→20:42)
[2021-12-25] MEDS: carvediloL 6.25 MG TAB PO SCH ×2 (06:39→17:20)
[2021-12-25] MEDS: INSULIN DETEMIR (LEVEMIR) 100 UNIT/ML SYR SQ SCH (06:40)
[2021-12-25 08:11] LABS: Calcium 9.2 mg/dL (8.4-10.2); Magnesium 2.1 mg/dL (1.6-2.3); Potassium 3.8 mmol/L (3.5-5.1)
[2021-12-25] MEDS: hydrALAZINE HCL 50 MG TAB PO SCH ×2 (09:08→20:55)
[2021-12-25] MEDS: FUROSEMIDE 40 MG TAB PO SCH (09:09)
[2021-12-25] MEDS: amLODIPine 5 MG TAB PO SCH ×2 (09:09→20:54)
[2021-12-25] MEDS: TAMSULOSIN 0.4 MG CAP.ER.24H PO SCH (09:09)
[2021-12-25] MEDS: ASPIRIN 81 MG PO SCH (09:09)
[2021-12-25] MEDS: ISOSORBIDE MONONITRATE ER 30 MG TAB.ER.24H PO SCH (09:09)
[2021-12-25] MEDS: HEPARIN SODIUM,PORCINE/PF 5,000 UNIT/0.5 ML SYRINGE SQ SCH ×3 (09:09→23:15)
[2021-12-25] MEDS: FAMOTIDINE 20 MG TAB PO SCH (09:09)
--- NOTE | 2021-12-25 09:46 | P.PN ---
Subjective Patient is seen in follow-up for acute kidney injury on chronic kidney disease. Renal function stable. Has been voiding. Urine output documented as 850 mL in 12/24/2021. Feels weak. On 6 L high flow cannula. Blood pressure stable. No vomiting or diarrhea. Vital signs are stable. General: Awake. No acute distress. HEENT: Head exam is unremarkable. LUNGS: Breath sounds decreased. HEART: Rate and Rhythm are regular. ABDOMEN: Soft, no distention. EXTREMITITES: 2+ edema. Objective - Vital Signs Vital signs: Vital Signs Temp 97.9 F 12/25/21 04:00 Pulse 54 L 12/25/21 04:00 Resp 20 12/25/21 04:00 BP 122/61 12/25/21 04:00 Pulse Ox 91 L 12/25/21 04:00 FiO2 50 12/22/21 08:07 Intake & Output 12/24/21 12/25/21 12/25/21 18:59 06:59 18:59 Intake Total 476 180 Output Total 250 250 Balance 226 -70 Weight 99.7 kg Intake: Oral 476 180 Output: Urine 250 250 Other: Voiding Method Bedside Commode Bedside Commode Diaper Diaper # Voids 1 # Bowel Movements 1 - Labs CBC & Chem 7: 12/24/21 07:26 12/25/21 07:21 Labs: Abnormal Lab Results - Last 24 Hours (Table) 12/24/21 12/24/21 12/24/21 Range/Units 07:26 11:47 16:42 BUN (7-17) mg/dL Creatinine (0.52-1.04) mg/dL Glucose (74-99) mg/dL POC Glucose (mg/dL) 228 H 252 H (70-110) mg/dL Iron 31 L (50-170) ug/dL % Saturation 10.34 L (12.00-45.00) Ferritin 622.0 H (10.0-291.0) ng/mL 12/24/21 12/25/21 12/25/21 Range/Units 20:18 06:21 07:21 BUN 82 H (7-17) mg/dL Creatinine 2.56 H (0.52-1.04) mg/dL Glucose 156 H (74-99) mg/dL POC Glucose (mg/dL) 234 H 174 H (70-110) mg/dL Iron (50-170) ug/dL % Saturation (12.00-45.00) Ferritin (10.0-291.0) ng/mL Assessment and Plan Plan: Assessment: 1. Acute kidney injury secondary to ATN secondary to cardiorenal syndrome and contrast-induced acute kidney injury. Creatinine peaked at 2.66 this admission and is 2.56 today. UA from October 2021 showed proteinuria. No hydronephrosis noted on left kidney ultrasound although right kidney was not visualized. 2. Chronic kidney disease stage IV with baseline creatinine near 1.6 secondary to diabetic kidney disease and nephrosclerosis. 3. Acute on chronic diastolic CHF. 4. Volume overload. 5. Coronary artery disease status post cardiac catheterization this admission. 6. Diabetes mellitus. 7. Anemia of chronic kidney disease. Iron deficiency noted. 8. Chronic kidney disease mineral bone disease maintained on calcitriol. 9. Hypertension with chronic kidney disease. Stable. Plan: Maintain oral Lasix. Additional dose of IV Lasix 40 mg once this afternoon. Maintain low salt diet and fluid restriction. Add IV iron. Follow-up serum free light chains an elective recent studies. Continue to monitor renal function and urine output. Hold amlodipine for systolic blood pressure less than 120.
--- NOTE | 2021-12-25 11:04 | P.PN ---
Subjective Progress Note Date: 12/25/21 Principal diagnosis: Shortness of breath Patient seen and examined. She is complaining of some pain associated with the right ear. Her oxygen demands have decreased she's currently on 6 L she denies any nausea or vomiting no fevers or chills. Objective - Vital Signs Vital signs: Vital Signs Temp 98.1 F 12/25/21 08:55 Pulse 54 L 12/25/21 08:55 Resp 16 12/25/21 08:55 BP 124/58 12/25/21 08:55 Pulse Ox 90 L 12/25/21 08:55 FiO2 50 12/22/21 08:07 Intake & Output 12/24/21 12/25/21 12/25/21 18:59 06:59 18:59 Intake Total 476 180 Output Total 250 250 Balance 226 -70 Weight 99.7 kg Intake: Oral 476 180 Output: Urine 250 250 Other: Voiding Method Bedside Commode Bedside Commode Bedside Commode Diaper Diaper Diaper # Voids 1 # Bowel Movements 1 - Exam General: nontoxic, no distress, appears at stated age Derm: warm, dry Head: atraumatic, normocephalic, symmetric Eyes: EOMI, no lid lag, anicteric sclera Mouth: no lip lesion, mucus membranes moist Cardiovascular: S1S2 reg, no murmur, positive DP pulse bilateral Lungs: Decreased breath sounds bilateral bases, no accessory muscle use Ext: no gross muscle atrophy, 1+ edema, no contractures Neuro: no focal neuro deficits Psych: Alert, oriented, appropriate affect - Labs CBC & Chem 7: 12/24/21 07:26 12/25/21 07:21 Labs: Abnormal Lab Results - Last 24 Hours (Table) 12/24/21 12/24/21 12/24/21 Range/Units 07:26 11:47 16:42 BUN (7-17) mg/dL Creatinine (0.52-1.04) mg/dL Glucose (74-99) mg/dL POC Glucose (mg/dL) 228 H 252 H (70-110) mg/dL Iron 31 L (50-170) ug/dL % Saturation 10.34 L (12.00-45.00) Ferritin 622.0 H (10.0-291.0) ng/mL 12/24/21 12/25/21 12/25/21 Range/Units 20:18 06:21 07:21 BUN 82 H (7-17) mg/dL Creatinine 2.56 H (0.52-1.04) mg/dL Glucose 156 H (74-99) mg/dL POC Glucose (mg/dL) 234 H 174 H (70-110) mg/dL Iron (50-170) ug/dL % Saturation (12.00-45.00) Ferritin (10.0-291.0) ng/mL Assessment and Plan (1) CHF (congestive heart failure) Current Visit: Yes Status: Acute Code(s): I50.9 - HEART FAILURE, UNSPECIFIED SNOMED Code(s): 68349898 Plan: Acute exacerbation of diastolic CHF, last echo 10/17 EF 55-60% per cardio Acute on chronic hypoxic respiratory failure Pulm HTN HTN HLD CAD Cardiac cath done during this admission shows no significant progression of CAD. CTA chest was done in 09/2021 which showed no PE. - coreg - continue lasix 40 mg daily - norvasc, hydralazine - lipitor DEBO on CKD III -Patient's creatinine function has now plateaued. And continues to improve -Patient's baseline kidney function was 1.8 -Secondary likely to cardiorenal syndrome, -Nephrology team and is now following. NSVT - maintain K > 4 and Mg > 2 - continue coreg - telemetry monitoring Anemia -Patient hemoglobin currently remains stable at 8.1. Iron studies reviewed. Patient is on oral iron DM II, insulin requiring -Continue to adjust patient's insulin Ear discomfort -Debrox otic drops. DVT: Heparin Disposition: Patient oxygen demands have decreased. Currently on 6 L instead of 8 liters
--- NOTE | 2021-12-25 11:23 | P.PN ---
Subjective This is a pleasant 81-year-old female with history of hypertension, hyperlipidemia, diabetes mellitus, congestive heart failure, CAD with previous 40-50% left main disease who presents secondary to worsen shortness of breath and dyspnea on exertion as well as chest pressure sensation over the last 2 months but especially over last to 3 weeks. She states she has been worked up by Dr. Bhatia with recommendations for a heart catheterization this coming Friday however is awaiting insurance. Her symptoms however have progressed and now she cannot do more than walk [place] the [place] without becoming short of breath. When she walks across the flores she will also get a chest tightness sensation. She is severely limited her activity secondary to this. Additionally she has been sitting in a recliner most of the days and has been getting increased lower extremity edema. She states she has been compliant with all of her medications. Previous echo 10/10/2021 showed EF 55-60% with RVSP of 60 12/18: Patient underwent cardiac catheterization with Dr. Bhatia which revealed no significant progression of coronary artery disease. Moderate distal left main disease, and mild disease in the proximal LAD, Significant disease in the ostium of the left circumflex with no progression compared to 2017, Mild to moderate disease in the RCA Hospital course has been complicated by worsening renal function and nephrology has been consulted 12/25/2021 Patient seen and examined at bedside, no acute distress. She is seen in the [facility] chair. She continues to have some shortness of breath and lower extremity edema. She denies any chest pain, lightheadedness or dizziness. Serum creatinine 2.65 this yesterday, improved to 2.56 today. She's currently maintained on PO Lasix 40mg daily. Nephrology consulted yesterday for worsening renal function. Plan to give patient IV Lasix this afternoon. PHYSICAL EXAMINATION Vital signs reviewed. CONSTITUTIONAL: No apparent distress. HEENT: Head is normocephalic. Neck supple, no JVD CHEST EXAMINATION: Breath sounds are decreased bilaterally HEART EXAMINATION: Regular rate and rhythm. S1, S2 heard. ABDOMEN: Soft, nontender. Positive bowel sounds. EXTREMITIES: 2+ bilateral lower extremity edema and no calf tenderness. NEUROLOGIC EXAMINATION: Patient is awake, alert and oriented x3. ASSESSMENT Acute on chronic heart failure with preserved ejection fraction New severe dyspnea on exertion, chest pressure with minimal exertion and ischemic-appearing EKG concerning for unstable angina, new over last 3-4 weeks CAD, Repeat Cath on 12/18 with no progression in disease, mild to moderate disease in RCA. Hypertension Hyperlipidemia Acute on Chronic kidney disease Anemia Pulmonary hypertension NSVT PLAN -Nephrology dosing Lasix -Continue aspirin, statin, carvedilol, hydralazine, Imdur -Monitor renal function and electrolytes -Monitor I/Os, daily weights. -Patient not on ACEI/ARB secondary to renal function -Nephrology consulted -Further recommendations based on clinical course Nurse practitioner note has been reviewed by physician. Signing provider agrees with the documented findings, assessment, and plan of care. Objective - Vital Signs Vital signs: Vital Signs Temp 98.1 F 12/25/21 08:55 Pulse 54 L 12/25/21 08:55 Resp 16 12/25/21 08:55 BP 124/58 12/25/21 08:55 Pulse Ox 90 L 12/25/21 08:55 FiO2 50 12/22/21 08:07 Intake & Output 12/24/21 12/25/21 12/25/21 18:59 06:59 18:59 Intake Total 476 180 Output Total 250 250 Balance 226 -70 Weight 99.7 kg Intake: Oral 476 180 Output: Urine 250 250 Other: Voiding Method Bedside Commode Bedside Commode Bedside Commode Diaper Diaper Diaper # Voids 1 # Bowel Movements 1 - Labs CBC & Chem 7: 12/24/21 07:26 12/25/21 07:21 Labs: Abnormal Lab Results - Last 24 Hours (Table) 12/24/21 12/24/21 12/24/21 Range/Units 07:26 11:47 16:42 BUN (7-17) mg/dL Creatinine (0.52-1.04) mg/dL Glucose (74-99) mg/dL POC Glucose (mg/dL) 228 H 252 H (70-110) mg/dL Iron 31 L (50-170) ug/dL % Saturation 10.34 L (12.00-45.00) Ferritin 622.0 H (10.0-291.0) ng/mL 12/24/21 12/25/21 12/25/21 Range/Units 20:18 06:21 07:21 BUN 82 H (7-17) mg/dL Creatinine 2.56 H (0.52-1.04) mg/dL Glucose 156 H (74-99) mg/dL POC Glucose (mg/dL) 234 H 174 H (70-110) mg/dL Iron (50-170) ug/dL % Saturation (12.00-45.00) Ferritin (10.0-291.0) ng/mL
[2021-12-25 11:41] LABS: Glucose,Whole Blood 200 mg/dL (70-110)
[2021-12-25] MEDS: SODIUM FERRIC GLUCONAT-SUCROSE 125 MG in SODIUM CHLORIDE 0.9% 100 ML IVPB SCH (12:01)
[2021-12-25 14:33] LABS: Albumin 3.24 g/dL (3.80-4.90); Gamma Globulin 0.82 g/dL (0.70-1.50)
[2021-12-25] MEDS ORDERED: FUROSEMIDE 10 MG/ML 4 ML VIAL IV ONE (16:00)
[2021-12-25 16:49] LABS: Glucose,Whole Blood 169 mg/dL (70-110)
[2021-12-25] MEDS ORDERED: FERROUS SULFATE 325 MG TAB PO SCH (17:30)
[2021-12-25 20:34] LABS: Glucose,Whole Blood 136 mg/dL (70-110)
[2021-12-25] MEDS: allopurinoL 100 MG TAB PO SCH (20:55)
[2021-12-25] MEDS: ATORVASTATIN 40 MG TAB PO SCH (20:55)
[2021-12-25] MEDS: ACETAMINOPHEN TAB 325 MG TAB PO PRN (23:48)
[2021-12-26] MEDS: carvediloL 6.25 MG TAB PO SCH ×2 (06:37→17:40)
[2021-12-26 06:56] LABS: Glucose,Whole Blood 156 mg/dL (70-110)
[2021-12-26 07:47] LABS: Calcium 9.2 mg/dL (8.4-10.2); Magnesium 2.1 mg/dL (1.6-2.3); Potassium 3.8 mmol/L (3.5-5.1)
[2021-12-26] MEDS ORDERED: POTASSIUM CHLORIDE ER 20 MEQ TAB.ER PO STA (09:00)
--- NOTE | 2021-12-26 09:03 | P.PN ---
Subjective Patient is seen in follow-up for acute kidney injury on chronic kidney disease. Renal function stable. Has been voiding. Urine output documented as 425 mL for today. Not sure if this is accurate. Feels weak. On 8L high flow cannula. Blood pressure stable. No vomiting or diarrhea. Vital signs are stable. General: Awake. No acute distress. HEENT: Head exam is unremarkable. LUNGS: Breath sounds decreased. HEART: Rate and Rhythm are regular. ABDOMEN: Soft, no distention. EXTREMITITES: 2+ edema. Objective - Vital Signs Vital signs: Vital Signs Temp 97.2 F L 12/26/21 04:14 Pulse 60 12/26/21 04:14 Resp 18 12/26/21 04:14 BP 135/55 12/26/21 04:14 Pulse Ox 96 12/26/21 04:14 FiO2 50 12/22/21 08:07 Intake & Output 12/25/21 12/26/21 12/26/21 18:59 06:59 18:59 Intake Total 180 Output Total 425 Balance -245 Intake: Oral 180 Output: Urine 425 Other: Voiding Method Bedside Commode Bedside Commode Diaper Diaper # Voids 1 1 1 # Bowel Movements 1 - Labs CBC & Chem 7: 12/24/21 07:26 12/26/21 07:18 Labs: Abnormal Lab Results - Last 24 Hours (Table) 12/24/21 12/25/21 12/25/21 Range/Units 07:26 11:39 16:47 BUN (7-17) mg/dL Creatinine (0.52-1.04) mg/dL Glucose (74-99) mg/dL POC Glucose (mg/dL) 200 H 169 H (70-110) mg/dL Albumin (PEP) 3.24 L (3.80-4.90) g/dL [id number] 0.42 H (0.10-0.40) g/dL 12/25/21 12/26/21 12/26/21 Range/Units 20:30 06:55 07:18 BUN 84 H (7-17) mg/dL Creatinine 2.52 H (0.52-1.04) mg/dL Glucose 151 H (74-99) mg/dL POC Glucose (mg/dL) 136 H 156 H (70-110) mg/dL Albumin (PEP) (3.80-4.90) g/dL [id number] (0.10-0.40) g/dL Assessment and Plan Plan: Assessment: 1. Acute kidney injury secondary to ATN secondary to cardiorenal syndrome and contrast-induced acute kidney injury. Creatinine peaked at 2.66 this admission and is 2.52 today. UA from October 2021 showed proteinuria. No hydronephrosis noted on left kidney ultrasound although right kidney was not visualized. 2. Chronic kidney disease stage IV with baseline creatinine near 1.6 secondary to diabetic kidney disease and nephrosclerosis. 3. Acute on chronic diastolic CHF. 4. Volume overload. 5. Coronary artery disease status post cardiac catheterization this admission. 6. Diabetes mellitus. 7. Anemia of chronic kidney disease. Iron deficiency noted. 8. Chronic kidney disease mineral bone disease maintained on calcitriol. 9. Hypertension with chronic kidney disease. Stable. Plan: Change Lasix to 40 mg IV twice daily. Maintain low salt diet and fluid restriction. Maintain IV iron. No monoclonality on serum immunofixation. Continue to monitor renal function and urine output. Hold amlodipine for systolic blood pressure less than 120. Check chest x-ray. Strict I's and O's. Discussed with nurse.
[2021-12-26] MEDS: INSULIN ASPART (NovoLOG) 100 UNIT/ML VIAL SQ SCH ×7 (09:25→21:00)
[2021-12-26] MEDS: INSULIN DETEMIR (LEVEMIR) 100 UNIT/ML SYR SQ SCH (09:25)
[2021-12-26] MEDS: ISOSORBIDE MONONITRATE ER 30 MG TAB.ER.24H PO SCH (09:26)
[2021-12-26] MEDS: TAMSULOSIN 0.4 MG CAP.ER.24H PO SCH (09:26)
[2021-12-26] MEDS: HEPARIN SODIUM,PORCINE/PF 5,000 UNIT/0.5 ML SYRINGE SQ SCH ×3 (09:26→23:44)
[2021-12-26] MEDS: hydrALAZINE HCL 50 MG TAB PO SCH ×2 (09:26→20:59)
[2021-12-26] MEDS: ASPIRIN 81 MG PO SCH (09:26)
[2021-12-26] MEDS: SODIUM FERRIC GLUCONAT-SUCROSE 125 MG in SODIUM CHLORIDE 0.9% 100 ML IVPB SCH (09:27)
[2021-12-26] MEDS: amLODIPine 5 MG TAB PO SCH ×2 (09:27→20:59)
[2021-12-26] MEDS: FUROSEMIDE 10 MG/ML 4 ML VIAL IV SCH ×2 (09:28→21:00)
--- NOTE | 2021-12-26 09:53 | XR ---
EXAMINATION TYPE: XR chest 1V DATE OF EXAM: 12/26/2021 COMPARISON: 12/23/2021 INDICATION: Short of breath, difficulty breathing TECHNIQUE: Single frontal view of the chest is obtained. FINDINGS: The heart size may be somewhat prominent. The pulmonary vasculature is prominent. Bibasilar infiltrates are present. Findings have slight improvement from comparison. May be some elev ation of the right diaphragm. IMPRESSION: 1. Cardiomegaly with prominent pulmonary vascular markings and bibasilar infiltrates slightly improve d. Correlate for congestive heart failure. Continued follow-up is recommended.
[2021-12-26] MEDS: FAMOTIDINE 20 MG TAB PO SCH (10:27)
[2021-12-26] MEDS: CARBAMIDE PEROXIDE 6.5% DROPS 15 ML BTL BOTH EARS SCH ×2 (10:28→21:00)
--- NOTE | 2021-12-26 11:57 | P.PN ---
Subjective This is a pleasant 81-year-old female with history of hypertension, hyperlipidemia, diabetes mellitus, congestive heart failure, CAD with previous 40-50% left main disease who presents secondary to worsen shortness of breath and dyspnea on exertion as well as chest pressure sensation over the last 2 months but especially over last to 3 weeks. She states she has been worked up by Dr. Bhatia with recommendations for a heart catheterization this coming Friday however is awaiting insurance. Her symptoms however have progressed and now she cannot do more than walk across the [place] without becoming short of breath. When she walks across the flores she will also get a chest tightness sensation. She is severely limited her activity secondary to this. Additionally she has been sitting in a recliner most of the days and has been getting increased lower extremity edema. She states she has been compliant with all of her medications. Previous echo 10/10/2021 showed EF 55-60% with RVSP of 60 12/18: Patient underwent cardiac catheterization with Dr. Bhatia which revealed no significant progression of coronary artery disease. Moderate distal left main disease, and mild disease in the proximal LAD, Significant disease in the ostium of the left circumflex with no progression compared to 2017, Mild to moderate disease in the RCA Hospital course has been complicated by worsening renal function and nephrology has been consulted 12/26/2021 Patient seen and examined at bedside, no acute distress. She is seen in the [facility] chair. She continues to have some shortness of breath and lower extremity edema. She denies any chest pain, lightheadedness or dizziness. Serum creatinine 2.56 this yesterday, improved to 2.52 today. She did receive IV Lasix 40mg yesterday. PHYSICAL EXAMINATION Vital signs reviewed. CONSTITUTIONAL: No apparent distress. HEENT: Head is normocephalic. Neck supple, no JVD CHEST EXAMINATION: Breath sounds are decreased bilaterally HEART EXAMINATION: Regular rate and rhythm. S1, S2 heard. ABDOMEN: Soft, nontender. Positive bowel sounds. EXTREMITIES: 2+ bilateral lower extremity edema and no calf tenderness. NEUROLOGIC EXAMINATION: Patient is awake, alert and oriented x3. ASSESSMENT Acute on chronic heart failure with preserved ejection fraction New severe dyspnea on exertion, chest pressure with minimal exertion and ischemic-appearing EKG concerning for unstable angina, new over last 3-4 weeks CAD, Repeat Cath on 12/18 with no progression in disease, mild to moderate disea se in RCA. Hypertension Hyperlipidemia Acute on Chronic kidney disease Anemia Pulmonary hypertension NSVT PLAN -Nephrology dosing Lasix, started on IV Lasix 40mg BID -Continue aspirin, statin, carvedilol, hydralazine, Imdur -Monitor renal function and electrolytes -Monitor I/Os, daily weights. -Patient not on ACEI/ARB secondary to renal function -Nephrology following -Further recommendations based on clinical course Nurse practitioner note has been reviewed by physician. Signing provider agrees with the documented findings, assessment, and plan of care. Objective - Vital Signs Vital signs: Vital Signs Temp 97.2 F L 12/26/21 04:14 Pulse 60 12/26/21 04:14 Resp 18 12/26/21 04:14 BP 135/55 12/26/21 04:14 Pulse Ox 90 L 12/26/21 11:28 FiO2 50 12/22/21 08:07 Intake & Output 12/25/21 12/26/21 12/26/21 18:59 06:59 18:59 Intake Total 180 Output Total 425 Balance -245 Intake: Oral 180 Output: Urine 425 Other: Voiding Method Bedside Commode Bedside Commode Diaper Diaper # Voids 1 1 1 # Bowel Movements 1 - Labs CBC & Chem 7: 12/24/21 07:26 12/26/21 07:18 Labs: Abnormal Lab Results - Last 24 Hours (Table) 12/24/21 12/25/21 12/25/21 Range/Units 07:26 16:47 20:30 BUN (7-17) mg/dL Creatinine (0.52-1.04) mg/dL Glucose (74-99) mg/dL POC Glucose (mg/dL) 169 H 136 H (70-110) mg/dL Albumin (PEP) 3.24 L (3.80-4.90) g/dL [id number] 0.42 H (0.10-0.40) g/dL 12/26/21 12/26/21 Range/Units 06:55 07:18 BUN 84 H (7-17) mg/dL Creatinine 2.52 H (0.52-1.04) mg/dL Glucose 151 H (74-99) mg/dL POC Glucose (mg/dL) 156 H (70-110) mg/dL Albumin (PEP) (3.80-4.90) g/dL [id number] (0.10-0.40) g/dL
[2021-12-26 12:01] LABS: Glucose,Whole Blood 221 mg/dL (70-110)
--- NOTE | 2021-12-26 12:27 | P.PN ---
Subjective Progress Note Date: 12/26/21 Principal diagnosis: Shortness of breath Patient seen and examined today. Denies any nausea or vomiting no fevers or chills she still requires high level of oxygen support still has significant swelling in her lower extremities Objective - Vital Signs Vital signs: Vital Signs Temp 97.2 F L 12/26/21 04:14 Pulse 60 12/26/21 04:14 Resp 18 12/26/21 04:14 BP 135/55 12/26/21 04:14 Pulse Ox 90 L 12/26/21 11:28 FiO2 50 12/22/21 08:07 Intake & Output 12/25/21 12/26/21 12/26/21 18:59 06:59 18:59 Intake Total 180 Output Total 425 Balance -245 Intake: Oral 180 Output: Urine 425 Other: Voiding Method Bedside Commode Bedside Commode Diaper Diaper # Voids 1 1 1 # Bowel Movements 1 - Exam General: nontoxic, no distress, appears at stated age Derm: warm, dry Head: atraumatic, normocephalic, symmetric Eyes: EOMI, no lid lag, anicteric sclera Mouth: no lip lesion, mucus membranes moist Cardiovascular: S1S2 reg, no murmur, positive DP pulse bilateral Lungs: Decreased breath sounds bilateral bases, no accessory muscle use Ext: Bilateral lower extremity pitting edema Neuro: no focal neuro deficits Psych: Alert, oriented, appropriate affect - Labs CBC & Chem 7: 12/24/21 07:26 12/26/21 07:18 Labs: Abnormal Lab Results - Last 24 Hours (Table) 12/24/21 12/25/21 12/25/21 Range/Units 07:26 16:47 20:30 BUN (7-17) mg/dL Creatinine (0.52-1.04) mg/dL Glucose (74-99) mg/dL POC Glucose (mg/dL) 169 H 136 H (70-110) mg/dL Albumin (PEP) 3.24 L (3.80-4.90) g/dL [id number] 0.42 H (0.10-0.40) g/dL 12/26/21 12/26/21 12/26/21 Range/Units 06:55 07:18 11:54 BUN 84 H (7-17) mg/dL Creatinine 2.52 H (0.52-1.04) mg/dL Glucose 151 H (74-99) mg/dL POC Glucose (mg/dL) 156 H 221 H (70-110) mg/dL Albumin (PEP) (3.80-4.90) g/dL [id number]-[id number] (0.10-0.40) g/dL Assessment and Plan (1) CHF (congestive heart failure) Current Visit: Yes Status: Acute Code(s): I50.9 - HEART FAILURE, UNSPECIFIED SNOMED Code(s): 44652822 Plan: Acute exacerbation of diastolic CHF, last echo 10/17 EF 55-60% per cardio Acute on chronic hypoxic respiratory failure Pulm HTN HTN HLD CAD Cardiac cath done during this admission shows no significant progression of CAD. CTA chest was done in 09/2021 which showed no PE. - coreg - Continue with Lasix. Nephrology/cardio team has increased to 40 mg twice a day IV - norvasc, hydralazine - lipitor DEBO on CKD III -Patient's creatinine function has now plateaued. Stable -Patient's baseline kidney function was 1.8 -Secondary likely to cardiorenal syndrome, -Nephrology team and is now following. NSVT - maintain K > 4 and Mg > 2 - continue coreg - telemetry monitoring Anemia -Patient hemoglobin currently remains stable at 8.1. Iron studies reviewed. Patient is on oral iron DM II, insulin requiring -Continue to adjust patient's insulin Ear discomfort -Debrox otic drops. DVT: Heparin Disposition: Continue with oxygen support and wean as able. Patient's baseline oxygen level is 4 L.
[2021-12-26] MEDS: ACETAMINOPHEN TAB 325 MG TAB PO PRN (12:35)
[2021-12-26 13:51] LABS: Free Kappa Lt Chain Qnt, Serum 8.86 mg/dL (0.33-1.94); Free Lambda Lt Chain Qnt, Seru 3.49 mg/dL (0.57-2.63)
[2021-12-26 16:53] LABS: Glucose,Whole Blood 186 mg/dL (70-110)
[2021-12-26 20:37] LABS: Glucose,Whole Blood 180 mg/dL (70-110)
[2021-12-26] MEDS: ATORVASTATIN 40 MG TAB PO SCH (20:59)
[2021-12-26] MEDS: allopurinoL 100 MG TAB PO SCH (20:59)
[2021-12-27 05:33] LABS: Calcium 9.6 mg/dL (8.4-10.2); Magnesium 2.1 mg/dL (1.6-2.3); Potassium 3.9 mmol/L (3.5-5.1)
[2021-12-27] MEDS: carvediloL 6.25 MG TAB PO SCH ×2 (06:29→18:06)
[2021-12-27 07:11] LABS: Glucose,Whole Blood 158 mg/dL (70-110)
[2021-12-27] MEDS: ISOSORBIDE MONONITRATE ER 30 MG TAB.ER.24H PO SCH (09:12)
[2021-12-27] MEDS: SODIUM FERRIC GLUCONAT-SUCROSE 125 MG in SODIUM CHLORIDE 0.9% 100 ML IVPB SCH (09:12)
[2021-12-27] MEDS: TAMSULOSIN 0.4 MG CAP.ER.24H PO SCH (09:12)
[2021-12-27] MEDS: hydrALAZINE HCL 50 MG TAB PO SCH ×2 (09:12→20:56)
[2021-12-27] MEDS: ASPIRIN 81 MG PO SCH (09:12)
[2021-12-27] MEDS: FAMOTIDINE 20 MG TAB PO SCH (09:13)
[2021-12-27] MEDS: INSULIN DETEMIR (LEVEMIR) 100 UNIT/ML SYR SQ SCH (09:13)
[2021-12-27] MEDS: HEPARIN SODIUM,PORCINE/PF 5,000 UNIT/0.5 ML SYRINGE SQ SCH ×2 (09:13→18:06)
[2021-12-27] MEDS: amLODIPine 5 MG TAB PO SCH ×2 (09:13→20:56)
[2021-12-27] MEDS: INSULIN ASPART (NovoLOG) 100 UNIT/ML VIAL SQ SCH ×7 (09:13→20:55)
[2021-12-27] MEDS: FUROSEMIDE 10 MG/ML 4 ML VIAL IV SCH (09:14)
[2021-12-27] MEDS: CARBAMIDE PEROXIDE 6.5% DROPS 15 ML BTL BOTH EARS SCH ×2 (09:15→20:57)
--- NOTE | 2021-12-27 10:40 | P.PN ---
Subjective Patient is seen in follow-up for acute kidney injury on chronic kidney disease. Renal function stable. Has been voiding. Feels weak. On 10 L high flow cannula. Blood pressure stable. No vomiting or diarrhea. On IV Lasix. Vital signs are stable. General: Awake. No acute distress. HEENT: Head exam is unremarkable. LUNGS: Breath sounds decreased. HEART: Rate and Rhythm are regular. ABDOMEN: Soft, no distention. EXTREMITITES: 2+ edema. Objective - Vital Signs Vital signs: Vital Signs Temp 97.4 F L 12/26/21 23:40 Pulse 59 L 12/27/21 04:54 Resp 18 12/27/21 04:54 BP 144/57 12/27/21 04:54 Pulse Ox 90 L 12/27/21 07:52 FiO2 50 12/22/21 08:07 Intake & Output 12/26/21 12/27/21 12/27/21 18:59 06:59 18:59 Intake Total 540 Output Total 225 550 Balance 315 -550 Weight 100.1 kg Intake: Oral 540 Output: Urine 225 550 Other: Voiding Method Bedside Commode Bedside Commode Diaper Diaper # Voids 1 - Labs CBC & Chem 7: 12/24/21 07:26 12/27/21 04:51 Labs: Abnormal Lab Results - Last 24 Hours (Table) 12/24/21 12/26/21 12/26/21 Range/Units 07:26 11:54 16:51 BUN (7-17) mg/dL Creatinine (0.52-1.04) mg/dL Glucose (74-99) mg/dL POC Glucose (mg/dL) 221 H 186 H (70-110) mg/dL Free [place] LC, Quant 8.86 H (0.33-1.94) mg/dL Free [place] LC, Quant 3.49 H (0.57-2.63) mg/dL 12/26/21 12/27/21 12/27/21 Range/Units 20:35 04:51 07:09 BUN 89 H (7-17) mg/dL Creatinine 2.48 H (0.52-1.04) mg/dL Glucose 132 H (74-99) mg/dL POC Glucose (mg/dL) 180 H 158 H (70-110) mg/dL Free [place] LC, Quant (0.33-1.94) mg/dL Free Lambda LC, Quant (0.57-2.63) mg/dL Assessment and Plan Plan: Assessment: 1. Acute kidney injury secondary to ATN secondary to cardiorenal syndrome and contrast-induced acute kidney injury. Creatinine peaked at 2.66 this admission and is 2.48 today. UA from October 2021 showed proteinuria. No hydronephrosis noted on left kidney ultrasound although right kidney was not visualized. 2. Chronic kidney disease stage IV with baseline creatinine near 1.6 secondary to diabetic kidney disease and nephrosclerosis. 3. Acute on chronic diastolic CHF. 4. Volume overload. 5. Coronary artery disease status post cardiac catheterization this admission. 6. Diabetes mellitus. 7. Anemia of chronic kidney disease. Iron deficiency noted. 8. Chronic kidney disease mineral bone disease maintained on calcitriol. 9. Hypertension with chronic kidney disease. Stable. Plan: Stop IV Lasix and start Lasix drip at 10 mL an hour. Maintain low salt diet and fluid restriction. Maintain IV iron. No monoclonality on serum immunofixation. Continue to monitor renal function and urine output. Hold amlodipine for systolic blood pressure less than 120. Strict I's and O's.
--- NOTE | 2021-12-27 11:08 | P.PN ---
Subjective Progress Note Date: 12/27/21 Principal diagnosis: Shortness of breath Patient seen and examined she denies any complaints of nausea or vomiting no fevers or chills. She is still requiring high levels of oxygen support her oxygen support to go up to 10 L. Patient was also started on Lasix gtt. Objective - Vital Signs Vital signs: Vital Signs Temp 97.4 F L 12/26/21 23:40 Pulse 59 L 12/27/21 04:54 Resp 18 12/27/21 04:54 BP 144/57 12/27/21 04:54 Pulse Ox 90 L 12/27/21 07:52 FiO2 50 12/22/21 08:07 Intake & Output 12/26/21 12/27/21 12/27/21 18:59 06:59 18:59 Intake Total 540 Output Total 225 550 Balance 315 -550 Weight 100.1 kg Intake: Oral 540 Output: Urine 225 550 Other: Voiding Method Bedside Commode Bedside Commode Diaper Diaper # Voids 1 - Exam General: nontoxic, no distress, appears at stated age Derm: warm, dry Head: atraumatic, normocephalic, symmetric Eyes: EOMI, no lid lag, anicteric sclera Mouth: no lip lesion, mucus membranes moist Cardiovascular: S1S2 reg, no murmur, positive DP pulse bilateral Lungs: Decreased breath sounds bilateral bases, no accessory muscle use Ext: Bilateral lower extremity pitting edema Neuro: no focal neuro deficits Psych: Alert, oriented, appropriate affect - Labs CBC & Chem 7: 12/24/21 07:26 12/27/21 04:51 Labs: Abnormal Lab Results - Last 24 Hours (Table) 12/24/21 12/26/21 12/26/21 Range/Units 07:26 11:54 16:51 BUN (7-17) mg/dL Creatinine (0.52-1.04) mg/dL Glucose (74-99) mg/dL POC Glucose (mg/dL) 221 H 186 H (70-110) mg/dL Free [place] LC, Quant 8.86 H (0.33-1.94) mg/dL Free [place] LC, Quant 3.49 H (0.57-2.63) mg/dL 12/26/21 12/27/21 12/27/21 Range/Units 20:35 04:51 07:09 BUN 89 H (7-17) mg/dL Creatinine 2.48 H (0.52-1.04) mg/dL Glucose 132 H (74-99) mg/dL POC Glucose (mg/dL) 180 H 158 H (70-110) mg/dL Free [place] LC, Quant (0.33-1.94) mg/dL Free Lambda LC, Quant (0.57-2.63) mg/dL Assessment and Plan (1) CHF (congestive heart failure) Current Visit: Yes Status: Acute Code(s): I50.9 - HEART FAILURE, UNSPECIFIED SNOMED Code(s): 10131803 Plan: Acute exacerbation of diastolic CHF, last echo 10/17 EF 55-60% per cardio Acute on chronic hypoxic respiratory failure Pulm HTN HTN HLD CAD -Cardiac cath done during this admission shows no significant progression of CAD. CTA chest was done in 09/2021 which showed no PE. - coreg - Continue with Lasix. Nephrology has now switched to Lasix gtt. - norvasc, hydralazine - lipitor DEBO on CKD III -Patient's creatinine function has now stabilized. Currently 2.48 -Patient's baseline kidney function was 1.8 -Secondary likely to cardiorenal syndrome, -Nephrology team and is now following. NSVT - maintain K > 4 and Mg > 2 - continue coreg - telemetry monitoring Anemia -Patient hemoglobin currently remains stable at 8.1. Iron studies reviewed. Patient is on oral iron DM II, insulin requiring -Continue to adjust patient's insulin Ear discomfort -Likely secondary to cerumen impaction bilateral. -Debrox otic drops. DVT: Heparin Disposition: Continue with oxygen support and wean as able. Patient's baseline oxygen level is 3-4 L.
[2021-12-27] MEDS: FUROSEMIDE 100 MG in SODIUM CHLORIDE 0.9% 90 ML IV SCH ×2 (12:04→20:55)
[2021-12-27] MEDS: metOLazone 5 MG TAB PO SCH (12:04)
[2021-12-27 12:28] LABS: Glucose,Whole Blood 229 mg/dL (70-110)
--- NOTE | 2021-12-27 13:16 | P.PN ---
Subjective This is a pleasant 81-year-old female with history of hypertension, hyperlipidemia, diabetes mellitus, congestive heart failure, CAD with previous 40-50% left main disease who presents secondary to worsen shortness of breath and dyspnea on exertion as well as chest pressure sensation over the last 2 months but especially over last to 3 weeks. She states she has been worked up by Dr. Bhatia with recommendations for a heart catheterization this coming Friday however is awaiting insurance. Her symptoms however have progressed and now she cannot do more than walk across the [place] without becoming short of breath. When she walks [place] the [place] she will also get a chest tightness sensation. She is severely limited her activity secondary to this. Additionally she has been sitting in a recliner most of the days and has been getting increased lower extremity edema. She states she has been compliant with all of her medications. Previous echo 10/10/2021 showed EF 55-60% with RVSP of 60 12/18: Patient underwent cardiac catheterization with Dr. Bhatia which revealed no significant progression of coronary artery disease. Moderate distal left main disease, and mild disease in the proximal LAD, Significant disease in the ostium of the left circumflex with no progression compared to 2017, Mild to moderate disease in the RCA Hospital course has been complicated by worsening renal function and nephrology has been consulted 12/27/2021 Patient seen and examined at bedside, no acute distress. She is seen in the [facility] chair. She continues to have some shortness of breath and lower extremity edema, but improving. Her kidney function has stabilized. She denies any chest pain, lightheadedness or dizziness. Serum creatinine 2.52 this yesterday, 2.48 today. She is continued on IV Lasix 40mg BID per nephrology PHYSICAL EXAMINATION Vital signs reviewed. CONSTITUTIONAL: No apparent distress. HEENT: Head is normocephalic. Neck supple, no JVD CHEST EXAMINATION: Breath sounds are decreased bilaterally HEART EXAMINATION: Regular rate and rhythm. S1, S2 heard. ABDOMEN: Soft, nontender. Positive bowel sounds. EXTREMITIES: 2+ bilateral lower extremity edema and no calf tenderness. NEUROLOGIC EXAMINATION: Patient is awake, alert and oriented x3. ASSESSMENT Acute on chronic heart failure with preserved ejection fraction New severe dyspnea on exertion, chest pressure with minimal exertion and ischemic-appearing EKG concerning for unstable angina, new over last 3-4 weeks CAD, Repeat Cath on 12/18 with no progression in disease, mild to moderate disease in RCA. Hypertension Hyperlipidemia Acute on Chronic kidney disease Anemia Pulmonary hypertension NSVT PLAN -Nephrology dosing Lasix, started on IV Lasix 40mg BID -Continue aspirin, statin, carvedilol, hydralazine, Imdur -Monitor renal function and electrolytes -Monitor I/Os, daily weights. -Patient not on ACEI/ARB secondary to renal function -Nephrology following -No further changes from cardiology perspective we will follow the patient as needed. Discharge per primary and clearance from other consultants. Nurse practitioner note has been reviewed by physician. Signing provider agrees with the documented findings, assessment, and plan of care. Objective - Vital Signs Vital signs: Vital Signs Temp 97.5 F L 12/27/21 08:00 Pulse 60 12/27/21 08:00 Resp 20 12/27/21 08:00 BP 146/62 12/27/21 08:00 Pulse Ox 92 L 12/27/21 08:00 FiO2 50 12/22/21 08:07 Intake & Output 12/26/21 12/27/21 12/27/21 18:59 06:59 18:59 Intake Total 540 Output Total 225 550 300 Balance 315 -550 -300 Weight 100.1 kg Intake: Oral 540 Output: Urine 225 550 300 Other: Voiding Method Bedside Commode Bedside Commode Bedside Commode Diaper Diaper Diaper # Voids 1 - Labs CBC & Chem 7: 12/24/21 07:26 12/27/21 04:51 Labs: Abnormal Lab Results - Last 24 Hours (Table) 12/24/21 12/26/21 12/26/21 Range/Units 07:26 16:51 20:35 BUN (7-17) mg/dL Creatinine (0.52-1.04) mg/dL Glucose (74-99) mg/dL POC Glucose (mg/dL) 186 H 180 H (70-110) mg/dL Free [place] LC, Quant 8.86 H (0.33-1.94) mg/dL Free Lambda LC, Quant 3.49 H (0.57-2.63) mg/dL 12/27/21 12/27/21 12/27/21 Range/Units 04:51 07:09 12:26 BUN 89 H (7-17) mg/dL Creatinine 2.48 H (0.52-1.04) mg/dL Glucose 132 H (74-99) mg/dL POC Glucose (mg/dL) 158 H 229 H (70-110) mg/dL Free [place] LC, Quant (0.33-1.94) mg/dL Free Lambda LC, Quant (0.57-2.63) mg/dL
[2021-12-27 16:56] LABS: Glucose,Whole Blood 214 mg/dL (70-110)
[2021-12-27 20:25] LABS: Glucose,Whole Blood 151 mg/dL (70-110)
[2021-12-27] MEDS: ATORVASTATIN 40 MG TAB PO SCH (20:56)
[2021-12-27] MEDS: allopurinoL 100 MG TAB PO SCH (20:56)
[2021-12-28] MEDS ORDERED: HEPARIN SODIUM,PORCINE 5,000 UNIT/ML 1 ML VIAL SQ SCH
[2021-12-28 06:24] LABS: Glucose,Whole Blood 114 mg/dL (70-110)
[2021-12-28] MEDS: INSULIN DETEMIR (LEVEMIR) 100 UNIT/ML SYR SQ SCH (06:48)
[2021-12-28] MEDS: INSULIN ASPART (NovoLOG) 100 UNIT/ML VIAL SQ SCH ×7 (06:49→21:46)
[2021-12-28] MEDS: carvediloL 6.25 MG TAB PO SCH ×2 (06:50→17:15)
[2021-12-28 08:38] LABS: Albumin 3.7 g/dL (3.5-5.0); Calcium 9.6 mg/dL (8.4-10.2)
[2021-12-28] MEDS: HEPARIN SODIUM,PORCINE/PF 5,000 UNIT/0.5 ML SYRINGE SQ SCH ×3 (08:54→17:15)
[2021-12-28] MEDS: TAMSULOSIN 0.4 MG CAP.ER.24H PO SCH (08:54)
[2021-12-28] MEDS: ISOSORBIDE MONONITRATE ER 30 MG TAB.ER.24H PO SCH (08:54)
[2021-12-28] MEDS: FAMOTIDINE 20 MG TAB PO SCH (08:54)
[2021-12-28] MEDS: hydrALAZINE HCL 50 MG TAB PO SCH ×2 (08:54→19:32)
[2021-12-28] MEDS: amLODIPine 5 MG TAB PO SCH ×2 (08:54→19:33)
[2021-12-28] MEDS: metOLazone 5 MG TAB PO SCH (08:54)
[2021-12-28] MEDS: SODIUM FERRIC GLUCONAT-SUCROSE 125 MG in SODIUM CHLORIDE 0.9% 100 ML IVPB SCH (08:55)
[2021-12-28] MEDS: ASPIRIN 81 MG PO SCH (08:55)
[2021-12-28] MEDS: CARBAMIDE PEROXIDE 6.5% DROPS 15 ML BTL BOTH EARS SCH ×2 (08:55→19:34)
--- NOTE | 2021-12-28 09:46 | P.PN ---
Subjective Patient is seen in follow-up for acute kidney injury on chronic kidney disease. Renal function better. On Lasix drip. Urine output also improved. Overall feels better compared to yesterday. On 8 L high flow cannula. Blood pressure stable. No vomiting or diarrhea. Vital signs are stable. General: Awake. No acute distress. HEENT: Head exam is unremarkable. LUNGS: Breath sounds decreased. HEART: Rate and Rhythm are regular. ABDOMEN: Soft, no distention. EXTREMITITES: 2+ edema. Objective - Vital Signs Vital signs: Vital Signs Temp 97.5 F L 12/28/21 08:49 Pulse 60 12/28/21 08:49 Resp 20 12/28/21 08:49 BP 128/68 12/28/21 08:49 Pulse Ox 92 L 12/28/21 08:49 FiO2 50 12/22/21 08:07 Intake & Output 12/27/21 12/28/21 12/28/21 18:59 06:59 18:59 Intake Total 728.5 120 Output Total 700 700 Balance -700 28.5 120 Intake: Intake, IV Titration 88.5 Amount Furosemide 100 mg In 88.5 Sodium Chloride 0.9% 90 ml @ 10 MG/HR 10 mls/hr IV .Q10H [facility] Rx#: [id number] Oral 640 120 Output: Urine 700 700 Other: Voiding Method Bedside Commode Bedside Commode Diaper Diaper # Voids 1 # Bowel Movements 1 - Labs CBC & Chem 7: 12/24/21 07:26 12/28/21 06:46 Labs: Abnormal Lab Results - Last 24 Hours (Table) 12/27/21 12/27/21 12/27/21 Range/Units 12:26 16:53 20:23 BUN (7-17) mg/dL Creatinine (0.52-1.04) mg/dL POC Glucose (mg/dL) 229 H 214 H 151 H (70-110) mg/dL 12/28/21 12/28/21 Range/Units 06:22 06:46 BUN 95 H (7-17) mg/dL Creatinine 2.28 H (0.52-1.04) mg/dL POC Glucose (mg/dL) 114 H (70-110) mg/dL Assessment and Plan Plan: Assessment: 1. Acute kidney injury secondary to ATN secondary to cardiorenal syndrome and contrast-induced acute kidney injury. Creatinine peaked at 2.66 this admission and is 2.28 today. UA from October 2021 showed proteinuria. No hydronephrosis noted on left kidney ultrasound although right kidney was not visualized. 2. Chronic kidney disease stage IV with baseline creatinine near 1.6 secondary to diabetic kidney disease and nephrosclerosis. 3. Acute on chronic diastolic CHF. 4. Volume overload. Improving with diuresis. 5. Coronary artery disease status post cardiac catheterization this admission. 6. Diabetes mellitus. 7. Anemia of chronic kidney disease. Iron deficiency noted. 8. Chronic kidney disease mineral bone disease maintained on calcitriol. 9. Hypertension with chronic kidney disease. Stable. Plan: Maintain Lasix drip. Maintain metolazone. Maintain low salt diet and fluid restriction. Maintain IV iron. No monoclonality on serum immunofixation. Continue to monitor renal function and urine output. Hold amlodipine for systolic blood pressure less than 120. Strict I's and O's.
[2021-12-28 12:10] LABS: Glucose,Whole Blood 141 mg/dL (70-110)
[2021-12-28] MEDS: FUROSEMIDE 100 MG in SODIUM CHLORIDE 0.9% 90 ML IV SCH ×2 (12:18→19:33)
--- NOTE | 2021-12-28 15:26 | P.PN ---
Subjective Progress Note Date: 12/28/21 Principal diagnosis: Dyspnea Hospital course: 81-year-old female with history of hypertension, hyperlipidemia, diabetes, diastolic heart failure, CAD presented with dyspnea and chest pressure. Patient underwent cardiac cath on 12/18, which revealed no significant progression of coronary artery disease compared to 2017. Over the course of her stay, patient has been becoming more hypoxic as well as has worsening renal function. She is now being followed by both cardiology and nephrology. Currently on Lasix drip. Patient has some improvement with aggressive diuresis. Subjective: Patient examined at the site. No acute events overnight. Patient claims that her dyspnea is improving. However, per nursing patient is still quite dyspneic with any exertion. Patient's total requiring 8L hi flow nasal cannula. Patient continues complaining about hearing issues secondary to cerumen impaction, has improved with ear solution. She denies any abdominal pain, chest pain, cough, bowel or urinary issues. ROS: Pertinent positives as mentioned above. Rest of the comprehensive review of system was otherwise negative. General: nontoxic, no distress, appears at stated age Derm: warm, dry Head: atraumatic, normocephalic, symmetric Eyes: EOMI, no lid lag, anicteric sclera Mouth: no lip lesion, mucus membranes moist Cardiovascular: S1S2 reg, no murmur Lungs: Bibasilar rales, no accessory muscle use Abdominal: soft, nontender to palpation, no guarding, no appreciable organomegaly Ext: no gross muscle atrophy, bilateral lower extremity edema no contractures Neuro: CN II-XI grossly intact, no focal neuro deficits Psych: Alert, oriented, appropriate affect Assessment and plan: Acute on chronic diastolic heart failure exacerbation Acute on chronic hypoxic respiratory failure Pulmonary hypertension Hypertension -Cardiac cath performed during this admission revealed no significant progression of CAD -Nephrology following, patient on Lasix gtt, and metolazone -Carvedilol, hydralazine, Imdur -I's and O's -Daily weights -Continue to wean down oxygen DEBO on CKD 3 -In the setting of cardiorenal syndrome - Baseline creatinine around 1.8 -Currently 2.28 and down trending Anemia of chronic kidney disease -On IV iron per nephrology Insulin-dependent type 2 diabetes - Levemir 35 -Aspart 5 AC - Sliding scale insulin Hyperlipidemia CAD -aspirin and atorvastatin NSVT -Continue telemetry Cerumen impaction -Carbamide peroxide F: Oral E: Replete as needed N: Cardiac A: With assistance DVT prophylaxis: Subcu heparin Full code Disposition: Need to have goals of care discussion with patient and family if no improvement in respiratory function with Lasix drip. Objective - Vital Signs Vital signs: Vital Signs Temp 97.8 F 12/28/21 12:16 Pulse 57 L 12/28/21 12:16 Resp 18 12/28/21 12:16 BP 120/71 12/28/21 12:16 Pulse Ox 93 L 12/28/21 12:16 FiO2 50 12/22/21 08:07 Intake & Output 12/27/21 12/28/21 12/28/21 18:59 06:59 18:59 Intake Total 828.5 120 Output Total 700 700 Balance -700 128.5 120 Intake: Intake, IV Titration 188.5 Amount Furosemide 100 mg In 188.5 Sodium Chloride 0.9% 90 ml @ 10 MG/HR 10 mls/hr IV .Q10H [facility] Rx#: [id number] Oral 640 120 Output: Urine 700 700 Other: Voiding Method Bedside Commode Bedside Commode Bedside Commode Diaper Diaper Diaper # Voids 1 # Bowel Movements 1 - Labs CBC & Chem 7: 12/24/21 07:26 12/28/21 06:46 Labs: Abnormal Lab Results - Last 24 Hours (Table) 12/27/21 12/27/21 12/28/21 Range/Units 16:53 20:23 06:22 BUN (7-17) mg/dL Creatinine (0.52-1.04) mg/dL POC Glucose (mg/dL) 214 H 151 H 114 H (70-110) mg/dL 12/28/21 12/28/21 Range/Units 06:46 12:00 BUN 95 H (7-17) mg/dL Creatinine 2.28 H (0.52-1.04) mg/dL POC Glucose (mg/dL) 141 H (70-110) mg/dL
[2021-12-28 17:01] LABS: Glucose,Whole Blood 99 mg/dL (70-110)
[2021-12-28] MEDS ORDERED: SODIUM CHLORIDE 0.65% NASAL SPRAY 44 ML BTL NASAL PRN (17:19)
[2021-12-28] MEDS: ATORVASTATIN 40 MG TAB PO SCH (19:33)
[2021-12-28] MEDS: allopurinoL 100 MG TAB PO SCH (19:33)
[2021-12-28 20:19] LABS: Glucose,Whole Blood 133 mg/dL (70-110)
[2021-12-29] MEDS: HEPARIN SODIUM,PORCINE/PF 5,000 UNIT/0.5 ML SYRINGE SQ SCH ×4 (00:17→23:30)
[2021-12-29] MEDS: ACETAMINOPHEN TAB 325 MG TAB PO PRN ×3 (00:28→22:09)
[2021-12-29] MEDS: FUROSEMIDE 100 MG in SODIUM CHLORIDE 0.9% 90 ML IV SCH ×3 (06:37→23:31)
[2021-12-29] MEDS: INSULIN DETEMIR (LEVEMIR) 100 UNIT/ML SYR SQ SCH (06:37)
[2021-12-29] MEDS: INSULIN ASPART (NovoLOG) 100 UNIT/ML VIAL SQ SCH ×7 (06:38→22:06)
[2021-12-29] MEDS: carvediloL 6.25 MG TAB PO SCH ×2 (07:08→18:07)
[2021-12-29 10:07] LABS: Calcium 9.6 mg/dL (8.4-10.2); Potassium 3.3 mmol/L (3.5-5.1)
[2021-12-29] MEDS: hydrALAZINE HCL 50 MG TAB PO SCH ×2 (10:58→22:09)
[2021-12-29] MEDS: FAMOTIDINE 20 MG TAB PO SCH (10:58)
[2021-12-29] MEDS: TAMSULOSIN 0.4 MG CAP.ER.24H PO SCH (10:58)
[2021-12-29] MEDS: amLODIPine 5 MG TAB PO SCH (10:58)
[2021-12-29] MEDS: CARBAMIDE PEROXIDE 6.5% DROPS 15 ML BTL BOTH EARS SCH (10:59)
[2021-12-29] MEDS ORDERED: POTASSIUM CHLORIDE ER 20 MEQ TAB.ER PO STA (11:10)
--- NOTE | 2021-12-29 11:11 | P.PN ---
Subjective Patient is seen for follow-up for acute kidney injury on chronic kidney disease. She is status post cardiac catheterization this hospitalization. Patient is also significantly volume overloaded and currently maintained on Lasix drip. She has had good urine output and renal function has also improved. No significant complaints today Swelling has been improving No chest pain or shortness of breath Objective - Vital Signs Vital signs: Vital Signs Temp 97.4 F L 12/29/21 03:46 Pulse 56 L 12/29/21 03:46 Resp 17 12/29/21 03:46 BP 121/57 12/29/21 03:46 Pulse Ox 95 12/29/21 03:46 FiO2 50 12/22/21 08:07 Intake & Output 12/28/21 12/29/21 12/29/21 18:59 06:59 18:59 Intake Total 960 172.5 Output Total 650 150 Balance 310 22.5 Intake: Intake, IV Titration 172.5 Amount Furosemide 100 mg In 172.5 Sodium Chloride 0.9% 90 ml @ 10 MG/HR 10 mls/hr IV .Q10H [facility] Rx#: [id number] Oral 960 Output: Urine 650 150 Other: Voiding Method Bedside Commode Bedside Commode Diaper Diaper # Bowel Movements 1 - Exam Awake, comfortable, not in any acute distress Examination of the heart S1 and S2 Examination lungs bilateral breath sounds are heard Abdomen is soft nontender Examination lower extremities shows 2+ edema bilaterally SACK SEWER MACHINE exam grossly intact - Labs CBC & Chem 7: 12/24/21 07:26 12/29/21 09:21 Labs: Abnormal Lab Results - Last 24 Hours (Table) 12/28/21 12/28/21 12/29/21 Range/Units 12:00 20:17 09:21 Potassium 3.3 L (3.5-5.1) mmol/L BUN 95 H (7-17) mg/dL Creatinine 2.49 H (0.52-1.04) mg/dL Glucose 144 H (74-99) mg/dL POC Glucose (mg/dL) 141 H 133 H (70-110) mg/dL Assessment and Plan Assessment: 1. Acute kidney injury secondary to ATN from contrast-induced acute kidney injury as well as cardiorenal syndrome. Renal function currently improving. UA showed proteinuria with no evidence of paraprotein's. Ultrasound showed no evidence of hydronephrosis on the left side. Right kidney was not visualized 2. CK D stage IV baseline creatinine around 1.6 secondary to diabetic kidney disease and nephrosclerosis 3. Acute on chronic diastolic CHF 4. Volume overload slowly improving with diuresis 5. Coronary artery disease status post cardiac catheterization this admission 6. Type 2 diabetes 7. 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 Hypertension with CK D stage IV Plan: Continue with Lasix drip Maintain salt and fluid restriction Avoid nephrotoxic agents Avoid hypotension Repeat labs in a.m. Decrease Norvasc Replace potassium
[2021-12-29] MEDS: ASPIRIN 81 MG PO SCH (11:17)
[2021-12-29] MEDS: ISOSORBIDE MONONITRATE ER 30 MG TAB.ER.24H PO SCH (11:17)
[2021-12-29] MEDS: metOLazone 5 MG TAB PO SCH (11:17)
[2021-12-29 12:22] LABS: Glucose,Whole Blood 166 mg/dL (70-110)
--- NOTE | 2021-12-29 13:42 | P.PN ---
Subjective Progress Note Date: 12/29/21 Principal diagnosis: Dyspnea Hospital course: 81-year-old female with history of hypertension, hyperlipidemia, diabetes, diastolic heart failure, CAD presented with dyspnea and chest pressure. Patient underwent cardiac cath on 12/18, which revealed no significant progression of coronary artery disease compared to 2017. Over the course of her stay, patient has been becoming more hypoxic as well as has worsening renal function. She is now being followed by both cardiology and nephrology. Currently on Lasix drip. Patient has some improvement with aggressive diuresis. Subjective: Patient examined at the bedside. No acute events overnight. Patient claims that her dyspnea is improving. However, patient is still quite dyspneic with any exertion. Patient is still requiring 8L hi flow nasal cannula. She denies any abdominal pain, chest pain, cough, bowel or urinary issues. ROS: Pertinent positives as mentioned above. Rest of the comprehensive review of system was otherwise negative. General: nontoxic, no distress, appears at stated age Derm: warm, dry Head: atraumatic, normocephalic, symmetric Eyes: EOMI, no lid lag, anicteric sclera Mouth: no lip lesion, mucus membranes moist Cardiovascular: S1S2 reg, no murmur Lungs: Bibasilar rales, no accessory muscle use Abdominal: soft, nontender to palpation, no guarding, no appreciable organomegaly Ext: no gross muscle atrophy, bilateral lower extremity edema, no contractures Neuro: CN II-XI grossly intact, no focal neuro deficits Psych: Alert, oriented, appropriate affect Assessment and plan: Acute on chronic diastolic heart failure exacerbation Acute on chronic hypoxic respiratory failure Pulmonary hypertension Hypertension -Cardiac cath performed during this admission revealed no significant progression of CAD -Nephrology following, patient on Lasix gtt, and metolazone -Carvedilol, hydralazine, Imdur -Started on low-dose amlodipine per nephrology -I's and O's -Daily weights -Continue to wean down oxygen -will consult palliative DEBO on CKD 3 -In the setting of cardiorenal syndrome - Baseline creatinine around 1.8 -Slight uptrend in creatinine Anemia of chronic kidney disease -On IV iron per nephrology Insulin-dependent type 2 diabetes - Levemir 35 -Aspart 5 AC - Sliding scale insulin Hyperlipidemia CAD -aspirin and atorvastatin NSVT -Continue telemetry Cerumen impaction -Carbamide peroxide F: Oral E: Replete as needed N: Cardiac A: With assistance DVT prophylaxis: Subcu heparin Full code Disposition: Goals of care discussion initiated patient. Patient still hopeful about returning home. Objective - Vital Signs Vital signs: Vital Signs Temp 97.4 F L 12/29/21 08:00 Pulse 54 L 12/29/21 08:00 Resp 19 12/29/21 08:00 BP 130/56 12/29/21 08:00 Pulse Ox 92 L 12/29/21 08:00 FiO2 50 12/22/21 08:07 Intake & Output 12/28/21 12/29/21 12/29/21 18:59 06:59 18:59 Intake Total 960 172.5 69 Output Total 650 150 400 Balance 310 22.5 -331 Intake: Intake, IV Titration 172.5 69 Amount Furosemide 100 mg In 172.5 69 Sodium Chloride 0.9% 90 ml @ 10 MG/HR 10 mls/hr IV .Q10H [facility] Rx#: [id number] Oral 960 Output: Urine 650 150 400 Other: Voiding Method Bedside Commode Bedside Commode Diaper Diaper # Bowel Movements 1 - Labs CBC & Chem 7: 12/24/21 07:26 12/29/21 09:21 Labs: Abnormal Lab Results - Last 24 Hours (Table) 12/28/21 12/29/21 12/29/21 Range/Units 20:17 09:21 12:06 Potassium 3.3 L (3.5-5.1) mmol/L BUN 95 H (7-17) mg/dL Creatinine 2.49 H (0.52-1.04) mg/dL Glucose 144 H (74-99) mg/dL POC Glucose (mg/dL) 133 H 166 H (70-110) mg/dL
--- NOTE | 2021-12-29 13:49 | P.PN ---
Progress Note - Text Progress Note Date: 12/29/21 Advanced Care Planning: Diagnoses: Acute on chronic diastolic heart failure exacerbation Care of chronic hypoxic respiratory failure Acute renal failure on chronic kidney disease Discussion: Person(s) present and participating in discussion: Patient Summary: Patient claims she was without oxygen at home few months ago. However, she had a recent hospitalization and then needed to be started on home oxygen. She was on a maximum of 3 L oxygen. During this admission, her oxygen requirements have dramatically gone up. Prior to hospitalization, patient was living at home with her , who is dependent on wheelchair. She normally takes care of her at home as well. She is still hopeful about being able to go home after this admission. Provider had an extensive discussion with patient with regards to limitations of sending home patients with high amounts of oxygen. Patient is agreeable to speak with palliative care services to further discuss her goals of care. A total of 20 minutes of face to face time was spent discussing advanced care planning.
[2021-12-29 16:58] LABS: Glucose,Whole Blood 231 mg/dL (70-110)
[2021-12-29 20:55] LABS: Glucose,Whole Blood 189 mg/dL (70-110)
[2021-12-29] MEDS: ATORVASTATIN 40 MG TAB PO SCH (22:09)
[2021-12-29] MEDS: allopurinoL 100 MG TAB PO SCH (22:09)
[2021-12-29] MEDS: ALPRAZolam 0.25 MG TAB PO PRN (22:09)
[2021-12-30] MEDS: CARBAMIDE PEROXIDE 6.5% DROPS 15 ML BTL BOTH EARS SCH ×3 (02:13→20:00)
[2021-12-30 06:47] LABS: Calcium 9.4 mg/dL (8.4-10.2); Potassium 3.6 mmol/L (3.5-5.1)
[2021-12-30] MEDS ORDERED: amLODIPine 5 MG TAB PO SCH (09:00)
[2021-12-30] MEDS: INSULIN ASPART (NovoLOG) 100 UNIT/ML VIAL SQ SCH ×7 (09:16→21:12)
[2021-12-30] MEDS: TAMSULOSIN 0.4 MG CAP.ER.24H PO SCH (09:38)
[2021-12-30] MEDS: ASPIRIN 81 MG PO SCH (09:38)
[2021-12-30] MEDS: FAMOTIDINE 20 MG TAB PO SCH (09:38)
[2021-12-30] MEDS: HEPARIN SODIUM,PORCINE/PF 5,000 UNIT/0.5 ML SYRINGE SQ SCH ×3 (09:38→23:21)
[2021-12-30] MEDS: carvediloL 6.25 MG TAB PO SCH ×2 (09:38→18:13)
[2021-12-30] MEDS: hydrALAZINE HCL 50 MG TAB PO SCH (09:39)
[2021-12-30] MEDS: ISOSORBIDE MONONITRATE ER 30 MG TAB.ER.24H PO SCH (09:39)
[2021-12-30] MEDS: metOLazone 5 MG TAB PO SCH (09:39)
[2021-12-30] MEDS: INSULIN DETEMIR (LEVEMIR) 100 UNIT/ML SYR SQ SCH (09:40)
--- NOTE | 2021-12-30 10:54 | P.PN ---
Subjective Patient is seen for follow-up for acute kidney injury on chronic kidney disease. She is status post cardiac catheterization this hospitalization. Patient is also significantly volume overloaded and currently maintained on Lasix drip and Zaroxolyn. Renal function had improved slightly but creatinine is slowly increasing again.. No significant complaints today Swelling is improved but persistent No chest pain or shortness of breath Serum creatinine up to 2.6 today. 24 hour urine output documented at 975 mL Briefly discussed renal replacement therapy with the patient today Objective - Vital Signs Vital signs: Vital Signs Temp 97.5 F L 12/30/21 08:00 Pulse 64 12/30/21 08:00 Resp 18 12/30/21 08:00 BP 130/62 12/30/21 08:00 Pulse Ox 90 L 12/30/21 08:00 FiO2 50 12/22/21 08:07 Intake & Output 12/29/21 12/30/21 12/30/21 18:59 06:59 18:59 Intake Total 429 640 Output Total 400 575 Balance 29 65 Intake: Intake, IV Titration 69 100 Amount Furosemide 100 mg In 69 100 Sodium Chloride 0.9% 90 ml @ 10 MG/HR 10 mls/hr IV .Q10H [facility] Rx#: [id number] Oral 360 540 Output: Urine 400 575 Other: Voiding Method Bedside Commode Bedside Commode Diaper Diaper # Voids 1 - Exam Awake, comfortable, not in any acute distress Examination of the heart S1 and S2 Examination lungs bilateral breath sounds are heard Abdomen is soft nontender Examination lower extremities shows 2+ edema bilaterally [employer] exam grossly intact - Labs CBC & Chem 7: 12/24/21 07:26 12/30/21 05:31 Labs: Abnormal Lab Results - Last 24 Hours (Table) 12/29/21 12/29/21 12/29/21 Range/Units 12:06 16:51 20:54 BUN (7-17) mg/dL Creatinine (0.52-1.04) mg/dL Glucose (74-99) mg/dL POC Glucose (mg/dL) 166 H 231 H 189 H (70-110) mg/dL 12/30/21 Range/Units 05:31 BUN 98 H (7-17) mg/dL Creatinine 2.63 H (0.52-1.04) mg/dL Glucose 108 H (74-99) mg/dL POC Glucose (mg/dL) (70-110) mg/dL Assessment and Plan Assessment: 1. Acute kidney injury secondary to ATN from contrast-induced acute kidney injury as well as cardiorenal syndrome. Renal function had improved slightly but serum creatinine worsening again over the last few days. UA showed proteinuria with no evidence of paraprotein's. Ultrasound showed no evidence of hydronephrosis on the left side. Right kidney was not visualized 2. CK D stage IV baseline creatinine around 1.6 secondary to diabetic kidney disease and nephrosclerosis 3. Acute on chronic diastolic CHF 4. Volume overload slowly improving with diuresis 5. Coronary artery disease status post cardiac catheterization this admission 6. Type 2 diabetes 7. 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 Hypertension with CK D stage IV Plan: Continue with the Lasix drip Hold hydralazine and Norvasc as systolic blood pressure is on the lower side Discussed renal replacement therapy briefly with the patient. No indication for starting dialysis today but we will continue to monitor on a daily basis.
--- NOTE | 2021-12-30 11:42 | XR ---
EXAMINATION TYPE: XR chest 1V DATE OF EXAM: 12/30/2021 10:28 AM COMPARISON: Chest radiographs from 12/26/2021 TECHNIQUE: XR chest 1V Frontal view of the chest. CLINICAL INDICATION:Female, 81 years old with history of chf; FINDINGS: Lungs/Pleura: Small left pleural effusion and [id number] right pleural effusion. Likely right basilar atelectasis. Pulmonary vascularity: Pulmonary vascular congestion. Heart/mediastinum: Cardiomediastinal silhouette is enlarged and stable. Atherosclerotic calcificatio ns are seen in the aorta. Musculoskeletal: No acute osseous pathology. IMPRESSION: Similar cardiomegaly with bilateral pleural effusions and pulmonary vascular congestion. Correlate fo r congestive heart failure. Superimposed infectious process not excluded.
--- NOTE | 2021-12-30 11:57 | P.PN ---
Subjective Progress Note Date: 12/30/21 Principal diagnosis: Dyspnea Hospital course: 81-year-old female with history of hypertension, hyperlipidemia, diabetes, diastolic heart failure, CAD presented with dyspnea and chest pressure. Patient underwent cardiac cath on 12/18, which revealed no significant progression of coronary artery disease compared to 2017. Over the course of her stay, patient has been becoming more hypoxic as well as has worsening renal function. She is now being followed by both cardiology and nephrology. Currently on Lasix drip. Patient has some improvement with aggressive diuresis. However, not much improvement in renal function. Subjective: Patient examined at the bedside. No acute events overnight. Patient claims that her dyspnea is improving. However, patient is still quite dyspneic with any exertion. Patient is not requiring 6 L hi flow nasal cannula. She denies any abdominal pain, chest pain, cough, bowel or urinary issues. ROS: Pertinent positives as mentioned above. Rest of the comprehensive review of system was otherwise negative. General: nontoxic, no distress, appears at stated age Derm: warm, dry Head: atraumatic, normocephalic, symmetric Eyes: EOMI, no lid lag, anicteric sclera Mouth: no lip lesion, mucus membranes moist Cardiovascular: S1S2 reg, no murmur Lungs: Bibasilar rales, no accessory muscle use Abdominal: soft, nontender to palpation, no guarding, no appreciable organomegaly Ext: no gross muscle atrophy, bilateral lower extremity edema, no contractures Neuro: CN II-XI grossly intact, no focal neuro deficits Psych: Alert, oriented, appropriate affect Assessment and plan: Acute on chronic diastolic heart failure exacerbation Acute on chronic hypoxic respiratory failure Pulmonary hypertension Hypertension -Cardiac cath performed during this admission revealed no significant progression of CAD -Nephrology following, patient on Lasix gtt, and metolazone -Carvedilol, Imdur -Holding hydralazine and amlodipine per nephrology -I's and O's -Daily weights -Continue to wean down oxygen -Palliative consultation pending DEBO on CKD 3 -In the setting of cardiorenal syndrome and possibly contrast-induced nephropathy - Baseline creatinine around 1.8 -Slight uptrend in creatinine again today Anemia of chronic kidney disease -Received IV iron this admission Insulin-dependent type 2 diabetes - Levemir 35 -Aspart 5 AC - Sliding scale insulin Hyperlipidemia CAD -aspirin and atorvastatin Cerumen impaction -Carbamide peroxide F: Oral E: Replete as needed N: Cardiac A: With assistance DVT prophylaxis: Subcu heparin Full code Disposition: Goals of care discussion initiated with patient. Patient still hopeful about returning home. Objective - Vital Signs Vital signs: Vital Signs Temp 97.5 F L 12/30/21 08:00 Pulse 64 12/30/21 08:00 Resp 18 12/30/21 08:00 BP 130/62 12/30/21 08:00 Pulse Ox 90 L 12/30/21 08:00 FiO2 50 12/22/21 08:07 Intake & Output 12/29/21 12/30/21 12/30/21 18:59 06:59 18:59 Intake Total 429 640 Output Total 400 575 Balance 29 65 Intake: Intake, IV Titration 69 100 Amount Furosemide 100 mg In 69 100 Sodium Chloride 0.9% 90 ml @ 10 MG/HR 10 mls/hr IV .Q10H [facility] Rx#: [id number] Oral 360 540 Output: Urine 400 575 Other: Voiding Method Bedside Commode Bedside Commode Diaper Diaper # Voids 1 - Labs CBC & Chem 7: 12/24/21 07:26 12/30/21 05:31 Labs: Abnormal Lab Results - Last 24 Hours (Table) 12/29/21 12/29/21 12/29/21 Range/Units 12:06 16:51 20:54 BUN (7-17) mg/dL Creatinine (0.52-1.04) mg/dL Glucose (74-99) mg/dL POC Glucose (mg/dL) 166 H 231 H 189 H (70-110) mg/dL 12/30/21 Range/Units 05:31 BUN 98 H (7-17) mg/dL Creatinine 2.63 H (0.52-1.04) mg/dL Glucose 108 H (74-99) mg/dL POC Glucose (mg/dL) (70-110) mg/dL
[2021-12-30 12:27] LABS: Glucose,Whole Blood 287 mg/dL (70-110)
[2021-12-30] MEDS: FUROSEMIDE 100 MG in SODIUM CHLORIDE 0.9% 90 ML IV SCH ×2 (14:44→20:00)
[2021-12-30 16:52] LABS: Glucose,Whole Blood 254 mg/dL (70-110)
[2021-12-30] MEDS: ATORVASTATIN 40 MG TAB PO SCH (20:00)
[2021-12-30] MEDS: allopurinoL 100 MG TAB PO SCH (20:00)
[2021-12-30 20:36] LABS: Glucose,Whole Blood 230 mg/dL (70-110)
[2021-12-30] MEDS ORDERED: hydrALAZINE HCL 50 MG TAB PO SCH (21:00)
[2021-12-30] MEDS: ACETAMINOPHEN TAB 325 MG TAB PO PRN (21:12)
[2021-12-31] MEDS: FUROSEMIDE 100 MG in SODIUM CHLORIDE 0.9% 90 ML IV SCH ×3 (04:50→23:08)
[2021-12-31] MEDS: carvediloL 6.25 MG TAB PO SCH ×2 (06:29→17:16)
[2021-12-31 06:38] LABS: Calcium 9.5 mg/dL (8.4-10.2); Potassium 3.4 mmol/L (3.5-5.1)
[2021-12-31] MEDS: INSULIN ASPART (NovoLOG) 100 UNIT/ML VIAL SQ SCH ×7 (07:40→20:45)
[2021-12-31 07:42] LABS: Glucose,Whole Blood 126 mg/dL (70-110)
[2021-12-31] MEDS: ACETAMINOPHEN TAB 325 MG TAB PO PRN ×3 (08:03→23:10)
[2021-12-31] MEDS: HEPARIN SODIUM,PORCINE/PF 5,000 UNIT/0.5 ML SYRINGE SQ SCH ×3 (08:03→23:08)
[2021-12-31] MEDS: INSULIN DETEMIR (LEVEMIR) 100 UNIT/ML SYR SQ SCH (08:03)
[2021-12-31] MEDS: TAMSULOSIN 0.4 MG CAP.ER.24H PO SCH (08:04)
[2021-12-31] MEDS: ISOSORBIDE MONONITRATE ER 30 MG TAB.ER.24H PO SCH (08:04)
[2021-12-31] MEDS: CARBAMIDE PEROXIDE 6.5% DROPS 15 ML BTL BOTH EARS SCH ×2 (08:05→20:45)
[2021-12-31] MEDS: FAMOTIDINE 20 MG TAB PO SCH (08:05)
[2021-12-31] MEDS: ASPIRIN 81 MG PO SCH (08:05)
[2021-12-31] MEDS: metOLazone 5 MG TAB PO SCH (08:05)
--- NOTE | 2021-12-31 09:41 | P.PN ---
Subjective Progress Note Date: 12/31/21 Principal diagnosis: Dyspnea Hospital course: 81-year-old female with history of hypertension, hyperlipidemia, diabetes, diastolic heart failure, CAD presented with dyspnea and chest pressure. Patient underwent cardiac cath on 12/18, which revealed no significant progression of coronary artery disease compared to 2017. Over the course of her stay, patient has been becoming more hypoxic as well as has worsening renal function. She is now being followed by both cardiology and nephrology. Currently on Lasix drip. Patient has some improvement with aggressive diuresis. She has minimal improvement in her renal function. Subjective: Patient examined at the bedside. No acute events overnight. Patient claims that her dyspnea is improving. She is now able to get out of the chair to the bathroom with minimal exertion. Patient is requiring 6 L nasal cannula. She denies any abdominal pain, chest pain, cough, bowel or urinary issues. ROS: Pertinent positives as mentioned above. Rest of the comprehensive review of system was otherwise negative. General: nontoxic, no distress, appears at stated age Derm: warm, dry Head: atraumatic, normocephalic, symmetric Eyes: EOMI, no lid lag, anicteric sclera Mouth: no lip lesion, mucus membranes moist Cardiovascular: S1S2 reg, no murmur Lungs: Bibasilar rales, no accessory muscle use Abdominal: soft, nontender to palpation, no guarding, no appreciable organomegaly Ext: no gross muscle atrophy, bilateral lower extremity edema, no contractures Neuro: CN II-XI grossly intact, no focal neuro deficits Psych: Alert, oriented, appropriate affect Assessment and plan: Acute on chronic diastolic heart failure exacerbation Acute on chronic hypoxic respiratory failure Pulmonary hypertension Hypertension -Cardiac cath performed during this admission revealed no significant progression of CAD -Nephrology following, patient on Lasix gtt, and metolazone -Carvedilol, Imdur -Holding hydralazine and amlodipine per nephrology -I's and O's -Daily weights -Continue to wean down oxygen -Palliative consultation pending DEBO on CKD 3 -In the setting of cardiorenal syndrome and possibly contrast-induced nephropathy - Baseline creatinine around 1.8 -Slight improvement in creatinine today Anemia of chronic kidney disease -Received IV iron this admission Insulin-dependent type 2 diabetes - Levemir 35 -Aspart 5 AC - Sliding scale insulin Hyperlipidemia CAD -aspirin and atorvastatin Cerumen impaction -Carbamide peroxide DVT prophylaxis: Subcu heparin Full code Disposition: Goals of care discussion initiated with patient. Patient still hopeful about returning home. Objective - Vital Signs Vital signs: Vital Signs Temp 97.4 F L 12/31/21 07:42 Pulse 54 L 12/31/21 07:42 Resp 18 12/31/21 07:43 BP 123/65 12/31/21 07:42 Pulse Ox 90 L 12/31/21 07:42 FiO2 50 12/22/21 08:07 Intake & Output 12/30/21 12/31/21 12/31/21 18:59 06:59 18:59 Intake Total 700 141.000 Output Total 850 400 Balance -150 -259.000 Weight 99 kg Intake: Intake, IV Titration 100 141.000 Amount Furosemide 100 mg In 100 141.000 Sodium Chloride 0.9% 90 ml @ 10 MG/HR 10 mls/hr IV .Q10H [facility] Rx#: [id number] Oral 600 Output: Urine 850 400 Other: Voiding Method Bedside Commode Bedside Commode Bedside Commode Diaper Diaper Diaper # Voids 1 - Labs CBC & Chem 7: 12/24/21 07:26 12/31/21 06:02 Labs: Abnormal Lab Results - Last 24 Hours (Table) 12/30/21 12/30/21 12/30/21 Range/Units 12:01 16:41 20:34 Potassium (3.5-5.1) mmol/L Chloride (98-107) mmol/L BUN (7-17) mg/dL Creatinine (0.52-1.04) mg/dL Glucose (74-99) mg/dL POC Glucose (mg/dL) 287 H 254 H 230 H (70-110) mg/dL 12/31/21 12/31/21 Range/Units 06:02 07:39 Potassium 3.4 L (3.5-5.1) mmol/L Chloride 97 L (98-107) mmol/L BUN 104 H* (7-17) mg/dL Creatinine 2.48 H (0.52-1.04) mg/dL Glucose 105 H (74-99) mg/dL POC Glucose (mg/dL) 126 H (70-110) mg/dL
--- NOTE | 2021-12-31 10:07 | P.PN ---
Subjective Patient is seen for follow-up for acute kidney injury on chronic kidney disease. She is status post cardiac catheterization this hospitalization. Patient is also significantly volume overloaded and currently maintained on Lasix drip and Zaroxolyn. Renal function had improved slightly but creatinine is slowly increasing again.. No significant complaints today Swelling is improved but persistent No chest pain or shortness of breath Serum creatinine is improved to 2.4 today 24 hour urine output documented at 1250 mL Briefly discussed renal replacement therapy with the patient yesterday. Objective - Vital Signs Vital signs: Vital Signs Temp 97.4 F L 12/31/21 07:42 Pulse 54 L 12/31/21 07:42 Resp 18 12/31/21 07:43 BP 123/65 12/31/21 07:42 Pulse Ox 90 L 12/31/21 07:42 FiO2 50 12/22/21 08:07 Intake & Output 12/30/21 12/31/21 12/31/21 18:59 06:59 18:59 Intake Total 700 141.000 Output Total 850 400 Balance -150 -259.000 Weight 99 kg Intake: Intake, IV Titration 100 141.000 Amount Furosemide 100 mg In 100 141.000 Sodium Chloride 0.9% 90 ml @ 10 MG/HR 10 mls/hr IV .Q10H [facility] Rx#: [id number] Oral 600 Output: Urine 850 400 Other: Voiding Method Bedside Commode Bedside Commode Bedside Commode Diaper Diaper Diaper # Voids 1 - Exam Awake, comfortable, not in any acute distress Examination of the heart S1 and S2 Examination lungs bilateral breath sounds are heard Abdomen is soft nontender Examination lower extremities shows 2+ edema bilaterally [employer]AGNO[employer]IC TECH exam grossly intact - Labs CBC & Chem 7: 12/24/21 07:26 12/31/21 06:02 Labs: Abnormal Lab Results - Last 24 Hours (Table) 12/30/21 12/30/21 12/30/21 Range/Units 12:01 16:41 20:34 Potassium (3.5-5.1) mmol/L Chloride (98-107) mmol/L BUN (7-17) mg/dL Creatinine (0.52-1.04) mg/dL Glucose (74-99) mg/dL POC Glucose (mg/dL) 287 H 254 H 230 H (70-110) mg/dL 09/05/22 09/05/22 Range/Units 06:02 07:39 Potassium 3.4 L (3.5-5.1) mmol/L Chloride 97 L (98-107) mmol/L BUN 104 H* (7-17) mg/dL Creatinine 2.48 H (0.52-1.04) mg/dL Glucose 105 H (74-99) mg/dL POC Glucose (mg/dL) 126 H (70-110) mg/dL Assessment and Plan Assessment: 1. Acute kidney injury secondary to ATN from contrast-induced acute kidney injury as well as cardiorenal syndrome. Renal function slightly improved today. UA showed proteinuria with no evidence of paraprotein's. Ultrasound showed no evidence of hydronephrosis on the left side. Right kidney was not visualized 2. CK D stage IV baseline creatinine around 1.6 secondary to diabetic kidney disease and nephrosclerosis 3. Acute on chronic diastolic CHF 4. Volume overload slowly improving with diuresis 5. Coronary artery disease status post cardiac catheterization this admission 6. Type 2 diabetes 7. 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 Hypertension with CK D stage IV Plan: Continue the Lasix drip and Zaroxolyn Continue off of hydralazine and amlodipine Repeat labs in a.m.
[2021-12-31 12:12] LABS: Glucose,Whole Blood 225 mg/dL (70-110)
[2021-12-31 16:40] LABS: Glucose,Whole Blood 196 mg/dL (70-110)
[2021-12-31 20:43] LABS: Glucose,Whole Blood 201 mg/dL (70-110)
[2021-12-31] MEDS: allopurinoL 100 MG TAB PO SCH (20:45)
[2021-12-31] MEDS: ATORVASTATIN 40 MG TAB PO SCH (20:45)
[2022-01-01] MEDS: carvediloL 6.25 MG TAB PO SCH ×2 (06:26→19:38)
[2022-01-01 07:16] LABS: Glucose,Whole Blood 137 mg/dL (70-110)
[2022-01-01] MEDS: INSULIN ASPART (NovoLOG) 100 UNIT/ML VIAL SQ SCH ×7 (07:55→20:24)
[2022-01-01] MEDS: INSULIN DETEMIR (LEVEMIR) 100 UNIT/ML SYR SQ SCH (08:09)
[2022-01-01] MEDS: TAMSULOSIN 0.4 MG CAP.ER.24H PO SCH (08:10)
[2022-01-01] MEDS: ASPIRIN 81 MG PO SCH (08:10)
[2022-01-01] MEDS: ISOSORBIDE MONONITRATE ER 30 MG TAB.ER.24H PO SCH (08:10)
[2022-01-01] MEDS: CARBAMIDE PEROXIDE 6.5% DROPS 15 ML BTL BOTH EARS SCH ×2 (08:10→20:39)
[2022-01-01] MEDS: metOLazone 5 MG TAB PO SCH (08:10)
[2022-01-01] MEDS: FAMOTIDINE 20 MG TAB PO SCH (08:10)
[2022-01-01] MEDS: HEPARIN SODIUM,PORCINE/PF 5,000 UNIT/0.5 ML SYRINGE SQ SCH ×3 (08:10→22:58)
[2022-01-01] MEDS: FUROSEMIDE 100 MG in SODIUM CHLORIDE 0.9% 90 ML IV SCH ×2 (08:18→22:58)
[2022-01-01 09:30] LABS: Anisocytosis Slight; HCT 27.9 % (34.0-46.0); HGB 8.5 gm/dL (11.4-16.0); Hypochromasia Marked; MCH 31.8 pg (25.0-35.0); MCHC 30.3 g/dL (31.0-37.0); MCV 104.8 fL (80.0-100.0); Macrocytosis Moderate; Mean Platelet Volume 8.6; Platelet Count 262 k/uL (150-450); RBC 2.66 m/uL (3.80-5.40); RDW 17.5 % (11.5-15.5); WBC 15.2 k/uL (3.8-10.6)
[2022-01-01 09:39] LABS: Albumin 3.6 g/dL (3.5-5.0); Calcium 9.9 mg/dL (8.4-10.2); Magnesium 1.9 mg/dL (1.6-2.3); Potassium 3.2 mmol/L (3.5-5.1); Total Bilirubin 1.1 mg/dL (0.2-1.3); Total Protein 6.3 g/dL (6.3-8.2)
--- NOTE | 2022-01-01 10:23 | P.PN ---
Subjective Progress Note Date: 01/01/22 Hospital course: Patient is a Physical exam: Vital signs reviewed and stable. General: Nontoxic, no distress and appears stated age. Derm: Skin warm and dry, normal coloration for ethnicity. Head: Atraumatic, normocephalic and symmetric. Eyes: EOMs intact, no lid lag, and anicteric sclera Mouth: no lip lesions, mucus membranes moist Cardiovascular: regular rate and rhythm with normal S1S2, no murmur, positive posterior tibial pulses bilaterally, and cap refill < 2 seconds. Lungs: Respirations even, regular, and unlabored on room air. Lungs CTA bilaterally, no rhonchi, no rales, no wheezing, and no accessory muscle usage. Abdominal: soft, nontender to palpation, no guarding, no appreciable organomegaly Ext: ROM intact. No gross muscle atrophy, no edema, no contractures Neuro: Speech clear, face symmetrical and CN II-XII grossly intact with no noted focal neuro deficits Psych: Alert and oriented to person, place, time, and situation. Appropriate and pleasant affect. Assessment and Plan of Care: CODE STATUS:[] DVT prophylaxis: [] Discussed with: [] Anticipated discharge date: [] Anticipated discharge place: [] A total of [] minutes was spent on the care of this complex patient more than 50% of the time was spent in counseling and care coordination. Objective - Vital Signs Vital signs: Vital Signs Temp 97.6 F 01/01/22 08:01 Pulse 63 01/01/22 08:01 Resp 20 01/01/22 08:02 BP 131/65 01/01/22 08:01 Pulse Ox 94 L 01/01/22 08:05 FiO2 50 12/22/21 08:07 Intake & Output 12/31/21 01/01/22 01/01/22 18:59 06:59 18:59 Intake Total 576 94 880 Output Total 700 1400 Balance -124 -1306 880 Weight 97.8 kg Intake: Intake, IV Titration 100 94 100 Amount Furosemide 100 mg In 100 94 100 Sodium Chloride 0.9% 90 ml @ 10 MG/HR 10 mls/hr IV .Q10H [facility] Rx#: [id number] Oral 476 780 Output: Urine 700 1400 Other: Voiding Method Bedside Commode Bedside Commode Bedside Commode Diaper Diaper Diaper # Voids 1 1 - Labs CBC & Chem 7: 09/06/22 08:19 01/01/22 08:19 Labs: Abnormal Lab Results - Last 24 Hours (Table) 12/31/21 12/31/21 12/31/21 Range/Units 12:08 16:35 20:42 WBC (3.8-10.6) k/uL RBC (3.80-5.40) m/uL Hgb (11.4-16.0) gm/dL Hct (34.0-46.0) % MCV (80.0-100.0) fL MCHC (31.0-37.0) g/dL RDW (11.5-15.5) % Potassium (3.5-5.1) mmol/L Chloride (98-107) mmol/L BUN (7-17) mg/dL Creatinine (0.52-1.04) mg/dL Glucose (74-99) mg/dL POC Glucose (mg/dL) 225 H 196 H 201 H (70-110) mg/dL 01/01/22 01/01/22 01/01/22 Range/Units 07:14 08:19 08:19 WBC 15.2 H (3.8-10.6) k/uL RBC 2.66 L (3.80-5.40) m/uL Hgb 8.5 L (11.4-16.0) gm/dL Hct 27.9 L (34.0-46.0) % MCV 104.8 H (80.0-100.0) fL MCHC 30.3 L (31.0-37.0) g/dL RDW 17.5 H (11.5-15.5) % Potassium 3.2 L (3.5-5.1) mmol/L Chloride 95 L (98-107) mmol/L BUN 108 H* (7-17) mg/dL Creatinine 2.60 H (0.52-1.04) mg/dL Glucose 161 H (74-99) mg/dL POC Glucose (mg/dL) 137 H (70-110) mg/dL
--- NOTE | 2022-01-01 12:15 | P.CONS ---
History of Present Illness - Reason for Consult Consult date: 01/01/22 Goals of care Requesting physician: Tanmay Faith - Chief Complaint Shortness of breath - History of Present Illness Patient is an 81-year-old female with a history of hypertension, diabetes mellitus requiring insulin, chronic kidney disease, coronary artery disease, and chronic respiratory failure requiring 3-4 L nasal cannula who presented to the ER on 12/14/21 with complaints of shortness of breath and leg swelling. Dr. Bhatia has been monitoring her closely with plans for possible outpatient. In the ER she underwent underwent an extensive evaluation. She was hypoxic at 78% on 3 L on arrival. Chest x-ray showed pulmonary vascular congestion. Labatory analysis was significant for Hgb 9.5, Cr 1.37 with baseline 1.6, T bili of 1.6, and glucose of 200. Initial Troponin was negative. She was started on diuresis and admitted. Cardiology was consulted. Patient underwent cardiac catheterization on 12/18/21 which showed stable coronary artery disease. Medical management was recommended, no need for intervention. Over the course of her stay, the patient has been becoming more hypoxic as well as has worsening renal function. She is on 8L HFNC, and unable to be weaned. The patient has chronic kidney disease stage IV secondary to diabetic kidney disease and nephrosclerosis. She is also being followed by nephrology. Currently on Lasix drip. Patient has some improvement with aggressive diuresis. She has minimal improvement in her renal function. There has been some conversation with the patient and family about the potential need for dialysis. Review of Systems Constitutional: Reports as per HPI Past Medical History Past Medical History: Coronary Artery Disease (CAD), Diabetes Mellitus, GERD/Reflux, Hyperlipidemia, Hypertension, Osteoarthritis (OA), Renal Disease, Sleep Apnea/CPAP/BIPAP Additional Past Medical History / Comment(s): increased SOB uses 2 liters 02 was just released 10/16/21 for SOB. "watching a valve" in heart, decreased kidney function, low iron, has cpap doesnt use at this time. edema to bilateral legs and feet. low hemaglobin- iron infusions History of Any Multi-Drug Resistant Organisms: None Reported Past Surgical History: Breast Surgery, Cholecystectomy, Heart Catheterization Additional Past Surgical History / Comment(s): earle cataracts, mult earle eye surgeries, bilateral breast excisional biopsy-benign Past Anesthesia/Blood Transfusion Reactions: No Reported Reaction Past Psychological History: No Psychological Hx Reported Smoking Status: Never smoker Past Alcohol Use History: None Reported Past Drug Use History: None Reported - Past Family History Father Family Medical History: Deep Vein Thrombosis (DVT) Additional Family Medical History / Comment(s): mom of stroke , history of heart disease Medications and Allergies Home Medications Medication Instructions Recorded Confirmed Type Aspirin [Adult Low Dose Aspirin EC] 81 mg PO DAILY 01/16/17 12/14/21 History Dorzolamide 2% [Trusopt 2%] 1 drops BOTH EYES BID 01/16/17 12/14/21 History Ferrous Sulfate [Iron] 650 mg PO BID 01/16/17 12/14/21 History Furosemide [Lasix] 20 mg PO BID@0900,1500 01/16/17 12/14/21 History amLODIPine [Norvasc] 5 mg PO BID 01/16/17 12/14/21 History Atorvastatin [Lipitor] 10 mg PO HS 09/09/17 12/14/21 History allopurinoL [Zyloprim] 100 mg PO HS 09/09/17 12/14/21 History Acetaminophen [Tylenol Arthritis] 1,300 mg PO Q8HR PRN 10/27/17 12/14/21 History Famotidine [Pepcid] 20 mg PO DAILY 03/02/20 12/14/21 History Cholecalciferol [Vitamin D3 (25 50 mcg PO DAILY 10/09/21 12/14/21 History Mcg = 1000 Iu)] Insulin Aspart [NovoLOG Flexpen] See Protocol SQ ACHS PRN 10/09/21 12/14/21 History Insulin Glargine,Hum.rec.anlog 40 unit SQ DAILY 10/09/21 12/14/21 History [Lantus Solostar Pen] Magnesium Oxide [Magox 400] 400 mg PO HS 10/09/21 12/14/21 History Virt-Phos 250 Neutral 250 1 tab PO DAILY 10/09/21 12/14/21 History calcitrioL [Calcitriol] 0.5 mcg PO SUWE 10/09/21 12/14/21 History Tamsulosin [Flomax] 0.4 mg PO PC-BRKFST 30 Days #30 cap 10/16/21 12/14/21 Rx hydrALAZINE HCL [Apresoline] 100 mg PO BID 30 Days #60 tab 10/16/21 12/14/21 Rx carvediloL [Coreg] 3.125 mg PO BID 12/06/21 12/14/21 History Allergies Allergy/AdvReac Type Severity Reaction Status Date / Time Penicillins Allergy Swelling Verified 12/14/21 16:24 Sulfa (Sulfonamide Allergy Swelling Verified 12/14/21 16:24 Antibiotics) Physical Exam Vitals: Vital Signs Temp Pulse Resp BP Pulse Ox 01/01/22 08:05 94 L 01/01/22 08:02 20 01/01/22 08:01 97.6 F 63 18 131/65 91 L 01/01/22 03:31 60 18 143/62 91 L 01/01/22 01:33 18 01/01/22 00:00 60 20 139/64 90 L 12/31/21 20:00 20 12/31/21 19:41 97.6 F 55 L 20 127/62 92 L 12/31/21 15:46 97.4 F L 58 L 18 135/65 91 L Intake and Output 12/31/21 01/01/22 01/01/22 22:59 06:59 14:59 Intake Total 240 94 880 Output Total 1100 1000 600 Balance -860 -906 280 Intake: Intake, IV Titration 94 100 Amount Furosemide 100 mg In 94 100 Sodium Chloride 0.9% 90 ml @ 10 MG/HR 10 mls/hr IV .Q10H [facility] Rx#: [id number] Oral 240 780 Output: Urine 1100 1000 600 Other: Voiding Method Bedside Commode Bedside Commode Bedside Commode Diaper Diaper Diaper # Voids 1 1 2 Weight 97.8 kg General: Well developed, well nourished. No acute distress. HEENT: Head is atraumatic, normocephalic. Sclerae are clear. Pupils equal, round and reactive to light bilaterally. Mucus membranes moist. CV: Heart regular in rate and rhythm positive S1 and S2. No clicks, rubs or murmurs. Peripheral pulses equal. 2/4 Lungs: Diminished bases with fine crackles bilaterally. No wheezes rales or rhonchi. Respirations even and nonlabored. On 8L HFNC. Abdomen/GI: Soft. Bowel sounds present in all 4 quadrants.No guarding, rigidity, or abdominal tenderness. Musculoskeletal/ Extremities: STEWARD, no joint deformity or swelling. No gross a trophy. + generalized weakness Vascular: Radial pulses equal. 2/4. +1 bilateral LE edema Skin: Warm and dry, No rash or lesions. Neurologic: Awake, alert and oriented times 3. CN II-XII grossly intact. No focal deficits. Psychiatric: Appropriate mood and affect. Results CBC & Chem 7: 01/01/22 08:19 01/01/22 08:19 Labs: Abnormal Lab Results - Last 24 Hours (Table) 12/31/21 12/31/21 12/31/21 Range/Units 12:08 16:35 20:42 WBC (3.8-10.6) k/uL RBC (3.80-5.40) m/uL Hgb (11.4-16.0) gm/dL Hct (34.0-46.0) % MCV (80.0-100.0) fL MCHC (31.0-37.0) g/dL RDW (11.5-15.5) % Potassium (3.5-5.1) mmol/L Chloride (98-107) mmol/L BUN (7-17) mg/dL Creatinine (0.52-1.04) mg/dL Glucose (74-99) mg/dL POC Glucose (mg/dL) 225 H 196 H 201 H (70-110) mg/dL 01/01/22 01/01/22 01/01/22 Range/Units 07:14 08:19 08:19 WBC 15.2 H (3.8-10.6) k/uL RBC 2.66 L (3.80-5.40) m/uL Hgb 8.5 L (11.4-16.0) gm/dL Hct 27.9 L (34.0-46.0) % MCV 104.8 H (80.0-100.0) fL MCHC 30.3 L (31.0-37.0) g/dL RDW 17.5 H (11.5-15.5) % Potassium 3.2 L (3.5-5.1) mmol/L Chloride 95 L (98-107) mmol/L BUN 108 H* (7-17) mg/dL Creatinine 2.60 H (0.52-1.04) mg/dL Glucose 161 H (74-99) mg/dL POC Glucose (mg/dL) 137 H (70-110) mg/dL Chest x-ray: report reviewed Assessment and Plan Assessment: Social * 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 - 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, 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 * Marital status - for 60 years * Children/grandchildren - 2 adult children, 1 daughter and 1 disabled son * Residence - 2 story house, her bedroom and bathroom are on the main floor * Who do you reside with - and son * ETOH - No * Tobacco - Never * Illicit drugs - No Spiritual/Cultural * A spiritual person - Yes * Hinduism - Pentecostal * Belong to a particular restorationism - Community [employer] [facility] * Beliefs a source of comfort and strength - Yes * Jew or cultural practices restrictions - No * EOL considerations/rituals - No Functional Assessment * Able to walk independently - Yes * Assistive devices - Cane * Able to use the bathroom independently - Yes * Continent - Incontinent at times * Require assistance bathing- No * Able to feed self - Yes * Who prepares meals - Patient * How many meals a day eaten - 3 meals * What percentage of meals eaten daily - 50% * Able to clean house/do laundry - Yes * Transportation - Patient drove regularly until her last hospital admission for CHF exacerbation in September 2021. 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 No recent weight loss. Continue heart healthy diet and fluid restrictions. * Dysphagia - No * Constipation - No, LBM 9/ * Incontinence - Occasionally, continue Flomax for retention * Itch - No Plan: Summary/Goals - The patient is resting in a recliner. Her daughter, Pamela, is at the bedside. Information provided regarding palliative care philosophies and services. Education provided regarding the patient's chronic diseases including her diastolic heart failure and acute on chronic kidney disease. The patient can not be on an BETTY or ARB for her heart failure due to her renal disease. She is being maintained on aspirin, statin, carvedilol, hydralazine, Imdur. She has not been responding to the lasix IVP and needed to be started on a continuous drip. The possibility of needing hemodialysis was discussed at length. The patient states that her goal is prolonged survival. She takes care of her wheelchair bound and disabled son. She states that she would agree to hemodialysis if she has to in order to get better. The patient realizes she is on 8L HFNC and has not tolerated it being weaned down. She is hoping dialysis may help. She understands that this may be her new baseline now, but she has to "try to get better" because he family depends on her. She was independent with he ADL's until about 2 weeks prior to admission. She is realistic in the sense that she will at least need rehab before returning home. She understands that a [facility] will typically not accept her until her O2 requirements are 6LNC or less. Code status discussed at length. She would like to stay a full code. It was explained that in the event that she coded, it is unlikely to get her back to her current health state. If she were to end up on a ventilator, it would be very difficult to get her off of it. She stated her daughter would know what to do when the time comes. She was encouraged to continue to have conversations relaying her wishes for en of life care to her family. Her and her daughter agreed to OP palliative care upon discharge. Recommendations - Discharge to [facility] with OP palliative care when stable Advanced Directives - No Code Status - Full code Thank you for this consult Kaley Gaspar [facility] Palliative Care [facility] [id number] Email: [email or web address] Time with Patient: Greater than 30
[2022-01-01 12:18] LABS: Glucose,Whole Blood 207 mg/dL (70-110)
[2022-01-01 19:09] LABS: Glucose,Whole Blood 165 mg/dL (70-110)
[2022-01-01 20:24] LABS: Glucose,Whole Blood 144 mg/dL (70-110)
[2022-01-01] MEDS: ACETAMINOPHEN TAB 325 MG TAB PO PRN (20:39)
[2022-01-01] MEDS: allopurinoL 100 MG TAB PO SCH (20:40)
[2022-01-01] MEDS: ATORVASTATIN 40 MG TAB PO SCH (20:40)
[2022-01-02] MEDS: carvediloL 6.25 MG TAB PO SCH ×2 (06:13→18:31)
[2022-01-02 07:20] LABS: Glucose,Whole Blood 128 mg/dL (70-110)
[2022-01-02] MEDS: FUROSEMIDE 100 MG in SODIUM CHLORIDE 0.9% 90 ML IV SCH ×2 (08:29→19:07)
[2022-01-02] MEDS: INSULIN ASPART (NovoLOG) 100 UNIT/ML VIAL SQ SCH ×7 (08:29→20:50)
[2022-01-02] MEDS: INSULIN DETEMIR (LEVEMIR) 100 UNIT/ML SYR SQ SCH (08:57)
[2022-01-02] MEDS: FAMOTIDINE 20 MG TAB PO SCH (08:57)
[2022-01-02] MEDS: ASPIRIN 81 MG PO SCH (08:57)
[2022-01-02] MEDS: metOLazone 5 MG TAB PO SCH (08:57)
[2022-01-02] MEDS: HEPARIN SODIUM,PORCINE/PF 5,000 UNIT/0.5 ML SYRINGE SQ SCH ×3 (08:57→23:15)
[2022-01-02] MEDS: ISOSORBIDE MONONITRATE ER 30 MG TAB.ER.24H PO SCH (08:58)
[2022-01-02] MEDS: CARBAMIDE PEROXIDE 6.5% DROPS 15 ML BTL BOTH EARS SCH ×3 (08:58→20:58)
[2022-01-02] MEDS: TAMSULOSIN 0.4 MG CAP.ER.24H PO SCH (08:58)
[2022-01-02 09:30] LABS: Anisocytosis Slight; HCT 27.6 % (34.0-46.0); HGB 8.3 gm/dL (11.4-16.0); Hypochromasia Moderate; MCH 31.7 pg (25.0-35.0); MCHC 30.2 g/dL (31.0-37.0); MCV 104.7 fL (80.0-100.0); Macrocytosis Moderate; Mean Platelet Volume 8.4; Platelet Count 228 k/uL (150-450); RBC 2.64 m/uL (3.80-5.40); RDW 17.1 % (11.5-15.5); WBC 14.2 k/uL (3.8-10.6)
--- NOTE | 2022-01-02 09:34 | P.PN ---
Subjective Progress Note Date: 01/02/22 Hospital course: Patient is a very pleasant 81-year-old female with a past medical history diastolic heart failure, hypertension, hyperlipidemia,and CAD. She presented to the emergency department on 12/14/21 with a chief complaint of chest pain and shortness of breath. EKG was completed revealing normal sinus rhythm at 74 bpm with T-wave inversion in anterolateral leads I, II, and V3 through V6. initial labs revealed hemoglobin of 9.5, BUN of 54, creatinine 1.37, and GFR of 36. T roponin was negative at less than 0.012 and proBNP was 1770.chest x-ray was consistent with CHF with bilateral pleural effusions. Patient was started on IV diuresis and admitted under our services with consultation to cardiology. She underwent a cardiac cath on 12/18/21 which revealed calcified coronary arteries with moderate distal left main disease, mild disease in the proximal LAD, mild to moderate disease in the RCA, and significant disease in the ostium of the left circumflex with no progression compared to 2017. Cardiology recommended maximizing medical therapy at this time. Renal function persistently worsened daily and on 12/23/21 nephrology was consulted and started pt on Lasix infusion as acute kidney injury was believed to be secondary to cardiorenal syndrome and contrast-induced acute kidney injury. Patient remains on Lasix infusion and continues to suffer from fluid volume overload.. Vascular surgery was consulted this morning to place permacath for dialysis. Physical exam: Patient was seen and fully evaluated at bedside this morning. She remains upright in chair with legs elevated. She continues to have 3+ pitting bilateral lower extremity edema and continues to require 6 L high flow nasal cannula to maintain SpO2 of 92% at rest. Despite Lasix infusion in maintaining metolazone, renal function continues to show no improvement with BUN 114, creatinine 2.49, and GFR of 17 this morning. Nephrology has place consult to vascular surgeon for placement of dialysis permacath with plans to place patient on dialysis. This was discussed with patient and attempts were made to call and update patient's daughter and patient states she would like to call and update her daughter herself. Patient reports continued shortness of breath with minimal exertion and RN reports patient desats with any exertion as well. Patient denies having any headache, lightheadedness, dizziness, chest pain, palpitations, nausea, or experiencing any numbness/tingling/weakness in her ex tremities. Patient has had a documented 1500 mL of output over the past 24 hours. Potassium 3.2 and replaced. Vital signs reviewed and stable. General: Nontoxic, no distress and appears stated age. Derm: Skin warm and dry, normal coloration for ethnicity. Head: Atraumatic, normocephalic and symmetric. Eyes: EOMs intact, no lid lag, and anicteric sclera Mouth: no lip lesions, mucus membranes moist Cardiovascular: regular rate and rhythm with normal S1S2, systolic murmur, positive posterior tibial pulses bilaterally, and cap refill < 2 seconds. Lungs: Respirations even, regular, and unlabored on 6L O2 via I flow nasal cannula. Lungs diminished with soft expiratory wheezes and bibasilar crackles. Abdominal: soft, nontender to palpation, no guarding, no appreciable organomegaly Ext: ROM intact. No gross muscle atrophy, no contractures, 3+ pitting bilateral lower extremity edema. Neuro: Speech clear, face symmetrical and CN II-XII grossly intact with no noted focal neuro deficits Psych: Alert and oriented to person, place, time, and situation. Appropriate and pleasant affect. Assessment and Plan of Care: Acute on chronic diastolic heart failure with a preserved EF of 55-60% Acute on chronic hypoxic respiratory failure secondary to above Acute kidney injury on chronic kidney disease, secondary to cardiorenal syndrome -Cardiology and nephrology following. -Continue metolazone and lasix infusion managed by nephrology. -Amlodipine and hydralazine were discontinued to maintain systolic pressure > 120. -Continue Telemetry monitoring -Daily weights -Close monitoring of I's and O's -Maintain low salt diet with 1500 mL fluid restriction daily. -Continued close monitoring of renal function and electrolytes. -01/02/22 vascular surgery consulted for placement of permacath for dialysis. Hypokalemia -Replaced, we will continue to monitor closely with repeat a.m. labs and replace abnormal electrolyte values as needed. Iron deficiency anemia -Patient received IV ferric sodium gluconate4 doses during hospitalization. Multivessel CAD, s/p cardiac cath this admission recommending maximizing medical therapy at this time and may readdress once medically stable. patient to continue cardiac medication regimen with aspirin, atorvastatin, carvedilol, and isosorbide mononitrate. Hypertension, monitor vital signs and continue daily medication regimen with isosorbide mononitrate and carvedilol. Amlodipine and hydralazine were discontinued to maintain systolic pressure equal to or greater than 120. Hyperlipidemia, continue daily medication regimen with aspirin and atorvastatin. CODE STATUS: full code DVT prophylaxis: heparin Discussed with: patient and RN. Had discussion with patient's daughter yesterday, attempted to call patient's daughterto update her on plans to place permacath for dialysis this morning, however patient declined and states she would like to call her and talked to her herself. Anticipated discharge date: Clinical course to determine Anticipated discharge place: halfway facility upon discharge A total of 39 minutes was spent on the care of this complex patient more than 50% of the time was spent in counseling and care coordination. I reviewed the documentation as provided by the BETTINA above, who is the original author of this note. I agree with the documented assessment and plan, with the following changes: none Objective - Vital Signs Vital signs: Vital Signs Temp 97.3 F L 01/02/22 07:58 Pulse 58 L 01/02/22 07:58 Resp 16 01/02/22 07:58 BP 119/61 01/02/22 07:58 Pulse Ox 95 01/02/22 07:58 FiO2 50 12/22/21 08:07 Intake & Output 01/01/22 01/02/22 01/02/22 18:59 06:59 18:59 Intake Total 980 335.167 Output Total 600 900 Balance 380 -900 335.167 Weight 97.8 kg Intake: Intake, IV Titration 200 95.167 Amount Furosemide 100 mg In 200 95.167 Sodium Chloride 0.9% 90 ml @ 10 MG/HR 10 mls/hr IV .Q10H [facility] Rx#: [id number] Oral 780 240 Output: Urine 600 900 Other: Voiding Method Bedside Commode Bedside Commode Bedside Commode Diaper Diaper Diaper # Voids 2 - Labs CBC & Chem 7: 01/02/22 08:25 01/02/22 08:25 Labs: Abnormal Lab Results - Last 24 Hours (Table) 01/01/22 01/01/22 01/01/22 Range/Units 08:19 12:16 16:55 WBC (3.8-10.6) k/uL RBC (3.80-5.40) m/uL Hgb (11.4-16.0) gm/dL Hct (34.0-46.0) % MCV (80.0-100.0) fL MCHC (31.0-37.0) g/dL RDW (11.5-15.5) % Potassium 3.2 L (3.5-5.1) mmol/L Chloride 95 L (98-107) mmol/L BUN 108 H* (7-17) mg/dL Creatinine 2.60 H (0.52-1.04) mg/dL Glucose 161 H (74-99) mg/dL POC Glucose (mg/dL) 207 H 165 H (70-110) mg/dL 01/01/22 01/02/22 01/02/22 Range/Units 20:23 07:19 08:25 WBC 14.2 H (3.8-10.6) k/uL RBC 2.64 L (3.80-5.40) m/uL Hgb 8.3 L (11.4-16.0) gm/dL Hct 27.6 L (34.0-46.0) % MCV 104.7 H (80.0-100.0) fL MCHC 30.2 L (31.0-37.0) g/dL RDW 17.1 H (11.5-15.5) % Potassium (3.5-5.1) mmol/L Chloride (98-107) mmol/L BUN (7-17) mg/dL Creatinine (0.52-1.04) mg/dL Glucose (74-99) mg/dL POC Glucose (mg/dL) 144 H 128 H (70-110) mg/dL
[2022-01-02 09:50] LABS: Albumin 3.5 g/dL (3.5-5.0); Calcium 9.4 mg/dL (8.4-10.2); Magnesium 1.9 mg/dL (1.6-2.3); Potassium 3.2 mmol/L (3.5-5.1); Total Bilirubin 1.2 mg/dL (0.2-1.3); Total Protein 6.3 g/dL (6.3-8.2)
[2022-01-02 12:07] LABS: Glucose,Whole Blood 176 mg/dL (70-110)
[2022-01-02] MEDS ORDERED: Potassium Replacement Protocol 1 EACH MISC MISCELLANE PRN (12:14)
--- NOTE | 2022-01-02 13:28 | P.PN ---
Subjective Progress Note Date: 01/02/22 Principal diagnosis: CHF/hypoxia Patient is an 81-year-old female with a history of hypertension, diabetes mellitus requiring insulin, chronic kidney disease, coronary artery disease, and chronic respiratory failure requiring 3-4 L nasal cannula who presented to the ER on 12/14/21 with complaints of shortness of breath and leg swelling. Dr. Bhatia has been monitoring her closely with plans for possible outpatient. In the ER she underwent underwent an extensive evaluation. She was hypoxic at 78% on 3 L on arrival. Chest x-ray showed pulmonary vascular congestion. Labatory analysis was significant for Hgb 9.5, Cr 1.37 with baseline 1.6, T bili of 1.6, and glucose of 200. Initial Troponin was negative. She was started on diuresis and admitted. Cardiology was consulted. Patient underwent cardiac catheterization on 12/18/21 which showed stable coronary artery disease. Medical management was recommended, no need for intervention. Over the course of her stay, the patient has been becoming more hypoxic as well as has worsening renal function. She is on 8L HFNC, and unable to be weaned. The patient has chronic kidney disease stage IV secondary to diabetic kidney disease and nephrosclerosis. She is also being followed by nephrology. Currently on Lasix drip. Patient has some improvement with aggressive diuresis. She has minimal improvement in her renal function. There has been some conversation with the patient and family about the potential need for dialysis. 01/01 The patient is resting in a recliner. Her daughter, Pamela, is at the bedside. Information provided regarding palliative care philosophies and services. Education provided regarding the patient's chronic diseases including her diastolic heart failure and acute on chronic kidney disease. The patient can not be on an BETTY or ARB for her heart failure due to her renal disease. She is being maintained on aspirin, statin, carvedilol, hydralazine, Imdur. She has not been responding to the lasix IVP and needed to be started on a continuous drip. The possibility of needing hemodialysis was discussed at length. The patient states that her goal is prolonged survival. She takes care of her wheelchair bound and disabled son. She states that she would agree to hemodialysis if she has to in order to get better. The patient realizes she is on 8L HFNC and has not tolerated it being weaned down. She is hoping dialysis may help. She understands that this may be her new baseline now, but she has to "try to get better" because he family depends on her. She was independent with he ADL's until about 2 weeks prior to admission. She is realistic in the sense that she will at least need rehab before returning home. She understands that a [facility] will typically not accept her until her O2 requirements are 6LNC or less. Code status discussed at length. She would like to stay a full code. It was explained that in the event that she coded, it is unlikely to get her back to her current health state. If she were to end up on a ventilator, it would be very difficult to get her off of it. She stated her daughter would know what to do when the time comes. She was encouraged to continue to have conversations relaying her wishes for en of life care to her family. Her and her daughter agreed to OP palliative care upon discharge. Objective - Vital Signs Vital signs: Vital Signs Temp 97.6 F 01/02/22 11:42 Pulse 58 L 01/02/22 11:42 Resp 18 01/02/22 11:42 BP 124/50 01/02/22 11:42 Pulse Ox 93 L 01/02/22 11:42 FiO2 50 12/22/21 08:07 Intake & Output 01/01/22 01/02/22 01/02/22 18:59 06:59 18:59 Intake Total 980 335.167 Output Total 600 900 300 Balance 380 -900 35.167 Weight 97.8 kg Intake: Intake, IV Titration 200 95.167 Amount Furosemide 100 mg In 200 95.167 Sodium Chloride 0.9% 90 ml @ 10 MG/HR 10 mls/hr IV .Q10H [facility] Rx#: [id number] Oral 780 240 Output: Urine 600 900 300 Other: Voiding Method Bedside Commode Bedside Commode Bedside Commode Diaper Diaper Diaper # Voids 2 - Exam General: Well developed, well nourished. No acute distress. HEENT: Head is atraumatic, normocephalic. Sclerae are clear. Pupils equal, round and reactive to light bilaterally. Mucus membranes moist. CV: Heart regular in rate and rhythm positive S1 and S2. No clicks, rubs or murmurs. Peripheral pulses equal. 2/4 Lungs: Diminished bases with fine crackles bilaterally. No wheezes rales or rhonchi. Respirations even and nonlabored. On 6L HFNC. Abdomen/GI: Soft. Bowel sounds present in all 4 quadrants.No guarding, rigidity, or abdominal tenderness. Musculoskeletal/ Extremities: STEWARD, no joint deformity or swelling. No gross atrophy. + generalized weakness Vascular: Radial pulses equal. 2/4. +1 bilateral LE edema Skin: Warm and dry, No rash or lesions. Neurologic: Awake, alert and oriented times 3. CN II-XII grossly intact. No focal deficits. Psychiatric: Appropriate mood and affect. - Labs CBC & Chem 7: 01/02/22 08:25 01/02/22 08:25 Labs: Abnormal Lab Results - Last 24 Hours (Table) 01/01/22 01/01/22 01/02/22 Range/Units 16:55 20:23 07:19 WBC (3.8-10.6) k/uL RBC (3.80-5.40) m/uL Hgb (11.4-16.0) gm/dL Hct (34.0-46.0) % MCV (80.0-100.0) fL MCHC (31.0-37.0) g/dL RDW (11.5-15.5) % Potassium (3.5-5.1) mmol/L Chloride (98-107) mmol/L Carbon Dioxide (22-30) mmol/L BUN (7-17) mg/dL Creatinine (0.52-1.04) mg/dL Glucose (74-99) mg/dL POC Glucose (mg/dL) 165 H 144 H 128 H (70-110) mg/dL 01/02/22 01/02/22 01/02/22 Range/Units 08:25 08:25 12:05 WBC 14.2 H (3.8-10.6) k/uL RBC 2.64 L (3.80-5.40) m/uL Hgb 8.3 L (11.4-16.0) gm/dL Hct 27.6 L (34.0-46.0) % MCV 104.7 H (80.0-100.0) fL MCHC 30.2 L (31.0-37.0) g/dL RDW 17.1 H (11.5-15.5) % Potassium 3.2 L (3.5-5.1) mmol/L Chloride 92 L (98-107) mmol/L Carbon Dioxide 31 H (22-30) mmol/L BUN 114 H* (7-17) mg/dL Creatinine 2.49 H (0.52-1.04) mg/dL Glucose 163 H (74-99) mg/dL POC Glucose (mg/dL) 176 H (70-110) mg/dL Assessment and Plan Assessment: Symptoms * Pain - 2-3/10 chronic shoulder pain, continue Tylenol and zyloprim * Fatigue - + generalized weakness and fatigue, continue PT/OT * SOB - + sob with exertion, continue Lasix gtt and zaroxolyn, BiPAP prn * Insomnia - No * N/V - No * Anxiety - No, continue xanax prn * Depression - No * Confusion - No * Agitation - No * Hallucinations - No * Appetite/weight loss - + decreased appetite since September. No recent weight loss. Continue heart healthy diet and fluid restrictions. * Dysphagia - No * Constipation - No, LBM 01/02 * Incontinence - Occasionally, continue Flomax for retention * Itch - No Plan: Summary/Goals - The patient is sleeping in the recliner. She states she did not sleep well last night. She stated she talked to her daughter more yesterday. They have decided to go ahead and start hemodialysis. The patient stated that the doctors have tried everything to get the fluid off with diuretics and it is not working. She wants to give hemodialysis a try to see if it will help with her breathing. The progression of her diastoloc CHF and associated symptoms reviewed with her again. She stated that she has never really been sick before. She has to be the strong one in the family, who takes care of everyone else. She is the one who tells everyone else what to do. She is worried that patricia her son and husbands disabilities, no one will be able to take care of them. Her O2 demands have gone down. The patient is currently on 6L HFNC. She plans to go to [facility] for rehab and continue dialysis. Recommendations - Discharge to [facility] with OP palliative care when stable Advanced Directives - No Code Status - Full code Thank you for this consult Kaley Gaspar [facility] Palliative Care [facility] [id number] Email: [email or web address] Time with Patient: Less than 30
--- NOTE | 2022-01-02 14:40 | P.PN ---
Subjective Patient is seen for follow-up for acute kidney injury on chronic kidney disease. She is status post cardiac catheterization this hospitalization. Patient is also significantly volume overloaded and currently maintained on Lasix drip and Zaroxolyn. Renal function had improved slightly but creatinine is slowly increasing again.. No significant complaints today Swelling is improved but persistent No chest pain or shortness of breath Serum creatinine is improved to 2.4 today. 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 Will proceed with it. Objective - Vital Signs Vital signs: Vital Signs Temp 97.6 F 01/02/22 11:42 Pulse 58 L 01/02/22 11:42 Resp 18 01/02/22 11:42 BP 124/50 01/02/22 11:42 Pulse Ox 93 L 01/02/22 11:42 FiO2 50 12/22/21 08:07 Intake & Output 01/01/22 01/02/22 01/02/22 18:59 06:59 18:59 Intake Total 980 335.167 Output Total 600 900 300 Balance 380 -900 35.167 Weight 97.8 kg Intake: Intake, IV Titration 200 95.167 Amount Furosemide 100 mg In 200 95.167 Sodium Chloride 0.9% 90 ml @ 10 MG/HR 10 mls/hr IV .Q10H [facility] Rx#: [id number] Oral 780 240 Output: Urine 600 900 300 Other: Voiding Method Bedside Commode Bedside Commode Bedside Commode Diaper Diaper Diaper # Voids 2 # Bowel Movements 1 - Exam Awake, comfortable, not in any acute distress Examination of the heart S1 and S2 Examination lungs bilateral breath sounds are heard Abdomen is soft nontender Examination lower extremities shows 2+ edema bilaterally HYDROLOGIST exam grossly intact - Labs CBC & Chem 7: 01/02/22 08:25 01/02/22 08:25 Labs: Abnormal Lab Results - Last 24 Hours (Table) 01/01/22 01/01/22 01/02/22 Range/Units 16:55 20:23 07:19 WBC (3.8-10.6) k/uL RBC (3.80-5.40) m/uL Hgb (11.4-16.0) gm/dL Hct (34.0-46.0) % MCV (80.0-100.0) fL MCHC (31.0-37.0) g/dL RDW (11.5-15.5) % Potassium (3.5-5.1) mmol/L Chloride (98-107) mmol/L Carbon Dioxide (22-30) mmol/L BUN (7-17) mg/dL Creatinine (0.52-1.04) mg/dL Glucose (74-99) mg/dL POC Glucose (mg/dL) 165 H 144 H 128 H (70-110) mg/dL 01/02/22 01/02/22 01/02/22 Range/Units 08:25 08:25 12:05 WBC 14.2 H (3.8-10.6) k/uL RBC 2.64 L (3.80-5.40) m/uL Hgb 8.3 L (11.4-16.0) gm/dL Hct 27.6 L (34.0-46.0) % MCV 104.7 H (80.0-100.0) fL MCHC 30.2 L (31.0-37.0) g/dL RDW 17.1 H (11.5-15.5) % Potassium 3.2 L (3.5-5.1) mmol/L Chloride 92 L (98-107) mmol/L Carbon Dioxide 31 H (22-30) mmol/L BUN 114 H* (7-17) mg/dL Creatinine 2.49 H (0.52-1.04) mg/dL Glucose 163 H (74-99) mg/dL POC Glucose (mg/dL) 176 H (70-110) mg/dL Assessment and Plan Assessment: 1. Acute kidney injury secondary to ATN from contrast-induced acute kidney injury as well as cardiorenal syndrome. BUN significantly elevated and volume status not much improved from yesterday. UA showed proteinuria with no evidence of paraprotein's. Ultrasound showed no evidence of hydronephrosis on the left side. Right kidney was not visualized. Proceed with EMPLOYMENT SECURITY OFFICER 2. CK D stage IV baseline creatinine around 1.6 secondary to diabetic kidney disease and nephrosclerosis 3. Acute on chronic diastolic CHF 4. Volume overload slowly improving with diuresis 5. Coronary artery disease status post cardiac catheterization this admission 6. Type 2 diabetes 7. 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 Hypertension with CK D stage IV Plan: Proceed with EMPLOYMENT SECURITY OFFICER Consult vasc surgery for permcath placement. First treatment possibly today.
[2022-01-02 16:42] LABS: Glucose,Whole Blood 111 mg/dL (70-110)
[2022-01-02] MEDS ORDERED: LIDOCAINE 1% INJ 10MG/ML (30 ML VIAL-PF) SQ ONE (18:02)
[2022-01-02] MEDS ORDERED: fentaNYL (PF) 50 MCG/ML 2 ML AMP IV ONE (18:02)
[2022-01-02] MEDS ORDERED: MIDAZOLAM 2 MG/2 ML VIAL IV ONE (18:02)
[2022-01-02 18:46] LABS: Hepatitis B Surface AB- Quant 3.5 mIU/mL; Hepatitis B Surface Antibody Nonreactive (Nonreactive)
[2022-01-02 18:49] LABS: Hepatitis B Surface Antigen Nonreactive (Nonreactive)
--- NOTE | 2022-01-02 20:18 | XR ---
EXAM: XR Chest, 1 View CLINICAL HISTORY: ITS.REASON XR Reason: R/o pneumothorax after hemodialysis catheter insertion. TECHNIQUE: Frontal view of the chest. COMPARISON: None FINDINGS: Hardware: Right dual-lumen intravenous catheter terminates in the region of the SVC. Lungs/pleura: Prominence of lung markings. Bilateral pleural effusions. Associated atelectasis versus pneumonia. No definite pneumothorax. Heart/mediastinum: Mild enlargement of the cardiac silhouette. Atherosclerotic calcifications in the aorta. Soft tissues: Unremarkable. Bones: No acute fracture. Degenerative changes of the spine. Upper abdomen: Normal. IMPRESSION: 1. Right dual-lumen intravenous catheter terminates in the region of the SVC. 2. Prominent lung markings likely represent pulmonary vasculature congestion. 3. Bilateral pleural effusions. Associated atelectasis versus pneumonia. 4. No definite pneumothorax.
[2022-01-02 20:31] LABS: Glucose,Whole Blood 73 mg/dL (70-110)
[2022-01-02] MEDS: POTASSIUM CHLORIDE ER 20 MEQ TAB.ER PO SCH ×2 (20:58→22:07)
[2022-01-02] MEDS: ATORVASTATIN 40 MG TAB PO SCH (20:58)
[2022-01-02] MEDS: allopurinoL 100 MG TAB PO SCH (20:58)
--- NOTE | 2022-01-03 02:08 | OP ---
OPERATIVE REPORT PREOPERATIVE DIAGNOSIS: Acute chronic renal failure. POSTOPERATIVE DIAGNOSIS: Acute chronic renal failure. PROCEDURE PERFORMED: Ultrasound-guided 19 cm dialysis catheter jugular approach. SEDATION TIME: 25 minutes. DESCRIPTION OF PROCEDURE: The patient was brought to the lab nurse. Right side of the neck and chest was prepped, sterile manner. 1% lidocaine was infiltrated neck and chest area. Ultrasound-guided micropuncture introduced into the right jugular vein. Micropuncture guidewire was passed, and 4-Iranian dilator was advanced on the top of the guidewire. After that, we passed a regular guidewire, which was parked at the inferior vena cava. was created. Through the tunnel, we brought 19 cm dialysis catheter. Dilator was advanced on top of the guidewire. Then, sheath was advanced on top of the guidewire. Through the sheath, we introduced the dialysis catheter. Tip of the catheter sheath was removed, secured with 3-0 nylon. Dressing applied. The patient tolerated the procedure well. MMODL / IJN: [id number] /
--- NOTE | 2022-01-03 02:43 | CONS ---
CONSULTATION HISTORY OF PRESENT ILLNESS: This is an 81-year-old white female I was consulted for placement of a dialysis catheter. The patient has acute kidney injury. Her creatinine is 2.4, BUN is 114. The patient is volume overload and scheduled to have a dialysis catheter. MEDICAL HISTORY: History of acute chronic renal failure. The patient also has a history of acute chronic diastolic congestive heart failure, coronary artery disease, status post cardiac catheterization. New history of hypertension with chronic kidney disease. PLAN: Placement of the dialysis catheter. Risks and complications discussed. MMODL / IJN: [id number] /
[2022-01-03] MEDS: FUROSEMIDE 100 MG in SODIUM CHLORIDE 0.9% 90 ML IV SCH (04:01)
[2022-01-03] MEDS: ACETAMINOPHEN TAB 325 MG TAB PO PRN ×2 (04:09→20:37)
--- NOTE | 2022-01-03 05:49 | PN ---
PROGRESS NOTE SUBJECTIVE: The patient is seen for followup for acute kidney injury on top of chronic kidney disease. The patient is comfortable, awake. She is not in any acute distress. The patient is maintained on Lasix drip along with Zaroxolyn. Her urine output documented for 24 hours was about 1250 mL. Overall, the patient states that she is feeling slightly more short of breath today. PHYSICAL EXAMINATION: VITAL SIGNS: On examination today, blood pressure is 136/69, heart rate of 58 per minute. The patient is afebrile. HEART: S1 and S2. LUNGS: Decreased breath sounds at the bases. ABDOMEN: Soft, nontender, obese. EXTREMITIES: Lower extremities shows edema 3 to 4+ bilaterally. STAFF MINE WARFARE OFFICER: Grossly intact. LABORATORY DATA: Show sodium of 138, potassium 3.2, BUN 108, serum creatinine 2.6, hemoglobin 8.5 g/dL. ASSESSMENT: 1. Acute kidney injury on top of chronic kidney disease, mostly cardiorenal with significant volume overload. The patient has been talked to regarding renal replacement therapy and I will wait 1 more day in terms of her volume status. I have also discussed with the patient's family regarding renal replacement therapy. At this time, the patient is agreeable, although she is hopeful that she may not need it. 2. Chronic kidney disease, NKF, stage IV. Baseline creatinine 1.6. Etiology, diabetic kidney disease and nephrosclerosis. 3. Coronary artery disease, status post cardiac catheterization this admission. 4. Chronic kidney disease/mineral bone disorder, maintained on calcitriol. PLAN: Continue with Zaroxolyn and Lasix drip for now. Repeat labs in a.m. and we will decide tomorrow regarding renal replacement therapy based on volume status and diuresis and the labs. At this time, the patient and her family are agreeable to dialysis if needed. MMODL / IJN: [id number] /
[2022-01-03 07:07] LABS: Glucose,Whole Blood 107 mg/dL (70-110)
[2022-01-03] MEDS: INSULIN DETEMIR (LEVEMIR) 100 UNIT/ML SYR SQ SCH (07:07)
[2022-01-03] MEDS: INSULIN ASPART (NovoLOG) 100 UNIT/ML VIAL SQ SCH ×7 (07:07→20:37)
[2022-01-03] MEDS: carvediloL 6.25 MG TAB PO SCH ×2 (07:07→14:27)
[2022-01-03] MEDS: HEPARIN SODIUM,PORCINE/PF 5,000 UNIT/0.5 ML SYRINGE SQ SCH ×3 (09:06→20:35)
[2022-01-03] MEDS: CARBAMIDE PEROXIDE 6.5% DROPS 15 ML BTL BOTH EARS SCH ×2 (09:07→20:19)
--- NOTE | 2022-01-03 10:27 | P.PN ---
Subjective Progress Note Date: 01/03/22 Principal diagnosis: CHF/hypoxia Patient is an 81-year-old female with a history of hypertension, diabetes mellitus requiring insulin, chronic kidney disease, coronary artery disease, and chronic respiratory failure requiring 3-4 L nasal cannula who presented to the ER on 12/14/21 with complaints of shortness of breath and leg swelling. Dr. Bhatia has been monitoring her closely with plans for possible outpatient. In the ER she underwent underwent an extensive evaluation. She was hypoxic at 78% on 3 L on arrival. Chest x-ray showed pulmonary vascular congestion. Labatory analysis was significant for Hgb 9.5, Cr 1.37 with baseline 1.6, T bili of 1.6, and glucose of 200. Initial Troponin was negative. She was started on diuresis and admitted. Cardiology was consulted. Patient underwent cardiac catheterization on 12/18/21 which showed stable coronary artery disease. Medical management was recommended, no need for intervention. Over the course of her stay, the patient has been becoming more hypoxic as well as has worsening renal function. She is on 8L HFNC, and unable to be weaned. The patient has chronic kidney disease stage IV secondary to diabetic kidney disease and nephrosclerosis. She is also being followed by nephrology. Currently on Lasix drip. Patient has some improvement with aggressive diuresis. She has minimal improvement in her renal function. There has been some conversation with the patient and family about the potential need for dialysis. 01/01 The patient is resting in a recliner. Her daughter, Pamela, is at the bedside. Information provided regarding palliative care philosophies and services. Education provided regarding the patient's chronic diseases including her diastolic heart failure and acute on chronic kidney disease. The patient can not be on an BETTY or ARB for her heart failure due to her renal disease. She is being maintained on aspirin, statin, carvedilol, hydralazine, Imdur. She has not been responding to the lasix IVP and needed to be started on a continuous drip. The possibility of needing hemodialysis was discussed at length. The patient states that her goal is prolonged survival. She takes care of her wheelchair bound and disabled son. She states that she would agree to hemodialysis if she has to in order to get better. The patient realizes she is on 8L HFNC and has not tolerated it being weaned down. She is hoping dialysis may help. She understands that this may be her new baseline now, but she has to "try to get better" because he family depends on her. She was independent with he ADL's until about 2 weeks prior to admission. She is realistic in the sense that she will at least need rehab before returning home. She understands that a [facility] will typically not accept her until her O2 requirements are 6LNC or less. Code status discussed at length. She would like to stay a full code. It was explained that in the event that she coded, it is unlikely to get her back to her current health state. If she were to end up on a ventilator, it would be very difficult to get her off of it. She stated her daughter would know what to do when the time comes. She was encouraged to continue to have conversations relaying her wishes for en of life care to her family. Her and her daughter agreed to OP palliative care upon discharge. 01/02 The patient is sleeping in the recliner. She states she did not sleep well last night. She stated she talked to her daughter more yesterday. They have decided to go ahead and start hemodialysis. The patient stated that the doctors have tried everything to get the fluid off with diuretics and it is not working. She wants to give hemodialysis a try to see if it will help with her breathing. The progression of her diastoloc CHF and associated symptoms reviewed with her again. She stated that she has never really been sick before. She has to be the strong one in the family, who takes care of everyone else. She is the one who tells everyone else what to do. She is worried with her son and husbands disabilities, no one will be able to take care of them. Her O2 demands have gone down. The patient is currently on 6L HFNC. She plans to go to [facility] for rehab and continue dialysis. Objective - Vital Signs Vital signs: Vital Signs Temp 96.9 F L 01/03/22 04:00 Pulse 57 L 01/03/22 04:00 Resp 20 01/03/22 04:00 BP 144/64 01/03/22 04:00 Pulse Ox 97 01/03/22 04:00 FiO2 50 12/22/21 08:07 Intake & Output 01/02/22 01/03/22 01/03/22 18:59 06:59 18:59 Intake Total 435.167 89 Output Total 750 Balance -314.833 89 Weight 123.5 kg Intake: Intake, IV Titration 195.167 89 Amount Furosemide 100 mg In 195.167 89 Sodium Chloride 0.9% 90 ml @ 10 MG/HR 10 mls/hr IV .Q10H [facility] Rx#: [id number] Oral 240 Output: Urine 750 Other: Voiding Method Bedside Commode External Catheter Diaper # Bowel Movements 1 - Exam General: Well developed, well nourished. No acute distress. HEENT: Head is atraumatic, normocephalic. Sclerae are clear. Pupils equal, round and reactive to light bilaterally. Mucus membranes moist. CV: Heart regular in rate and rhythm positive S1 and S2. No clicks, rubs or murmurs. Peripheral pulses equal. 2/4 Lungs: Diminished bases with fine crackles bilaterally. No wheezes rales or rhonchi. Respirations even and nonlabored. On NRB Abdomen/GI: Soft. Bowel sounds present in all 4 quadrants.No guarding, rigidity, or abdominal tenderness. Musculoskeletal/ Extremities: STEWARD, no joint deformity or swelling. No gross atrophy. + generalized weakness Vascular: Radial pulses equal. 2/4. +2 bilateral LE edema Skin: Warm and dry, No rash or lesions. Neurologic: Awake, alert and oriented times 3. CN II-XII grossly intact. No focal deficits. Psychiatric: Appropriate mood and affect. - Labs CBC & Chem 7: 01/02/22 08:25 01/02/22 08:25 Labs: Abnormal Lab Results - Last 24 Hours (Table) 01/02/22 01/02/22 01/02/22 Range/Units 08:25 12:05 16:40 Potassium 3.2 L (3.5-5.1) mmol/L Chloride 92 L (98-107) mmol/L Carbon Dioxide 31 H (22-30) mmol/L BUN 114 H* (7-17) mg/dL Creatinine 2.49 H (0.52-1.04) mg/dL Glucose 163 H (74-99) mg/dL POC Glucose (mg/dL) 176 H 111 H (70-110) mg/dL Assessment and Plan Assessment: Symptoms * Pain - 2-3/10 neck soreness from permacath placement, continue Tylenol and zyloprim * Fatigue - + generalized weakness and fatigue, continue PT/OT * SOB - + sob with exertion, continue Lasix gtt and zaroxolyn, BiPAP prn * Insomnia - No * N/V - No * Anxiety - No, continue xanax prn * Depression - No * Confusion - No * Agitation - No * Hallucinations - No * Appetite/weight loss - + decreased appetite since September. No recent weight loss. Continue heart healthy diet and fluid restrictions. * Dysphagia - No * Constipation - No, LBM 01/02 * Incontinence - Occasionally, continue Flomax for retention * Itch - No Plan: Summary/Goals - Patient resting in bed and appears comfortable. Her daughter is at the bedside and has stayed overnight. The patient is on a NRB mask. She stated her oxygen level went down while she was eating breakfast. She is having some nasal congestion and has trouble breathing through her nose. She stated that she is normally a mouth breather and is more comfortable with the mask. The patient's RN states she only had the NRB available at that time and will get her a ventimask instead. The patient had a permacath placed yesterday. She is to start HD today. She has a positive attitude today and said "I can do this!" Recommendations - Discharge to [facility] with OP palliative care when stable Advanced Directives - No Code Status - Full code Thank you for this consult Kaley Gaspar [facility] [id number] Email: [email or web address] Time with Patient: Less than 30
--- NOTE | 2022-01-03 10:42 | P.PN ---
Subjective Patient is seen for follow-up for acute kidney injury on chronic kidney disease. She is status post cardiac catheterization this hospitalization. Patient is also significantly volume overloaded and currently maintained on Lasix drip and Zaroxolyn. Renal function had improved slightly but creatinine is slowly increasing again.. In view of persistent hypervolemia with progressive increase in BUN patient will be started on renal replacement therapy. She is agreeable and is status post placement of right IJ permacath on 01/02/2022 Patient is scheduled for her first treatment today. This morning patient is on nonrebreather as her O2 sats were in the 80s. Objective - Vital Signs Vital signs: Vital Signs Temp 97.4 F L 01/03/22 08:00 Pulse 57 L 01/03/22 08:00 Resp 21 01/03/22 08:00 BP 112/63 01/03/22 08:00 Pulse Ox 96 01/03/22 08:00 FiO2 50 12/22/21 08:07 Intake & Output 01/02/22 01/03/22 01/03/22 18:59 06:59 18:59 Intake Total 435.167 89 Output Total 750 Balance -314.833 89 Weight 123.5 kg Intake: Intake, IV Titration 195.167 89 Amount Furosemide 100 mg In 195.167 89 Sodium Chloride 0.9% 90 ml @ 10 MG/HR 10 mls/hr IV .Q10H [facility] Rx#: [id number] Oral 240 Output: Urine 750 Other: Voiding Method Bedside Commode External Catheter Diaper # Bowel Movements 1 - Exam Awake, comfortable, not in any acute distress Examination of the heart S1 and S2 Examination lungs bilateral breath sounds are heard Abdomen is soft nontender Examination lower extremities shows 2+ edema bilaterally ACCESSIONER exam grossly intact - Labs CBC & Chem 7: 01/02/22 08:25 01/02/22 08:25 Labs: Abnormal Lab Results - Last 24 Hours (Table) 01/02/22 01/02/22 Range/Units 12:05 16:40 POC Glucose (mg/dL) 176 H 111 H (70-110) mg/dL Assessment and Plan Assessment: 1. Acute kidney injury secondary to ATN from contrast-induced acute kidney injury as well as cardiorenal syndrome. BUN significantly elevated and volume status not much improved. Patient will be started on renal replacement therapy. UA showed proteinuria with no evidence of paraprotein's. Ultrasound showed no evidence of hydronephrosis on the left side. Right kidney was not visualized. Proceed with AXLE INSPECTOR 2. CK D stage IV baseline creatinine around 1.6 secondary to diabetic kidney disease and nephrosclerosis 3. Acute on chronic diastolic CHF 4. Volume overload slowly improving with diuresis 5. Coronary artery disease status post cardiac catheterization this admission 6. Type 2 diabetes 7. 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 Hypertension with CK D stage IV Plan: First treatment of hemodialysis today and repeat again in a.m. DC Lasix drip and switch to IV push Lasix Continue Zaroxolyn Discharge planning for outpatient chair time We will continue to monitor for recovery of renal function as outpatient
[2022-01-03 11:16] VITALS: BMI 49.8
[2022-01-03 11:44] LABS: Anisocytosis Slight; HCT 25.8 % (34.0-46.0); HGB 7.9 gm/dL (11.4-16.0); Hypochromasia Marked; MCH 32.3 pg (25.0-35.0); MCHC 30.8 g/dL (31.0-37.0); Macrocytosis Moderate; Mean Platelet Volume 8.6; Platelet Count 200 k/uL (150-450); RBC 2.46 m/uL (3.80-5.40); RDW 16.7 % (11.5-15.5)
[2022-01-03 12:01] LABS: Glucose,Whole Blood 152 mg/dL (70-110)
[2022-01-03 12:10] LABS: Albumin 3.1 g/dL (3.5-5.0); Calcium 9.1 mg/dL (8.4-10.2); Magnesium 1.9 mg/dL (1.6-2.3); Potassium 3.7 mmol/L (3.5-5.1); Total Protein 5.5 g/dL (6.3-8.2)
--- NOTE | 2022-01-03 12:18 | P.PN ---
Subjective Progress Note Date: 01/03/22 Hospital course: Patient is a very pleasant 81-year-old female with a past medical history diastolic heart failure, hypertension, hyperlipidemia, and CAD. She presented to the emergency department on 12/14/21 with a chief complaint of chest pain and shortness of breath. EKG was completed revealing normal sinus rhythm at 74 bpm with T-wave inversion in anterolateral leads I, II, and V3 through V6. initial labs revealed hemoglobin of 9.5, BUN of 54, creatinine 1.37, and GFR of 36. Troponin was negative at less than 0.012 and proBNP was 1770.chest x-ray was consistent with CHF with bilateral pleural effusions. Patient was started on IV diuresis and admitted under our services with consultation to cardiology. She underwent a cardiac cath on 12/18/21 which revealed calcified coronary arteries with moderate distal left main disease, mild disease in the proximal LAD, mild to moderate disease in the RCA, and significant disease in the ostium of the left circumflex with no progression compared to 2017. Cardiology recommended maximizing medical therapy at this time. Renal function persistently worsened daily and on 12/23/21 nephrology was consulted and started pt on Lasix infusion as acute kidney injury was believed to be secondary to cardiorenal syndrome and contrast-induced acute kidney injury. Patient remains on Lasix infusion and continues to suffer from fluid volume overload.. Vascular surgery was consulted this and permacath was placed 01/02/22 and patient scheduled to begin dialysis. Physical exam: Patient was seen and fully evaluated at bedside this morning. She was resting comfortably in bed. Oxygen needs have significantly increased and patient currently on nonrebreather at 15 L O2 via nasal cannula. Patient's daughter visiting at bedside. Awaiting morning labs to result. Discussed with nephrology, patient likely to begin dialysis today pending morning lab results and she continues to be significantly fluid overloaded. Patient remains on Lasix infusion and metolazone with documented urinary output over the past 24 hours only 750 mL's Vital signs reviewed and stable. General: Nontoxic, no distress and appears stated age. Derm: Skin warm and dry, normal coloration for ethnicity. Head: Atraumatic, normocephalic and symmetric. Eyes: EOMs intact, no lid lag, and anicteric sclera Mouth: no lip lesions, mucus membranes moist Cardiovascular: regular rate and rhythm with normal S1S2, systolic murmur, positive posterior tibial pulses bilaterally, and cap refill < 2 seconds. Lungs: Respirations even, regular, and unlabored on 15 L O2 via nonrebreather. Lungs diminished with soft expiratory wheezes and bibasilar crackles. Abdominal: soft, nontender to palpation, no guarding, no appreciable organomegaly Ext: ROM intact. No gross muscle atrophy, no contractures, 3+ pitting bilateral lower extremity edema. Neuro: Speech clear, face symmetrical and CN II-XII grossly intact with no noted focal neuro deficits Psych: Alert and oriented to person, place, time, and situation. Appropriate and pleasant affect. Assessment and Plan of Care: Acute on chronic diastolic heart failure with a preserved EF of 55-60% Acute on chronic hypoxic respiratory failure secondary to above Acute kidney injury on chronic kidney disease, secondary to cardiorenal syndrome -Cardiology and nephrology following. -Continue metolazone and lasix infusion managed by nephrology. -Amlodipine and hydralazine were discontinued to maintain systolic pressure > 120. -Continue Telemetry monitoring -Daily weights -Close monitoring of I's and O's -Maintain low salt diet with 1500 mL fluid restriction daily. -Continued close monitoring of renal function and electrolytes. -01/02/22 vascular surgery placed permacath for dialysis. Hypokalemia -Replaced, we will continue to monitor closely with repeat a.m. labs and replace abnormal electrolyte values as needed. Iron deficiency anemia -Patient received IV ferric sodium gluconate4 doses during hospitalization. Multivessel CAD, s/p cardiac cath this admission recommending maximizing medical therapy at this time and may readdress once medically stable. patient to continue cardiac medication regimen with aspirin, atorvastatin, carvedilol, and isosorbide mononitrate. Hypertension, monitor vital signs and continue daily medication regimen with isosorbide mononitrate and carvedilol. Amlodipine and hydralazine were discontinued to maintain systolic pressure equal to or greater than 120. Hyperlipidemia, continue daily medication regimen with aspirin and atorvastatin. CODE STATUS: full code DVT prophylaxis: heparin Discussed with: patient, patient's daughter, carrot buncher and RN. Anticipated discharge date: Clinical course to determine Anticipated discharge place: half-way facility upon discharge A total of 37 minutes was spent on the care of this complex patient more than 50% of the time was spent in counseling and care coordination. I reviewed the documentation as provided by the BETTINA above, who is the original author of this note. I agree with the documented assessment and plan, with the following changes: none Objective - Vital Signs Vital signs: Vital Signs Temp 96.9 F L 01/03/22 04:00 Pulse 57 L 01/03/22 04:00 Resp 20 01/03/22 04:00 BP 144/64 01/03/22 04:00 Pulse Ox 97 01/03/22 04:00 FiO2 50 12/22/21 08:07 Intake & Output 01/02/22 01/03/22 01/03/22 18:59 06:59 18:59 Intake Total 435.167 89 Output Total 750 Balance -314.833 89 Weight 123.5 kg Intake: Intake, IV Titration 195.167 89 Amount Furosemide 100 mg In 195.167 89 Sodium Chloride 0.9% 90 ml @ 10 MG/HR 10 mls/hr IV .Q10H [facility] Rx#: [id number] Oral 240 Output: Urine 750 Other: Voiding Method Bedside Commode External Catheter Diaper # Bowel Movements 1 - Labs CBC & Chem 7: 01/03/22 10:45 01/03/22 10:45 Labs: Abnormal Lab Results - Last 24 Hours (Table) 01/02/22 01/02/22 01/02/22 Range/Units 08:25 08:25 12:05 WBC 14.2 H (3.8-10.6) k/uL RBC 2.64 L (3.80-5.40) m/uL Hgb 8.3 L (11.4-16.0) gm/dL Hct 27.6 L (34.0-46.0) % MCV 104.7 H (80.0-100.0) fL MCHC 30.2 L (31.0-37.0) g/dL RDW 17.1 H (11.5-15.5) % Potassium 3.2 L (3.5-5.1) mmol/L Chloride 92 L (98-107) mmol/L Carbon Dioxide 31 H (22-30) mmol/L BUN 114 H* (7-17) mg/dL Creatinine 2.49 H (0.52-1.04) mg/dL Glucose 163 H (74-99) mg/dL POC Glucose (mg/dL) 176 H (70-110) mg/dL 01/02/22 Range/Units 16:40 WBC (3.8-10.6) k/uL RBC (3.80-5.40) m/uL Hgb (11.4-16.0) gm/dL Hct (34.0-46.0) % MCV (80.0-100.0) fL MCHC (31.0-37.0) g/dL RDW (11.5-15.5) % Potassium (3.5-5.1) mmol/L Chloride (98-107) mmol/L Carbon Dioxide (22-30) mmol/L BUN (7-17) mg/dL Creatinine (0.52-1.04) mg/dL Glucose (74-99) mg/dL POC Glucose (mg/dL) 111 H (70-110) mg/dL
[2022-01-03] MEDS: FAMOTIDINE 20 MG TAB PO SCH (14:22)
[2022-01-03] MEDS: ASPIRIN 81 MG PO SCH (14:22)
[2022-01-03] MEDS: TAMSULOSIN 0.4 MG CAP.ER.24H PO SCH (14:22)
[2022-01-03] MEDS: metOLazone 5 MG TAB PO SCH (14:22)
[2022-01-03] MEDS: ISOSORBIDE MONONITRATE ER 30 MG TAB.ER.24H PO SCH (14:22)
--- NOTE | 2022-01-03 14:27 | IR ---
EXAMINATION TYPE: IR cvc insert central tunneled DATE OF EXAM: 01/02/2022 CLINICAL HISTORY: Failed dialysis. TECHNIQUE: Fluoroscopy. COMPARISON: None. FINDINGS: Fluoroscopic guidance was provided during right internal jugular dialysis catheter inserti on procedure performed by Dr. Cartagena. A total of 30 seconds of fluoroscopic time was utilized durin g the procedure and 54 spot images was acquired. Intraoperative Images acquired show large bore right internal jugular dialysis catheter terminating at level of SVC. IMPRESSION: As Above.
[2022-01-03 16:57] LABS: Glucose,Whole Blood 244 mg/dL (70-110)
[2022-01-03] MEDS: ATORVASTATIN 40 MG TAB PO SCH (20:19)
[2022-01-03] MEDS: allopurinoL 100 MG TAB PO SCH (20:19)
[2022-01-03] MEDS: FUROSEMIDE 10 MG/ML 10 ML VIAL IV SCH (20:19)
[2022-01-03 20:24] LABS: Glucose,Whole Blood 189 mg/dL (70-110)
[2022-01-04] MEDS: carvediloL 6.25 MG TAB PO SCH ×2 (06:14→19:19)
[2022-01-04 06:18] LABS: Glucose,Whole Blood 114 mg/dL (70-110)
[2022-01-04] MEDS: INSULIN ASPART (NovoLOG) 100 UNIT/ML VIAL SQ SCH ×7 (06:28→21:20)
[2022-01-04] MEDS: INSULIN DETEMIR (LEVEMIR) 100 UNIT/ML SYR SQ SCH (06:48)
[2022-01-04 07:09] LABS: Glucose,Whole Blood 122 mg/dL (70-110)
[2022-01-04] MEDS: HEPARIN SODIUM,PORCINE/PF 5,000 UNIT/0.5 ML SYRINGE SQ SCH ×2 (08:52→16:29)
[2022-01-04] MEDS: FAMOTIDINE 20 MG TAB PO SCH (08:52)
[2022-01-04] MEDS: TAMSULOSIN 0.4 MG CAP.ER.24H PO SCH (08:52)
[2022-01-04] MEDS: ISOSORBIDE MONONITRATE ER 30 MG TAB.ER.24H PO SCH (08:52)
[2022-01-04] MEDS: ACETAMINOPHEN TAB 325 MG TAB PO PRN ×3 (08:52→21:38)
[2022-01-04] MEDS: FUROSEMIDE 10 MG/ML 10 ML VIAL IV SCH ×2 (08:53→21:20)
[2022-01-04] MEDS: ASPIRIN 81 MG PO SCH (08:54)
[2022-01-04] MEDS: CARBAMIDE PEROXIDE 6.5% DROPS 15 ML BTL BOTH EARS SCH ×2 (08:54→21:21)
[2022-01-04] MEDS: metOLazone 5 MG TAB PO SCH (08:54)
--- NOTE | 2022-01-04 10:18 | P.PN ---
Subjective Progress Note Date: 01/04/22 Principal diagnosis: CHF/hypoxia Patient is an 81-year-old female with a history of hypertension, diabetes mellitus requiring insulin, chronic kidney disease, coronary artery disease, and chronic respiratory failure requiring 3-4 L nasal cannula who presented to the ER on 12/14/21 with complaints of shortness of breath and leg swelling. Dr. Bhatia has been monitoring her closely with plans for possible outpatient. In the ER she underwent underwent an extensive evaluation. She was hypoxic at 78% on 3 L on arrival. Chest x-ray showed pulmonary vascular congestion. Labatory analysis was significant for Hgb 9.5, Cr 1.37 with baseline 1.6, T bili of 1.6, and glucose of 200. Initial Troponin was negative. She was started on diuresis and admitted. Cardiology was consulted. Patient underwent cardiac catheterization on 12/18/21 which showed stable coronary artery disease. Medical management was recommended, no need for intervention. Over the course of her stay, the patient has been becoming more hypoxic as well as has worsening renal function. She is on 8L HFNC, and unable to be weaned. The patient has chronic kidney disease stage IV secondary to diabetic kidney disease and nephrosclerosis. She is also being followed by nephrology. Currently on Lasix drip. Patient has some improvement with aggressive diuresis. She has minimal improvement in her renal function. There has been some conversation with the patient and family about the potential need for dialysis. 01/01 The patient is resting in a recliner. Her daughter, Pamela, is at the bedside. Information provided regarding palliative care philosophies and services. Education provided regarding the patient's chronic diseases including her diastolic heart failure and acute on chronic kidney disease. The patient can not be on an BETTY or ARB for her heart failure due to her renal disease. She is being maintained on aspirin, statin, carvedilol, hydralazine, Imdur. She has not been responding to the lasix IVP and needed to be started on a continuous drip. The possibility of needing hemodialysis was discussed at length. The patient states that her goal is prolonged survival. She takes care of her wheelchair bound and disabled son. She states that she would agree to hemodialysis if she has to in order to get better. The patient realizes she is on 8L HFNC and has not tolerated it being weaned down. She is hoping dialysis may help. She understands that this may be her new baseline now, but she has to "try to get better" because he family depends on her. She was independent with he ADL's until about 2 weeks prior to admission. She is realistic in the sense that she will at least need rehab before returning home. She understands that a [facility] will typically not accept her until her O2 requirements are 6LNC or less. Code status discussed at length. She would like to stay a full code. It was explained that in the event that she coded, it is unlikely to get her back to her current health state. If she were to end up on a ventilator, it would be very difficult to get her off of it. She stated her daughter would know what to do when the time comes. She was encouraged to continue to have conversations relaying her wishes for en of life care to her family. Her and her daughter agreed to OP palliative care upon discharge. 01/02 The patient is sleeping in the recliner. She states she did not sleep well last night. She stated she talked to her daughter more yesterday. They have decided to go ahead and start hemodialysis. The patient stated that the doctors have tried everything to get the fluid off with diuretics and it is not working. She wants to give hemodialysis a try to see if it will help with her breathing. The progression of her diastoloc CHF and associated symptoms reviewed with her again. She stated that she has never really been sick before. She has to be the strong one in the family, who takes care of everyone else. She is the one who tells everyone else what to do. She is worried with her son and husbands disabilities, no one will be able to take care of them. Her O2 demands have gone down. The patient is currently on 6L HFNC. She plans to go to [facility] for rehab and continue dialysis. 01/03 Patient resting in bed and appears comfortable. Her daughter is at the bedside and has stayed overnight. The patient is on a NRB mask. She stated her oxygen level went down while she was eating breakfast. She is having some nasal congestion and has trouble breathing through her nose. She stated that she is normally a mouth breather and is more comfortable with the mask. The patient's RN states she only had the NRB available at that time and will get her a ventimask instead. The patient had a permacath placed yesterday. She is to start HD today. She has a positive attitude today and said "I can do this!" Objective - Vital Signs Vital signs: Vital Signs Temp 97.8 F 01/04/22 08:50 Pulse 55 L 01/04/22 08:50 Resp 20 01/04/22 08:50 BP 125/45 01/04/22 08:50 Pulse Ox 91 L 01/04/22 08:50 FiO2 50 12/22/21 08:07 Intake & Output 01/03/22 01/04/22 01/04/22 18:59 06:59 18:59 Intake Total 300 180 Output Total 2300 800 Balance -2000 -800 180 Weight 123.5 kg 92.9 kg Intake: Oral 180 Hemodialysis 300 Output: Urine 800 800 Hemodialysis 1500 Other: Voiding Method External Catheter External Catheter External Catheter - Exam General: Well developed, well nourished. No acute distress. HEENT: Head is atraumatic, normocephalic. Sclerae are clear. Pupils equal, round and reactive to light bilaterally. Mucus membranes moist. Right IJ permacath in place. CV: Heart regular in rate and rhythm positive S1 and S2. No clicks, rubs or murmurs. Peripheral pulses equal. 2/4 Lungs: Diminished bases with fine crackles bilaterally. No wheezes rales or rhonchi. Tachypneic. On 7L HFNC Abdomen/GI: Soft. Bowel sounds present in all 4 quadrants.No guarding, rigidity, or abdominal tenderness. Musculoskeletal/ Extremities: STEWARD, no joint deformity or swelling. No gross atrophy. + generalized weakness Vascular: Radial pulses equal. 2/4. +2 bilateral LE edema Skin: Warm and dry, No rash or lesions. Neurologic: Awake, alert and oriented times 3. CN II-XII grossly intact. No focal deficits. Psychiatric: Appropriate mood and affect. - Labs CBC & Chem 7: 01/03/22 10:45 01/03/22 10:45 Labs: Abnormal Lab Results - Last 24 Hours (Table) 01/03/22 01/03/22 01/03/22 Range/Units 10:45 10:45 11:49 WBC 11.0 H (3.8-10.6) k/uL RBC 2.46 L (3.80-5.40) m/uL Hgb 7.9 L (11.4-16.0) gm/dL Hct 25.8 L (34.0-46.0) % MCV 105.0 H (80.0-100.0) fL MCHC 30.8 L (31.0-37.0) g/dL RDW 16.7 H (11.5-15.5) % Chloride 92 L (98-107) mmol/L Carbon Dioxide 35 H (22-30) mmol/L BUN 110 H* (7-17) mg/dL Creatinine 2.34 H (0.52-1.04) mg/dL Glucose 158 H (74-99) mg/dL POC Glucose (mg/dL) 152 H (70-110) mg/dL Total Protein 5.5 L (6.3-8.2) g/dL Albumin 3.1 L (3.5-5.0) g/dL 01/03/22 01/03/22 01/04/22 Range/Units 16:56 20:23 06:17 WBC (3.8-10.6) k/uL RBC (3.80-5.40) m/uL Hgb (11.4-16.0) gm/dL Hct (34.0-46.0) % MCV (80.0-100.0) fL MCHC (31.0-37.0) g/dL RDW (11.5-15.5) % Chloride (98-107) mmol/L Carbon Dioxide (22-30) mmol/L BUN (7-17) mg/dL Creatinine (0.52-1.04) mg/dL Glucose (74-99) mg/dL POC Glucose (mg/dL) 244 H 189 H 114 H (70-110) mg/dL Total Protein (6.3-8.2) g/dL Albumin (3.5-5.0) g/dL 01/04/22 Range/Units 07:08 WBC (3.8-10.6) k/uL RBC (3.80-5.40) m/uL Hgb (11.4-16.0) gm/dL Hct (34.0-46.0) % MCV (80.0-100.0) fL MCHC (31.0-37.0) g/dL RDW (11.5-15.5) % Chloride (98-107) mmol/L Carbon Dioxide (22-30) mmol/L BUN (7-17) mg/dL Creatinine (0.52-1.04) mg/dL Glucose (74-99) mg/dL POC Glucose (mg/dL) 122 H (70-110) mg/dL Total Protein (6.3-8.2) g/dL Albumin (3.5-5.0) g/dL Assessment and Plan Assessment: Symptoms * Pain - 2-3/10 neck soreness from permacath placement, continue Tylenol and zyloprim * Fatigue - + generalized weakness and fatigue, continue PT/OT * SOB - + sob with exertion, continue Lasix, and zaroxolyn, BiPAP prn * Insomnia - No * N/V - No * Anxiety - No, continue xanax prn * Depression - No * Confusion - No * Agitation - No * Hallucinations - No * Appetite/weight loss - + decreased appetite since September. No recent weight loss. Continue heart healthy diet and fluid restrictions. * Dysphagia - No * Constipation - No, LBM 9/8 per patient * Incontinence - Occasionally, continue Flomax for retention * Itch - No Plan: Summary/Goals - The patient is sitting up in the chair. She states she tolerated hemodialysis well yesterday. She complains of general joint/arthritic pain. She states she just took some Tylenol, which she normally takes at home. She also stated "If I were all alone I would not agree to dialysis, but too may people count on me so I'll do what I have to do." She ate a little breakfast and now feels tired. Her plans remain the same, to go to rehab and continue dialysis as an outpatient. She hopes her kidneys will recover, but realizes more than likely they will not. Recommendations - Discharge to [facility] with OP palliative care when stable Advanced Directives - No Code Status - Full code Thank you for this consult Kaley Gaspar [facility] Palliative Care [facility] [id number] Email: [email or web address] Time with Patient: Less than 30
[2022-01-04] MEDS ORDERED: MORPHINE SULFATE 4 MG/ML SYRINGE IVP PRN (10:52)
--- NOTE | 2022-01-04 10:54 | P.PN ---
Subjective Patient is seen for follow-up for acute kidney injury on chronic kidney disease. She is status post cardiac catheterization this hospitalization. Patient is also significantly volume overloaded and was maintained on Lasix drip for about a week Renal function had improved slightly but creatinine was slowly increasing again.. In view of persistent hypervolemia with progressive increase in BUN patient was started on renal replacement therapy on 01/03/2022 Patient is scheduled for her second treatment today. This morning patient is on oxygen is down to about 7 L. No significant complaints. Tolerated dialysis well yesterday with 1.5 L of ultrafiltration. Urine output was 1.6 L yesterday. Objective - Vital Signs Vital signs: Vital Signs Temp 97.8 F 01/04/22 08:50 Pulse 55 L 01/04/22 08:50 Resp 20 01/04/22 08:50 BP 125/45 01/04/22 08:50 Pulse Ox 91 L 01/04/22 08:50 FiO2 50 12/22/21 08:07 Intake & Output 01/03/22 01/04/22 01/04/22 18:59 06:59 18:59 Intake Total 300 180 Output Total 2300 800 Balance -2000 -800 180 Weight 123.5 kg 92.9 kg Intake: Oral 180 Hemodialysis 300 Output: Urine 800 800 Hemodialysis 1500 Other: Voiding Method External Catheter External Catheter External Catheter - Exam Awake, comfortable, not in any acute distress Examination of the heart S1 and S2 Examination lungs bilateral breath sounds are heard Abdomen is soft nontender Examination lower extremities shows 2+ edema bilaterally SEAT TRIMMER exam grossly intact - Labs CBC & Chem 7: 01/03/22 10:45 01/03/22 10:45 Labs: Abnormal Lab Results - Last 24 Hours (Table) 01/03/22 01/03/22 01/03/22 Range/Units 10:45 10:45 11:49 WBC 11.0 H (3.8-10.6) k/uL RBC 2.46 L (3.80-5.40) m/uL Hgb 7.9 L (11.4-16.0) gm/dL Hct 25.8 L (34.0-46.0) % MCV 105.0 H (80.0-100.0) fL MCHC 30.8 L (31.0-37.0) g/dL RDW 16.7 H (11.5-15.5) % Chloride 92 L (98-107) mmol/L Carbon Dioxide 35 H (22-30) mmol/L BUN 110 H* (7-17) mg/dL Creatinine 2.34 H (0.52-1.04) mg/dL Glucose 158 H (74-99) mg/dL POC Glucose (mg/dL) 152 H (70-110) mg/dL Total Protein 5.5 L (6.3-8.2) g/dL Albumin 3.1 L (3.5-5.0) g/dL 01/03/22 01/03/22 01/04/22 Range/Units 16:56 20:23 06:17 WBC (3.8-10.6) k/uL RBC (3.80-5.40) m/uL Hgb (11.4-16.0) gm/dL Hct (34.0-46.0) % MCV (80.0-100.0) fL MCHC (31.0-37.0) g/dL RDW (11.5-15.5) % Chloride (98-107) mmol/L Carbon Dioxide (22-30) mmol/L BUN (7-17) mg/dL Creatinine (0.52-1.04) mg/dL Glucose (74-99) mg/dL POC Glucose (mg/dL) 244 H 189 H 114 H (70-110) mg/dL Total Protein (6.3-8.2) g/dL Albumin (3.5-5.0) g/dL 01/04/22 Range/Units 07:08 WBC (3.8-10.6) k/uL RBC (3.80-5.40) m/uL Hgb (11.4-16.0) gm/dL Hct (34.0-46.0) % MCV (80.0-100.0) fL MCHC (31.0-37.0) g/dL RDW (11.5-15.5) % Chloride (98-107) mmol/L Carbon Dioxide (22-30) mmol/L BUN (7-17) mg/dL Creatinine (0.52-1.04) mg/dL Glucose (74-99) mg/dL POC Glucose (mg/dL) 122 H (70-110) mg/dL Total Protein (6.3-8.2) g/dL Albumin (3.5-5.0) g/dL Assessment and Plan Assessment: 1. Acute kidney injury secondary to ATN from contrast-induced acute kidney injury as well as cardiorenal syndrome. BUN significantly elevated and volume status not much improved. Started on renal replacement therapy on 01/03/2022 . UA showed proteinuria with no evidence of paraprotein's. Ultrasound showed no evidence of hydronephrosis on the left side. Right kidney was not visualized. 2. CK D stage IV baseline creatinine around 1.6 secondary to diabetic kidney disease and nephrosclerosis 3. Acute on chronic diastolic CHF 4. Volume overload slowly improving with diuresis 5. Coronary artery disease status post cardiac catheterization this admission 6. Type 2 diabetes 7. 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 Hypertension with CK D stage IV Plan: Repeat hemodialysis today and then again in a.m. Continue with IV Lasix Discharge planning to arrange for Outpatient chair time
[2022-01-04 11:46] LABS: Anisocytosis Slight; HCT 26.4 % (34.0-46.0); HGB 8.1 gm/dL (11.4-16.0); Hypochromasia Marked; MCH 32.6 pg (25.0-35.0); MCHC 30.7 g/dL (31.0-37.0); MCV 106.1 fL (80.0-100.0); Macrocytosis Marked; Mean Platelet Volume 8.3; Platelet Count 218 k/uL (150-450); RBC 2.49 m/uL (3.80-5.40); WBC 12.4 k/uL (3.8-10.6)
[2022-01-04 12:02] LABS: Albumin 3.3 g/dL (3.5-5.0); Calcium 8.6 mg/dL (8.4-10.2); Magnesium 1.7 mg/dL (1.6-2.3); Potassium 3.4 mmol/L (3.5-5.1); Total Bilirubin 1.1 mg/dL (0.2-1.3); Total Protein 5.8 g/dL (6.3-8.2)
[2022-01-04 12:02] LABS: Glucose,Whole Blood 246 mg/dL (70-110)
--- NOTE | 2022-01-04 14:41 | P.PN ---
Subjective Progress Note Date: 01/04/22 Hospital course: Patient is a very pleasant 81-year-old female with a past medical history diastolic heart failure, hypertension, hyperlipidemia, and CAD. She presented to the emergency department on 12/14/21 with a chief complaint of chest pain and shortness of breath. EKG was completed revealing normal sinus rhythm at 74 bpm with T-wave inversion in anterolateral leads I, II, and V3 through V6. initial labs revealed hemoglobin of 9.5, BUN of 54, creatinine 1.37, and GFR of 36. Troponin was negative at less than 0.012 and proBNP was 1770.chest x-ray was consistent with CHF with bilateral pleural effusions. Patient was started on IV diuresis and admitted under our services with consultation to cardiology. She underwent a cardiac cath on 12/18/21 which revealed calcified coronary arteries with moderate distal left main disease, mild disease in the proximal LAD, mild to moderate disease in the RCA, and significant disease in the ostium of the left circumflex with no progression compared to 2017. Cardiology recommended maximizing medical therapy at this time. Renal function persistently worsened daily and on 12/23/21 nephrology was consulted and started pt on Lasix infusion as acute kidney injury was believed to be secondary to cardiorenal syndrome and contrast-induced acute kidney injury. Patient remains on Lasix infusion and continues to suffer from fluid volume overload.. Vascular surgery was consulted and permacath was placed 01/02/22. Repeat chest x-ray completed confirm placement of right below minute intravenous catheter terminating in the region of the SVC, as well as revealed prominent lung markings consistent with pulmonary vascular congestion and bilateral pleural effusions. Patient began dialysis treatments 01/03/22. Physical exam: Patient was seen and fully evaluated at bedside this morning. She was sitting up in chair at bedside preparing to undergo second day of dialysis. Morning labs reviewed revealing leukocytosis with WBC count of 12.4 and stable hemoglobin of 8.1. Renal function slightly improving with BUN of 80, creatinine 2.09, and GFR of 21. Patient did have mild hypokalemia at 3.4 and to be replaced per protocol. Patient reports she is having generalized pain in all of her joints this morning and Tylenol was not helping, orders placed for morphine at this time. Patient remains on Lasix infusion and metolazone, she has had decreased oxygenation needs and is back down to 7 L high flow nasal cannula with SpO2 of 91%. Patient continues to have 3+ bilateral lower extremity edema. Urinary output over the past 24 hours was 1600 mL. Vital signs reviewed and stable. General: Nontoxic, no distress and appears stated age. Derm: Skin warm and dry, normal coloration for ethnicity. Head: Atraumatic, normocephalic and symmetric. Eyes: EOMs intact, no lid lag, and anicteric sclera Mouth: no lip lesions, mucus membranes moist Cardiovascular: regular rate and rhythm with normal S1S2, systolic murmur, positive posterior tibial pulses bilaterally, and cap refill < 2 seconds. Lungs: Respirations even, regular, and unlabored on 15 L O2 via nonrebreather. Lungs diminished with soft expiratory wheezes and bibasilar crackles. Abdominal: soft, nontender to palpation, no guarding, no appreciable organomegaly Ext: ROM intact. No gross muscle atrophy, no contractures, 3+ pitting bilateral lower extremity edema. Neuro: Speech clear, face symmetrical and CN II-XII grossly intact with no noted focal neuro deficits Psych: Alert and oriented to person, place, time, and situation. Appropriate and pleasant affect. Assessment and Plan of Care: Acute on chronic diastolic heart failure with a preserved EF of 55-60% Acute on chronic hypoxic respiratory failure secondary to above Acute kidney injury on chronic kidney disease, secondary to cardiorenal syndrome -Cardiology and nephrology following. -Continue metolazone and lasix infusion managed by nephrology. -Amlodipine and hydralazine were discontinued to maintain systolic pressure > 120. -Continue Telemetry monitoring -Daily weights -Close monitoring of I's and O's -Maintain low salt diet with 1500 mL fluid restriction daily. -Continued close monitoring of renal function and electrolytes. -01/02/22 vascular surgery placed permacath for dialysis. -01/03/22 patient underwent first dialysis treatment and scheduled to undergo repeat dialysis session today Hypokalemia -Replaced, we will continue to monitor closely with repeat a.m. labs and replace abnormal electrolyte values as needed per protocol. Iron deficiency anemia -Patient received IV ferric sodium gluconate4 doses during hospitalization. Multivessel CAD, s/p cardiac cath this admission recommending maximizing medical therapy at this time and may readdress once medically stable. patient to continue cardiac medication regimen with aspirin, atorvastatin, carvedilol, and isosorbide mononitrate. Hypertension, monitor vital signs and continue daily medication regimen with isosorbide mononitrate and carvedilol. Amlodipine and hydralazine were discontinued to maintain systolic pressure equal to or greater than 120. Hyperlipidemia, continue daily medication regimen with aspirin and atorvastatin. CODE STATUS: full code DVT prophylaxis: heparin Discussed with: patient and RN. Anticipated discharge date: Clinical course to determine Anticipated discharge place: [facility] upon discharge A total of 39 minutes was spent on the care of this complex patient more than 5 0% of the time was spent in counseling and care coordination. I reviewed the documentation as provided by the BETTINA above, who is the original author of this note. I agree with the documented assessment and plan, with the following changes: none Objective - Vital Signs Vital signs: Vital Signs Temp 97.8 F 01/04/22 08:50 Pulse 55 L 01/04/22 08:50 Resp 20 01/04/22 08:50 BP 125/45 01/04/22 08:50 Pulse Ox 91 L 01/04/22 08:50 FiO2 50 12/22/21 08:07 Intake & Output 01/03/22 01/04/22 01/04/22 18:59 06:59 18:59 Intake Total 300 180 Output Total 2300 800 Balance -2000 -800 180 Weight 123.5 kg 92.9 kg Intake: Oral 180 Hemodialysis 300 Output: Urine 800 800 Hemodialysis 1500 Other: Voiding Method External Catheter External Catheter External Catheter - Labs CBC & Chem 7: 01/06/22 08:48 01/06/22 08:48 Labs: Abnormal Lab Results - Last 24 Hours (Table) 01/03/22 01/03/22 01/03/22 Range/Units 10:45 10:45 11:49 WBC 11.0 H (3.8-10.6) k/uL RBC 2.46 L (3.80-5.40) m/uL Hgb 7.9 L (11.4-16.0) gm/dL Hct 25.8 L (34.0-46.0) % MCV 105.0 H (80.0-100.0) fL MCHC 30.8 L (31.0-37.0) g/dL RDW 16.7 H (11.5-15.5) % Chloride 92 L (98-107) mmol/L Carbon Dioxide 35 H (22-30) mmol/L BUN 110 H* (7-17) mg/dL Creatinine 2.34 H (0.52-1.04) mg/dL Glucose 158 H (74-99) mg/dL POC Glucose (mg/dL) 152 H (70-110) mg/dL Total Protein 5.5 L (6.3-8.2) g/dL Albumin 3.1 L (3.5-5.0) g/dL 01/03/22 01/03/22 01/04/22 Range/Units 16:56 20:23 06:17 WBC (3.8-10.6) k/uL RBC (3.80-5.40) m/uL Hgb (11.4-16.0) gm/dL Hct (34.0-46.0) % MCV (80.0-100.0) fL MCHC (31.0-37.0) g/dL RDW (11.5-15.5) % Chloride (98-107) mmol/L Carbon Dioxide (22-30) mmol/L BUN (7-17) mg/dL Creatinine (0.52-1.04) mg/dL Glucose (74-99) mg/dL POC Glucose (mg/dL) 244 H 189 H 114 H (70-110) mg/dL Total Protein (6.3-8.2) g/dL Albumin (3.5-5.0) g/dL 01/04/22 Range/Units 07:08 WBC (3.8-10.6) k/uL RBC (3.80-5.40) m/uL Hgb (11.4-16.0) gm/dL Hct (34.0-46.0) % MCV (80.0-100.0) fL MCHC (31.0-37.0) g/dL RDW (11.5-15.5) % Chloride (98-107) mmol/L Carbon Dioxide (22-30) mmol/L BUN (7-17) mg/dL Creatinine (0.52-1.04) mg/dL Glucose (74-99) mg/dL POC Glucose (mg/dL) 122 H (70-110) mg/dL Total Protein (6.3-8.2) g/dL Albumin (3.5-5.0) g/dL
[2022-01-04 17:08] LABS: Glucose,Whole Blood 143 mg/dL (70-110)
[2022-01-04 20:30] LABS: Glucose,Whole Blood 207 mg/dL (70-110)
[2022-01-04] MEDS: allopurinoL 100 MG TAB PO SCH (21:20)
[2022-01-04] MEDS: ATORVASTATIN 40 MG TAB PO SCH (21:20)
[2022-01-05] MEDS: HEPARIN SODIUM,PORCINE/PF 5,000 UNIT/0.5 ML SYRINGE SQ SCH ×4 (00:23→23:45)
[2022-01-05] MEDS: carvediloL 6.25 MG TAB PO SCH ×2 (06:11→16:01)
[2022-01-05] MEDS: INSULIN DETEMIR (LEVEMIR) 100 UNIT/ML SYR SQ SCH (06:39)
[2022-01-05 07:21] LABS: Glucose,Whole Blood 191 mg/dL (70-110)
[2022-01-05] MEDS: ISOSORBIDE MONONITRATE ER 30 MG TAB.ER.24H PO SCH (08:07)
[2022-01-05] MEDS: ASPIRIN 81 MG PO SCH (08:07)
[2022-01-05] MEDS: FUROSEMIDE 10 MG/ML 10 ML VIAL IV SCH ×2 (08:07→22:05)
[2022-01-05] MEDS: TAMSULOSIN 0.4 MG CAP.ER.24H PO SCH (08:07)
[2022-01-05] MEDS: FAMOTIDINE 20 MG TAB PO SCH (08:08)
[2022-01-05] MEDS: metOLazone 5 MG TAB PO SCH (08:08)
[2022-01-05] MEDS: INSULIN ASPART (NovoLOG) 100 UNIT/ML VIAL SQ SCH ×7 (08:12→22:02)
[2022-01-05 09:09] LABS: Anisocytosis Slight; HCT 28.1 % (34.0-46.0); HGB 8.6 gm/dL (11.4-16.0); Hypochromasia Marked; MCH 32.6 pg (25.0-35.0); MCHC 30.4 g/dL (31.0-37.0); Macrocytosis Marked; Mean Platelet Volume 9.2; Platelet Count 220 k/uL (150-450); RBC 2.63 m/uL (3.80-5.40); RDW 16.6 % (11.5-15.5); WBC 10.5 k/uL (3.8-10.6)
[2022-01-05 09:30] LABS: Albumin 3.3 g/dL (3.5-5.0); Calcium 8.9 mg/dL (8.4-10.2); Magnesium 1.7 mg/dL (1.6-2.3); Potassium 3.8 mmol/L (3.5-5.1); Total Bilirubin 1.2 mg/dL (0.2-1.3); Total Protein 5.9 g/dL (6.3-8.2)
--- NOTE | 2022-01-05 09:53 | P.PN ---
Subjective Progress Note Date: 01/05/22 Principal diagnosis: This is a 81-year-old female followed up with ATN from contrast-induced kidney injury requiring dialysis. She has a permacath on her right side. She is known with chronic kidney disease diabetes mellitus coronary artery disease cardiac catheterization on 12/18/2021 no intervention She was dialyzed yesterday and is scheduled for dialysis today. She continues to have poor appetite no nausea vomiting. Complains of pain in her both ankles where she has significant edema as well as left arm where there seems to be a phlebitis from a previous IV. Denies any shortness of breath she is on nasal cannula oxygen. Urine output is 675 mL and dialysis ultrafiltration was 1500 yesterday. Vital signs are unremarkable. Objective - Vital Signs Vital signs: Vital Signs Temp 98.1 F 01/05/22 07:51 Pulse 61 01/05/22 07:52 Resp 20 01/05/22 07:52 BP 153/65 01/05/22 07:51 Pulse Ox 91 L 01/05/22 08:36 FiO2 50 12/22/21 08:07 Intake & Output 01/04/22 01/05/22 01/05/22 18:59 06:59 18:59 Intake Total 180 550 Output Total 1500 675 Balance -1320 -125 Intake: Oral 180 550 Output: Urine 675 Hemodialysis 1500 Other: Voiding Method External Catheter Bedside Commode Bedside Commode On examination awake alert oriented. HEENT exam no JVP neck is supple no facial asymmetry Lungs are clear to auscultation fair air entry bilaterally Heart sounds unremarkable for any murmur rub gallop Abdomen soft nontender Extremity exam was 2+ edema Neurologically awake alert oriented but generalized weakness - Labs CBC & Chem 7: 01/05/22 08:22 01/05/22 08:22 Labs: Abnormal Lab Results - Last 24 Hours (Table) 01/04/22 01/04/22 01/04/22 Range/Units 11:14 11:14 12:01 WBC 12.4 H (3.8-10.6) k/uL RBC 2.49 L (3.80-5.40) m/uL Hgb 8.1 L (11.4-16.0) gm/dL Hct 26.4 L (34.0-46.0) % MCV 106.1 H (80.0-100.0) fL MCHC 30.7 L (31.0-37.0) g/dL RDW 17.0 H (11.5-15.5) % Macrocytosis Marked A Sodium 135 L (137-145) mmol/L Potassium 3.4 L (3.5-5.1) mmol/L Chloride 94 L (98-107) mmol/L BUN 80 H (7-17) mg/dL Creatinine 2.09 H (0.52-1.04) mg/dL Glucose 199 H (74-99) mg/dL POC Glucose (mg/dL) 246 H (70-110) mg/dL Total Protein 5.8 L (6.3-8.2) g/dL Albumin 3.3 L (3.5-5.0) g/dL 01/04/22 01/04/22 01/05/22 Range/Units 17:06 20:29 07:20 WBC (3.8-10.6) k/uL RBC (3.80-5.40) m/uL Hgb (11.4-16.0) gm/dL Hct (34.0-46.0) % MCV (80.0-100.0) fL MCHC (31.0-37.0) g/dL RDW (11.5-15.5) % Macrocytosis Sodium (137-145) mmol/L Potassium (3.5-5.1) mmol/L Chloride (98-107) mmol/L BUN (7-17) mg/dL Creatinine (0.52-1.04) mg/dL Glucose (74-99) mg/dL POC Glucose (mg/dL) 143 H 207 H 191 H (70-110) mg/dL Total Protein (6.3-8.2) g/dL Albumin (3.5-5.0) g/dL 01/05/22 01/05/22 Range/Units 08:22 08:22 WBC (3.8-10.6) k/uL RBC 2.63 L (3.80-5.40) m/uL Hgb 8.6 L (11.4-16.0) gm/dL Hct 28.1 L (34.0-46.0) % MCV 107.0 H (80.0-100.0) fL MCHC 30.4 L (31.0-37.0) g/dL RDW 16.6 H (11.5-15.5) % Macrocytosis Marked A Sodium (137-145) mmol/L Potassium (3.5-5.1) mmol/L Chloride (98-107) mmol/L BUN 49 H (7-17) mg/dL Creatinine 1.62 H (0.52-1.04) mg/dL Glucose 216 H (74-99) mg/dL POC Glucose (mg/dL) (70-110) mg/dL Total Protein 5.9 L (6.3-8.2) g/dL Albumin 3.3 L (3.5-5.0) g/dL Assessment and Plan Assessment: Impression 1. Acute kidney injury secondary to ATN from contrast-induced acute kidney injury as well as cardiorenal syndrome.. Started on renal replacement therapy on 01/03/2022 . UA showed proteinuria with no evidence of paraprotein's. Ultrasound showed no evidence of hydronephrosis on the left side. Right kidney was not visualized. Has been on dialysis yesterday and is scheduled for dialysis today 2. CK D stage IV baseline creatinine around 1.6 secondary to diabetic kidney disease and nephrosclerosis 3. Acute on chronic diastolic CHF 4. Volume overload with edema and requiring oxygen 2 L 5. Coronary artery disease status post cardiac catheterization this admission 6. Type 2 diabetes 7. CK D mineral bone disorder maintained on calcitriol. 8. Anemia hemoglobin is 8.6 with iron deficiency saturation was 10% on 12/24/2021. Hemoglobin is going up slowly is 8.6 as of this morning from 7.9 Recommendation 1. Maintain current dialysis today with a goal of ultrafiltration of 2-1/2 L 2. Maintain current diuretic regimen watch for any improvement renal function. 3. Watch CBC.
[2022-01-05 12:12] LABS: Glucose,Whole Blood 214 mg/dL (70-110)
[2022-01-05] MEDS: CARBAMIDE PEROXIDE 6.5% DROPS 15 ML BTL BOTH EARS SCH ×2 (12:25→21:03)
[2022-01-05] MEDS ORDERED: HYDROcodone/APAP 5-325MG 1 EACH TAB PO PRN (13:02)
[2022-01-05] MEDS ORDERED: ONDANSETRON 4 MG/2 ML VIAL IVP PRN (13:02)
--- NOTE | 2022-01-05 13:06 | P.PN ---
Subjective Progress Note Date: 01/05/22 Hospital course: Patient is a very pleasant 81-year-old female with a past medical history diastolic heart failure, hypertension, hyperlipidemia, and CAD. She presented to the emergency department on 12/14/21 with a chief complaint of chest pain and shortness of breath. EKG was completed revealing normal sinus rhythm at 74 bpm with T-wave inversion in anterolateral leads I, II, and V3 through V6. initial labs revealed hemoglobin of 9.5, BUN of 54, creatinine 1.37, and GFR of 36. Troponin was negative at less than 0.012 and proBNP was 1770.chest x-ray was consistent with CHF with bilateral pleural effusions. Patient was started on IV diuresis and admitted under our services with consultation to cardiology. She underwent a cardiac cath on 12/18/21 which revealed calcified coronary arteries with moderate distal left main disease, mild disease in the proximal LAD, mild to moderate disease in the RCA, and significant disease in the ostium of the left circumflex with no progression compared to 2017. Cardiology recommended maximizing medical therapy at this time. Renal function persistently worsened daily and on 12/23/21 nephrology was consulted and started pt on Lasix infusion as acute kidney injury was believed to be secondary to cardiorenal syndrome and contrast-induced acute kidney injury. Patient remains on Lasix infusion and continues to suffer from fluid volume overload.. Vascular surgery was consulted and permacath was placed 01/02/22. Repeat chest x-ray completed confirm placement of right below minute intravenous catheter terminating in the region of the SVC, as well as revealed prominent lung markings consistent with pulmonary vascular congestion and bilateral pleural effusions. Patient began dialysis treatments 01/03/22. Physical exam: Patient was seen and fully evaluated at bedside this morning. She was sitting up in chair at bedside preparing to undergo third day of dialysis this afternoon. She is down to 6 L O2 via nasal cannula with SpO2 of 91% at this time. Morning labs revealing stable hemoglobin 8.6 and improvement of renal function with BUN 49, creatinine 1.62, and GFR of 29. She continues to have 3+ pitting edema in bilateral lower extremities. Urinary output over the past 24 hours was 1500 mL. Patient remains on Lasix infusion and metolazone. Patient reports improvement in shortness of breath and denies having any shortness of breath at rest while on oxygen. Patient reports improvement in previously reported joint pain currently denies having any complaints at this time. Patient's daughter at bedside and also updated on plan of care. Vital signs reviewed and stable. General: Nontoxic, no distress and appears stated age. Derm: Skin warm and dry, normal coloration for ethnicity. Head: Atraumatic, normocephalic and symmetric. Eyes: EOMs intact, no lid lag, and anicteric sclera Mouth: no lip lesions, mucus membranes moist Cardiovascular: regular rate and rhythm with normal S1S2, systolic murmur, positive posterior tibial pulses bilaterally, and cap refill < 2 seconds. Permacath right side, Lungs: Respirations even, regular, and unlabored on 6 L O2 via nasal cannula. Lungs diminished with soft expiratory wheezes and bibasilar crackles. Abdominal: soft, nontender to palpation, no guarding, no appreciable organomegaly Ext: ROM intact. No gross muscle atrophy, no contractures, 3+ pitting bilateral lower extremity edema. Neuro: Speech clear, face symmetrical and CN II-XII grossly intact with no noted focal neuro deficits Psych: Alert and oriented to person, place, time, and situation. Appropriate and pleasant affect. Assessment and Plan of Care: Acute on chronic diastolic heart failure with a preserved EF of 55-60% Acute on chronic hypoxic respiratory failure secondary to above Acute kidney injury on chronic kidney disease, secondary to cardiorenal syndrome -Cardiology and nephrology following. -Continue metolazone and lasix infusion managed by nephrology. -Amlodipine and hydralazine were discontinued to maintain systolic pressure > 120. -Continue Telemetry monitoring -Daily weights -Close monitoring of I's and O's -Maintain low salt diet with 1500 mL fluid restriction daily. -Continued close monitoring of renal function and electrolytes. -01/02/22 vascular surgery placed right sided permacath for dialysis. -01/03/22 patient underwent first dialysis treatment and scheduled to undergo third dialysis session later today at 1 pm Hypokalemia, resolved -We will continue to monitor closely with repeat a.m. labs and replace abnormal electrolyte values as needed per protocol. Iron deficiency anemia -Patient received IV ferric sodium gluconate4 doses during hospitalization. Pa tient to resume ferrous sulfate tablets upon discharge. Multivessel CAD, s/p cardiac cath this admission recommending maximizing medical therapy at this time and may readdress once medically stable. patient to continue cardiac medication regimen with aspirin, atorvastatin, carvedilol, and isosorbide mononitrate. Hypertension, monitor vital signs and continue daily medication regimen with isosorbide mononitrate and carvedilol. Amlodipine and hydralazine were discontinued to maintain systolic pressure equal to or greater than 120. Hyperlipidemia, continue daily medication regimen with aspirin and atorvastatin. CODE STATUS: full code DVT prophylaxis: heparin Discussed with: patient, patient's daughter and RN. Anticipated discharge date: Clinical course to determine Anticipated discharge place: residential facility upon discharge A total of 37 minutes was spent on the care of this complex patient more than 50% of the time was spent in counseling and care coordination. I reviewed the documentation as provided by the BETTINA above, who is the original author of this note. I agree with the documented assessment and plan, with the following changes: none Objective - Vital Signs Vital signs: Vital Signs Temp 98.1 F 01/05/22 07:51 Pulse 61 01/05/22 07:52 Resp 20 01/05/22 07:52 BP 153/65 01/05/22 07:51 Pulse Ox 97 01/05/22 07:51 FiO2 50 12/22/21 08:07 Intake & Output 01/04/22 01/05/22 01/05/22 18:59 06:59 18:59 Intake Total 180 550 Output Total 1500 675 Balance -1320 -125 Intake: Oral 180 550 Output: Urine 675 Hemodialysis 1500 Other: Voiding Method External Catheter Bedside Commode Bedside Commode - Labs CBC & Chem 7: 01/06/22 08:48 01/06/22 08:48 Labs: Abnormal Lab Results - Last 24 Hours (Table) 01/04/22 01/04/22 01/04/22 Range/Units 11:14 11:14 12:01 WBC 12.4 H (3.8-10.6) k/uL RBC 2.49 L (3.80-5.40) m/uL Hgb 8.1 L (11.4-16.0) gm/dL Hct 26.4 L (34.0-46.0) % MCV 106.1 H (80.0-100.0) fL MCHC 30.7 L (31.0-37.0) g/dL RDW 17.0 H (11.5-15.5) % Macrocytosis Marked A Sodium 135 L (137-145) mmol/L Potassium 3.4 L (3.5-5.1) mmol/L Chloride 94 L (98-107) mmol/L BUN 80 H (7-17) mg/dL Creatinine 2.09 H (0.52-1.04) mg/dL Glucose 199 H (74-99) mg/dL POC Glucose (mg/dL) 246 H (70-110) mg/dL Total Protein 5.8 L (6.3-8.2) g/dL Albumin 3.3 L (3.5-5.0) g/dL 01/04/22 01/04/22 01/05/22 Range/Units 17:06 20:29 07:20 WBC (3.8-10.6) k/uL RBC (3.80-5.40) m/uL Hgb (11.4-16.0) gm/dL Hct (34.0-46.0) % MCV (80.0-100.0) fL MCHC (31.0-37.0) g/dL RDW (11.5-15.5) % Macrocytosis Sodium (137-145) mmol/L Potassium (3.5-5.1) mmol/L Chloride (98-107) mmol/L BUN (7-17) mg/dL Creatinine (0.52-1.04) mg/dL Glucose (74-99) mg/dL POC Glucose (mg/dL) 143 H 207 H 191 H (70-110) mg/dL Total Protein (6.3-8.2) g/dL Albumin (3.5-5.0) g/dL
[2022-01-05 16:56] LABS: Glucose,Whole Blood 74 mg/dL (70-110)
[2022-01-05 20:13] LABS: Glucose,Whole Blood 173 mg/dL (70-110)
[2022-01-05] MEDS: ATORVASTATIN 40 MG TAB PO SCH (22:05)
[2022-01-05] MEDS: allopurinoL 100 MG TAB PO SCH (22:05)
[2022-01-05] MEDS: ACETAMINOPHEN TAB 325 MG TAB PO PRN (23:54)
[2022-01-06] MEDS: carvediloL 6.25 MG TAB PO SCH ×2 (07:04→17:17)
--- NOTE | 2022-01-06 09:14 | P.PN ---
Subjective Progress Note Date: 01/06/22 Principal diagnosis: This is a 81-year-old female followed up with ATN from contrast-induced kidney injury requiring dialysis. She has a permacath on her right side. She is known with chronic kidney disease, creatinine was 1.32 on admission initially on 12/14/2021 but previously creatinines have been slightly higher than that, up to 1.89 on 10/12/2021. Her ultrasound of the kidney dated 12/24/2021 shows left kidney at 10.1 cm right kidney could not be visualized because of bowel gas. diabetes mellitus coronary artery disease cardiac catheterization on 12/18/2021 no intervention She was dialyzed day before yesterday and yesterday This morning she is feeling much better yesterday continued to complain off nausea vomiting and pain in her legs Urine output is documented at 0. Hemodialysis ultrafiltration was 1000cc yesterday Objective - Vital Signs Vital signs: Vital Signs Temp 97.8 F 01/06/22 08:00 Pulse 59 L 01/06/22 08:00 Resp 16 01/06/22 08:00 BP 170/66 01/06/22 08:00 Pulse Ox 95 01/06/22 08:00 FiO2 50 12/22/21 08:07 Intake & Output 01/05/22 01/06/22 01/06/22 18:59 06:59 18:59 Intake Total 218 Output Total 1000 Balance -782 Intake: Oral 218 Output: Hemodialysis 1000 Other: Voiding Method Bedside Commode Bedside Commode Awake alert oriented Sitting in a chair No JVP noted neck is supple no facial asymmetry Lungs clear to auscultation fair air entry bilaterally Heart sounds unremarkable for any murmur rub gallop Abdomen soft nontender Extremity exam was 1+ to 2+ edema Neurologically awake alert oriented. - Labs CBC & Chem 7: 01/05/22 08:22 01/05/22 08:22 Labs: Abnormal Lab Results - Last 24 Hours (Table) 01/05/22 01/05/22 01/05/22 Range/Units : 08:22 12:10 RBC 2.63 L (3.80-5.40) m/uL Hgb 8.6 L (11.4-16.0) gm/dL Hct 28.1 L (34.0-46.0) % MCV 107.0 H (80.0-100.0) fL MCHC 30.4 L (31.0-37.0) g/dL RDW 16.6 H (11.5-15.5) % Macrocytosis Marked A BUN 49 H (7-17) mg/dL Creatinine 1.62 H (0.52-1.04) mg/dL Glucose 216 H (74-99) mg/dL POC Glucose (mg/dL) 214 H (70-110) mg/dL Total Protein 5.9 L (6.3-8.2) g/dL Albumin 3.3 L (3.5-5.0) g/dL 01/05/22 Range/Units 20:11 RBC (3.80-5.40) m/uL Hgb (11.4-16.0) gm/dL Hct (34.0-46.0) % MCV (80.0-100.0) fL MCHC (31.0-37.0) g/dL RDW (11.5-15.5) % Macrocytosis BUN (7-17) mg/dL Creatinine (0.52-1.04) mg/dL Glucose (74-99) mg/dL POC Glucose (mg/dL) 173 H (70-110) mg/dL Total Protein (6.3-8.2) g/dL Albumin (3.5-5.0) g/dL Assessment and Plan Assessment: Impression 1. Acute kidney injury secondary to ATN from contrast-induced acute kidney injury as well as cardiorenal syndrome.. Started on renal replacement therapy on 01/03/2022 . UA showed proteinuria with no evidence of paraprotein's. Ultrasound showed no evidence of hydronephrosis on the left side. Right kidney was not visualized. Last dialysis was yesterday 1 L ultrafiltration. Urine output has not been documented but she is making some urine possible recovery 2. CK D stage IV baseline creatinine around 1.3-1.8 secondary to diabetic kidney disease and nephrosclerosis 3. Acute on chronic diastolic CHF, improved 4. Volume overload with edema and requiring oxygen 2 L, improved 5. Coronary artery disease status post cardiac catheterization this admission 6. Type 2 diabetes 7. CK D mineral bone disorder maintained on calcitriol. 8. Anemia hemoglobin is 8.6 with iron deficiency saturation was 10% on 12/24/2021. Hemoglobin is going up slowly is 8.6 as of this morning from 7.9 Recommendation 1. will watch for recovery of renal function and hold her dialysis until Friday and then reassess 2. Maintain strict I's and O's 3 monitor labs Maintain current dialysis today with a goal of ultrafiltration of 2-1/2 L
[2022-01-06 09:16] LABS: Glucose,Whole Blood 231 mg/dL (70-110)
[2022-01-06 09:26] LABS: Anisocytosis Slight; HGB 8.8 gm/dL (11.4-16.0); Hypochromasia Marked; MCH 32.6 pg (25.0-35.0); MCHC 30.3 g/dL (31.0-37.0); MCV 107.8 fL (80.0-100.0); Macrocytosis Marked; Mean Platelet Volume 8.1; Platelet Count 257 k/uL (150-450); RBC 2.69 m/uL (3.80-5.40); RDW 16.9 % (11.5-15.5); WBC 9.8 k/uL (3.8-10.6)
[2022-01-06] MEDS: metOLazone 5 MG TAB PO SCH (09:33)
[2022-01-06] MEDS: FAMOTIDINE 20 MG TAB PO SCH (09:33)
[2022-01-06] MEDS: TAMSULOSIN 0.4 MG CAP.ER.24H PO SCH (09:33)
[2022-01-06] MEDS: ISOSORBIDE MONONITRATE ER 30 MG TAB.ER.24H PO SCH (09:33)
[2022-01-06] MEDS: HEPARIN SODIUM,PORCINE/PF 5,000 UNIT/0.5 ML SYRINGE SQ SCH ×2 (09:33→17:03)
[2022-01-06] MEDS: INSULIN ASPART (NovoLOG) 100 UNIT/ML VIAL SQ SCH ×7 (09:33→20:19)
[2022-01-06] MEDS: FUROSEMIDE 10 MG/ML 10 ML VIAL IV SCH ×2 (09:33→20:09)
[2022-01-06] MEDS: ASPIRIN 81 MG PO SCH (09:33)
[2022-01-06] MEDS: INSULIN DETEMIR (LEVEMIR) 100 UNIT/ML SYR SQ SCH (09:33)
[2022-01-06 09:56] LABS: Albumin 3.3 g/dL (3.5-5.0); Potassium 3.6 mmol/L (3.5-5.1); Total Protein 5.9 g/dL (6.3-8.2)
[2022-01-06 09:58] LABS: Magnesium 1.8 mg/dL (1.6-2.3); Total Bilirubin 1.2 mg/dL (0.2-1.3)
[2022-01-06 12:18] LABS: Glucose,Whole Blood 160 mg/dL (70-110)
--- NOTE | 2022-01-06 13:29 | P.PN ---
Subjective Progress Note Date: 01/06/22 Hospital course: Patient is a very pleasant 81-year-old female with a past medical history diastolic heart failure, hypertension, hyperlipidemia, and CAD. She presented to the emergency department on 12/14/21 with a chief complaint of chest pain and shortness of breath. EKG was completed revealing normal sinus rhythm at 74 bpm with T-wave inversion in anterolateral leads I, II, and V3 through V6. initial labs revealed hemoglobin of 9.5, BUN of 54, creatinine 1.37, and GFR of 36. Troponin was negative at less than 0.012 and proBNP was 1770.chest x-ray was consistent with CHF with bilateral pleural effusions. Patient was started on IV diuresis and admitted under our services with consultation to cardiology. She underwent a cardiac cath on 12/18/21 which revealed calcified coronary arteries with moderate distal left main disease, mild disease in the proximal LAD, mild to moderate disease in the RCA, and significant disease in the ostium of the left circumflex with no progression compared to 2017. Cardiology recommended maximizing medical therapy at this time. Renal function persistently worsened daily and on 12/23/21 nephrology was consulted and started pt on Lasix infusion as acute kidney injury was believed to be secondary to cardiorenal syndrome and contrast-induced acute kidney injury. Patient remains on Lasix infusion and continues to suffer from fluid volume overload.. Vascular surgery was consulted and permacath was placed 01/02/22. Repeat chest x-ray completed confirm placement of right below minute intravenous catheter terminating in the region of the SVC, as well as revealed prominent lung markings consistent with pulmonary vascular congestion and bilateral pleural effusions. Patient began dialysis treatments 01/03/22. Physical exam: Patient was seen and fully evaluated at bedside this morning. Hemoglobin continues to be stable at 8.8, renal function also improving with BUN 31, creatinine 1.62, and GFR of 29. Since initiation of dialysis, patient's oxygen needs significantly improving. This morning patient is down to 4 L high flow nasal cannula and maintaining SpO2 of 94%. Urinary output over the past 24 hours is 1 L. We will continue to down titrait oxygen as patient tolerates. Patient does complain of left arm pain and does have area of noted swelling near left AC and in left wrist and hand, ice pack is in place and patient does have a patent IV in her left hand., order placed for a Doppler. Vital signs reviewed and stable. General: Nontoxic, no distress and appears stated age. Derm: Skin warm and dry, normal coloration for ethnicity. Head: Atraumatic, normocephalic and symmetric. Eyes: EOMs intact, no lid lag, and anicteric sclera Mouth: no lip lesions, mucus membranes moist Cardiovascular: regular rate and rhythm with normal S1S2, systolic murmur, positive posterior tibial pulses bilaterally, and cap refill < 2 seconds. Permacath right side, Lungs: Respirations even, regular, and unlabored on 4 L O2 via nasal cannula. Lungs diminished. No wheezes, crackles, rales, or rhonchi noted. Abdominal: soft, nontender to palpation, no guarding, no appreciable organomegaly Ext: ROM intact. No gross muscle atrophy, no contractures, 3+ pitting bilateral lower extremity edema. Neuro: Speech clear, face symmetrical and CN II-XII grossly intact with no noted focal neuro deficits Psych: Alert and oriented to person, place, time, and situation. Appropriate and pleasant affect. Assessment and Plan of Care: Acute on chronic diastolic heart failure with a preserved EF of 55-60% Acute on chronic hypoxic respiratory failure secondary to above Acute kidney injury on chronic kidney disease, secondary to cardiorenal syndrome -Cardiology and nephrology following. -Continue metolazone and lasix infusion managed by nephrology. -Amlodipine and hydralazine were discontinued to maintain systolic pressure > 120. -Continue Telemetry monitoring -Daily weights -Close monitoring of I's and O's -Maintain low salt diet with 1500 mL fluid restriction daily. -Continued close monitoring of renal function and electrolytes. -01/02/22 vascular surgery placed right sided permacath for dialysis. -01/03/22 patient underwent first dialysis treatment and received a total of 3 dialysis treatments to date with last dialysis session 01/05/22 Hypokalemia, resolved -We will continue to monitor closely with repeat a.m. labs and replace abnormal electrolyte values as needed per protocol. Iron deficiency anemia -Patient received IV ferric sodium gluconate4 doses during hospitalization. Patient to resume ferrous sulfate tablets upon discharge. Currently hemoglobin stable Multivessel CAD, s/p cardiac cath this admission recommending maximizing medical therapy at this time and may readdress once medically stable. patient to continue cardiac medication regimen with aspirin, atorvastatin, carvedilol, and isosorbide mononitrate. Hypertension, monitor vital signs and continue daily medication regimen with isosorbide mononitrate and carvedilol. Amlodipine and hydralazine were discontinued to maintain systolic pressure equal to or greater than 120. Hyperlipidemia, continue daily medication regimen with aspirin and atorvastatin. CODE STATUS: full code DVT prophylaxis: heparin Discussed with: patient, patient's daughter and RN. Anticipated discharge date: Clinical course to determine Anticipated discharge place: half-way facility upon discharge A total of 38 minutes was spent on the care of this complex patient more than 50% of the time was spent in counseling and care coordination. I reviewed the documentation as provided by the BETTINA above, who is the original author of this note. I agree with the documented assessment and plan, with the following changes: none Objective - Vital Signs Vital signs: Vital Signs Temp 97.8 F 01/06/22 08:00 Pulse 67 01/06/22 08:00 Resp 16 01/06/22 08:00 BP 170/66 01/06/22 08:00 Pulse Ox 95 01/06/22 08:00 FiO2 50 12/22/21 08:07 Intake & Output 01/05/22 01/06/22 01/06/22 18:59 06:59 18:59 Intake Total 218 Output Total 1000 Balance -782 Intake: Oral 218 Output: Hemodialysis 1000 Other: Voiding Method Bedside Commode Bedside Commode Bedside Commode - Labs CBC & Chem 7: 01/06/22 08:48 01/06/22 08:48 Labs: Abnormal Lab Results - Last 24 Hours (Table) 01/05/22 01/05/22 01/06/22 Range/Units 12:10 20:11 08:48 RBC 2.69 L (3.80-5.40) m/uL Hgb 8.8 L (11.4-16.0) gm/dL Hct 29.0 L (34.0-46.0) % MCV 107.8 H (80.0-100.0) fL MCHC 30.3 L (31.0-37.0) g/dL RDW 16.9 H (11.5-15.5) % Macrocytosis Marked A BUN (7-17) mg/dL Creatinine (0.52-1.04) mg/dL Glucose (74-99) mg/dL POC Glucose (mg/dL) 214 H 173 H (70-110) mg/dL AST (14-36) U/L ALT (4-34) U/L Alkaline Phosphatase (38-126) U/L Total Protein (6.3-8.2) g/dL Albumin (3.5-5.0) g/dL 01/06/22 01/06/22 Range/Units 08:48 09:15 RBC (3.80-5.40) m/uL Hgb (11.4-16.0) gm/dL Hct (34.0-46.0) % MCV (80.0-100.0) fL MCHC (31.0-37.0) g/dL RDW (11.5-15.5) % Macrocytosis BUN 31 H (7-17) mg/dL Creatinine 1.62 H (0.52-1.04) mg/dL Glucose 184 H (74-99) mg/dL POC Glucose (mg/dL) 231 H (70-110) mg/dL AST 58 H (14-36) U/L ALT 65 H (4-34) U/L Alkaline Phosphatase 280 H (38-126) U/L Total Protein 5.9 L (6.3-8.2) g/dL Albumin 3.3 L (3.5-5.0) g/dL
[2022-01-06] MEDS: CARBAMIDE PEROXIDE 6.5% DROPS 15 ML BTL BOTH EARS SCH ×2 (13:47→22:57)
--- NOTE | 2022-01-06 15:15 | US ---
EXAMINATION TYPE: US venous doppler duplex UE DATE OF EXAM: 01/06/2022 COMPARISON: NONE CLINICAL HISTORY: pain and swelling to left upper extremity. Left arm pain SIDE PERFORMED: Left Exam done portable Left Arm: Appears negative for DVT There is venous flow demonstrated in the axillary brachial basilic and cephalic veins. No pathologic fluid collection. IMPRESSION: No evidence of deep vein thrombosis in the left arm.
[2022-01-06 16:58] LABS: Glucose,Whole Blood 95 mg/dL (70-110)
[2022-01-06 20:09] LABS: Glucose,Whole Blood 202 mg/dL (70-110)
[2022-01-06] MEDS: ACETAMINOPHEN TAB 325 MG TAB PO PRN (20:09)
[2022-01-06] MEDS: allopurinoL 100 MG TAB PO SCH (20:10)
[2022-01-06] MEDS: ATORVASTATIN 40 MG TAB PO SCH (20:10)
[2022-01-07] MEDS: HEPARIN SODIUM,PORCINE/PF 5,000 UNIT/0.5 ML SYRINGE SQ SCH ×4 (00:03→23:35)
[2022-01-07 08:30] LABS: Glucose,Whole Blood 203 mg/dL (70-110)
[2022-01-07] MEDS: INSULIN DETEMIR (LEVEMIR) 100 UNIT/ML SYR SQ SCH (08:52)
[2022-01-07] MEDS: carvediloL 6.25 MG TAB PO SCH ×2 (08:53→17:35)
[2022-01-07] MEDS: FAMOTIDINE 20 MG TAB PO SCH (08:53)
[2022-01-07] MEDS: ISOSORBIDE MONONITRATE ER 30 MG TAB.ER.24H PO SCH (08:53)
[2022-01-07] MEDS: TAMSULOSIN 0.4 MG CAP.ER.24H PO SCH (08:53)
[2022-01-07] MEDS: ASPIRIN 81 MG PO SCH (08:53)
[2022-01-07] MEDS: INSULIN ASPART (NovoLOG) 100 UNIT/ML VIAL SQ SCH ×7 (08:53→21:11)
[2022-01-07] MEDS: metOLazone 5 MG TAB PO SCH (08:54)
[2022-01-07] MEDS: FUROSEMIDE 10 MG/ML 10 ML VIAL IV SCH ×2 (08:54→20:10)
[2022-01-07] MEDS: CARBAMIDE PEROXIDE 6.5% DROPS 15 ML BTL BOTH EARS SCH ×2 (08:55→20:10)
[2022-01-07 09:40] LABS: Anisocytosis Slight; Basophils # (A) 0.1 k/uL (0-0.2); Basophils % (A) 1 %; Eosinophils # (A) 0.2 k/uL (0-0.7); Eosinophils % (A) 2 %; HCT 27.1 % (34.0-46.0); HGB 8.3 gm/dL (11.4-16.0); Hypochromasia Marked; Lymphocytes # (A) 0.9 k/uL (1.0-4.8); Lymphocytes % (A) 11 %; MCH 32.1 pg (25.0-35.0); MCHC 30.5 g/dL (31.0-37.0); MCV 105.3 fL (80.0-100.0); Macrocytosis Moderate; Mean Platelet Volume 8.1; Monocytes # (A) 0.7 k/uL (0-1.0); Monocytes % (A) 8 %; Neutrophils # (A) 6.6 k/uL (1.3-7.7); Neutrophils % (A) 76 %; Platelet Count 225 k/uL (150-450); RBC 2.58 m/uL (3.80-5.40); RDW 16.3 % (11.5-15.5); WBC 8.7 k/uL (3.8-10.6)
[2022-01-07 10:11] LABS: Albumin 3.1 g/dL (3.5-5.0); Calcium 9.3 mg/dL (8.4-10.2); Magnesium 1.7 mg/dL (1.6-2.3); Potassium 3.5 mmol/L (3.5-5.1); Total Protein 5.7 g/dL (6.3-8.2)
--- NOTE | 2022-01-07 11:45 | P.PN ---
Subjective Progress Note Date: 01/07/22 Principal diagnosis: CHF/hypoxia Patient is an 81-year-old female with a history of hypertension, diabetes mellitus requiring insulin, chronic kidney disease, coronary artery disease, and chronic respiratory failure requiring 3-4 L nasal cannula who presented to the ER on 12/14/21 with complaints of shortness of breath and leg swelling. Dr. Bhatia has been monitoring her closely with plans for possible outpatient. In the ER she underwent underwent an extensive evaluation. She was hypoxic at 78% on 3 L on arrival. Chest x-ray showed pulmonary vascular congestion. Labatory analysis was significant for Hgb 9.5, Cr 1.37 with baseline 1.6, T bili of 1.6, and glucose of 200. Initial Troponin was negative. She was started on diuresis and admitted. Cardiology was consulted. Patient underwent cardiac catheterization on 12/18/21 which showed stable coronary artery disease. Medical management was recommended, no need for intervention. Over the course of her stay, the patient has been becoming more hypoxic as well as has worsening renal function. She is on 8L HFNC, and unable to be weaned. The patient has chronic kidney disease stage IV secondary to diabetic kidney disease and nephrosclerosis. She is also being followed by nephrology. Currently on Lasix drip. Patient has some improvement with aggressive diuresis. She has minimal improvement in her renal function. There has been some conversation with the patient and family about the potential need for dialysis. 01/01 The patient is resting in a recliner. Her daughter, Pamela, is at the bedside. Information provided regarding palliative care philosophies and services. Education provided regarding the patient's chronic diseases including her diastolic heart failure and acute on chronic kidney disease. The patient can not be on an BETTY or ARB for her heart failure due to her renal disease. She is being maintained on aspirin, statin, carvedilol, hydralazine, Imdur. She has not been responding to the lasix IVP and needed to be started on a continuous drip. The possibility of needing hemodialysis was discussed at length. The patient states that her goal is prolonged survival. She takes care of her wheelchair bound and disabled son. She states that she would agree to hemodialysis if she has to in order to get better. The patient realizes she is on 8L HFNC and has not tolerated it being weaned down. She is hoping dialysis may help. She understands that this may be her new baseline now, but she has to "try to get better" because he family depends on her. She was independent with he ADL's until about 2 weeks prior to admission. She is realistic in the sense that she will at least need rehab before returning home. She understands that a [facility] will typically not accept her until her O2 requirements are 6LNC or less. Code status discussed at length. She would like to stay a full code. It was explained that in the event that she coded, it is unlikely to get her back to her current health state. If she were to end up on a ventilator, it would be very difficult to get her off of it. She stated her daughter would know what to do when the time comes. She was encouraged to continue to have conversations relaying her wishes for en of life care to her family. Her and her daughter agreed to OP palliative care upon discharge. 01/02 The patient is sleeping in the recliner. She states she did not sleep well last night. She stated she talked to her daughter more yesterday. They have decided to go ahead and start hemodialysis. The patient stated that the doctors have tried everything to get the fluid off with diuretics and it is not working. She wants to give hemodialysis a try to see if it will help with her breathing. The progression of her diastoloc CHF and associated symptoms reviewed with her again. She stated that she has never really been sick before. She has to be the strong one in the family, who takes care of everyone else. She is the one who tells everyone else what to do. She is worried with her son and husbands disabilities, no one will be able to take care of them. Her O2 demands have gone down. The patient is currently on 6L HFNC. She plans to go to [facility] for rehab and continue dialysis. 01/03 Patient resting in bed and appears comfortable. Her daughter is at the bedside and has stayed overnight. The patient is on a NRB mask. She stated her oxygen level went down while she was eating breakfast. She is having some nasal congestion and has trouble breathing through her nose. She stated that she is normally a mouth breather and is more comfortable with the mask. The patient's RN states she only had the NRB available at that time and will get her a ventimask instead. The patient had a permacath placed yesterday. She is to start HD today. She has a positive attitude today and said "I can do this!" 01/04 The patient is sitting up in the chair. She states she tolerated hemodialysis well yesterday. She complains of general joint/arthritic pain. She states she just took some Tylenol, which she normally takes at home. She also stated "If I were all alone I would not agree to dialysis, but too may people count on me so I'll do what I have to do." She ate a little breakfast and now feels tired. Her plans remain the same, to go to rehab and continue dialysis as an outpatient. She hopes her kidneys will recover, but realizes more than likely they will not Objective - Vital Signs Vital signs: Vital Signs Temp 97.9 F 01/07/22 08:00 Pulse 62 01/07/22 08:00 Resp 16 01/07/22 08:00 BP 152/63 01/07/22 08:00 Pulse Ox 94 L 01/07/22 09:00 FiO2 50 12/22/21 08:07 Intake & Output 01/06/22 01/07/22 01/07/22 18:59 06:59 18:59 Intake Total 180 100 360 Output Total 1150 Balance 180 -1050 360 Intake: Intake, IV Titration 0 Amount Sodium Chloride 0.9% 1, 0 000 ml @ 0 mls/hr IV .[facility] Rx#:[id number] Oral 180 100 360 Output: Urine 1150 Other: Voiding Method Bedside Commode Bedside Commode Bedside Commode # Bowel Movements 1 - Exam General: Well developed, well nourished. No acute distress. HEENT: Head is atraumatic, normocephalic. Sclerae are clear. Pupils equal, round and reactive to light bilaterally. Mucus membranes moist. Right IJ permacath in place. CV: Heart regular in rate and rhythm positive S1 and S2. No clicks, rubs or murmurs. Peripheral pulses equal. 2/4 Lungs: Diminished bases with fine crackles bilaterally. No wheezes rales or rhonchi. Tachypneic. On 5L HFNC Abdomen/GI: Soft. Bowel sounds present in all 4 quadrants.No guarding, rigidity, or abdominal tenderness. Musculoskeletal/ Extremities: STEWARD, no joint deformity or swelling. No gross atrophy. + generalized weakness Vascular: Radial pulses equal. 2/4. +2 bilateral LE edema, Left UE +1 edema Skin: Warm and dry, No rash or lesions. Neurologic: Awake, alert and oriented times 3. CN II-XII grossly intact. No focal deficits. Psychiatric: Appropriate mood and affect. - Labs CBC & Chem 7: 01/07/22 09:07 01/07/22 09:07 Labs: Abnormal Lab Results - Last 24 Hours (Table) 01/06/22 01/06/22 01/07/22 Range/Units 12:17 20:08 08:18 RBC (3.80-5.40) m/uL Hgb (11.4-16.0) gm/dL Hct (34.0-46.0) % MCV (80.0-100.0) fL MCHC (31.0-37.0) g/dL RDW (11.5-15.5) % Lymphocytes # (1.0-4.8) k/uL BUN (7-17) mg/dL Creatinine (0.52-1.04) mg/dL Glucose (74-99) mg/dL POC Glucose (mg/dL) 160 H 202 H 203 H (70-110) mg/dL ALT (4-34) U/L Alkaline Phosphatase (38-126) U/L Total Protein (6.3-8.2) g/dL Albumin (3.5-5.0) g/dL 01/07/22 01/07/22 Range/Units 09:07 09:07 RBC 2.58 L (3.80-5.40) m/uL Hgb 8.3 L (11.4-16.0) gm/dL Hct 27.1 L (34.0-46.0) % MCV 105.3 H (80.0-100.0) fL MCHC 30.5 L (31.0-37.0) g/dL RDW 16.3 H (11.5-15.5) % Lymphocytes # 0.9 L (1.0-4.8) k/uL BUN 44 H (7-17) mg/dL Creatinine 1.92 H (0.52-1.04) mg/dL Glucose 242 H (74-99) mg/dL POC Glucose (mg/dL) (70-110) mg/dL ALT 42 H (4-34) U/L Alkaline Phosphatase 213 H (38-126) U/L Total Protein 5.7 L (6.3-8.2) g/dL Albumin 3.1 L (3.5-5.0) g/dL Assessment and Plan Assessment: Symptoms * Pain - 0/10 pain, continue Tylenol [place], Morphine and zyloprim * Fatigue - + generalized weakness and fatigue, continue PT/OT * SOB - + sob with exertion, continue Lasix, and zaroxolyn * Insomnia - No * N/V - No, Continue Zofran prn * Anxiety - No, continue xanax prn * Depression - No * Confusion - No * Agitation - No * Hallucinations - No * Appetite/weight loss - + decreased appetite since September. No recent weight loss. Continue heart healthy diet and fluid restrictions. * Dysphagia - No * Constipation - No, LBM /12 * Incontinence - Occasionally, continue Flomax for retention * Itch - No Plan: Summary/Goals - Patient up in chair. She denies any pain. She states that she feels good today. She has been tolerating her dialysis well. She is anxious to get to rehab. Insurance auth pending. Recommendations - Discharge to [facility] with OP palliative care when stable Advanced Directives - No Code Status - Full code Thank you for this consult Kaley Gaspar [facility] Palliative Care [facility] [id number] Email: [email or web address] Time with Patient: Less than 30
--- NOTE | 2022-01-07 11:45 | P.PN ---
Subjective Patient is seen in follow-up for acute kidney injury on chronic kidney disease. Started on hemodialysis 01/03/2022. Last hemodialysis was 01/05/2022. Urine output documented as 1.15 L in the last 24 hours. Patient is on IV Lasix and metolazone. Sitting up in chair. Denies chest pain or shortness of breath. On 4 L nasal cannula. Vital signs are stable. General: Awake. No acute distress. HEENT: Head exam is unremarkable. LUNGS: Breath sounds decreased. HEART: Rate and Rhythm are regular. ABDOMEN: Soft, no distention. EXTREMITITES: 2+ edema. Objective - Vital Signs Vital signs: Vital Signs Temp 97.9 F 01/07/22 08:00 Pulse 62 01/07/22 08:00 Resp 16 01/07/22 08:00 BP 152/63 01/07/22 08:00 Pulse Ox 94 L 01/07/22 09:00 FiO2 50 12/22/21 08:07 Intake & Output 01/06/22 01/07/22 01/07/22 18:59 06:59 18:59 Intake Total 180 100 360 Output Total 1150 Balance 180 -1050 360 Intake: Intake, IV Titration 0 Amount Sodium Chloride 0.9% 1, 0 000 ml @ 0 mls/hr IV .[facility] Rx#:[id number] Oral 180 100 360 Output: Urine 1150 Other: Voiding Method Bedside Commode Bedside Commode Bedside Commode # Bowel Movements 1 - Labs CBC & Chem 7: 01/07/22 09:07 01/07/22 09:07 Labs: Abnormal Lab Results - Last 24 Hours (Table) 01/06/22 01/06/22 01/07/22 Range/Units 12:17 20:08 08:18 RBC (3.80-5.40) m/uL Hgb (11.4-16.0) gm/dL Hct (34.0-46.0) % MCV (80.0-100.0) fL MCHC (31.0-37.0) g/dL RDW (11.5-15.5) % Lymphocytes # (1.0-4.8) k/uL BUN (7-17) mg/dL Creatinine (0.52-1.04) mg/dL Glucose (74-99) mg/dL POC Glucose (mg/dL) 160 H 202 H 203 H (70-110) mg/dL ALT (4-34) U/L Alkaline Phosphatase (38-126) U/L Total Protein (6.3-8.2) g/dL Albumin (3.5-5.0) g/dL 01/07/22 01/07/22 Range/Units 09:07 09:07 RBC 2.58 L (3.80-5.40) m/uL Hgb 8.3 L (11.4-16.0) gm/dL Hct 27.1 L (34.0-46.0) % MCV 105.3 H (80.0-100.0) fL MCHC 30.5 L (31.0-37.0) g/dL RDW 16.3 H (11.5-15.5) % Lymphocytes # 0.9 L (1.0-4.8) k/uL BUN 44 H (7-17) mg/dL Creatinine 1.92 H (0.52-1.04) mg/dL Glucose 242 H (74-99) mg/dL POC Glucose (mg/dL) (70-110) mg/dL ALT 42 H (4-34) U/L Alkaline Phosphatase 213 H (38-126) U/L Total Protein 5.7 L (6.3-8.2) g/dL Albumin 3.1 L (3.5-5.0) g/dL Assessment and Plan Plan: Assessment: 1. Acute kidney injury secondary to ATN secondary to cardiorenal syndrome and contrast-induced acute kidney injury. Started on hemodialysis 01/03/2022. Has permacath. Last hemodialysis was 01/05/2022. UA from October 2021 showed proteinuria. No hydronephrosis noted on left kidney ultrasound although right kidney was not visualized. 2. Chronic kidney disease stage IV with baseline creatinine near 1.6 secondary to diabetic kidney disease and nephrosclerosis. 3. Acute on chronic diastolic CHF. 4. Volume overload. Improving with diuresis and ultrafiltration. 5. Coronary artery disease status post cardiac catheterization this admission. 6. Diabetes mellitus. 7. Anemia of chronic kidney disease. Iron deficiency noted - status post IV iron. 8. Chronic kidney disease mineral bone disease maintained on calcitriol. 9. Hypertension with chronic kidney disease. Stable. Plan: Maintain IV Lasix. Maintain metolazone. Maintain low salt diet and fluid restriction. No monoclonality on serum immunofixation. Continue to monitor renal function and urine output. Continue to assess need for renal replacement therapy on daily basis. Strict I's and O's.
[2022-01-07] MEDS ORDERED: DARBEPOETIN ALFA 40 MCG/0.4 ML SYRINGE SQ SCH (12:00)
[2022-01-07 12:15] LABS: Glucose,Whole Blood 235 mg/dL (70-110)
[2022-01-07] MEDS ORDERED: POTASSIUM CHLORIDE ER 20 MEQ TAB.ER PO STA (12:15)
--- NOTE | 2022-01-07 13:50 | P.PN ---
Subjective Progress Note Date: 01/07/22 Hospital course: Patient is a very pleasant 81-year-old female with a past medical history diastolic heart failure, hypertension, hyperlipidemia, and CAD. She presented to the emergency department on 12/14/21 with a chief complaint of chest pain and shortness of breath. EKG was completed revealing normal sinus rhythm at 74 bpm with T-wave inversion in anterolateral leads I, II, and V3 through V6. initial labs revealed hemoglobin of 9.5, BUN of 54, creatinine 1.37, and GFR of 36. Troponin was negative at less than 0.012 and proBNP was 1770.chest x-ray was consistent with CHF with bilateral pleural effusions. Patient was started on IV diuresis and admitted under our services with consultation to cardiology. She underwent a cardiac cath on 12/18/21 which revealed calcified coronary arteries with moderate distal left main disease, mild disease in the proximal LAD, mild to moderate disease in the RCA, and significant disease in the ostium of the left circumflex with no progression compared to 2017. Cardiology recommended maximizing medical therapy at this time. Renal function persistently worsened daily and on 12/23/21 nephrology was consulted and started pt on Lasix infusion as acute kidney injury was believed to be secondary to cardiorenal syndrome and contrast-induced acute kidney injury. Patient remains on Lasix infusion and continues to suffer from fluid volume overload.. Vascular surgery was consulted and permacath was placed 01/02/22. Repeat chest x-ray completed confirm placement of right below minute intravenous catheter terminating in the region of the SVC, as well as revealed prominent lung markings consistent with pulmonary vascular congestion and bilateral pleural effusions. Patient began dialysis treatments 01/03/22 and has received a total of 3 dialysis treatments to date. She has had significant improvement in her oxygen needs. Physical exam: Patient was seen and fully evaluated at bedside this morning. Hemoglobin continues to be stable at 8.3, renal function BUN 44, creatinine 1.92, and GFR of 24. SpO2 94% on 4 L. Venous Doppler left upper extremity was negative for DVT. Patient reports improvement in pain she was experiencing her left arm. We will continue to wean from oxygen, plan for likely discharge in the next 48 hours. Vital signs reviewed and stable. General: Nontoxic, no distress and appears stated age. Derm: Skin warm and dry, normal coloration for ethnicity. Head: Atraumatic, normocephalic and symmetric. Eyes: EOMs intact, no lid lag, and anicteric sclera Mouth: no lip lesions, mucus membranes moist Cardiovascular: regular rate and rhythm with normal S1S2, systolic murmur, positive posterior tibial pulses bilaterally, and cap refill < 2 seconds. Permacath right side, Lungs: Respirations even, regular, and unlabored on 4 L O2 via nasal cannula. Lungs diminished. No wheezes, crackles, rales, or rhonchi noted. Abdominal: soft, nontender to palpation, no guarding, no appreciable organomegaly Ext: ROM intact. No gross muscle atrophy, no contractures, 3+ pitting bilateral lower extremity edema. Neuro: Speech clear, face symmetrical and CN II-XII grossly intact with no noted focal neuro deficits Psych: Alert and oriented to person, place, time, and situation. Appropriate and pleasant affect. Assessment and Plan of Care: Acute on chronic diastolic heart failure with a preserved EF of 55-60% Acute on chronic hypoxic respiratory failure secondary to above Acute kidney injury on chronic kidney disease, secondary to cardiorenal syndrome -Cardiology and nephrology following. -Continue metolazone and lasix infusion managed by nephrology. -Amlodipine and hydralazine were discontinued to maintain systolic pressure > 120. -Continue Telemetry monitoring -Daily weights -Close monitoring of I's and O's -Maintain low salt diet with 1500 mL fluid restriction daily. -Continued close monitoring of renal function and electrolytes. -01/02/22 vascular surgery placed right sided permacath for dialysis. -01/03/22 patient underwent first dialysis treatment and received a total of 3 dialysis treatments to date with last dialysis session 01/05/22 Hypokalemia, resolved -We will continue to monitor closely with repeat a.m. labs and replace abnormal electrolyte values as needed per protocol. Iron deficiency anemia -Patient received IV ferric sodium gluconate4 doses during hospitalization. Patient to resume ferrous sulfate tablets upon discharge. Currently hemoglobin stable Multivessel CAD, s/p cardiac cath this admission recommending maximizing medical therapy at this time and may readdress once medically stable. patient to continue cardiac medication regimen with aspirin, atorvastatin, carvedilol, and isosorbide mononitrate. Hypertension, monitor vital signs and continue daily medication regimen with isosorbide mononitrate and carvedilol. Amlodipine and hydralazine were discontinued to maintain systolic pressure equal to or greater than 120. Hyperlipidemia, continue daily medication regimen with aspirin and atorvastatin. CODE STATUS: full code DVT prophylaxis: heparin Discussed with: patient and RN. Anticipated discharge date: Clinical course to determine, plan for likely discharge in the next [address]: residential facility upon discharge A total of 35 minutes was spent on the care of this complex patient more than 50% of the time was spent in counseling and care coordination. Objective - Vital Signs Vital signs: Vital Signs Temp 98.4 F 01/07/22 03:45 Pulse 52 L 01/07/22 03:45 Resp 14 01/07/22 03:45 BP 120/70 01/07/22 03:45 Pulse Ox 99 01/07/22 03:45 FiO2 50 12/22/21 08:07 Intake & Output 01/06/22 01/07/22 01/07/22 18:59 06:59 18:59 Intake Total 180 100 Output Total 1150 Balance 180 -1050 Intake: Intake, IV Titration 0 Amount Sodium Chloride 0.9% 1, 0 000 ml @ 0 mls/hr IV .[employer] ONE Rx#:[id number] Oral 180 100 Output: Urine 1150 Other: Voiding Method Bedside Commode Bedside Commode # Bowel Movements 1 - Labs CBC & Chem 7: 01/07/22 09:07 01/07/22 09:07 Labs: Abnormal Lab Results - Last 24 Hours (Table) 01/06/22 01/06/22 01/06/22 Range/Units 08:48 08:48 09:15 RBC 2.69 L (3.80-5.40) m/uL Hgb 8.8 L (11.4-16.0) gm/dL Hct 29.0 L (34.0-46.0) % MCV 107.8 H (80.0-100.0) fL MCHC 30.3 L (31.0-37.0) g/dL RDW 16.9 H (11.5-15.5) % Macrocytosis Marked A BUN 31 H (7-17) mg/dL Creatinine 1.62 H (0.52-1.04) mg/dL Glucose 184 H (74-99) mg/dL POC Glucose (mg/dL) 231 H (70-110) mg/dL AST 58 H (14-36) U/L ALT 65 H (4-34) U/L Alkaline Phosphatase 280 H (38-126) U/L Total Protein 5.9 L (6.3-8.2) g/dL Albumin 3.3 L (3.5-5.0) g/dL 01/06/22 01/06/22 Range/Units 12:17 20:08 RBC (3.80-5.40) m/uL Hgb (11.4-16.0) gm/dL Hct (34.0-46.0) % MCV (80.0-100.0) fL MCHC (31.0-37.0) g/dL RDW (11.5-15.5) % Macrocytosis BUN (7-17) mg/dL Creatinine (0.52-1.04) mg/dL Glucose (74-99) mg/dL POC Glucose (mg/dL) 160 H 202 H (70-110) mg/dL AST (14-36) U/L ALT (4-34) U/L Alkaline Phosphatase (38-126) U/L Total Protein (6.3-8.2) g/dL Albumin (3.5-5.0) g/dL
[2022-01-07 16:58] LABS: Glucose,Whole Blood 107 mg/dL (70-110)
[2022-01-07] MEDS: ATORVASTATIN 40 MG TAB PO SCH (20:10)
[2022-01-07] MEDS: allopurinoL 100 MG TAB PO SCH (20:10)
[2022-01-07 20:38] LABS: Glucose,Whole Blood 195 mg/dL (70-110)
[2022-01-08] MEDS: carvediloL 6.25 MG TAB PO SCH ×2 (06:44→17:14)
[2022-01-08 08:04] LABS: Glucose,Whole Blood 215 mg/dL (70-110)
[2022-01-08] MEDS: ISOSORBIDE MONONITRATE ER 30 MG TAB.ER.24H PO SCH (08:43)
[2022-01-08] MEDS: ASPIRIN 81 MG PO SCH (08:43)
[2022-01-08] MEDS: INSULIN ASPART (NovoLOG) 100 UNIT/ML VIAL SQ SCH ×7 (08:43→20:29)
[2022-01-08] MEDS: metOLazone 5 MG TAB PO SCH (08:43)
[2022-01-08] MEDS: FAMOTIDINE 20 MG TAB PO SCH (08:43)
[2022-01-08] MEDS: INSULIN DETEMIR (LEVEMIR) 100 UNIT/ML SYR SQ SCH (08:43)
[2022-01-08] MEDS: TAMSULOSIN 0.4 MG CAP.ER.24H PO SCH (08:43)
[2022-01-08] MEDS: FUROSEMIDE 10 MG/ML 10 ML VIAL IV SCH (08:44)
[2022-01-08] MEDS: HEPARIN SODIUM,PORCINE/PF 5,000 UNIT/0.5 ML SYRINGE SQ SCH ×3 (08:44→22:05)
[2022-01-08] MEDS: CARBAMIDE PEROXIDE 6.5% DROPS 15 ML BTL BOTH EARS SCH ×2 (08:45→20:01)
[2022-01-08 08:58] LABS: Potassium 3.8 mmol/L (3.5-5.1)
--- NOTE | 2022-01-08 10:28 | P.PN ---
Subjective Patient is seen in follow-up for acute kidney injury on chronic kidney disease. Started on hemodialysis 01/03/2022. Last hemodialysis was 01/05/2022. Urine output documented as 1975 mL 4 today. Patient is on IV Lasix and metolazone. Sitting up in chair. Denies chest pain or shortness of breath. On 2 L nasal cannula. Creatinine trending down. Vital signs are stable. General: Awake. No acute distress. HEENT: Head exam is unremarkable. LUNGS: Breath sounds decreased. HEART: Rate and Rhythm are regular. ABDOMEN: Soft, no distention. EXTREMITITES: 2+ edema. Objective - Vital Signs Vital signs: Vital Signs Temp 97.9 F 01/07/22 08:00 Pulse 60 01/08/22 03:49 Resp 18 01/08/22 03:49 BP 146/52 01/08/22 03:49 Pulse Ox 94 L 01/08/22 03:49 FiO2 50 12/22/21 08:07 Intake & Output 01/07/22 01/08/22 01/08/22 18:59 06:59 18:59 Intake Total 1200 Output Total 625 350 Balance 575 -350 Weight 91 kg Intake: Oral 1200 Output: Urine 625 350 Other: Voiding Method Bedside Commode Bedside Commode # Voids 1 - Labs CBC & Chem 7: 01/07/22 09:07 01/08/22 07:54 Labs: Abnormal Lab Results - Last 24 Hours (Table) 01/07/22 01/07/22 01/08/22 Range/Units 11:39 20:36 07:54 BUN 50 H (7-17) mg/dL Creatinine 1.67 H (0.52-1.04) mg/dL Glucose 195 H (74-99) mg/dL POC Glucose (mg/dL) 235 H 195 H (70-110) mg/dL Magnesium (1.6-2.3) mg/dL 01/08/22 01/08/22 Range/Units 07:54 08:03 BUN (7-17) mg/dL Creatinine (0.52-1.04) mg/dL Glucose (74-99) mg/dL POC Glucose (mg/dL) 215 H (70-110) mg/dL Magnesium 1.5 L (1.6-2.3) mg/dL Assessment and Plan Plan: Assessment: 1. Acute kidney injury secondary to ATN secondary to cardiorenal syndrome and contrast-induced acute kidney injury. Started on hemodialysis 01/03/2022. Has permacath. Last hemodialysis was 01/05/2022. UA from October 2021 showed proteinuria. No hydronephrosis noted on left kidney ultrasound although right kidney was not visualized. 2. Chronic kidney disease stage IV with baseline creatinine near 1.6 secondary to diabetic kidney disease and nephrosclerosis. 3. Acute on chronic diastolic CHF. 4. Volume overload. Improving with diuresis and ultrafiltration. 5. Coronary artery disease status post cardiac catheterization this admission. 6. Diabetes mellitus. 7. Anemia of chronic kidney disease. Iron deficiency noted - status post IV iron. On Aranesp. 8. Chronic kidney disease mineral bone disease maintained on calcitriol. 9. Hypertension with chronic kidney disease. Stable. 10. Hypomagnesemia from diuresis. Plan: Maintain IV Lasix - change to torsemide 60 mg daily upon discharge. Maintain metolazone. Maintain low salt diet and fluid restriction. No monoclonality on serum immunofixation. Continue to monitor renal function and urine output. Continue to assess need for renal replacement therapy on daily basis. Creatinine is trending down however patient is still quite volume overloaded. Plan for UF only today. Continue dialysis outpatient and can hopefully discontinue dialysis in the near future once her volume status improves. Strict I's and O's. Replace magnesium.
[2022-01-08 12:22] LABS: Glucose,Whole Blood 158 mg/dL (70-110)
--- NOTE | 2022-01-08 12:30 | P.PN ---
Subjective Progress Note Date: 01/08/22 Principal diagnosis: CHF/hypoxia Patient is an 81-year-old female with a history of hypertension, diabetes mellitus requiring insulin, chronic kidney disease, coronary artery disease, and chronic respiratory failure requiring 3-4 L nasal cannula who presented to the ER on 12/14/21 with complaints of shortness of breath and leg swelling. Dr. Bhatia has been monitoring her closely with plans for possible outpatient. In the ER she underwent underwent an extensive evaluation. She was hypoxic at 78% on 3 L on arrival. Chest x-ray showed pulmonary vascular congestion. Labatory analysis was significant for Hgb 9.5, Cr 1.37 with baseline 1.6, T bili of 1.6, and glucose of 200. Initial Troponin was negative. She was started on diuresis and admitted. Cardiology was consulted. Patient underwent cardiac catheterization on 12/18/21 which showed stable coronary artery disease. Medical management was recommended, no need for intervention. Over the course of her stay, the patient has been becoming more hypoxic as well as has worsening renal function. She is on 8L HFNC, and unable to be weaned. The patient has chronic kidney disease stage IV secondary to diabetic kidney disease and nephrosclerosis. She is also being followed by nephrology. Currently on Lasix drip. Patient has some improvement with aggressive diuresis. She has minimal improvement in her renal function. There has been some conversation with the patient and family about the potential need for dialysis. 01/01 The patient is resting in a recliner. Her daughter, Pamela, is at the bedside. Information provided regarding palliative care philosophies and services. Education provided regarding the patient's chronic diseases including her diastolic heart failure and acute on chronic kidney disease. The patient can not be on an BETTY or ARB for her heart failure due to her renal disease. She is being maintained on aspirin, statin, carvedilol, hydralazine, Imdur. She has not been responding to the lasix IVP and needed to be started on a continuous drip. The possibility of needing hemodialysis was discussed at length. The patient states that her goal is prolonged survival. She takes care of her wheelchair bound and disabled son. She states that she would agree to hemodialysis if she has to in order to get better. The patient realizes she is on 8L HFNC and has not tolerated it being weaned down. She is hoping dialysis may help. She understands that this may be her new baseline now, but she has to "try to get better" because he family depends on her. She was independent with he ADL's until about 2 weeks prior to admission. She is realistic in the sense that she will at least need rehab before returning home. She understands that a [facility] will typically not accept her until her O2 requirements are 6LNC or less. Code status discussed at length. She would like to stay a full code. It was explained that in the event that she coded, it is unlikely to get her back to her current health state. If she were to end up on a ventilator, it would be very difficult to get her off of it. She stated her daughter would know what to do when the time comes. She was encouraged to continue to have conversations relaying her wishes for en of life care to her family. Her and her daughter agreed to OP palliative care upon discharge. 01/02 The patient is sleeping in the recliner. She states she did not sleep well last night. She stated she talked to her daughter more yesterday. They have decided to go ahead and start hemodialysis. The patient stated that the doctors have tried everything to get the fluid off with diuretics and it is not working. She wants to give hemodialysis a try to see if it will help with her breathing. The progression of her diastoloc CHF and associated symptoms reviewed with her again. She stated that she has never really been sick before. She has to be the strong one in the family, who takes care of everyone else. She is the one who tells everyone else what to do. She is worried with her son and husbands disabilities, no one will be able to take care of them. Her O2 demands have gone down. The patient is currently on 6L HFNC. She plans to go to [facility] for rehab and continue dialysis. 01/03 Patient resting in bed and appears comfortable. Her daughter is at the bedside and has stayed overnight. The patient is on a NRB mask. She stated her oxygen level went down while she was eating breakfast. She is having some nasal congestion and has trouble breathing through her nose. She stated that she is normally a mouth breather and is more comfortable with the mask. The patient's RN states she only had the NRB available at that time and will get her a ventimask instead. The patient had a permacath placed yesterday. She is to start HD today. She has a positive attitude today and said "I can do this!" 01/04 The patient is sitting up in the chair. She states she tolerated hemodialysis well yesterday. She complains of general joint/arthritic pain. She states she just took some Tylenol, which she normally takes at home. She also stated "If I were all alone I would not agree to dialysis, but too may people count on me so I'll do what I have to do." She ate a little breakfast and now feels tired. Her plans remain the same, to go to rehab and continue dialysis as an outpatient. She hopes her kidneys will recover, but realizes more than likely they will not. 01/07 Patient up in chair. She denies any pain. She states that she feels good today. She has been tolerating her dialysis well. She is anxious to get to rehab. Insurance auth pending. Objective - Vital Signs Vital signs: Vital Signs Temp 98.1 F 01/08/22 08:00 Pulse 55 L 01/08/22 12:00 Resp 18 01/08/22 08:00 BP 145/65 01/08/22 12:00 Pulse Ox 96 01/08/22 12:00 FiO2 50 12/22/21 08:07 Intake & Output 01/07/22 01/08/22 01/08/22 18:59 06:59 18:59 Intake Total 1200 Output Total 625 350 Balance 575 -350 Weight 91 kg Intake: Oral 1200 Output: Urine 625 350 Other: Voiding Method Bedside Commode Bedside Commode Bedside Commode # Voids 1 - Exam General: Well developed, well nourished. No acute distress. HEENT: Head is atraumatic, normocephalic. Sclerae are clear. Pupils equal, round and reactive to light bilaterally. Mucus membranes moist. Right IJ permacath in place. CV: Heart regular in rate and rhythm positive S1 and S2. No clicks, rubs or murmurs. Peripheral pulses equal. 2/4 Lungs: Diminished bases with fine crackles bilaterally. No wheezes rales or rhonchi. On 2LNC Abdomen/GI: Soft. Bowel sounds present in all 4 quadrants.No guarding, rigidity, or abdominal tenderness. Musculoskeletal/ Extremities: STEWARD, no joint deformity or swelling. No gross atrophy. + generalized weakness Vascular: Radial pulses equal. 2/4. +2 bilateral LE edema, Left UE +1 edema Skin: Warm and dry, No rash or lesions. Neurologic: Awake, alert and oriented times 3. CN II-XII grossly intact. No focal deficits. Psychiatric: Appropriate mood and affect. - Labs CBC & Chem 7: 01/07/22 09:07 01/08/22 07:54 Labs: Abnormal Lab Results - Last 24 Hours (Table) 01/07/22 01/08/22 01/08/22 Range/Units 20:36 07:54 07:54 BUN 50 H (7-17) mg/dL Creatinine 1.67 H (0.52-1.04) mg/dL Glucose 195 H (74-99) mg/dL POC Glucose (mg/dL) 195 H (70-110) mg/dL Magnesium 1.5 L (1.6-2.3) mg/dL 01/08/22 01/08/22 Range/Units 08:03 12:21 BUN (7-17) mg/dL Creatinine (0.52-1.04) mg/dL Glucose (74-99) mg/dL POC Glucose (mg/dL) 215 H 158 H (70-110) mg/dL Magnesium (1.6-2.3) mg/dL Assessment and Plan Assessment: Symptoms * Pain - 0/10 pain, continue Tylenol [place], Morphine and zyloprim * Fatigue - + generalized weakness and fatigue, continue PT/OT * SOB - + sob with exertion, continue Lasix, and zaroxolyn * Insomnia - No * N/V - No, Continue Zofran prn * Anxiety - No, continue Xanax prn * Depression - No * Confusion - No * Agitation - No * Hallucinations - No * Appetite/weight loss - + decreased appetite since September. No recent weight loss. Continue heart healthy diet and fluid restrictions. * Dysphagia - No * Constipation - No, LBM 01/08 * Incontinence - Occasionally, continue Flomax for retention * Itch - No Plan: Summary/Goals - The patient has just gotten into the chair. She took a shower and stated it felt fantastic. She is down to 2L NC. Mild sob with activity. She is to have dialysis again today. The plan is then to send her to [facility] after dialysis. Outpatient dialysis is set up through [employer] for -. Recommendations - Discharge to [facility] with OP palliative care Advanced Directives - No Code Status - Full code Thank you for this consult Kaley Gaspar [facility] Palliative Care [facility] [id number] Email: [email or web address] Time with Patient: Less than 30
--- NOTE | 2022-01-08 13:17 | P.PN ---
Subjective Progress Note Date: 01/08/22 Hospital course: Patient is a very pleasant 81-year-old female with a past medical history diastolic heart failure, hypertension, hyperlipidemia, and CAD. She presented to the emergency department on 12/14/21 with a chief complaint of chest pain and shortness of breath. EKG was completed revealing normal sinus rhythm at 74 bpm with T-wave inversion in anterolateral leads I, II, and V3 through V6. initial labs revealed hemoglobin of 9.5, BUN of 54, creatinine 1.37, and GFR of 36. Troponin was negative at less than 0.012 and proBNP was 1770.chest x-ray was consistent with CHF with bilateral pleural effusions. Patient was started on IV diuresis and admitted under our services with consultation to cardiology. She underwent a cardiac cath on 12/18/21 which revealed calcified coronary arteries with moderate distal left main disease, mild disease in the proximal LAD, mild to moderate disease in the RCA, and significant disease in the ostium of the left circumflex with no progression compared to 2017. Cardiology recommended maximizing medical therapy at this time. Renal function persistently worsened daily and on 12/23/21 nephrology was consulted and started pt on Lasix infusion as acute kidney injury was believed to be secondary to cardiorenal syndrome and contrast-induced acute kidney injury. Patient remains on Lasix infusion and continues to suffer from fluid volume overload.. Vascular surgery was consulted and permacath was placed 01/02/22. Repeat chest x-ray completed confirm placement of right below minute intravenous catheter terminating in the region of the SVC, as well as revealed prominent lung markings consistent with pulmonary vascular congestion and bilateral pleural effusions. Patient began dialysis treatments 01/03/22 and has received a total of 3 dialysis treatments to date. She has had significant improvement in her oxygen needs and currently down to 2L O2 via NC. Physical exam: Patient was seen and fully evaluated at bedside this morning. She is preparing to undergo 4th dialysis session later today. She remains on IV Lasix 80 mg every 12 hours along with metolazone, urinary output over the past 24 hours is 975 mL's. Oxygenation needs continue to improve and pt is currently down to 2L O2 via NC. After discussion with nephrology IV Lasix to be discontinued later today and patient to be started on torsemide 40 mg daily. Now that patient is being transitioned to oral diuretic, we will monitor overnight with plans to discharge to SNF within the next 24 hours. Outpatient dialysis has been set up plan is for discharge to [facility] likely tomorrow morning. Vital signs reviewed and stable. General: Nontoxic, no distress and appears stated age. Derm: Skin warm and dry, normal coloration for ethnicity. Head: Atraumatic, normocephalic and symmetric. Eyes: EOMs intact, no lid lag, and anicteric sclera Mouth: no lip lesions, mucus membranes moist Cardiovascular: regular rate and rhythm with normal S1S2, systolic murmur, po sitive posterior tibial pulses bilaterally, and cap refill < 2 seconds. Permacath right side, Lungs: Respirations even, regular, and unlabored on 2 L O2 via nasal cannula. Lungs diminished. No wheezes, crackles, rales, or rhonchi noted. Abdominal: soft, nontender to palpation, no guarding, no appreciable organomegaly Ext: ROM intact. No gross muscle atrophy, no contractures, 2+ pitting bilateral lower extremity edema. Neuro: Speech clear, face symmetrical and CN II-XII grossly intact with no noted focal neuro deficits Psych: Alert and oriented to person, place, time, and situation. Appropriate and pleasant affect. Assessment and Plan of Care: Acute on chronic diastolic heart failure with a preserved EF of 55-60% Acute on chronic hypoxic respiratory failure secondary to above Acute kidney injury on chronic kidney disease, secondary to cardiorenal syndrome -Cardiology and nephrology following. -Continue metolazone and lasix infusion managed by nephrology. -Amlodipine and hydralazine were discontinued to maintain systolic pressure > 120. -Continue Telemetry monitoring -Daily weights -Close monitoring of I's and O's -Maintain low salt diet with 1500 mL fluid restriction daily. -Continued close monitoring of renal function and electrolytes. -01/02/22 vascular surgery placed right sided permacath for dialysis. -01/03/22 patient underwent first dialysis treatment and received a total of 3 dialysis treatments to date with last dialysis session 01/05/22 Hypomagnesemia -Replaced, continue to monitor with repeat a.m. labs to replace abnormal electrolyte values as needed. Hypokalemia, resolved -We will continue to monitor closely with repeat a.m. labs and replace abnormal electrolyte values as needed per protocol. Iron deficiency anemia -Patient received IV ferric sodium gluconate4 doses during hospitalization. Patient to resume ferrous sulfate tablets upon discharge. Currently hemoglobin stable Multivessel CAD, s/p cardiac cath this admission recommending maximizing medical therapy at this time and may readdress once medically stable. patient to continue cardiac medication regimen with aspirin, atorvastatin, carvedilol, and isosorbide mononitrate. Hypertension, monitor vital signs and continue daily medication regimen with isosorbide mononitrate and carvedilol. Amlodipine and hydralazine were discontinued to maintain systolic pressure equal to or greater than 120. Hyperlipidemia, continue daily medication regimen with aspirin and atorvastatin. CODE STATUS: full code DVT prophylaxis: heparin Discussed with: patient and RN. Anticipated discharge date: Plans for discharge tomorrow morning to [facility]. Hemodialysis has been set up. Anticipated discharge place: alf facility upon discharge A total of 35 minutes was spent on the care of this complex patient more than 50% of the time was spent in counseling and care coordination. Objective - Vital Signs Vital signs: Vital Signs Temp 97.9 F 01/07/22 08:00 Pulse 60 01/08/22 03:49 Resp 18 01/08/22 03:49 BP 146/52 01/08/22 03:49 Pulse Ox 94 L 01/08/22 03:49 FiO2 50 12/22/21 08:07 Intake & Output 01/07/22 01/08/22 01/08/22 18:59 06:59 18:59 Intake Total 1200 Output Total 625 350 Balance 575 -350 Weight 91 kg Intake: Oral 1200 Output: Urine 625 350 Other: Voiding Method Bedside Commode Bedside Commode # Voids 1 - Labs CBC & Chem 7: 01/07/22 09:07 01/08/22 07:54 Labs: Abnormal Lab Results - Last 24 Hours (Table) 01/07/22 01/07/22 01/07/22 Range/Units 09:07 09:07 11:39 RBC 2.58 L (3.80-5.40) m/uL Hgb 8.3 L (11.4-16.0) gm/dL Hct 27.1 L (34.0-46.0) % MCV 105.3 H (80.0-100.0) fL MCHC 30.5 L (31.0-37.0) g/dL RDW 16.3 H (11.5-15.5) % Lymphocytes # 0.9 L (1.0-4.8) k/uL BUN 44 H (7-17) mg/dL Creatinine 1.92 H (0.52-1.04) mg/dL Glucose 242 H (74-99) mg/dL POC Glucose (mg/dL) 235 H (70-110) mg/dL ALT 42 H (4-34) U/L Alkaline Phosphatase 213 H (38-126) U/L Total Protein 5.7 L (6.3-8.2) g/dL Albumin 3.1 L (3.5-5.0) g/dL 01/07/22 01/08/22 01/08/22 Range/Units 20:36 07:54 08:03 RBC (3.80-5.40) m/uL Hgb (11.4-16.0) gm/dL Hct (34.0-46.0) % MCV (80.0-100.0) fL MCHC (31.0-37.0) g/dL RDW (11.5-15.5) % Lymphocytes # (1.0-4.8) k/uL BUN 50 H (7-17) mg/dL Creatinine 1.67 H (0.52-1.04) mg/dL Glucose 195 H (74-99) mg/dL POC Glucose (mg/dL) 195 H 215 H (70-110) mg/dL ALT (4-34) U/L Alkaline Phosphatase (38-126) U/L Total Protein (6.3-8.2) g/dL Albumin (3.5-5.0) g/dL
[2022-01-08 16:51] LABS: Glucose,Whole Blood 112 mg/dL (70-110)
[2022-01-08] MEDS: TORSEMIDE 20 MG TAB PO SCH (17:14)
[2022-01-08] MEDS: MAGNESIUM SULFATE-D5W PMX 1 GM in DEXTROSE/WATER 1 100ML.BAG IVPB SCH ×5 (17:14→20:01)
[2022-01-08] MEDS: allopurinoL 100 MG TAB PO SCH (19:54)
[2022-01-08] MEDS: ACETAMINOPHEN TAB 325 MG TAB PO PRN (19:54)
[2022-01-08] MEDS: ATORVASTATIN 40 MG TAB PO SCH (19:54)
[2022-01-08 20:20] LABS: Glucose,Whole Blood 204 mg/dL (70-110)
[2022-01-09] MEDS: carvediloL 6.25 MG TAB PO SCH ×2 (06:24→17:23)
[2022-01-09 07:04] LABS: Glucose,Whole Blood 163 mg/dL (70-110)
[2022-01-09 07:04] LABS: Glucose,Whole Blood 159 mg/dL (70-110)
[2022-01-09] MEDS: INSULIN DETEMIR (LEVEMIR) 100 UNIT/ML SYR SQ SCH (07:07)
[2022-01-09] MEDS: INSULIN ASPART (NovoLOG) 100 UNIT/ML VIAL SQ SCH ×6 (07:07→17:23)
[2022-01-09 08:31] LABS: Anisocytosis Slight; HCT 29.4 % (34.0-46.0); HGB 8.9 gm/dL (11.4-16.0); Hypochromasia Marked; MCH 31.4 pg (25.0-35.0); MCHC 30.4 g/dL (31.0-37.0); MCV 103.4 fL (80.0-100.0); Macrocytosis Moderate; Mean Platelet Volume 7.9; Platelet Count 286 k/uL (150-450); RBC 2.84 m/uL (3.80-5.40); RDW 16.1 % (11.5-15.5)
[2022-01-09 08:42] LABS: Albumin 3.4 g/dL (3.5-5.0); Calcium 9.3 mg/dL (8.4-10.2); Magnesium 2.4 mg/dL (1.6-2.3); Potassium 3.5 mmol/L (3.5-5.1); Total Bilirubin 1.1 mg/dL (0.2-1.3); Total Protein 6.2 g/dL (6.3-8.2)
[2022-01-09] MEDS: HEPARIN SODIUM,PORCINE/PF 5,000 UNIT/0.5 ML SYRINGE SQ SCH ×2 (09:08→17:20)
[2022-01-09] MEDS: TORSEMIDE 20 MG TAB PO SCH (09:08)
[2022-01-09] MEDS: ISOSORBIDE MONONITRATE ER 30 MG TAB.ER.24H PO SCH (09:08)
[2022-01-09] MEDS: ASPIRIN 81 MG PO SCH (09:08)
[2022-01-09] MEDS: FAMOTIDINE 20 MG TAB PO SCH (09:08)
[2022-01-09] MEDS: TAMSULOSIN 0.4 MG CAP.ER.24H PO SCH (09:08)
[2022-01-09] MEDS: CARBAMIDE PEROXIDE 6.5% DROPS 15 ML BTL BOTH EARS SCH (09:09)
[2022-01-09] MEDS: metOLazone 5 MG TAB PO SCH (09:09)
[2022-01-09] MEDS ORDERED: POTASSIUM CHLORIDE ER 20 MEQ TAB.ER PO STA (09:24)
--- NOTE | 2022-01-09 09:27 | P.PN ---
Subjective Patient is seen in follow-up for acute kidney injury on chronic kidney disease. Started on hemodialysis 01/03/2022. Last hemodialysis was 01/05/2022. Underwent UF only treatment on January 08 at 2 L removed. Urine output documented as 975 mL for 01/08/2022. Patient is on oral torsemide and metolazone. Sitting up in chair. Denies chest pain or shortness of breath. On 2 L nasal cannula. Creatinine 2.03 today. Vital signs are stable. General: Awake. No acute distress. HEENT: Head exam is unremarkable. LUNGS: Breath sounds decreased. HEART: Rate and Rhythm are regular. ABDOMEN: Soft, no distention. EXTREMITITES: 1+ edema. Objective - Vital Signs Vital signs: Vital Signs Temp 98.1 F 01/08/22 08:00 Pulse 53 L 01/09/22 04:00 Resp 18 01/09/22 04:00 BP 117/50 01/09/22 04:00 Pulse Ox 93 L 01/09/22 07:25 FiO2 50 12/22/21 08:07 Intake & Output 01/08/22 01/09/22 01/09/22 18:59 06:59 18:59 Intake Total 420 Output Total 1999 Balance -1580 Weight 90.5 kg Intake: Oral 420 Output: Hemodialysis 1999 Other: Voiding Method Bedside Commode Bedside Commode # Voids 1 - Labs CBC & Chem 7: 01/09/22 07:55 01/09/22 07:55 Labs: Abnormal Lab Results - Last 24 Hours (Table) 01/08/22 01/08/22 01/08/22 Range/Units 07:54 12:21 16:22 RBC (3.80-5.40) m/uL Hgb (11.4-16.0) gm/dL Hct (34.0-46.0) % MCV (80.0-100.0) fL MCHC (31.0-37.0) g/dL RDW (11.5-15.5) % Chloride (98-107) mmol/L BUN (7-17) mg/dL Creatinine (0.52-1.04) mg/dL Glucose (74-99) mg/dL POC Glucose (mg/dL) 158 H 112 H (70-110) mg/dL Magnesium 1.5 L (1.6-2.3) mg/dL ALT (4-34) U/L Alkaline Phosphatase (38-126) U/L Total Protein (6.3-8.2) g/dL Albumin (3.5-5.0) g/dL 01/08/22 01/09/22 01/09/22 Range/Units 20:19 07:01 07:02 RBC (3.80-5.40) m/uL Hgb (11.4-16.0) gm/dL Hct (34.0-46.0) % MCV (80.0-100.0) fL MCHC (31.0-37.0) g/dL RDW (11.5-15.5) % Chloride (98-107) mmol/L BUN (7-17) mg/dL Creatinine (0.52-1.04) mg/dL Glucose (74-99) mg/dL POC Glucose (mg/dL) 204 H 159 H 163 H (70-110) mg/dL Magnesium (1.6-2.3) mg/dL ALT (4-34) U/L Alkaline Phosphatase (38-126) U/L Total Protein (6.3-8.2) g/dL Albumin (3.5-5.0) g/dL 01/09/22 01/09/22 Range/Units 07:55 07:55 RBC 2.84 L (3.80-5.40) m/uL Hgb 8.9 L (11.4-16.0) gm/dL Hct 29.4 L (34.0-46.0) % MCV 103.4 H (80.0-100.0) fL MCHC 30.4 L (31.0-37.0) g/dL RDW 16.1 H (11.5-15.5) % Chloride 97 L (98-107) mmol/L BUN 47 H (7-17) mg/dL Creatinine 2.03 H (0.52-1.04) mg/dL Glucose 187 H (74-99) mg/dL POC Glucose (mg/dL) (70-110) mg/dL Magnesium 2.4 H (1.6-2.3) mg/dL ALT 37 H (4-34) U/L Alkaline Phosphatase 207 H (38-126) U/L Total Protein 6.2 L (6.3-8.2) g/dL Albumin 3.4 L (3.5-5.0) g/dL Assessment and Plan Plan: Assessment: 1. Acute kidney injury secondary to ATN secondary to cardiorenal syndrome and contrast-induced acute kidney injury. Started on hemodialysis 01/03/2022. Has permacath. Last hemodialysis was 01/05/2022. UA from October 2021 showed proteinuria. No hydronephrosis noted on left kidney ultrasound although right kidney was not visualized. 2. Chronic kidney disease stage IV with baseline creatinine near 1.6 secondary to diabetic kidney disease and nephrosclerosis. 3. Acute on chronic diastolic CHF. 4. Volume overload. Improving with diuresis and ultrafiltration. 5. Coronary artery disease status post cardiac catheterization this admission. 6. Diabetes mellitus. 7. Anemia of chronic kidney disease. Iron deficiency noted - status post IV iron. On Aranesp. 8. Chronic kidney disease mineral bone disease maintained on calcitriol. 9. Hypertension with chronic kidney disease. Stable. 10. Hypomagnesemia from diuresis. Replace. Improved. Plan: Maintain oral diuretics. Maintain low salt diet and fluid restriction. No monoclonality on serum immunofixation. Continue to monitor renal function and urine output. Continue to assess need for renal replacement therapy on daily basis. Plan for UF only again today. Continue dialysis outpatient and can hopefully discontinue dialysis in the near future once her volume status improves. Strict I's and O's. Check phosphorus level. She will be maintained on Friday schedule for dialysis outpatient.
--- NOTE | 2022-01-09 09:49 | P.DS ---
Providers Date of admission: 12/14/21 18:45 Expected date of discharge: 01/09/22 Attending physician: Chani Del Real DO Consults: 12/14/21 18:45 Consult Physician Routine Consulting Provider: Leeann Bhatia Consult Reason/Comments: chf, cad Do you want consulting provider notified?: Yes 12/23/21 11:15 Consult Physician Routine Consulting Provider: Bert Young Consult Reason/Comments: worsening renal function Do you want consulting provider notified?: Yes 12/29/21 13:49 Consult to Palliative Care Routine Consulting Provider: Kaley Gaspar Consult Reason/Comments: On 8L [place], not able to wean down, needs goals of care discussion Do you want consulting provider notified?: Yes, Notify in am 01/02/22 11:01 Consult Physician Routine Consulting Provider: Adarsh Cartagena Consult Reason/Comments: permacath placement Do you want consulting provider notified?: Yes Primary care physician: Godwin Jc MD Hospital Course: Discharge Diagnosis: Acute on chronic diastolic heart failure with a preserved EF of 55-60% Acute on chronic hypoxic respiratory failure secondary to above Acute kidney injury on chronic kidney disease, secondary to cardiorenal syndrome Hypomagnesemia Hypokalemia, resolved Iron deficiency anemia Multivessel CAD, s/p cardiac cath this admission recommending maximizing medical therapy Hypertension Hyperlipidemia Hospital Course: Patient is an 81-year-old female with a history of hypertension, diabetes mellitus requiring insulin, chronic kidney disease, coronary artery disease, and chronic respiratory failure requiring 3-4 L nasal cannula who presented to the ER with complaints of lower extremity edema and leg swelling. Dr. Bhatia has been monitoring her closely with plans for possible outpatient. In the ER she underwent underwent an extensive evaluation. She was hypoxic at 78% on 3 L on arrival. Chest x-ray showed pulmonary vascular congestion. Labatory analysis was significant for HgB 9.5, Cr 1.37 with baseline 1.6, T bili of 1.6, and glucose of 200. Initial Troponin was negative. She was started on diuresis and admitted. Cardiology was consulted. She underwent a cardiac cath on 12/18/21 which revealed calcified coronary arteries with moderate distal left main disease, mild disease in the proximal LAD, mild to moderate disease in the RCA, and significant disease in the ostium of the left circumflex with no progression compared to 2017. Cardiology recommended maximizing medical therapy at this time. Renal function persistently worsened daily and on 12/23/21 nephrology was consulted and started pt on Lasix infusion as acute kidney injury was believed to be secondary to cardiorenal syndrome and contrast-induced acute kidney injury. Patient remains on Lasix infusion and continues to suffer from fluid volume overload.. Vascular surgery was consulted and permacath was placed 01/02/22. Repeat chest x-ray completed confirm placement of right below minute intravenous catheter terminating in the region of the SVC, as well as revealed prominent lung markings consistent with pulmonary vascular congestion and bilateral pleural effusions. Patient began dialysis treatments 01/03/22. Venous Doppler-No evidence of DVT. She has had significant improvement in her oxygen needs and currently down to 2L O2 via NC. Arrangements were made for outpatient dialysis. She was determined stable for discharge to [facility]. Follow-up: HD on /Fri at 11:40AM, Dr. Young in 2 weeks, Dr. Bhatia in 1 week, Patient seen and examined at bedside. Doing well, no complaints, breathing much better, still with lower extremity edema. Vital signs reviewed and stable. General: nontoxic, no distress, appears at stated age Derm: warm, dry Head: atraumatic, normocephalic, symmetric Eyes: EOMI, no lid lag, anicteric sclera Mouth: no lip lesion, mucus membranes moist Cardiovascular: S1S2 reg, no murmur, positive posterior tibial pulse bilateral, Lungs: CTA bilateral, no rhonchi, no rales , no accessory muscle use Abdominal: soft, nontender to palpation, no guarding, no appreciable organomegaly Ext: no gross muscle atrophy, no edema, no contractures Neuro: CN II-XI grossly intact, no focal neuro deficits Psych: Alert, oriented, appropriate affect A total of 45 minutes of time were spent preparing this complex discharge summary. Patient was discharged on 01/09/22. Patient Condition at Discharge: Stable Plan - Discharge Summary New Discharge Prescriptions: New Torsemide [Demadex] 40 mg PO DAILY tab INSULIN ASPART (NovoLOG) [NovoLOG (formulary)] 5 unit SQ AC-TID each INSULIN ASPART (NovoLOG) [NovoLOG (formulary)] 0 unit SQ ACHS each Acetaminophen Tab [Tylenol] 650 mg PO Q6HR PRN tab PRN Reason: Mild Pain Or Fever > 100.5 metOLazone [Zaroxolyn] 5 mg PO DAILY tab Isosorbide Mononitrate ER [Imdur] 30 mg PO DAILY tab Insulin Detemir (Levemir) [Levemir] 35 unit SQ DAILY@0700 each Nitroglycerin Sl Tabs [Nitrostat] 0.4 mg SUBLINGUAL Q5M PRN tab PRN Reason: Chest Pain Continue Ferrous Sulfate [Iron] 650 mg PO BID Dorzolamide 2% [Trusopt 2%] 1 drops BOTH EYES BID Aspirin [Adult Low Dose Aspirin EC] 81 mg PO DAILY allopurinoL [Zyloprim] 100 mg PO HS Atorvastatin [Lipitor] 10 mg PO HS Famotidine [Pepcid] 20 mg PO DAILY Virt-Phos 250 Neutral 250 1 tab PO DAILY calcitrioL [Calcitriol] 0.5 mcg PO SUWE Magnesium Oxide [Magox 400] 400 mg PO HS carvediloL [Coreg] 3.125 mg PO BID Cholecalciferol [Vitamin D3 (25 Mcg = 1000 Iu)] 50 mcg PO DAILY Tamsulosin [Flomax] 0.4 mg PO PC-BRKFST 30 Days #30 cap Discontinued amLODIPine [Norvasc] 5 mg PO BID Furosemide [Lasix] 20 mg PO BID@0900,1500 Acetaminophen [Tylenol Arthritis] 1,300 mg PO Q8HR PRN PRN Reason: Pain Insulin Aspart [NovoLOG Flexpen] See Protocol SQ ACHS PRN PRN Reason: high blood sugar hydrALAZINE HCL [Apresoline] 100 mg PO BID 30 Days #60 tab Insulin Glargine,Hum.rec.anlog [Lantus Solostar Pen] 40 unit SQ DAILY Discharge Medication List Aspirin [Adult Low Dose Aspirin EC] 81 mg PO DAILY 01/16/17 [History] Dorzolamide 2% [Trusopt 2%] 1 drops BOTH EYES BID 01/16/17 [History] Ferrous Sulfate [Iron] 650 mg PO BID 01/16/17 [History] Atorvastatin [Lipitor] 10 mg PO HS 09/09/17 [History] allopurinoL [Zyloprim] 100 mg PO HS 09/09/17 [History] Famotidine [Pepcid] 20 mg PO DAILY 03/02/20 [History] Cholecalciferol [Vitamin D3 (25 Mcg = 1000 Iu)] 50 mcg PO DAILY 10/09/21 [History] Magnesium Oxide [Magox 400] 400 mg PO HS 10/09/21 [History] Virt-Phos 250 Neutral 250 1 tab PO DAILY 10/09/21 [History] calcitrioL [Calcitriol] 0.5 mcg PO SUWE 10/09/21 [History] Tamsulosin [Flomax] 0.4 mg PO PC-BRKFST 30 Days #30 cap 10/16/21 [Rx] carvediloL [Coreg] 3.125 mg PO BID 12/06/21 [History] Acetaminophen Tab [Tylenol] 650 mg PO Q6HR PRN tab 01/09/22 [Rx] INSULIN ASPART (NovoLOG) [NovoLOG (formulary)] 0 unit SQ ACHS each 01/09/22 [Rx] INSULIN ASPART (NovoLOG) [NovoLOG (formulary)] 5 unit SQ AC-TID each 01/09/22 [Rx] Insulin Detemir (Levemir) [Levemir] 35 unit SQ DAILY@0700 each 01/09/22 [Rx] Isosorbide Mononitrate ER [Imdur] 30 mg PO DAILY tab 01/09/22 [Rx] Nitroglycerin Sl Tabs [Nitrostat] 0.4 mg SUBLINGUAL Q5M PRN tab 01/09/22 [Rx] Torsemide [Demadex] 40 mg PO DAILY tab 01/09/22 [Rx] metOLazone [Zaroxolyn] 5 mg PO DAILY tab 01/09/22 [Rx] Follow up Appointment(s)/Referral(s): Leeann Bhatia MD [STAFF PHYSICIAN] - 1 Week Godwin Jc MD [Primary Care Provider] - 1-2 days [facility], [NON-STAFF] - Bert Young DO [STAFF PHYSICIAN] - 1 Week Activity/Diet/Wound Care/Special Instructions: Activity: as tolerated Diet: Carb consistent, 1500 mL fluid restriction Special Instructions: HD T/TH/Sat at 11:40 B/L LE BETTY Wraps for 8 hours daily X 7 days, then start compression stocking while awake. 2L at all times Discharge Disposition: TRANSFER TO SNF/ECF
--- NOTE | 2022-01-09 10:54 | P.PN ---
Subjective Progress Note Date: 01/09/22 Principal diagnosis: CHF/hypoxia Patient is an 81-year-old female with a history of hypertension, diabetes mellitus requiring insulin, chronic kidney disease, coronary artery disease, and chronic respiratory failure requiring 3-4 L nasal cannula who presented to the ER on 12/14/21 with complaints of shortness of breath and leg swelling. Dr. Bhatia has been monitoring her closely with plans for possible outpatient. In the ER she underwent underwent an extensive evaluation. She was hypoxic at 78% on 3 L on arrival. Chest x-ray showed pulmonary vascular congestion. Labatory analysis was significant for Hgb 9.5, Cr 1.37 with baseline 1.6, T bili of 1.6, and glucose of 200. Initial Troponin was negative. She was started on diuresis and admitted. Cardiology was consulted. Patient underwent cardiac catheterization on 12/18/21 which showed stable coronary artery disease. Medical management was recommended, no need for intervention. Over the course of her stay, the patient has been becoming more hypoxic as well as has worsening renal function. She is on 8L HFNC, and unable to be weaned. The patient has chronic kidney disease stage IV secondary to diabetic kidney disease and nephrosclerosis. She is also being followed by nephrology. Currently on Lasix drip. Patient has some improvement with aggressive diuresis. She has minimal improvement in her renal function. There has been some conversation with the patient and family about the potential need for dialysis. 01/01 The patient is resting in a recliner. Her daughter, Pamela, is at the bedside. Information provided regarding palliative care philosophies and services. Education provided regarding the patient's chronic diseases including her diastolic heart failure and acute on chronic kidney disease. The patient can not be on an BETTY or ARB for her heart failure due to her renal disease. She is being maintained on aspirin, statin, carvedilol, hydralazine, Imdur. She has not been responding to the lasix IVP and needed to be started on a continuous drip. The possibility of needing hemodialysis was discussed at length. The patient states that her goal is prolonged survival. She takes care of her wheelchair bound and disabled son. She states that she would agree to hemodialysis if she has to in order to get better. The patient realizes she is on 8L HFNC and has not tolerated it being weaned down. She is hoping dialysis may help. She understands that this may be her new baseline now, but she has to "try to get better" because he family depends on her. She was independent with he ADL's until about 2 weeks prior to admission. She is realistic in the sense that she will at least need rehab before returning home. She understands that a [facility] will typically not accept her until her O2 requirements are 6LNC or less. Code status discussed at length. She would like to stay a full code. It was explained that in the event that she coded, it is unlikely to get her back to her current health state. If she were to end up on a ventilator, it would be very difficult to get her off of it. She stated her daughter would know what to do when the time comes. She was encouraged to continue to have conversations relaying her wishes for en of life care to her family. Her and her daughter agreed to OP palliative care upon discharge. 01/02 The patient is sleeping in the recliner. She states she did not sleep well last night. She stated she talked to her daughter more yesterday. They have decided to go ahead and start hemodialysis. The patient stated that the doctors have tried everything to get the fluid off with diuretics and it is not working. She wants to give hemodialysis a try to see if it will help with her breathing. The progression of her diastoloc CHF and associated symptoms reviewed with her again. She stated that she has never really been sick before. She has to be the strong one in the family, who takes care of everyone else. She is the one who tells everyone else what to do. She is worried with her son and husbands disabilities, no one will be able to take care of them. Her O2 demands have gone down. The patient is currently on 6L HFNC. She plans to go to [facility] for rehab and continue dialysis. 01/03 Patient resting in bed and appears comfortable. Her daughter is at the bedside and has stayed overnight. The patient is on a NRB mask. She stated her oxygen level went down while she was eating breakfast. She is having some nasal congestion and has trouble breathing through her nose. She stated that she is normally a mouth breather and is more comfortable with the mask. The patient's RN states she only had the NRB available at that time and will get her a ventimask instead. The patient had a permacath placed yesterday. She is to start HD today. She has a positive attitude today and said "I can do this!" 01/04 The patient is sitting up in the chair. She states she tolerated hemodialysis well yesterday. She complains of general joint/arthritic pain. She states she just took some Tylenol, which she normally takes at home. She also stated "If I were all alone I would not agree to dialysis, but too may people count on me so I'll do what I have to do." She ate a little breakfast and now feels tired. Her plans remain the same, to go to rehab and continue dialysis as an outpatient. She hopes her kidneys will recover, but realizes more than likely they will not. 01/07 Patient up in chair. She denies any pain. She states that she feels good today. She has been tolerating her dialysis well. She is anxious to get to rehab. Insurance auth pending. 01/08 The patient has just gotten into the chair. She took a shower and stated it felt fantastic. She is down to 2L NC. Mild sob with activity. She is to have dialysis again today. The plan is then to send her to [facility] after dialysis. [facility] Objective - Vital Signs Vital signs: Vital Signs Temp 98.1 F 01/08/22 08:00 Pulse 53 L 01/09/22 04:00 Resp 18 01/09/22 04:00 BP 117/50 01/09/22 04:00 Pulse Ox 93 L 01/09/22 07:25 FiO2 50 12/22/21 08:07 Intake & Output 01/08/22 01/09/22 01/09/22 18:59 06:59 18:59 Intake Total 420 Output Total 1999 Balance -1580 Weight 90.5 kg Intake: Oral 420 Output: Hemodialysis 1999 Other: Voiding Method Bedside Commode Bedside Commode # Voids 1 - Exam General: Well developed, well nourished. No acute distress. HEENT: Head is atraumatic, normocephalic. Sclerae are clear. Pupils equal, round and reactive to light bilaterally. Mucus membranes moist. Right IJ permacath in place. CV: Heart regular in rate and rhythm positive S1 and S2. No clicks, rubs or murmurs. Peripheral pulses equal. 2/4 Lungs: Diminished bilateral bases. No wheezes rales or rhonchi. On 2LNC Abdomen/GI: Soft. Bowel sounds present in all 4 quadrants.No guarding, rigidity, or abdominal tenderness. Musculoskeletal/ Extremities: STEWARD, no joint deformity or swelling. No gross atrophy. + generalized weakness Vascular: Radial pulses equal. 2/4. +2 bilateral LE edema, Left UE +1 edema Skin: Warm and dry, No rash or lesions. Neurologic: Awake, alert and oriented times 3. CN II-XII grossly intact. No focal deficits. Psychiatric: Appropriate mood and affect. - Labs CBC & Chem 7: 01/09/22 07:55 01/09/22 07:55 Labs: Abnormal Lab Results - Last 24 Hours (Table) 01/08/22 01/08/22 01/08/22 Range/Units 12:21 16:22 20:19 RBC (3.80-5.40) m/uL Hgb (11.4-16.0) gm/dL Hct (34.0-46.0) % MCV (80.0-100.0) fL MCHC (31.0-37.0) g/dL RDW (11.5-15.5) % Chloride (98-107) mmol/L BUN (7-17) mg/dL Creatinine (0.52-1.04) mg/dL Glucose (74-99) mg/dL POC Glucose (mg/dL) 158 H 112 H 204 H (70-110) mg/dL Magnesium (1.6-2.3) mg/dL ALT (4-34) U/L Alkaline Phosphatase (38-126) U/L Total Protein (6.3-8.2) g/dL Albumin (3.5-5.0) g/dL 01/09/22 01/09/22 01/09/22 Range/Units 07:01 07:02 07:55 RBC (3.80-5.40) m/uL Hgb (11.4-16.0) gm/dL Hct (34.0-46.0) % MCV (80.0-100.0) fL MCHC (31.0-37.0) g/dL RDW (11.5-15.5) % Chloride 97 L (98-107) mmol/L BUN 47 H (7-17) mg/dL Creatinine 2.03 H (0.52-1.04) mg/dL Glucose 187 H (74-99) mg/dL POC Glucose (mg/dL) 159 H 163 H (70-110) mg/dL Magnesium 2.4 H (1.6-2.3) mg/dL ALT 37 H (4-34) U/L Alkaline Phosphatase 207 H (38-126) U/L Total Protein 6.2 L (6.3-8.2) g/dL Albumin 3.4 L (3.5-5.0) g/dL 01/09/22 Range/Units 07:55 RBC 2.84 L (3.80-5.40) m/uL Hgb 8.9 L (11.4-16.0) gm/dL Hct 29.4 L (34.0-46.0) % MCV 103.4 H (80.0-100.0) fL MCHC 30.4 L (31.0-37.0) g/dL RDW 16.1 H (11.5-15.5) % Chloride (98-107) mmol/L BUN (7-17) mg/dL Creatinine (0.52-1.04) mg/dL Glucose (74-99) mg/dL POC Glucose (mg/dL) (70-110) mg/dL Magnesium (1.6-2.3) mg/dL ALT (4-34) U/L Alkaline Phosphatase (38-126) U/L Total Protein (6.3-8.2) g/dL Albumin (3.5-5.0) g/dL Assessment and Plan Assessment: Symptoms * Pain - 0/10 pain, continue Tylenol [place], Morphine and zyloprim * Fatigue - + generalized weakness and fatigue, continue PT/OT * SOB - + sob with exertion, continue Lasix, and zaroxolyn * Insomnia - No * N/V - No, Continue Zofran prn * Anxiety - No, continue Xanax prn * Depression - No * Confusion - No * Agitation - No * Hallucinations - No * Appetite/weight loss - + decreased appetite since September. No recent weight loss. Continue heart healthy diet and fluid restrictions. * Dysphagia - No * Constipation - No, LBM 01/08 * Incontinence - Occasionally, continue Flomax for retention * Itch - No Plan: Summary/Goals - The patient was just getting back to bed. She had been sitting up in the chair all morning. She states that she feels good today and is looking forward to going to rehab. the plan is for the patient to have dialysis today. She will then be discharged to [facility]. New HD schedule is -. The patient states her daughter is going to sell her house. She is looking at buying a new bigger house so the patient her can move in with her. Per nephrology, the patient's renal function has improved. They will continue to assess need for renal replacement therapy on daily basis. Continue dialysis outpatient and can hopefully discontinue dialysis in the near future once her volume status improves. Recommendations - Discharge to [facility] with HD and OP palliative care Advanced Directives - No Code Status - Full code Thank you for this consult Kaley Gaspar [facility] Palliative Care [facility] [id number] Email: [email or web address] Time with Patient: Less than 30
[2022-01-09 12:02] LABS: Glucose,Whole Blood 219 mg/dL (70-110)
[2022-01-09 13:01] VITALS: RESP 16
[2022-01-09 17:04] LABS: Glucose,Whole Blood 127 mg/dL (70-110)
[2022-01-09 18:35] VITALS: BP 130/60; PULSE 46; TEMP 97.8
== END 2022-01-09 17:34 | DRG 286 ==
LOC: EC 16:16 → 3SCARD 18:45
PROVIDERS: ADMIT Internal Medicine; ATTEND Internal Medicine
PROC: B2111ZZ Fluoroscopy of Multiple Coronary Arteries using Low Osmolar Contrast (ICD-10-PCS; 2021-12-18)
PROC: 4A023N7 Measurement of Cardiac Sampling and Pressure, Left Heart, Percutaneous Approach (ICD-10-PCS; principal; 2021-12-18 10:16)
PROC: 5A0945A Assistance with Respiratory Ventilation, 24-96 Consecutive Hours, High Flow/Velocity Cannula (ICD-10-PCS; 2021-12-22)
PROC: 02HV33Z Insertion of Infusion Device into Superior Vena Cava, Percutaneous Approach (ICD-10-PCS; 2022-01-02)
PROC: 06H033Z Insertion of Infusion Device into Inferior Vena Cava, Percutaneous Approach (ICD-10-PCS; 2022-01-02)
PROC: 0JH63XZ Insertion of Tunneled Vascular Access Device into Chest Subcutaneous Tissue and Fascia, Percutaneous Approach (ICD-10-PCS; 2022-01-02 11:10)
PROC: 5A1D70Z Performance of Urinary Filtration, Intermittent, Less than 6 Hours Per Day (ICD-10-PCS; 2022-01-03)
DX: I13.0 Hypertensive heart and chronic kidney disease with heart failure and stage 1 through stage 4 chronic kidney disease, or unspecified chronic kidney disease (principal); I50.43 Acute on chronic combined systolic (congestive) and diastolic (congestive) heart failure; J96.21 Acute and chronic respiratory failure with hypoxia; N17.0 Acute kidney failure with tubular necrosis; I47.2 Ventricular tachycardia; N18.4 Chronic kidney disease, stage 4 (severe); I27.20 Pulmonary hypertension, unspecified; D63.1 Anemia in chronic kidney disease; E11.22 Type 2 diabetes mellitus with diabetic chronic kidney disease; D50.9 Iron deficiency anemia, unspecified; E66.9 Obesity, unspecified; Z68.36 Body mass index [BMI] 36.0-36.9, adult; I80.9 Phlebitis and thrombophlebitis of unspecified site; Z99.81 Dependence on supplemental oxygen; I25.110 Atherosclerotic heart disease of native coronary artery with unstable angina pectoris; E78.5 Hyperlipidemia, unspecified; M19.90 Unspecified osteoarthritis, unspecified site; M89.8X9 Other specified disorders of bone, unspecified site; T50.8X5A Adverse effect of diagnostic agents, initial encounter; E87.6 Hypokalemia; E83.42 Hypomagnesemia; H61.23 Impacted cerumen, bilateral; G47.30 Sleep apnea, unspecified; T50.2X5A Adverse effect of carbonic-anhydrase inhibitors, benzothiadiazides and other diuretics, initial encounter; R79.89 Other specified abnormal findings of blood chemistry; R33.8 Other retention of urine; R01.1 Cardiac murmur, unspecified; R11.2 Nausea with vomiting, unspecified; R50.9 Fever, unspecified; R53.1 Weakness; R94.39 Abnormal result of other cardiovascular function study; N39.498 Other specified urinary incontinence; Z63.6 Dependent relative needing care at home; Z79.82 Long term (current) use of aspirin; Z79.899 Other long term (current) drug therapy; Z79.4 Long term (current) use of insulin; Z88.0 Allergy status to penicillin; Z88.2 Allergy status to sulfonamides; Z98.41 Cataract extraction status, right eye; Z98.42 Cataract extraction status, left eye; Z82.49 Family history of ischemic heart disease and other diseases of the circulatory system; Z98.61 Coronary angioplasty status; Z90.49 Acquired absence of other specified parts of digestive tract; Z82.3 Family history of stroke; Z98.890 Other specified postprocedural states
CPT/HCPCS: 36410; 36415; 36558; 71045; 71046; 76770; 76937; 77001; 80048; 80053; 82040; 82728; 83540; 83550; 83735; 83880; 83883; 84100; 84165; 84484; 85025; 85027; 85610; 85730; 86334; 86335; 86704; 86706; 87340; 87635; 90935; 93005; 93458; 94760; 96374; 99285

== ENCOUNTER → 2023-07-08 | Outpatient (CLI) | payer MEDICARE ==
[2023-07-09 03:02] LABS: Eosinophils # (A) 0.24 X 10*3/uL (0.04-0.35); Eosinophils % (A) 2.5 %; HCT 31.4 % (37.2-46.3); HGB 10.4 g/dL (12.0-15.0); Lymphocytes # (A) 1.54 X 10*3/uL (0.90-5.00); Lymphocytes % (A) 15.7 %; MCHC 33.1 g/dL (32.0-37.0); MCV 96.6 FL (80.0-97.0); Mean Platelet Volume 9.9 FL (9.5-12.2); Monocytes # (A) 0.83 X 10*3/uL (0.20-1.00); Monocytes % (A) 8.5 %; NRBC Per 100 WBC 0 X 10*3/uL (0.00-0.01); Neutrophils # (A) 7.05 X 10*3/uL (1.80-7.70); Neutrophils % (A) 72.1 %; Platelet Count 298 X 10*3/uL (140-440); RBC 3.25 X 10*6/uL (4.10-5.20); RDW 13.9 % (11.5-14.5); WBC 9.78 X 10*3/uL (4.50-10.00)
[2023-07-09 03:47] LABS: BUN/Creat Ratio 36.71 Ratio (12.00-20.00); Blood Urea Nitrogen 88.1 mg/dL (9.0-27.0); Calcium 9.3 mg/dL (8.7-10.3); Carbon Dioxide 20.6 mmol/L (21.6-31.8); Chloride 99 mmol/L (96-109); Glucose 177 mg/dL (70-110); Potassium 4.3 mmol/L (3.5-5.5); Sodium 135 mmol/L (135-145)
== END | disposition home or self-care (01) ==
LOC: LABWHC1 14:56
PROVIDERS: ATTEND Internal Medicine Nephrology
DX: E55.9 Vitamin D deficiency, unspecified (principal); N25.81 Secondary hyperparathyroidism of renal origin; M10.9 Gout, unspecified; N39.0 Urinary tract infection, site not specified; N18.4 Chronic kidney disease, stage 4 (severe); D63.1 Anemia in chronic kidney disease; R80.9 Proteinuria, unspecified
CPT/HCPCS: 36415; 80048; 85025

== ENCOUNTER → 2023-07-24 | Outpatient (CLI) | payer MEDICARE ==
[2023-07-24 15:21] LABS: Basophils # (A) 0.06 X 10*3/uL (0.00-0.10); Basophils % (A) 0.5 %; Eosinophils # (A) 0.14 X 10*3/uL (0.04-0.35); Eosinophils % (A) 1.3 %; HCT 33.6 % (37.2-46.3); HGB 10.9 g/dL (12.0-15.0); Lymphocytes # (A) 1.93 X 10*3/uL (0.90-5.00); Lymphocytes % (A) 17.2 %; MCH 32.1 pg (27.0-32.0); MCHC 32.4 g/dL (32.0-37.0); MCV 98.8 FL (80.0-97.0); Monocytes % (A) 8.9 %; NRBC Per 100 WBC 0 X 10*3/uL (0.00-0.01); Neutrophils # (A) 8.01 X 10*3/uL (1.80-7.70); Neutrophils % (A) 71.7 %; Platelet Count 308 X 10*3/uL (140-440); RDW 13.8 % (11.5-14.5); WBC 11.19 X 10*3/uL (4.50-10.00)
[2023-07-24 15:46] LABS: % Iron Saturation 21.47 (12.00-45.00); Albumin 4.1 g/dL (3.8-4.9); BUN/Creat Ratio 40.25 Ratio (12.00-20.00); Blood Urea Nitrogen 80.5 mg/dL (9.0-27.0); Calcium 9.8 mg/dL (8.7-10.3); Carbon Dioxide 23.3 mmol/L (21.6-31.8); Chloride 101 mmol/L (96-109); Glucose 239 mg/dL (70-110); Iron 70 UG/DL (50-170); Magnesium 1.9 mg/dL (1.5-2.4); Phosphorus 3.9 mg/dL (2.4-5.1); Potassium 4.6 mmol/L (3.5-5.5); Sodium 138 mmol/L (135-145); Total Iron Binding Capacity 326 UG/DL (228-460); Uric Acid 6.3 mg/dL (2.9-7.7)
== END | disposition home or self-care (01) ==
LOC: LABWHC1 12:15
PROVIDERS: ATTEND Nurse Practitioner Family
DX: E55.9 Vitamin D deficiency, unspecified (principal); E21.3 Hyperparathyroidism, unspecified; M10.9 Gout, unspecified; N39.0 Urinary tract infection, site not specified; N18.4 Chronic kidney disease, stage 4 (severe); D63.1 Anemia in chronic kidney disease; R80.9 Proteinuria, unspecified
CPT/HCPCS: 36415; 80048; 82040; 82306; 82728; 83540; 83550; 83735; 83970; 84100; 84550; 85025

== ENCOUNTER 2024-07-07 23:23 | Observation (INO) | payer MEDICARE ==
[2024-07-08 00:55] LABS: Basophils % (A) 0 %; Eosinophils % (A) 0 %; HGB 10.6 gm/dL (11.4-16.0); Lymphocytes % (A) 8 %; MCHC 31.1 g/dL (31.0-37.0); MCV 99.8 fL (80.0-100.0); Macrocytosis Slight; Mean Platelet Volume 11.6; Monocytes # (A) 1.4 k/uL (0-1.0); Monocytes % (A) 10 %; Neutrophils # (A) 10.6 k/uL (1.3-7.7); Neutrophils % (A) 80 %; RBC 3.41 m/uL (3.80-5.40); RDW 14.1 % (11.5-15.5); WBC 13.3 k/uL (3.8-10.6)
[2024-07-08 01:13] LABS: Toxic Granulation Present
[2024-07-08 01:49] LABS: ALT 23 U/L (4-34); AST 24 U/L (14-36); African American GFR (CKD) 22 (>60 ml/min/1.73 sqM); Albumin 3.9 g/dL (3.5-5.0); Alkaline Phosphatase 136 U/L (38-126); Anion Gap 12 mmol/L; Blood Urea Nitrogen 93 mg/dL (7-17); Calcium 9.7 mg/dL (8.4-10.2); Carbon Dioxide 20 mmol/L (22-30); Chloride 102 mmol/L (98-107); Glucose 177 mg/dL (74-99); Non-African American GFR(CKD) 19 (>60 ml/min/1.73 sqM); Potassium 5.3 mmol/L (3.5-5.1); Sodium 134 mmol/L (137-145); Total Protein 6.6 g/dL (6.3-8.2)
[2024-07-08 02:03] LABS: Influenza A Not Detected (Not Detectd); Influenza B Not Detected (Not Detectd); RSV Not Detected (Not Detectd)
[2024-07-08] MEDS: FUROSEMIDE 10 MG/ML 2 ML VIAL IV STA (02:56)
--- NOTE | 2024-07-08 03:02 | XR ---
EXAM: XR Chest, 2 Views CLINICAL HISTORY: ITS.REASON XR Reason: Difficulty breathing TECHNIQUE: Frontal and lateral views of the chest. COMPARISON: No relevant prior studies available. IMPRESSION: Cardiomegaly with mild vascular congestion. Trace pleural effusion
--- NOTE | 2024-07-08 03:12 | ED ---
General Adult HPI - General Chief complaint: Shortness of Breath Stated complaint: Difficulty Breathing, Abnormal Labs Time Seen by Provider: 07/08/24 01:27 Source: patient, family Mode of arrival: wheelchair Limitations: no limitations - History of Present Illness Initial comments: Patient is an 83-year-old female with a past medical history of CHF, ESRD, not currently on dialysis presenting with 1 week of shortness of breath. Patient endorses progressively worsening shortness of breath with ambulation. States she feels like she is wheezing and has chest tightness and mild chest pressure whenever she ambulates. States she saw her tub chucker about 1 week ago who decreased her furosemide dose by half due to GFR of 12. Patient has previously required dialysis but is not currently requiring dialysis. Patient endorses a cough nonproductive of sputum or hemoptysis. Currently endorses slight chest pressure and shortness of breath. Denies any fevers or chills. No lower extremity swelling. No abdominal pain or vomiting. Denies melena or hematochezia. Does states she feels nauseous at times. No history CAD. Is not currently on a blood thinner. - Related Data Home Medications Medication Instructions Recorded Confirmed Aspirin [Adult Low Dose Aspirin EC] 81 mg PO DAILY 01/16/17 07/08/24 Dorzolamide 2% [Trusopt 2%] 1 drops BOTH EYES BID 01/16/17 07/08/24 Atorvastatin [Lipitor] 10 mg PO W/SUPPER 09/09/17 07/08/24 allopurinoL [Zyloprim] 100 mg PO W/SUPPER 09/09/17 07/08/24 Famotidine [Pepcid] 20 mg PO DAILY 03/02/20 07/08/24 Cholecalciferol (Vitamin D3) 50 mcg PO DAILY 07/08/24 07/08/24 [Vitamin D3 (50 Mcg = 2000 Iu)] Gabapentin [Neurontin] 100 mg PO DIRECTED 07/08/24 07/08/24 INSULIN ASPART (NovoLOG) [NovoLOG See Protocol SQ ACHS PRN 07/08/24 07/08/24 (formulary)] Insulin Glargine,Hum.rec.anlog 15 units SQ HS 07/08/24 07/08/24 [Lantus Solostar Pen] Insulin Glargine,Hum.rec.anlog 25 units SQ DAILY 07/08/24 07/08/24 [Lantus Solostar Pen] Previous Rx's Medication Instructions Recorded Nitroglycerin Sl Tabs [Nitrostat] 0.4 mg SUBLINGUAL Q5M PRN tab 01/09/22 Dapagliflozin Propanediol 5 mg PO DAILY #30 tab 07/10/24 [Dapagliflozin] Furosemide [Lasix] 40 mg PO DAILY #30 tablet 07/10/24 Isosorbide Mononitrate ER [Imdur] 30 mg PO DAILY #30 tab 07/10/24 Losartan [Cozaar] 50 mg PO DAILY #30 tab 07/10/24 Sodium Bicarbonate 650 mg PO BID #60 tablet 07/10/24 carvediloL [Coreg] 3.125 mg PO BID #60 tablet 07/10/24 Allergies Allergy/AdvReac Type Severity Reaction Status Date / Time Penicillins Allergy Swelling Verified 07/08/24 11:08 Sulfa (Sulfonamide Allergy Swelling Verified 07/08/24 11:08 Antibiotics) Review of Systems ROS Statement: Those systems with pertinent positive or pertinent negative responses have been documented in the HPI. ROS Other: All systems not noted in ROS Statement are negative. Past Medical History Past Medical History: Coronary Artery Disease (CAD), Diabetes Mellitus, GERD/Reflux, Hyperlipidemia, Hypertension, Osteoarthritis (OA), Renal Disease, Sleep Apnea/CPAP/BIPAP Additional Past Medical History / Comment(s): "watching a valve" in heart, decreased kidney function, low iron, has cpap doesnt use at this time. edema to bilateral legs and feet. low hemaglobin- iron infusions as needed History of Any Multi-Drug Resistant Organisms: None Reported Past Surgical History: Breast Surgery, Cholecystectomy, Heart Catheterization Additional Past Surgical History / Comment(s): earle cataracts, mult earle eye surgeries, bilateral breast excisional biopsy-benign Past Anesthesia/Blood Transfusion Reactions: No Reported Reaction Past Psychological History: No Psychological Hx Reported Smoking Status: Never smoker Past Alcohol Use History: None Reported Past Drug Use History: None Reported - Past Family History Father Family Medical History: Deep Vein Thrombosis (DVT) Additional Family Medical History / Comment(s): mom of stroke , history of heart disease General Exam - General Exam Comments Initial Comments: PE: CONSTITUTIONAL: No apparent distress, well appearing SKIN: Warm, dry, no jaundice, hives or petechiae EYES: Pupils are equally round, extraocular movements intact without nystagmus, clear conjunctiva, non-icteric sclera HENT: Normocephalic, atraumatic, moist mucus membranes, oropharynx clear without exudates NECK: , Full range of motion, normal appearance PULMONARY: Crackles and rhonchi in the bilateral lower lung stafford, no wheezes or stridor, no accessory muscle use, no increased work of breathing normal excursionr CARDIOVASCULAR: Regular rate, rhythm, normal S1 and S2. No appreciated murmurs, rubs or gallops. Strong radial pulses with intact distal perfusion. Scant 1+ bilateral lower extremity pitting edema GASTROINTESTINAL: Soft, active bowel sounds throughout, non-tender, non- distended, no palpable masses, no rebound or guarding. No hepatosplenomegaly MUSCULOSKELETAL: Extremities have no gross deformity NEUROLOGIC:_a/o x 3, GCS 15, normal mentation and speech. Moves all extremities x 4 without motor or sensory deficit PSYCHIATRIC:_normal mood and affect, thought process is clear and linear Limitations: no limitations Course Vital Signs 07/07/24 07/08/24 07/08/24 23:57 01:30 02:59 Temperature 97.5 F L Pulse Rate 92 86 Respiratory 18 20 18 Rate Blood Pressure 161/56 130/78 O2 Sat by Pulse 91 L 92 L Oximetry 07/08/24 07/08/24 07/08/24 05:23 09:38 14:37 Temperature 98.2 F Pulse Rate 74 76 71 Respiratory 18 18 20 Rate Blood Pressure 157/67 153/59 144/50 O2 Sat by Pulse 90 L 97 96 Oximetry 07/08/24 07/08/24 07/09/24 16:13 22:05 03:28 Temperature Pulse Rate 78 81 63 Respiratory 18 18 18 Rate Blood Pressure 155/57 152/60 132/43 O2 Sat by Pulse 96 95 98 Oximetry 07/09/24 07/09/24 07/09/24 10:00 13:00 15:00 Temperature Pulse Rate 63 68 75 Respiratory 20 20 Rate Blood Pressure 122/41 120/45 138/45 O2 Sat by Pulse 96 98 96 Oximetry EKG Findings - EKG Comments: EKG Findings:: Sinus rhythm, 85 bpm, OK int 175 ms, QT/QTc 350/392, left axis deviation, no ST elevation or depression, low voltage EKG Medical Decision Making - Medical Decision Making Was pt. sent in by a medical professional or institution ([facility], [facility], urgent care, hospital, or skilled nursing...) When possible be specific @ -No Did you speak to anyone other than the patient for history (EMS, parent, family, police, friend...)? What history was obtained from this source @I spoke with patient's daughter who assisted in providing history states patient has had progressively worsening exertional dyspnea over the last week Did you review nursing and triage notes (agree or disagree)? Why? @ -I reviewed nursing and triage notes Were old charts reviewed (outside hosp., previous admission, EMS record, old EKG, old radiological studies, urgent care reports/EKG's, skilled nursing records)? Report findings @ -Medical records reviewed-Patient had a cardiac cath performed in November 2021, at that time showed calcified coronary arteries, moderate distal left main disease mild disease in the proximal LAD, significant disease in the ostium of the left circumflex with no progression in 2017, mild to moderate disease in the RCA Differential Diagnosis (chest pain, altered mental status, abdominal pain women, abdominal pain men, vaginal bleeding, weakness, fever, dyspnea, syncope, headache, dizziness, GI bleed, back pain, seizure, CVA, palpatations, mental health, musculoskeletal)? @Differential Dyspnea: Coronary syndrome, arrhythmia, tamponade, asthma, COPD, pneumonia, pneumothorax, pulmonary effusion, anemia, neuromuscular, this is not meant to be an all- inclusive list. EKG interpreted by me (3pts min.). @ -As above X-rays interpreted by me (1pt min.). @I personally reviewed patient's chest x-ray, shows cardiomegaly with pulmonary edema, I see no evidence of obvious consolidation I agree with radiologist interpretation notes cardiomegaly with pulmonary vascular congestion and trace pleural effusion CT interpreted by me (1pt min.). @ -None done U/S interpreted by me (1pt. min.). @ -None done What testing was considered but not performed or refused? (CT, X-rays, U/S, labs)? Why? @ -None What meds were considered but not given or refused? Why? @ -None Did you discuss the management of the patient with other professionals (professionals i.e. [facility], [facility], lab, RT, psych nurse, social secretary, loading machine adjuster, teacher, commissioned security officer, case resource manager)? Give summary @ -No Was smoking cessation discussed for >3mins.? @ -No Was critical care preformed (if so, how long)? @ -No Were there social determinants of health that impacted care today? How? (Homelessness, low income, unemployed, alcoholism, drug addiction, transportation, low edu. Level, literacy, decrease access to med. care, [facility], rehab)? @ -No Was there de-escalation of care discussed even if they declined (Discuss DNR or withdrawal of care, Hospice)? @ -No What co-morbidities impacted this encounter? (DM, HTN, Smoking, COPD, CAD, Cancer, CVA, ARF, Chemo, Hep., AIDS, mental health diagnosis, sleep apnea, morbid obesity)? ESRD on dialysis, CHF Was patient admitted / discharged? Hospital course, mention meds given and route, prescriptions, significant lab abnormalities, going to OR and other pertinent info. Admission-this is a pleasant 83-year-old female presenting today for 1 week of progressively worsening exertional dyspnea. History ESRD. Recent decrease in her torsemide dose. On assessment patient is in no acute distress, she does have rhonchi in the bilateral lower lung stafford. Scant lower extremity pitting edema. Exam is most consistent with CHF exacerbation however additional differential as noted above. Discussed with patient and daughter plan for chest x-ray, EKG basic labs, we will assess kidney function prior to administering Lasix. I reviewed patient's labs, show a hemoglobin of 10.6, appears stable from prior on 06/11/2024 which showed a hemoglobin of 10.4, potassium 5.3 GFR of 19, creatinine 2.3, BNP 1500, troponin 0.059, I suspect troponin elevation secondary to demand ischemia due to CHF exacerbation, on my reassessment patient denies any chest pain currently. Will hold off on heparin administration at this time. Due to history ESRD small dose 10 mg IV Lasix ordered. Discussed with patient plan for admission for CHF exacerbation. She is agreeable plan of care. Case was discussed with Dr. Jewell, kindly accepts patient for admission recommends additional 30 mg IV Lasix for total 40 mg, which was subsequently ordered. Patient admitted to [facility] in stable condition. Undiagnosed new problem with uncertain prognosis? @ -No Drug Therapy requiring intensive monitoring for toxicity (Heparin, Nitro, Insulin, Cardizem)? @ -No Were any procedures done? @ -No Diagnosis/symptom? @CHF exacerbation Acute, or Chronic, or Acute on Chronic? acute Uncomplicated (without systemic symptoms) or Complicated (systemic symptoms)? complicated Side effects of treatment? @ -No Exacerbation, Progression, or Severe Exacerbation? @ -CHF exacerbation Poses a threat to life or bodily function? How? (Chest pain, [place], AL, pneumonia, PE, COPD, DKA, ARF, appy, cholecystitis, CVA, Diverticulitis, Homicidal, Suic idal, threat to staff... and all critical care pts) @ yes - Lab Data Result diagrams: 07/09/24 07:02 07/10/24 06:12 Lab Results 07/08/24 07/08/24 07/08/24 Range/Units 00:26 00:59 00:59 WBC 13.3 H (3.8-10.6) k/uL RBC 3.41 L (3.80-5.40) m/uL Hgb 10.6 L (11.4-16.0) gm/dL Hct 34.0 (34.0-46.0) % MCV 99.8 (80.0-100.0) fL MCH 31.0 (25.0-35.0) pg MCHC 31.1 (31.0-37.0) g/dL RDW 14.1 (11.5-15.5) % Plt Count (150-450) k/uL MPV 11.6 Neutrophils % 80 % Lymphocytes % 8 % Monocytes % 10 % Eosinophils % 0 % Basophils % 0 % Neutrophils # 10.6 H (1.3-7.7) k/uL Lymphocytes # 1.0 (1.0-4.8) k/uL Monocytes # 1.4 H (0-1.0) k/uL Eosinophils # 0.0 (0-0.7) k/uL Basophils # 0.0 (0-0.2) k/uL Manual Slide Review Performed Toxic Granulation Present Macrocytosis Slight Sodium 134 L (137-145) mmol/L Potassium 5.3 H (3.5-5.1) mmol/L Chloride 102 (98-107) mmol/L Carbon Dioxide 20 L (22-30) mmol/L Anion Gap 12 mmol/L BUN 93 H (7-17) mg/dL Creatinine 2.30 H (0.52-1.04) mg/dL Est GFR (CKD-EPI)AfAm 22 (>60 ml/min/1.73 sqM) Est GFR (CKD-EPI)NonAf 19 (>60 ml/min/1.73 sqM) Glucose 177 H (74-99) mg/dL Calcium 9.7 (8.4-10.2) mg/dL Total Bilirubin 1.0 (0.2-1.3) mg/dL AST 24 (14-36) U/L ALT 23 (4-34) U/L Alkaline Phosphatase 136 H (38-126) U/L Troponin I 0.059 H* (0.000-0.034) ng/mL NT-Pro-B Natriuret Pep pg/mL Total Protein 6.6 (6.3-8.2) g/dL Albumin 3.9 (3.5-5.0) g/dL Influenza Type A (PCR) (Not Detectd) Influenza Type B (PCR) (Not Detectd) RSV (PCR) (Not Detectd) SARS-CoV-2 (PCR) (Not Detectd) 07/08/24 07/08/24 Range/Units 00:59 01:15 WBC (3.8-10.6) k/uL RBC (3.80-5.40) m/uL Hgb (11.4-16.0) gm/dL Hct (34.0-46.0) % MCV (80.0-100.0) fL MCH (25.0-35.0) pg MCHC (31.0-37.0) g/dL RDW (11.5-15.5) % Plt Count (150-450) k/uL MPV Neutrophils % % Lymphocytes % % Monocytes % % Eosinophils % % Basophils % % Neutrophils # (1.3-7.7) k/uL Lymphocytes # (1.0-4.8) k/uL Monocytes # (0-1.0) k/uL Eosinophils # (0-0.7) k/uL Basophils # (0-0.2) k/uL Manual Slide Review Toxic Granulation Macrocytosis Sodium (137-145) mmol/L Potassium (3.5-5.1) mmol/L Chloride (98-107) mmol/L Carbon Dioxide (22-30) mmol/L Anion Gap mmol/L BUN (7-17) mg/dL Creatinine (0.52-1.04) mg/dL Est GFR (CKD-EPI)AfAm (>60 ml/min/1.73 sqM) Est GFR (CKD-EPI)NonAf (>60 ml/min/1.73 sqM) Glucose (74-99) mg/dL Calcium (8.4-10.2) mg/dL Total Bilirubin (0.2-1.3) mg/dL AST (14-36) U/L ALT (4-34) U/L Alkaline Phosphatase (38-126) U/L Troponin I (0.000-0.034) ng/mL NT-Pro-B Natriuret Pep 1510 pg/mL Total Protein (6.3-8.2) g/dL Albumin (3.5-5.0) g/dL Influenza Type A (PCR) Not Detected (Not Detectd) Influenza Type B (PCR) Not Detected (Not Detectd) RSV (PCR) Not Detected (Not Detectd) SARS-CoV-2 (PCR) Not Detected (Not Detectd) Disposition Clinical Impression: CHF exacerbation Disposition: ADMITTED IP TO THIS HOSP Condition: Stable
--- NOTE | 2024-07-08 03:32 | P.HPIM ---
History of Present Illness H&P Date: 07/08/24 Patient is a 83-year-old female with a PMH of diastolic CHF, CKD stage IV, CAD, hypertension, hyperlipidemia, who presents to the emergency room with complaints of shortness of breath. Patient reports that over the past week and a half she has been experiencing gradually worsening exertional dyspnea. She also reports mild lower extremity edema. Denies experiencing orthopnea, PND, or chest disco mfort. Also denied experiencing fever, chills, cough, nausea, vomiting, abdominal pain, diarrhea. The patient does report that her diuretics dose was recently decreased due to DEBO. In the emergency room, chest x-ray revealed findings of cardiomegaly with mild vascular congestion. Laboratory evaluation was remarkable for troponin 0.059 with proBNP 1510, BUN 93, creatinine 2.30 (at baseline), sodium 134, potassium 5.3, WBC count 13.3, hemoglobin 10.6. Respiratory viral panel was negative. ED documentation reviewed and case discussed with ED provider. Review of systems: Pertinent positives and negatives as discussed in HPI, a complete review of systems was performed and all other systems are negative. Physical examination: Vital signs reviewed General: non toxic, no distress, appears at stated age, obese Derm: no unusual rashes/lesions, warm Head: atraumatic, normocephalic, symmetric Eyes: EOMI, no lid lag, anicteric sclera, pupils equal round reactive to light ENT: Nose and ears atraumatic Neck: No cervical lymphadenopathy, trachea midline, supple Mouth: no lip lesion, mucus membranes moist Cardiovascular: S1S2 reg, no murmur, positive dorsalis pedis pulse bilateral, 1+ bilateral lower extremity pitting edema Lungs: CTA bilateral, no rhonchi, no rales, no accessory muscle use Abdominal: soft, nontender to palpation, no guarding Ext: muscle strength 5 out of 5 in all 4 extremities grossly, no gross muscle atrophy, no contractures, Neuro: CN II-XI grossly intact, no gross focal neuro deficits Psych: Alert, oriented, appropriate affect Assessment: Acute on chronic diastolic CHF exacerbation Acute hypoxic respiratory failure Leukocytosis, likely secondary to acute stressor with no signs of active infection at this time Elevated troponin, likely type II NJ due to ongoing CHF exacerbation Hyperglycemia Mild hyperkalemia Chronic conditions: CKD stage IV, hypertension, hyperlipidemia, CAD Imaging: In the emergency room, chest x-ray revealed findings of cardiomegaly with mild vascular congestion. Data Review: Laboratory evaluation was remarkable for troponin 0.059 with proBNP 1510, BUN 93, creatinine 2.30 (at baseline), sodium 134, potassium 5.3, WBC count 13.3, hemoglobin 10.6. Respiratory viral panel was negative. Plan: Status post Lasix 40 mg IVP in the emergency room Continue with Lasix 40 mg IVP q12h Cardiology and nephrology consulted Follow BMP and mag daily Intake and output Daily weights Fluid restrictions Obtain echocardiogram Cardiac monitoring Resume home meds once reconciled DVT prophylaxis: Heparin subcu The patient is admitted with an anticipated greater than 2 midnight stay for evaluation of CHF CODE STATUS: Full Code Discussed with: Patient Anticipated discharge place: Home Past Medical History Past Medical History: Coronary Artery Disease (CAD), Diabetes Mellitus, GERD/Reflux, Hyperlipidemia, Hypertension, Osteoarthritis (OA), Renal Disease, Sleep Apnea/CPAP/BIPAP Additional Past Medical History / Comment(s): "watching a valve" in heart, decreased kidney function, low iron, has cpap doesnt use at this time. edema to bilateral legs and feet. low hemaglobin- iron infusions as needed History of Any Multi-Drug Resistant Organisms: None Reported Past Surgical History: Breast Surgery, Cholecystectomy, Heart Catheterization Additional Past Surgical History / Comment(s): earle cataracts, mult earle eye surgeries, bilateral breast excisional biopsy-benign Past Anesthesia/Blood Transfusion Reactions: No Reported Reaction Past Psychological History: No Psychological Hx Reported Smoking Status: Never smoker Past Alcohol Use History: None Reported Past Drug Use History: None Reported - Past Family History Father Family Medical History: Deep Vein Thrombosis (DVT) Additional Family Medical History / Comment(s): mom of stroke , history of heart disease Medications and Allergies Home Medications Medication Instructions Recorded Confirmed Type Aspirin [Adult Low Dose Aspirin EC] 81 mg PO DAILY 01/16/17 06/11/24 History Dorzolamide 2% [Trusopt 2%] 1 drops BOTH EYES BID 01/16/17 06/11/24 History Ferrous Sulfate [Iron] 650 mg PO BID 01/16/17 06/11/24 History Atorvastatin [Lipitor] 10 mg PO HS 09/09/17 06/11/24 History allopurinoL [Zyloprim] 100 mg PO HS 09/09/17 06/11/24 History Famotidine [Pepcid] 20 mg PO DAILY 03/02/20 06/11/24 History Cholecalciferol [Vitamin D3 (25 50 mcg PO DAILY 10/09/21 06/11/24 History Mcg = 1000 Iu)] Magnesium Oxide [Magox 400] 400 mg PO HS 10/09/21 06/11/24 History Virt-Phos 250 Neutral 250 1 tab PO DAILY 10/09/21 06/11/24 History calcitrioL 0.5 mcg PO SUWE 10/09/21 06/11/24 History Tamsulosin [Flomax] 0.4 mg PO PC-[id number] 30 Days #30 cap 10/16/21 06/11/24 Rx carvediloL [Coreg] 3.125 mg PO BID 12/06/21 06/11/24 History Acetaminophen Tab [Tylenol] 650 mg PO Q6HR PRN tab 01/09/22 06/11/24 Rx INSULIN ASPART (NovoLOG) [NovoLOG 0 unit SQ ACHS each 01/09/22 06/11/24 Rx (formulary)] INSULIN ASPART (NovoLOG) [NovoLOG 5 unit SQ AC-TID each 01/09/22 06/11/24 Rx (formulary)] Insulin Detemir (Levemir) [Levemir] 35 unit SQ DAILY@0700 each 01/09/22 06/11/24 Rx Isosorbide Mononitrate ER [Imdur] 30 mg PO DAILY tab 01/09/22 06/11/24 Rx Nitroglycerin Sl Tabs [Nitrostat] 0.4 mg SUBLINGUAL Q5M PRN tab 01/09/22 06/11/24 Rx Torsemide [Demadex] 40 mg PO DAILY tab 01/09/22 06/11/24 Rx metOLazone [Zaroxolyn] 5 mg PO DAILY tab 01/09/22 06/11/24 Rx Allergies Allergy/AdvReac Type Severity Reaction Status Date / Time Penicillins Allergy Swelling Verified 07/08/24 00:02 Sulfa (Sulfonamide Allergy Swelling Verified 07/08/24 00:02 Antibiotics) Physical Exam Vitals: Vital Signs Temp Pulse Resp BP Pulse Ox 07/08/24 02:59 86 18 130/78 92 L 07/07/24 23:57 97.5 F L 92 18 161/56 91 L Intake and Output 07/07/24 07/07/24 07/08/24 14:59 22:59 06:59 Other: Weight 90.718 kg Results CBC & Chem 7: 07/08/24 00:26 07/08/24 00:59 Labs: Abnormal Lab Results - Last 24 Hours (Table) 07/08/24 07/08/24 07/08/24 Range/Units 00:26 00:59 00:59 WBC 13.3 H (3.8-10.6) k/uL RBC 3.41 L (3.80-5.40) m/uL Hgb 10.6 L (11.4-16.0) gm/dL Neutrophils # 10.6 H (1.3-7.7) k/uL Monocytes # 1.4 H (0-1.0) k/uL Sodium 134 L (137-145) mmol/L Potassium 5.3 H (3.5-5.1) mmol/L Carbon Dioxide 20 L (22-30) mmol/L BUN 93 H (7-17) mg/dL Creatinine 2.30 H (0.52-1.04) mg/dL Glucose 177 H (74-99) mg/dL Alkaline Phosphatase 136 H (38-126) U/L Troponin I 0.059 H* (0.000-0.034) ng/mL
[2024-07-08] MEDS: FUROSEMIDE 10 MG/ML 2 ML VIAL IV ONE (03:37)
[2024-07-08 06:03] LABS: Glucose,Whole Blood 175 mg/dL (70-110)
[2024-07-08] MEDS ORDERED: HEPARIN SODIUM 1,000 UN/ML (10ML VL) IV PRN (08:45)
[2024-07-08 09:20] LABS: Glucose,Whole Blood 161 mg/dL (70-110)
[2024-07-08] MEDS: INSULIN LISPRO (HumaLOG) 100 UNIT/ML 10 mL VL SQ SCH (09:31)
[2024-07-08] MEDS: FUROSEMIDE 10 MG/ML 4 ML VIAL IV SCH (09:31)
[2024-07-08] MEDS: HEPARIN SODIUM 1,000 UN/ML (10ML VL) IV ONE (09:32)
[2024-07-08] MEDS: carvediloL 3.125 MG TAB PO SCH (09:33)
[2024-07-08] MEDS: ISOSORBIDE MONONITRATE ER 30 MG TAB.ER.24H PO SCH (09:33)
[2024-07-08] MEDS: HEPARIN SOD,PORK IN 0.45% NACL 25,000 UNIT in 0.45% NACL 1 250ML.BAG IV SCH (09:34)
[2024-07-08] MEDS: ASPIRIN 81 MG PO SCH (09:34)
[2024-07-08 09:45] LABS: Basophils # (A) 0.1 k/uL (0-0.2); Basophils % (A) 1 %; Eosinophils # (A) 0.1 k/uL (0-0.7); Eosinophils % (A) 1 %; HGB 9.4 gm/dL (11.4-16.0); Lymphocytes # (A) 1.1 k/uL (1.0-4.8); Lymphocytes % (A) 11 %; MCH 30.6 pg (25.0-35.0); MCHC 30.5 g/dL (31.0-37.0); MCV 100.3 fL (80.0-100.0); Macrocytosis Slight; Mean Platelet Volume 7.9; Monocytes # (A) 0.7 k/uL (0-1.0); Monocytes % (A) 7 %; Neutrophils # (A) 8.3 k/uL (1.3-7.7); Neutrophils % (A) 80 %; Platelet Count 293 k/uL (150-450); RBC 3.09 m/uL (3.80-5.40); RDW 14.4 % (11.5-15.5); WBC 10.4 k/uL (3.8-10.6)
[2024-07-08] MEDS: HEPARIN SODIUM,PORCINE 5,000 UNIT/ML 1 ML VIAL SQ SCH (09:54)
--- NOTE | 2024-07-08 09:57 | P.NPCON ---
History of Present Illness - Reason for Consult acute renal failure, chronic renal failure - History of Present Illness Reason for consultation: Acute kidney injury on chronic kidney disease History of present illness: Patient is 83-year-old female seen in renal consultation for acute kidney injury on chronic kidney disease. Patient was seen and examined in the emergency room. Patient came to the hospital due to shortness of breath mostly with exertion. Patient states she had to sit down even after ambulating a short distance around the house. She is currently receiving IV Lasix 40 mg twice daily. She denies chest pain. She has been voiding. Denies gross hematuria or dysuria. Patient says she was on oral Lasix and the frequency was decreased to once daily about a week ago due to worsening renal function. She does have longstanding history of diabetes. Patient has history of chronic kidney disease stage IV with baseline creatinine 1.8-2 secondary to diabetic kidney disease. Creatinine 2.3 this admission. She tested negative for influenza, RSV and COVID. Denies vomiting or diarrhea. Vital signs are stable. General: No acute distress. HEENT: Head exam is unremarkable. LUNGS: No audible rhonchi or wheezes. HEART: Rate and Rhythm are regular. ABDOMEN: Nontender. EXTREMITITES: Trace edema. Past Medical History Past Medical History: Coronary Artery Disease (CAD), Diabetes Mellitus, GERD/Reflux, Hyperlipidemia, Hypertension, Osteoarthritis (OA), Renal Disease, Sleep Apnea/CPAP/BIPAP Additional Past Medical History / Comment(s): "watching a valve" in heart, decreased kidney function, low iron, has cpap doesnt use at this time. edema to bilateral legs and feet. low hemaglobin- iron infusions as needed History of Any Multi-Drug Resistant Organisms: None Reported Past Surgical History: Breast Surgery, Cholecystectomy, Heart Catheterization Additional Past Surgical History / Comment(s): earle cataracts, mult earle eye surgeries, bilateral breast excisional biopsy-benign Past Anesthesia/Blood Transfusion Reactions: No Reported Reaction Past Psychological History: No Psychological Hx Reported Smoking Status: Never smoker Past Alcohol Use History: None Reported Past Drug Use History: None Reported - Past Family History Father Family Medical History: Deep Vein Thrombosis (DVT) Additional Family Medical History / Comment(s): mom of stroke , history of heart disease Medications and Allergies Home Medications Medication Instructions Recorded Confirmed Type Aspirin [Adult Low Dose Aspirin EC] 81 mg PO DAILY 01/16/17 06/11/24 History Dorzolamide 2% [Trusopt 2%] 1 drops BOTH EYES BID 01/16/17 06/11/24 History Ferrous Sulfate [Iron] 650 mg PO BID 01/16/17 06/11/24 History Atorvastatin [Lipitor] 10 mg PO HS 09/09/17 06/11/24 History allopurinoL [Zyloprim] 100 mg PO HS 09/09/17 06/11/24 History Famotidine [Pepcid] 20 mg PO DAILY 03/02/20 06/11/24 History Cholecalciferol [Vitamin D3 (25 50 mcg PO DAILY 10/09/21 06/11/24 History Mcg = 1000 Iu)] Magnesium Oxide [Magox 400] 400 mg PO HS 10/09/21 06/11/24 History Virt-Phos 250 Neutral 250 1 tab PO DAILY 10/09/21 06/11/24 History calcitrioL 0.5 mcg PO SUWE 10/09/21 06/11/24 History Tamsulosin [Flomax] 0.4 mg PO PC-BRKFST 30 Days #30 cap 10/16/21 06/11/24 Rx carvediloL [Coreg] 3.125 mg PO BID 12/06/21 06/11/24 History Acetaminophen Tab [Tylenol] 650 mg PO Q6HR PRN tab 01/09/22 06/11/24 Rx INSULIN ASPART (NovoLOG) [NovoLOG 0 unit SQ ACHS each 01/09/22 06/11/24 Rx (formulary)] INSULIN ASPART (NovoLOG) [NovoLOG 5 unit SQ AC-TID each 01/09/22 06/11/24 Rx (formulary)] Insulin Detemir (Levemir) [Levemir] 35 unit SQ DAILY@0700 each 01/09/22 06/11/24 Rx Isosorbide Mononitrate ER [Imdur] 30 mg PO DAILY tab 01/09/22 06/11/24 Rx Nitroglycerin Sl Tabs [Nitrostat] 0.4 mg SUBLINGUAL Q5M PRN tab 01/09/22 06/11/24 Rx Torsemide [Demadex] 40 mg PO DAILY tab 01/09/22 06/11/24 Rx metOLazone [Zaroxolyn] 5 mg PO DAILY tab 01/09/22 06/11/24 Rx Allergies Allergy/AdvReac Type Severity Reaction Status Date / Time Penicillins Allergy Swelling Verified 07/08/24 00:02 Sulfa (Sulfonamide Allergy Swelling Verified 07/08/24 00:02 Antibiotics) Physical Exam Vitals: Vital Signs Temp Pulse Resp BP Pulse Ox 07/08/24 09:38 76 18 153/59 97 07/08/24 05:23 74 18 157/67 90 L 07/08/24 02:59 86 18 130/78 92 L 07/08/24 01:30 20 07/07/24 23:57 97.5 F L 92 18 161/56 91 L Intake and Output 07/07/24 07/08/24 07/08/24 22:59 06:59 14:59 Output Total 1400 Balance -1400 Output: Urine 1400 Uretheral (Eduardo) 1400 Other: Weight 90.718 kg Results - Lab Results Most recent lab results Calcium 9.7 mg/dL (8.4-10.2) 07/08/24 00:59 07/08/24 09:10 07/08/24 00:59 Assessment and Plan Plan: Assessment: 1. Acute kidney injury secondary to ATN secondary to cardiorenal syndrome. Creatinine 2.3 on admission. 2. Volume overload. 3. Diabetes mellitus. 4. Hypertension with chronic kidney disease. 5. Anemia of chronic kidney disease. Rule out iron deficiency. 6. Metabolic acidosis secondary to chronic kidney disease. 7. Chronic kidney disease stage IV with baseline creatinine 1.8-2 secondary to diabetic kidney disease. Plan: Maintain IV Lasix. Low-salt diet. Follow-up echocardiogram. Avoid nephrotoxins. Check iron studies. Thank you for the consultation. I will continue to follow the patient with you during her hospital stay.
[2024-07-08 10:00] LABS: Prothrombin Time 10.9 sec (10.0-12.5)
--- NOTE | 2024-07-08 10:03 | P.CRDCN ---
History of Present Illness History of present illness: HISTORY OF PRESENT ILLNESS: This is a 83-year-old female with a past medical history significant for chronic kidney disease, hypertension, hyperlipidemia, congestive heart failure, and co ronary artery disease. Patient follows in the office with Dr. Bhatia. We have been asked to see the patient in consultation for CHF. Patient examined at the bedside in the emergency room. Patient presented to the hospital with a chief complaint of shortness of breath. 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 She states that her Lasix was decreased to once a day instead of twice a day at that time. She was post to go back tomorrow for a follow-up appointment. She reports that she has had increasing shortness of breath over the past week which prompted her to come to the emergency room for further evaluation. She denies any cough or fever. She denies any chest pain or pressure. She reports having some nausea yesterday but no vomiting. DIAGNOSTICS: - EKG reveals sinus mechanism with nonspecific ST-T wave changes - Chest xray cardiomegaly with mild vascular congestion. Trace pleural effusions. - Laboratory data: WBC 10.4. Hemoglobin 9.4. Platelet count 293. Sodium 134. Potassium 5.3. BUN 93. Creatinine 2.30. proBNP 1510. Troponin 0.059. 0.143. 0.189. - Current home cardiac medication list is not updated at the time of examination - Most recent echocardiogram obtained in January 2024 reveals normal EF, mild MR, mild TR. - Cardiac catheterization history: November 2021 revealing 40% distal left main, 30% proximal LAD, 80% ostial circumflex, 30% ostial RCA, 50% distal RCA, right dominant system. REVIEW OF SYSTEMS: At the time of my exam: CONSTITUTIONAL: Denies fever or chills. HEENT: Denies blurred vision, vision changes, or eye pain. Denies hemoptysis CARDIOVASCULAR: Denies chest pain. Denies orthopnea. Denies PND. Denies palpitations RESPIRATORY: Reports shortness of breath. GASTROINTESTINAL: Denies abdominal pain. Denies nausea or vomiting. HEMATOLOGIC: Denies bleeding disorders. GENITOURINARY: Denies any blood in urine. SKIN: Denies pruitis. Denies rash. PHYSICAL EXAM: VITAL SIGNS: Reviewed. GENERAL: Well-developed in no acute distress. HEENT: Head is normocephalic. Pupils are equal, round. Sclerae anicteric. Mucous membranes of the mouth are moist. Neck supple. No JVD or thyromegaly LUNGS: Respirations even and unlabored. Lungs with bibasilar crackles HEART: Regular rate and rhythm. S1 and S2 heard. ABDOMEN: Soft. Nondistended. Nontender. EXTREMITIES: Normal range of motion. No clubbing or cyanosis. Peripheral pulses intact. Trace bilateral lower extremity edema NEUROLOGIC: Awake and alert. Oriented x 3. ASSESSMENT: Shortness of breath Acute on chronic heart failure with preserved EF Chronic kidney disease Elevated troponins, suspect type II MS secondary to oxygen supply/demand mismatch secondary to acute CHF along with poor renal clearance Coronary artery disease without previous stenting Hypertension Hyperlipidemia Obesity: BMI 35.4 PLAN: Obtain 2D echo to assess cardiac structure and function Begin IV heparin for 24 hours Continue aspirin, atorvastatin, and carvedilol Continue IV Lasix 40 mg every 12 hours. Nephrology has been consulted for marine martin. Daily weights, accurate intake and output, monitoring of kidney function Add Imdur 30 mg daily Further recommendations pending patient course Nurse practitioner note has been reviewed by physician. Signing provider agrees with the documented findings, assessment, and plan of care documented by INDUSTRIAL HYGIENE ENGINEER as a scribe. Past Medical History Past Medical History: Coronary Artery Disease (CAD), Diabetes Mellitus, GERD/Reflux, Hyperlipidemia, Hypertension, Osteoarthritis (OA), Renal Disease, Sleep Apnea/CPAP/BIPAP Additional Past Medical History / Comment(s): "watching a valve" in heart, decreased kidney function, low iron, has cpap doesnt use at this time. edema to bilateral legs and feet. low hemaglobin- iron infusions as needed History of Any Multi-Drug Resistant Organisms: None Reported Past Surgical History: Breast Surgery, Cholecystectomy, Heart Catheterization Additional Past Surgical History / Comment(s): earle cataracts, mult earle eye surge parvez, bilateral breast excisional biopsy-benign Past Anesthesia/Blood Transfusion Reactions: No Reported Reaction Past Psychological History: No Psychological Hx Reported Smoking Status: Never smoker Past Alcohol Use History: None Reported Past Drug Use History: None Reported - Past Family History Father Family Medical History: Deep Vein Thrombosis (DVT) Additional Family Medical History / Comment(s): mom of stroke , history of heart disease Medications and Allergies Home Medications Medication Instructions Recorded Confirmed Type Aspirin [Adult Low Dose Aspirin EC] 81 mg PO DAILY 01/16/17 06/11/24 History Dorzolamide 2% [Trusopt 2%] 1 drops BOTH EYES BID 01/16/17 06/11/24 History Ferrous Sulfate [Iron] 650 mg PO BID 01/16/17 06/11/24 History Atorvastatin [Lipitor] 10 mg PO HS 09/09/17 06/11/24 History allopurinoL [Zyloprim] 100 mg PO HS 09/09/17 06/11/24 History Famotidine [Pepcid] 20 mg PO DAILY 03/02/20 06/11/24 History Cholecalciferol [Vitamin D3 (25 50 mcg PO DAILY 10/09/21 06/11/24 History Mcg = 1000 Iu)] Magnesium Oxide [Magox 400] 400 mg PO HS 10/09/21 06/11/24 History Virt-Phos 250 Neutral 250 1 tab PO DAILY 10/09/21 06/11/24 History calcitrioL 0.5 mcg PO SUWE 10/09/21 06/11/24 History Tamsulosin [Flomax] 0.4 mg PO PC-BRKFST 30 Days #30 cap 10/16/21 06/11/24 Rx carvediloL [Coreg] 3.125 mg PO BID 12/06/21 06/11/24 History Acetaminophen Tab [Tylenol] 650 mg PO Q6HR PRN tab 01/09/22 06/11/24 Rx INSULIN ASPART (NovoLOG) [NovoLOG 0 unit SQ ACHS each 01/09/22 06/11/24 Rx (formulary)] INSULIN ASPART (NovoLOG) [NovoLOG 5 unit SQ AC-TID each 01/09/22 06/11/24 Rx (formulary)] Insulin Detemir (Levemir) [Levemir] 35 unit SQ DAILY@0700 each 01/09/22 06/11/24 Rx Isosorbide Mononitrate ER [Imdur] 30 mg PO DAILY tab 01/09/22 06/11/24 Rx Nitroglycerin Sl Tabs [Nitrostat] 0.4 mg SUBLINGUAL Q5M PRN tab 01/09/22 06/11/24 Rx Torsemide [Demadex] 40 mg PO DAILY tab 01/09/22 06/11/24 Rx metOLazone [Zaroxolyn] 5 mg PO DAILY tab 01/09/22 06/11/24 Rx Allergies Allergy/AdvReac Type Severity Reaction Status Date / Time Penicillins Allergy Swelling Verified 07/08/24 00:02 Sulfa (Sulfonamide Allergy Swelling Verified 07/08/24 00:02 Antibiotics) Physical Exam Vitals: Vital Signs Temp Pulse Resp BP Pulse Ox 07/08/24 05:23 74 18 157/67 90 L 07/08/24 02:59 86 18 130/78 92 L 07/08/24 01:30 20 07/07/24 23:57 97.5 F L 92 18 161/56 91 L Intake and Output 07/07/24 07/08/24 07/08/24 22:59 06:59 14:59 Other: Weight 90.718 kg Results 07/08/24 09:10 07/08/24 00:59 Cardiac Enzymes 07/08/24 07/08/24 07/08/24 Range/Units 00:59 00:59 04:20 AST 24 (14-36) U/L Troponin I 0.059 H* 0.143 H* (0.000-0.034) ng/mL 07/08/24 Range/Units 06:17 AST (14-36) U/L Troponin I 0.189 H* (0.000-0.034) ng/mL CBC 07/08/24 Range/Units 00:26 WBC 13.3 H (3.8-10.6) k/uL RBC 3.41 L (3.80-5.40) m/uL Hgb 10.6 L (11.4-16.0) gm/dL Hct 34.0 (34.0-46.0) % Plt Count (150-450) k/uL Comprehensive Metabolic Panel 07/08/24 Range/Units 00:59 Sodium 134 L (137-145) mmol/L Potassium 5.3 H (3.5-5.1) mmol/L Chloride 102 (98-107) mmol/L Carbon Dioxide 20 L (22-30) mmol/L BUN 93 H (7-17) mg/dL Creatinine 2.30 H (0.52-1.04) mg/dL Glucose 177 H (74-99) mg/dL Calcium 9.7 (8.4-10.2) mg/dL AST 24 (14-36) U/L ALT 23 (4-34) U/L Alkaline Phosphatase 136 H (38-126) U/L Total Protein 6.6 (6.3-8.2) g/dL Albumin 3.9 (3.5-5.0) g/dL Current Medications Generic Name Dose Route Start Last Admin Trade Name Freq PRN Reason Stop Dose Admin Aspirin 81 mg 07/08/24 09:00 Aspirin 81 Mg PO DAILY [facility] Atorvastatin Calcium 40 mg 07/08/24 21:00 Atorvastatin 40 Mg Tab PO HS [facility] Carvedilol 3.125 mg 07/08/24 09:00 Carvedilol 3.125 Mg Tab PO BID [facility] Furosemide 40 mg 07/08/24 09:00 Furosemide 10 Mg/Ml 4 Ml Vial IV Q12HR [facility] Heparin Sodium (Porcine) 5,000 unit 07/08/24 08:00 Heparin Sodium,Porcine 5,000 Unit/Ml 1 Ml Vial SQ Q8HR [facility] Insulin Human Lispro 0 unit 07/08/24 07:30 Insulin Lispro (Humalog) 100 Unit/Ml 10 Ml Vl SQ ACHS [facility] Protocol Intake and Output 07/07/24 07/08/24 07/08/24 22:59 06:59 14:59 Other: Weight 90.718 kg 07/08/24 00:26 07/08/24 00:59
[2024-07-08 10:07] LABS: African American GFR (CKD) 21 (>60 ml/min/1.73 sqM); Anion Gap 10 mmol/L; Blood Urea Nitrogen 91 mg/dL (7-17); Calcium 9.6 mg/dL (8.4-10.2); Carbon Dioxide 21 mmol/L (22-30); Chloride 106 mmol/L (98-107); Glucose 150 mg/dL (74-99); Non-African American GFR(CKD) 18 (>60 ml/min/1.73 sqM); Potassium 4.5 mmol/L (3.5-5.1); Sodium 137 mmol/L (137-145)
[2024-07-08 12:10] LABS: Glucose,Whole Blood 123 mg/dL (70-110)
[2024-07-08] MEDS: GABAPENTIN 100 MG CAP PO ONE (12:17)
--- NOTE | 2024-07-08 12:48 | P.PN ---
Subjective Progress Note Date: 07/08/24 Hospital Course: 83-year-old female with past medical history of diastolic CHF, CKD stage IV, h istory of DEBO requiring hemodialysis, HTN, HLD, CAD, who presented to the ED with gradually worsening shortness of breath started 1 week ago associated with mild lower extremity swelling, denies chest pain, orthopnea, PND, fevers, chills, cough, nausea, vomiting, abdominal pain, diarrhea, dysuria. She reported that her Lasix was decreased to once a day instead of previous dose of twice daily. In the emergency room, chest x-ray revealed findings of cardiomegaly with mild vascular congestion. Laboratory evaluation was remarkable for troponin 0.059 with proBNP 1510, BUN 93, creatinine 2.30 (at baseline), sodium 134, potassium 5.3, WBC count 13.3, hemoglobin 10.6. Respiratory viral panel was negative. EKG showed sinus rhythm with nonspecific ST-T wave changes. Patient was admitted for management of acute on chronic heart failure with preserved ejection fraction, cardiology and nephrology consulted. TTE ordered, patient was started on IV heparin for 24 hours, continued on aspirin, statins, beta- blockers, started on IV Lasix 40 twice daily. Imdur 30 added. Subjective: Patient mostly complains of chronic back and right shoulder pain, states that her shortness of breath is improved Pertinent positives and negatives as discussed above, a complete review of systems was performed and all other systems are negative. Vitals Signs Reviewed. 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 Psych: [Alert], [oriented], [appropriate affect] Data Reviewed Today: Pertinent Labs: WBC count normal, hemoglobin 9.4, platelet count normal, coagulation panel normal, sodium 137, potassium 4.5, bicarb 21, creatinine 2.34, glucose is controlled Assessment and Plan: HFpEF exacerbation Elevated troponin likely secondary to type II TX in the settings of CHF exacerbation and advanced CKD CAD HTN HLD Morbid obesity BMI 35 -Cardiology following -TTE ordered and pending -IV heparin for 24 hours per cardiology -Continue IV Lasix 40 twice daily, strict I's and O's and daily weights -Imdur added by cardiology 30 mg daily DEBO on CKD stage IV secondary to cardiorenal syndrome Anemia of chronic disease Metabolic acidosis secondary to above -Nephrology following -Continue IV Lasix -Avoid nephrotoxins -Iron panel ordered by nephrology Chronic back pain, shoulder pain: Continue with Tylenol, home gabapentin 100 daily, lidocaine patch DVT ppx: Heparin drip Code status: Full code Anticipated discharge place: TBD Anticipated discharge time: TBD Objective - Vital Signs Vital signs: Vital Signs Temp 97.5 F L 07/07/24 23:57 Pulse 76 07/08/24 09:38 Resp 18 07/08/24 09:38 BP 153/59 07/08/24 09:38 Pulse Ox 97 07/08/24 09:38 FiO2 Intake & Output 07/07/24 07/08/24 07/08/24 18:59 06:59 18:59 Output Total 1400 Balance -1400 Weight 90.718 kg Output: Urine 1400 Uretheral (Eduardo) 1400 - Labs CBC & Chem 7: 07/08/24 09:10 07/08/24 09:10 Labs: Abnormal Lab Results - Last 24 Hours (Table) 07/08/24 07/08/24 07/08/24 Range/Units 00:26 00:59 00:59 WBC 13.3 H (3.8-10.6) k/uL RBC 3.41 L (3.80-5.40) m/uL Hgb 10.6 L (11.4-16.0) gm/dL Hct (34.0-46.0) % MCV (80.0-100.0) fL MCHC (31.0-37.0) g/dL Neutrophils # 10.6 H (1.3-7.7) k/uL Monocytes # 1.4 H (0-1.0) k/uL Sodium 134 L (137-145) mmol/L Potassium 5.3 H (3.5-5.1) mmol/L Carbon Dioxide 20 L (22-30) mmol/L BUN 93 H (7-17) mg/dL Creatinine 2.30 H (0.52-1.04) mg/dL Glucose 177 H (74-99) mg/dL POC Glucose (mg/dL) (70-110) mg/dL Alkaline Phosphatase 136 H (38-126) U/L Troponin I 0.059 H* (0.000-0.034) ng/mL 07/08/24 07/08/24 07/08/24 Range/Units 04:20 06:02 06:17 WBC (3.8-10.6) k/uL RBC (3.80-5.40) m/uL Hgb (11.4-16.0) gm/dL Hct (34.0-46.0) % MCV (80.0-100.0) fL MCHC (31.0-37.0) g/dL Neutrophils # (1.3-7.7) k/uL Monocytes # (0-1.0) k/uL Sodium (137-145) mmol/L Potassium (3.5-5.1) mmol/L Carbon Dioxide (22-30) mmol/L BUN (7-17) mg/dL Creatinine (0.52-1.04) mg/dL Glucose (74-99) mg/dL POC Glucose (mg/dL) 175 H (70-110) mg/dL Alkaline Phosphatase (38-126) U/L Troponin I 0.143 H* 0.189 H* (0.000-0.034) ng/mL 07/08/24 07/08/24 07/08/24 Range/Units 09:10 09:10 09:19 WBC (3.8-10.6) k/uL RBC 3.09 L (3.80-5.40) m/uL Hgb 9.4 L (11.4-16.0) gm/dL Hct 31.0 L (34.0-46.0) % MCV 100.3 H (80.0-100.0) fL MCHC 30.5 L (31.0-37.0) g/dL Neutrophils # 8.3 H (1.3-7.7) k/uL Monocytes # (0-1.0) k/uL Sodium (137-145) mmol/L Potassium (3.5-5.1) mmol/L Carbon Dioxide 21 L (22-30) mmol/L BUN 91 H (7-17) mg/dL Creatinine 2.34 H (0.52-1.04) mg/dL Glucose 150 H (74-99) mg/dL POC Glucose (mg/dL) 161 H (70-110) mg/dL Alkaline Phosphatase (38-126) U/L Troponin I (0.000-0.034) ng/mL 07/08/24 Range/Units 12:09 WBC (3.8-10.6) k/uL RBC (3.80-5.40) m/uL Hgb (11.4-16.0) gm/dL Hct (34.0-46.0) % MCV (80.0-100.0) fL MCHC (31.0-37.0) g/dL Neutrophils # (1.3-7.7) k/uL Monocytes # (0-1.0) k/uL Sodium (137-145) mmol/L Potassium (3.5-5.1) mmol/L Carbon Dioxide (22-30) mmol/L BUN (7-17) mg/dL Creatinine (0.52-1.04) mg/dL Glucose (74-99) mg/dL POC Glucose (mg/dL) 123 H (70-110) mg/dL Alkaline Phosphatase (38-126) U/L Troponin I (0.000-0.034) ng/mL
[2024-07-08] MEDS: LIDOCAINE 4% PATCH TOPICAL SCH (14:36)
[2024-07-08] MEDS: hydrALAZINE HCL 50 MG TAB PO SCH (16:23)
[2024-07-08 17:06] LABS: Glucose,Whole Blood 200 mg/dL (70-110)
[2024-07-08] MEDS: MAGNESIUM OXIDE 400 MG TAB PO SCH (17:20)
--- NOTE | 2024-07-08 17:46 | CA ---
Transthoracic Echo Report Name: Carol Cruz Age: 83 Gender: F : 1940 Exam Date: 07/08/2024 14:37 Exam Location: [facility] Ht (in): 63 Wt (lb): 200 Ordering Physician: Rosemarie Gurrola MD Attending/Referring Phys: Product Analyst Sharron Munoz RDCS Procedure CPT: Indications: chf exacerbation Cardiac Hx: Technical Quality: Technically difficult study Contrast 1: Definity Total Dose (mL): 3 Contrast 2: Total Dose (mL): MEASUREMENTS (Male / Female) Normal Values 2D ECHO LV Diastolic Diameter PLAX 4.6 cm 4.2 - 5.9 / 3.9 - 5.3 cm LV Systolic Diameter PLAX 3.1 cm IVS Diastolic Thickness 1.0 cm 0.6 - 1.0 / 0.6 - 0.9 cm LVPW Diastolic Thickness 1.1 cm 0.6 - 1.0 / 0.6 - 0.9 cm LV Relative Wall Thickness 0.5 LVOT Diameter 1.8 cm LA Volume 66.3 cm??? 18 - 58 / 22 - 52 cm??? LA Volume Index 32.3 cm???/m??? 16 - 28 cm???/m??? DOPPLER AV Peak Velocity 207.5 cm/s AV Peak Gradient 17.2 mmHg AV Mean Velocity 136.0 cm/s AV Mean Gradient 8.4 mmHg AV Velocity Time Integral 43.7 cm LVOT Peak Velocity 121.9 cm/s LVOT Peak Gradient 5.9 mmHg LVOT Velocity Time Integral 27.3 cm LVOT Stroke Volume 71.7 cm??? LVOT Stroke Volume Index 37.1 ml/m??? LVOT Cardiac Index 2625.0 cm???/min???m??? AV Area Cont Eq vti 1.6 cm??? AV Area Cont Eq pk 1.5 cm??? MV Area PHT 3.5 cm??? Mitral E Point Velocity 96.5 cm/s Mitral A Point Velocity 74.6 cm/s Mitral E to A Ratio 1.3 MV Deceleration Time 216.9 ms TR Peak Velocity 348.1 cm/s TR Peak Gradient 48.5 mmHg Right Atrial Pressure 10.0 mmHg Pulmonary Artery Systolic Pressu 58.5 mmHg Right Ventricular Systolic Press 58.5 mmHg PV Peak Velocity 95.2 cm/s PV Peak Gradient 3.6 mmHg FINDINGS Left Ventricle Left ventricular ejection fraction is estimated at 55-60 %. Normal left ventricular systolic function with no obvious regional wall motion abnormalities. Left ventricular cavity size normal. Right Ventricle Right ventricle not well visualized. Severe pulmonary hypertension. Right Atrium Right atrial dilatation. Left Atrium Mildly increased left atrial volume. Mildly increased left atrial area. Mitral Valve Structurally normal mitral valve. No evidence for mitral valve prolapse. No mitral stenosis. Trace to mild mitral regurgitation. Aortic Valve Trileaflet aortic valve. No aortic valve stenosis or regurgitation.aortic valve not well visualized. Tricuspid Valve Structurally normal tricuspid valve. No tricuspid stenosis. Trace to mild tricuspid regurgitation. Pulmonic Valve Pulmonic valve not well visualized. No pulmonic stenosis. Pericardium No pericardial effusion. Aorta Normal size aortic root and proximal ascending aorta. CONCLUSIONS Technically difficult study. Definity ECHO contrast used for improved visualization of the endocardial borders (inadequate visualization of two or more contiguous segments). Normal left ventricular size and systolic function Very limited Doppler study with trace to mild mitral and tricuspid regurgitation Previewed by: Dr. Leeann Bhatia MD (Electronically Signed) Final Date: 08 July 2024 17:46
[2024-07-08] MEDS: ATORVASTATIN 40 MG TAB PO SCH (22:15)
[2024-07-08] MEDS: GABAPENTIN 100 MG CAP PO SCH (22:15)
[2024-07-08] MEDS: LOSARTAN 50 MG TAB PO SCH (22:15)
[2024-07-08 22:27] LABS: Glucose,Whole Blood 220 mg/dL (70-110)
[2024-07-09 07:32] LABS: Basophils # (A) 0.1 k/uL (0-0.2); Basophils % (A) 1 %; Eosinophils # (A) 0.2 k/uL (0-0.7); Eosinophils % (A) 2 %; HCT 27.1 % (34.0-46.0); HGB 8.6 gm/dL (11.4-16.0); Lymphocytes # (A) 1.6 k/uL (1.0-4.8); Lymphocytes % (A) 17 %; MCH 31.7 pg (25.0-35.0); MCHC 31.8 g/dL (31.0-37.0); MCV 99.8 fL (80.0-100.0); Macrocytosis Slight; Mean Platelet Volume 8.1; Monocytes # (A) 0.7 k/uL (0-1.0); Monocytes % (A) 7 %; Neutrophils # (A) 6.6 k/uL (1.3-7.7); Neutrophils % (A) 70 %; Platelet Count 274 k/uL (150-450); RBC 2.72 m/uL (3.80-5.40); RDW 14.7 % (11.5-15.5); WBC 9.4 k/uL (3.8-10.6)
[2024-07-09 07:56] LABS: African American GFR (CKD) 22 (>60 ml/min/1.73 sqM); Anion Gap 8 mmol/L; Blood Urea Nitrogen 98 mg/dL (7-17); Calcium 9.1 mg/dL (8.4-10.2); Carbon Dioxide 23 mmol/L (22-30); Chloride 104 mmol/L (98-107); Glucose 111 mg/dL (74-99); Magnesium 2.5 mg/dL (1.6-2.3); Non-African American GFR(CKD) 19 (>60 ml/min/1.73 sqM); Potassium 4.7 mmol/L (3.5-5.1); Sodium 135 mmol/L (137-145)
[2024-07-09 08:07] LABS: Partial Thromboplastin Time 56.2 sec (22.0-30.0)
[2024-07-09 08:10] LABS: Glucose,Whole Blood 127 mg/dL (70-110)
[2024-07-09] MEDS ORDERED: ASPIRIN 325 MG TAB PO SCH (09:00)
--- NOTE | 2024-07-09 09:34 | P.PN ---
Subjective Progress Note Date: 07/09/24 HISTORY OF PRESENT ILLNESS: This is a 83-year-old female with a past medical history significant for chronic kidney disease, hypertension, hyperlipidemia, congestive heart failure, and coronary artery disease. Patient follows in the office with Dr. Bhatia. We have been asked to see the patient in consultation for CHF. Patient examined at the bedside in the emergency room. Patient presented to the hospital with a chief complaint of shortness of breath. She states about a week ago she was at her ne phrologist office and was told her GFR had worsened to 12. She states that her Lasix was decreased to once a day instead of twice a day at that time. She was post to go back tomorrow for a follow-up appointment. She reports that she has had increasing shortness of breath over the past week which prompted her to come to the emergency room for further evaluation. She denies any cough or fever. She denies any chest pain or pressure. She reports having some nausea yesterday but no vomiting. DIAGNOSTICS: - EKG reveals sinus mechanism with nonspecific ST-T wave changes - Chest xray cardiomegaly with mild vascular congestion. Trace pleural effusions. - Laboratory data: WBC 10.4. Hemoglobin 9.4. Platelet count 293. Sodium 134. Potassium 5.3. BUN 93. Creatinine 2.30. proBNP 1510. Troponin 0.059. 0.143. 0.189. - Current home cardiac medication list is not updated at the time of examination - Most recent echocardiogram obtained in January 2024 reveals normal EF, mild MR, mild TR. - Cardiac catheterization history: November 2021 revealing 40% distal left main, 30% proximal LAD, 80% ostial circumflex, 30% ostial RCA, 50% distal RCA, right dominant system. 07/09 Patient seen and examined remains in the emergency center waiting for a bed on the cardiac stepdown unit. She remains on IV Lasix 40 mg every 12 hours and IV heparin. Yesterday, patient was started on Imdur as well. Blood pressure 132/43, heart rate 63, pulse ox 98% on 4 L nasal cannula. Repeat blood work reveals Patient has a negative fluid balance, no updated weights. Echocardiogram reveals EF 55 to 60% technically difficult study, trace to mild mitral and tricuspid regurgitation. PHYSICAL EXAM: VITAL SIGNS: Reviewed. GENERAL: Well-developed in no acute distress. LUNGS: Respirations even and unlabored. Lungs with bibasilar crackles HEART: Regular rate and rhythm. S1 and S2 heard. ABDOMEN: Soft. Nondistended. Nontender. EXTREMITIES: No clubbing or cyanosis. Peripheral pulses intact. No lower extremity edema NEUROLOGIC: Awake and alert. Oriented x 3. ASSESSMENT: Shortness of breath Acute on chronic heart failure with preserved EF Chronic kidney disease Elevated troponins, suspect type II ID secondary to oxygen supply/demand mismatch secondary to acute CHF along with poor renal clearance Coronary artery disease without previous stenting Hypertension Hyperlipidemia Obesity: BMI 35.4 PLAN: Discontinue IV heparin Continue aspirin, atorvastatin, and carvedilol Transition IV Lasix to oral 40 mg daily Nephrology has been consulted for evaluation. Daily weights, accurate intake and output, monitoring of kidney function Continue Imdur 30 mg daily Further recommendations pending patient course Nurse practitioner note has been reviewed by physician. Signing provider agrees with the documented findings, assessment, and plan of care documented by TINNER HELPER as a scribe. Objective - Vital Signs Vital signs: Vital Signs Temp 98.2 F 07/08/24 14:37 Pulse 63 07/09/24 03:28 Resp 18 07/09/24 03:28 BP 132/43 07/09/24 03:28 Pulse Ox 98 07/09/24 03:28 FiO2 Intake & Output 07/08/24 07/09/24 07/09/24 18:59 06:59 18:59 Intake Total 437 Output Total 3050 180 Balance -2613 -180 Weight 90.718 kg Intake: Oral 437 Output: Urine 3050 180 Uretheral (Eduardo) 1400 - Labs CBC & Chem 7: 07/09/24 07:02 07/09/24 07:02 Labs: Abnormal Lab Results - Last 24 Hours (Table) 07/08/24 07/08/24 07/08/24 Range/Units 09:10 09:10 09:19 RBC 3.09 L (3.80-5.40) m/uL Hgb 9.4 L (11.4-16.0) gm/dL Hct 31.0 L (34.0-46.0) % MCV 100.3 H (80.0-100.0) fL MCHC 30.5 L (31.0-37.0) g/dL Neutrophils # 8.3 H (1.3-7.7) k/uL APTT (22.0-30.0) sec Carbon Dioxide 21 L (22-30) mmol/L BUN 91 H (7-17) mg/dL Creatinine 2.34 H (0.52-1.04) mg/dL Glucose 150 H (74-99) mg/dL POC Glucose (mg/dL) 161 H (70-110) mg/dL 07/08/24 07/08/24 07/08/24 Range/Units 12:09 15:22 17:02 RBC (3.80-5.40) m/uL Hgb (11.4-16.0) gm/dL Hct (34.0-46.0) % MCV (80.0-100.0) fL MCHC (31.0-37.0) g/dL Neutrophils # (1.3-7.7) k/uL APTT 62.8 H (22.0-30.0) sec Carbon Dioxide (22-30) mmol/L BUN (7-17) mg/dL Creatinine (0.52-1.04) mg/dL Glucose (74-99) mg/dL POC Glucose (mg/dL) 123 H 200 H (70-110) mg/dL 07/08/24 07/08/24 Range/Units 20:10 22:25 RBC (3.80-5.40) m/uL Hgb (11.4-16.0) gm/dL Hct (34.0-46.0) % MCV (80.0-100.0) fL MCHC (31.0-37.0) g/dL Neutrophils # (1.3-7.7) k/uL APTT 56.5 H (22.0-30.0) sec Carbon Dioxide (22-30) mmol/L BUN (7-17) mg/dL Creatinine (0.52-1.04) mg/dL Glucose (74-99) mg/dL POC Glucose (mg/dL) 220 H (70-110) mg/dL
[2024-07-09] MEDS: FUROSEMIDE 40 MG TAB PO SCH (10:27)
[2024-07-09] MEDS: FAMOTIDINE 20 MG TAB PO SCH (10:27)
[2024-07-09] MEDS: HEPARIN SODIUM,PORCINE 5,000 UNIT/ML 1 ML VIAL SQ SCH (10:29)
--- NOTE | 2024-07-09 10:49 | P.PN ---
Subjective Patient is seen in follow-up for acute kidney injury on chronic kidney disease. Renal function stable. On IV Lasix. On nasal cannula. Admits to good urine output. Hemodynamically stable. Denies chest pain or shortness of breath. Vital signs are stable. General: No acute distress. HEENT: Head exam is unremarkable. On nasal cannula. LUNGS: No audible rhonchi or wheezes. HEART: Rate and Rhythm are regular. ABDOMEN: Nontender. EXTREMITITES: 1+ edema. Objective - Vital Signs Vital signs: Vital Signs Temp 98.2 F 07/08/24 14:37 Pulse 63 07/09/24 10:00 Resp 20 07/09/24 10:00 BP 122/41 07/09/24 10:00 Pulse Ox 96 07/09/24 10:00 FiO2 Intake & Output 07/08/24 07/09/24 07/09/24 18:59 06:59 18:59 Intake Total 437 Output Total 3050 180 Balance -2613 -180 Weight 90.718 kg Intake: Oral 437 Output: Urine 3050 180 Uretheral (Eduardo) 1400 - Labs CBC & Chem 7: 07/09/24 07:02 07/09/24 07:02 Labs: Abnormal Lab Results - Last 24 Hours (Table) 07/08/24 07/08/24 07/08/24 Range/Units 12:09 15:22 17:02 RBC (3.80-5.40) m/uL Hgb (11.4-16.0) gm/dL Hct (34.0-46.0) % APTT 62.8 H (22.0-30.0) sec Sodium (137-145) mmol/L BUN (7-17) mg/dL Creatinine (0.52-1.04) mg/dL Glucose (74-99) mg/dL POC Glucose (mg/dL) 123 H 200 H (70-110) mg/dL Magnesium (1.6-2.3) mg/dL 07/08/24 07/08/24 07/09/24 Range/Units 20:10 22:25 07:02 RBC 2.72 L (3.80-5.40) m/uL Hgb 8.6 L (11.4-16.0) gm/dL Hct 27.1 L (34.0-46.0) % APTT 56.5 H (22.0-30.0) sec Sodium (137-145) mmol/L BUN (7-17) mg/dL Creatinine (0.52-1.04) mg/dL Glucose (74-99) mg/dL POC Glucose (mg/dL) 220 H (70-110) mg/dL Magnesium (1.6-2.3) mg/dL 07/09/24 07/09/24 07/09/24 Range/Units 07:02 07:02 08:08 RBC (3.80-5.40) m/uL Hgb (11.4-16.0) gm/dL Hct (34.0-46.0) % APTT 56.2 H (22.0-30.0) sec Sodium 135 L (137-145) mmol/L BUN 98 H (7-17) mg/dL Creatinine 2.28 H (0.52-1.04) mg/dL Glucose 111 H (74-99) mg/dL POC Glucose (mg/dL) 127 H (70-110) mg/dL Magnesium 2.5 H (1.6-2.3) mg/dL Assessment and Plan Plan: Assessment: 1. Acute kidney injury secondary to ATN secondary to cardiorenal syndrome. Creatinine 2.3 on admission -stable at 2.28 today. 2. Volume overload. Improved with diuresis. 3. Diabetes mellitus. 4. Hypertension with chronic kidney disease. Controlled. 5. Anemia of chronic kidney disease. Rule out iron deficiency. 6. Metabolic acidosis secondary to chronic kidney disease. Better. 7. Chronic kidney disease stage IV with baseline creatinine 1.8-2 secondary to diabetic kidney disease. 8. Acute on chronic diastolic CHF with severe pulmonary hypertension. Plan: Transition to oral diuretics by cardiology. Low-salt diet. Avoid nephrotoxins. Iron studies pending. Advised patient to monitor her weight closely at home and to notify physician if develops edema or gains more than 3 pounds in 1 week duration. Follow-up outpatient 1 week postdischarge. Maintain low-salt diet and fluid restriction of less than 50 ounces per day upon discharge.
[2024-07-09 12:53] LABS: Glucose,Whole Blood 141 mg/dL (70-110)
--- NOTE | 2024-07-09 14:53 | P.PN ---
Subjective Progress Note Date: 07/09/24 Hospital Course: 83-year-old female with past medical history of diastolic CHF, CKD stage IV, h istory of DEBO requiring hemodialysis, HTN, HLD, CAD, who presented to the ED with gradually worsening shortness of breath started 1 week ago associated with mild lower extremity swelling, denies chest pain, orthopnea, PND, fevers, chills, cough, nausea, vomiting, abdominal pain, diarrhea, dysuria. She reported that her Lasix was decreased to once a day instead of previous dose of twice daily. In the emergency room, chest x-ray revealed findings of cardiomegaly with mild vascular congestion. Laboratory evaluation was remarkable for troponin 0.059 with proBNP 1510, BUN 93, creatinine 2.30 (at baseline), sodium 134, potassium 5.3, WBC count 13.3, hemoglobin 10.6. Respiratory viral panel was negative. EKG showed sinus rhythm with nonspecific ST-T wave changes. Patient was admitted for management of acute on chronic heart failure with preserved ejection fraction, cardiology and nephrology consulted. TTE ordered, patient was started on IV heparin for 24 hours, continued on aspirin, statins, beta- blockers, started on IV Lasix 40 twice daily. Imdur 30 added. TTE revealed normal EF, was technically difficult study, patient was transition to oral Lasix 40 mg daily on 07/09, IV heparin drip stopped. Per nephrology, patient will need to follow-up in 1 week post discharge, also was provided with recommendations to monitor her daily weight closely at home, notify physician if develops edema or gains more than 3 pounds in 1 week duration. Subjective: Feeling much better today, no pain, denies shortness of breath, chest pain Pertinent positives and negatives as discussed above, a complete review of systems was performed and all other systems are negative. Vitals Signs Reviewed. 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 Psych: [Alert], [oriented], [appropriate affect] Data Reviewed Today: Pertinent Labs: No leukocytosis hemoglobin 8.6, sodium 135, potassium 4.7, creatinine 2.28, glucose controlled Assessment and Plan: HFpEF exacerbation Elevated troponin likely secondary to type II UT in the settings of CHF exace rbation and advanced CKD CAD HTN HLD Morbid obesity BMI 35 -Cardiology following -TTE EF 55 to 60%, technically difficult study, trace to mild mitral and tricuspid regurg -IV heparin drip stopped by cardiology -Continue Lasix with oral formulation 40 mg daily, strict I's and O's and daily weights -Imdur added by cardiology 30 mg daily DEBO on CKD stage IV secondary to cardiorenal syndrome Anemia of chronic disease Metabolic acidosis secondary to above -Nephrology following -IV Lasix transition to oral 40 daily -Avoid nephrotoxins -Iron panel ordered by nephrology Chronic back pain, shoulder pain: Continue with Tylenol, home gabapentin 100 daily, lidocaine patch DVT ppx: heparin Code status: Full code Anticipated discharge place: [facility] Anticipated discharge time: 07/10 Objective - Vital Signs Vital signs: Vital Signs Temp 98.2 F 07/08/24 14:37 Pulse 68 07/09/24 13:00 Resp 20 07/09/24 10:00 BP 120/45 07/09/24 13:00 Pulse Ox 98 07/09/24 13:00 FiO2 Intake & Output 07/08/24 07/09/24 07/09/24 18:59 06:59 18:59 Intake Total 437 Output Total 3050 180 800 Balance -2613 -180 -800 Weight 90.718 kg Intake: Oral 437 Output: Urine 3050 180 800 Uretheral (Eduardo) 1400 - Labs CBC & Chem 7: 07/09/24 07:02 07/09/24 07:02 Labs: Abnormal Lab Results - Last 24 Hours (Table) 07/08/24 07/08/24 07/08/24 Range/Units 15:22 17:02 20:10 RBC (3.80-5.40) m/uL Hgb (11.4-16.0) gm/dL Hct (34.0-46.0) % APTT 62.8 H 56.5 H (22.0-30.0) sec Sodium (137-145) mmol/L BUN (7-17) mg/dL Creatinine (0.52-1.04) mg/dL Glucose (74-99) mg/dL POC Glucose (mg/dL) 200 H (70-110) mg/dL Magnesium (1.6-2.3) mg/dL 07/08/24 07/09/24 07/09/24 Range/Units 22: 07:02 07:02 RBC 2.72 L (3.80-5.40) m/uL Hgb 8.6 L (11.4-16.0) gm/dL Hct 27.1 L (34.0-46.0) % APTT 56.2 H (22.0-30.0) sec Sodium (137-145) mmol/L BUN (7-17) mg/dL Creatinine (0.52-1.04) mg/dL Glucose (74-99) mg/dL POC Glucose (mg/dL) 220 H (70-110) mg/dL Magnesium (1.6-2.3) mg/dL 07/09/24 07/09/24 07/09/24 Range/Units 07:02 08:08 12:52 RBC (3.80-5.40) m/uL Hgb (11.4-16.0) gm/dL Hct (34.0-46.0) % APTT (22.0-30.0) sec Sodium 135 L (137-145) mmol/L BUN 98 H (7-17) mg/dL Creatinine 2.28 H (0.52-1.04) mg/dL Glucose 111 H (74-99) mg/dL POC Glucose (mg/dL) 127 H 141 H (70-110) mg/dL Magnesium 2.5 H (1.6-2.3) mg/dL
[2024-07-09 17:31] LABS: Glucose,Whole Blood 302 mg/dL (70-110)
[2024-07-09] MEDS: ACETAMINOPHEN TAB 325 MG TAB PO PRN (18:09)
[2024-07-09 19:12] LABS: Glucose,Whole Blood 307 mg/dL (70-110)
[2024-07-09] MEDS: ATORVASTATIN 40 MG TAB PO SCH (20:28)
[2024-07-09] MEDS: LIDOCAINE 4% PATCH TOPICAL SCH (20:45)
[2024-07-10 06:19] LABS: Glucose,Whole Blood 150 mg/dL (70-110)
[2024-07-10] MEDS: DAPAGLIFLOZIN PROPANEDIOL 5 MG TABLET PO SCH (08:53)
[2024-07-10 09:35] LABS: BUN/Creat Ratio 38.85 Ratio (12.00-20.00); Calcium 8.7 mg/dL (8.7-10.3); Carbon Dioxide 20.8 mmol/L (21.6-31.8); Chloride 104 mmol/L (96-109); Glucose 140 mg/dL (70-110); Magnesium 2.5 mg/dL (1.5-2.4); Sodium 136 mmol/L (135-145)
--- NOTE | 2024-07-10 09:54 | P.PN ---
Subjective HISTORY OF PRESENT ILLNESS: This is a 83-year-old female with a past medical history significant for chronic kidney disease, hypertension, hyperlipidemia, congestive heart failure, and coronary artery disease. Patient follows in the office with Dr. Bhatia. We have been asked to see the patient in consultation for CHF. Patient examined at the [facility] in the emergency room. Patient presented to the hospital with a chief complaint of shortness of breath. 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 She states that her Lasix was decreased to once a day instead of twice a day at that time. She was post to go back tomorrow for a follow-up appointment. She reports that she has had increasing shortness of breath over the past week which prompted her to come to the emergency room for further evaluation. She denies any cough or fever. She denies any chest pain or pressure. She reports having some nausea yesterday but no vomiting. DIAGNOSTICS: - EKG reveals sinus mechanism with nonspecific ST-T wave changes - Chest xray cardiomegaly with mild vascular congestion. Trace pleural effusions. - Laboratory data: WBC 10.4. Hemoglobin 9.4. Platelet count 293. Sodium 134. Potassium 5.3. BUN 93. Creatinine 2.30. proBNP 1510. Troponin 0.059. 0.143. 0.189. - Current home cardiac medication list is not updated at the time of examination - Most recent echocardiogram obtained in January 2024 reveals normal EF, mild MR, mild TR. - Cardiac catheterization history: November 2021 revealing 40% distal left main, 30% proximal LAD, 80% ostial circumflex, 30% ostial RCA, 50% distal RCA, right dominant system. 07/09 Patient seen and examined remains in the emergency center waiting for a bed on the cardiac stepdown unit. She remains on IV Lasix 40 mg every 12 hours and IV heparin. Yesterday, patient was started on Imdur as well. Blood pressure 132/43, heart rate 63, pulse ox 98% on 4 L nasal cannula. Repeat blood work reveals Patient has a negative fluid balance, no updated weights. Echocardiogram reveals EF 55 to 60% technically difficult study, trace to mild mitral and tricuspid regurgitation. 07/10/2024 Patient examined this morning at the bedside. She is complaining of right shoulder pain this morning which she states is chronic. Patient currently den ies chest pain or pressure. Denies SOB. Patient has been transitioned to oral lasix. Vital signs are stable. PHYSICAL EXAM: VITAL SIGNS: Reviewed. GENERAL: Well-developed in no acute distress. HEENT: Head is normocephalic. Pupils are equal, round. Sclerae anicteric. Mucous membranes of the mouth are moist. Neck supple. No JVD or thyromegaly LUNGS: Respirations even and unlabored. Lungs clear to auscultation. HEART: Regular rate and rhythm. S1 and S2 heard. ABDOMEN: Soft. Nondistended. Nontender. EXTREMITIES: Normal range of motion. No clubbing or cyanosis. Peripheral pulses intact. Trace bilateral lower extremity edema NEUROLOGIC: Awake and alert. Oriented x 3. ASSESSMENT: Shortness of breath Acute on chronic heart failure with preserved EF Chronic kidney disease Elevated troponins, suspect type II UT secondary to oxygen supply/demand mismatch secondary to acute CHF along with poor renal clearance Coronary artery disease without previous stenting Hypertension Hyperlipidemia Obesity: BMI 35.4 PLAN: Continue aspirin, atorvastatin, imdur and carvedilol Continue oral lasix 40mg daily. Kidney function from this AM pending. Daily weights, accurate intake and output, monitoring of kidney function Patient is stable from a cardiac standpoint for discharge Further recommendations pending patient course Nurse practitioner note has been reviewed by physician. Signing provider agrees with the documented findings, assessment, and plan of care documented by ASSISTANT GOLF COURSE SUPERINTENDENT as a scribe. Objective - Vital Signs Vital signs: Vital Signs Temp 97.9 F 07/10/24 02:00 Pulse 63 07/10/24 02:00 Resp 16 07/10/24 02:00 BP 126/68 07/10/24 03:20 Pulse Ox 94 L 07/10/24 02:00 FiO2 Intake & Output 07/09/24 07/10/24 07/10/24 18:59 06:59 18:59 Intake Total 590 Output Total 800 450 Balance -210 -450 Weight 96.2 kg Intake: Oral 590 Output: Urine 800 450 Other: Voiding Method Indwelling Catheter # Voids 2 - Labs CBC & Chem 7: 07/09/24 07:02 07/10/24 06:12 Labs: Abnormal Lab Results - Last 24 Hours (Table) 07/09/24 07/09/24 07/09/24 Range/Units 07:02 07:02 08:08 APTT 56.2 H (22.0-30.0) sec Sodium 135 L (137-145) mmol/L BUN 98 H (7-17) mg/dL Creatinine 2.28 H (0.52-1.04) mg/dL Glucose 111 H (74-99) mg/dL POC Glucose (mg/dL) 127 H (70-110) mg/dL Magnesium 2.5 H (1.6-2.3) mg/dL 07/09/24 07/09/24 07/09/24 Range/Units 12:52 17:30 19:10 APTT (22.0-30.0) sec Sodium (137-145) mmol/L BUN (7-17) mg/dL Creatinine (0.52-1.04) mg/dL Glucose (74-99) mg/dL POC Glucose (mg/dL) 141 H 302 H 307 H (70-110) mg/dL Magnesium (1.6-2.3) mg/dL 07/10/24 Range/Units 06:17 APTT (22.0-30.0) sec Sodium (137-145) mmol/L BUN (7-17) mg/dL Creatinine (0.52-1.04) mg/dL Glucose (74-99) mg/dL POC Glucose (mg/dL) 150 H (70-110) mg/dL Magnesium (1.6-2.3) mg/dL
[2024-07-10 10:26] VITALS: RESP 17
--- NOTE | 2024-07-10 11:28 | P.PN ---
Subjective Patient is seen in follow-up for acute kidney injury on chronic kidney disease. Renal function slightly worse. On po Lasix. On nasal cannula. Admits to good urine output. Hemodynamically stable. Denies chest pain or shortness of breath. Vital signs are stable. General: No acute distress. HEENT: Head exam is unremarkable. On nasal cannula. LUNGS: No audible rhonchi or wheezes. HEART: Rate and Rhythm are regular. ABDOMEN: Nontender. EXTREMITITES: 1+ edema. Objective - Vital Signs Vital signs: Vital Signs Temp 97.7 F 07/10/24 07:00 Pulse 59 L 07/10/24 07:00 Resp 17 07/10/24 07:00 BP 100/46 07/10/24 07:00 Pulse Ox 96 07/10/24 07:00 FiO2 Intake & Output 07/09/24 07/10/24 07/10/24 18:59 06:59 18:59 Intake Total 590 118 Output Total 800 450 Balance -210 -450 118 Weight 96.2 kg Intake: Oral 590 118 Output: Urine 800 450 Other: Voiding Method Indwelling Catheter # Voids 2 - Labs CBC & Chem 7: 07/09/24 07:02 07/10/24 06:12 Labs: Abnormal Lab Results - Last 24 Hours (Table) 07/09/24 07/09/24 07/09/24 Range/Units 12:52 17:30 19:10 Carbon Dioxide (21.6-31.8) mmol/L BUN (9.0-27.0) mg/dL Creatinine (0.6-1.5) mg/dL Est GFR (CKD-EPI) (>=60) BUN/Creatinine Ratio (12.00-20.00) Ratio Glucose (70-110) mg/dL POC Glucose (mg/dL) 141 H 302 H 307 H (70-110) mg/dL Magnesium (1.5-2.4) mg/dL 07/10/24 07/10/24 Range/Units 06:12 06:17 Carbon Dioxide 20.8 L (21.6-31.8) mmol/L BUN 101.0 H (9.0-27.0) mg/dL Creatinine 2.6 H (0.6-1.5) mg/dL Est GFR (CKD-EPI) 18 L (>=60) BUN/Creatinine Ratio 38.85 H (12.00-20.00) Ratio Glucose 140 H (70-110) mg/dL POC Glucose (mg/dL) 150 H (70-110) mg/dL Magnesium 2.5 H (1.5-2.4) mg/dL Assessment and Plan Plan: Assessment: 1. Acute kidney injury secondary to ATN secondary to cardiorenal syndrome. Creatinine 2.3 on admission -slightly worse at 2.6 today due to hypotension and diuresis. 2. Volume overload. Improved with diuresis. 3. Diabetes mellitus. 4. Hypertension with chronic kidney disease. Blood pressure on the lower end. 5. Anemia of chronic kidney disease. 6. Metabolic acidosis secondary to chronic kidney disease. 7. Chronic kidney disease stage IV with baseline creatinine 1.8-2 secondary to diabetic kidney disease. 8. Acute on chronic diastolic CHF with severe pulmonary hypertension. Plan: Maintain oral Lasix. Maintain SGLT2 inhibitor. Decrease losartan frequency to once daily. Stop hydralazine. Low-salt diet. Avoid nephrotoxins. Iron studies pending. Voiding trial today. Add oral bicarb. Stop magnesium oxide as magnesium level on the higher end right now. Advised patient to monitor her weight closely at home and to notify physician if develops edema or gains more than 3 pounds in 1 week duration. Follow-up outpatient 1 week postdischarge. Maintain low-salt diet and fluid restriction of less than 50 ounces per day upon discharge.
[2024-07-10 12:03] LABS: Glucose,Whole Blood 329 mg/dL (70-110)
--- NOTE | 2024-07-10 13:31 | P.DS ---
Providers Date of admission: 07/08/24 03:16 Attending physician: Royal Jewell MD Consults: 07/08/24 03:15 Consult Physician Routine Consulting Provider: Filippo Sharma Consult Reason/Comments: CHF Do you want consulting provider notified?: Yes, Notify in am 07/08/24 03:30 Consult Physician Urgent Consulting Provider: Bert Young Consult Reason/Comments: CKD Do you want consulting provider notified?: Yes Primary care physician: Godwin Jc Hospital Course: Discharge Diagnosis: HFpEF exacerbation Elevated troponin likely secondary to type II RI in the settings of CHF exacerbation and advanced CKD CAD HTN HLD Morbid obesity BMI 35 DEBO on CKD stage IV secondary to cardiorenal syndrome Anemia of chronic disease Metabolic acidosis secondary to above Chronic back pain, shoulder pain Hospital Course: 83-year-old female with past medical history of diastolic CHF, CKD stage IV, history of DEBO requiring hemodialysis, HTN, HLD, CAD, who presented to the ED with gradually worsening shortness of breath started 1 week ago associated with mild lower extremity swelling, denies chest pain, orthopnea, PND, fevers, chills, cough, nausea, vomiting, abdominal pain, diarrhea, dysuria. She reported that her Lasix was decreased to once a day instead of previous dose of twice daily. In the emergency room, chest x-ray revealed findings of cardiomegaly with mild vascular congestion. Laboratory evaluation was remarkable for troponin 0.059 with proBNP 1510, BUN 93, creatinine 2.30 (at baseline), sodium 134, potassium 5.3, WBC count 13.3, hemoglobin 10.6. Respiratory viral panel was negative. EKG showed sinus rhythm with nonspecific ST-T wave changes. Patient was admitted for management of acute on chronic heart failure with preserved ejection fraction, cardiology and nephrology consulted. TTE ordered, patient was started on IV heparin for 24 hours, continued on aspirin, statins, beta- blockers, started on IV Lasix 40 twice daily. Imdur 30 added. TTE revealed normal EF, was technically difficult study, patient was transition to oral Lasix 40 mg daily on 07/09, IV heparin drip stopped. Per nephrology, patient will need to follow-up in 1 week post discharge, also was provided with recommendations to monitor her daily weight closely at home, notify physician if develops edema or gains more than 3 pounds in 1 week duration. Medications changes at the time of discharge: Continue Lasix 40 daily, magnesium oxide was discontinued as borderline high levels, losartan decreased to 50 daily, was started on Imdur and will be continued at discharge, started on bicarb 650 twice daily, Farxiga 5 mg daily. Patient was cleared for discharge from cardiology and nephrology standpoint, patient to follow-up with specialists after discharge Patient seen and examined at bedside.Feeling well, ready for discharge Vital signs reviewed and stable. General: [nontoxic], [no distress], [appears at stated age], obese Derm: [warm], [dry] Head: [atraumatic], [normocephalic], [symmetric] Eyes: [EOMI], [no lid lag], [anicteric sclera] Mouth: [no lip lesion], [mucus membranes moist] Cardiovascular: [S1S2 reg], [no murmur] Lungs: [Mild bilateral crackles] , [no accessory muscle use] Abdominal: [soft], [ nontender to palpation], [no guarding], [no appreciable organomegaly] Ext: [no gross muscle atrophy], [ edema], [no contractures] Neuro: [ CN II-XI grossly intact], [no focal neuro deficits], anisocoria, chronic per patient after cataract surgery Psych: [Alert], [oriented], [appropriate affect] A total of 42 minutes of time were spent preparing this complex discharge summary. Patient was discharged on 07/10 Patient Condition at Discharge: Stable Plan - Discharge Summary Discharge Rx Participant: No New Discharge Prescriptions: New Dapagliflozin Propanediol [Farxiga] 5 mg PO DAILY #30 tab Furosemide [Lasix] 40 mg PO DAILY #30 tab carvediloL [Coreg] 3.125 mg PO BID #60 tab Isosorbide Mononitrate ER [Imdur] 30 mg PO DAILY #30 tab Sodium Bicarbonate Tab 650 mg PO BID #60 tab Continue Dorzolamide 2% [Trusopt 2%] 1 drops BOTH EYES BID Aspirin [Adult Low Dose Aspirin EC] 81 mg PO DAILY allopurinoL [Zyloprim] 100 mg PO W/SUPPER Atorvastatin [Lipitor] 10 mg PO W/SUPPER Famotidine [Pepcid] 20 mg PO DAILY hydrALAZINE HCL [Apresoline] 100 mg PO TID Gabapentin [Neurontin] 100 mg PO DIRECTED Insulin Glargine,Hum.rec.anlog [Lantus Solostar Pen] 25 units SQ DAILY Insulin Glargine,Hum.rec.anlog [Lantus Solostar Pen] 15 units SQ HS Nitroglycerin Sl Tabs [Nitrostat] 0.4 mg SUBLINGUAL Q5M PRN tab PRN Reason: Chest Pain INSULIN ASPART (NovoLOG) [NovoLOG (formulary)] See Protocol SQ ACHS PRN PRN Reason: Blood Sugar - High Cholecalciferol (Vitamin D3) [Vitamin D3 (50 Mcg = 2000 Iu)] 50 mcg PO DAILY Changed Losartan [Cozaar] 50 mg PO DAILY #30 tab Discontinued Magnesium Oxide [Magox 400] 400 mg PO W/SUPPER Torsemide [Demadex] 20 mg PO DAILY Discharge Medication List Aspirin [Adult Low Dose Aspirin EC] 81 mg PO DAILY 01/16/17 [History] Dorzolamide 2% [Trusopt 2%] 1 drops BOTH EYES BID 01/16/17 [History] Atorvastatin [Lipitor] 10 mg PO W/SUPPER 09/09/17 [History] allopurinoL [Zyloprim] 100 mg PO W/SUPPER 09/09/17 [History] Famotidine [Pepcid] 20 mg PO DAILY 03/02/20 [History] Nitroglycerin Sl Tabs [Nitrostat] 0.4 mg SUBLINGUAL Q5M PRN tab 01/09/22 [Rx] Cholecalciferol (Vitamin D3) [Vitamin D3 (50 Mcg = 2000 Iu)] 50 mcg PO DAILY 07/08/24 [History] Gabapentin [Neurontin] 100 mg PO DIRECTED 07/08/24 [History] INSULIN ASPART (NovoLOG) [NovoLOG (formulary)] See Protocol SQ ACHS PRN 07/08/24 [History] Insulin Glargine,Hum.rec.anlog [Lantus Solostar Pen] 15 units SQ HS 07/08/24 [History] Insulin Glargine,Hum.rec.anlog [Lantus Solostar Pen] 25 units SQ DAILY 07/08/24 [History] hydrALAZINE HCL [Apresoline] 100 mg PO TID 07/08/24 [History] Dapagliflozin Propanediol [Farxiga] 5 mg PO DAILY #30 tab 07/10/24 [Rx] Furosemide [Lasix] 40 mg PO DAILY #30 tab 07/10/24 [Rx] Isosorbide Mononitrate ER [Imdur] 30 mg PO DAILY #30 tab 07/10/24 [Rx] Losartan [Cozaar] 50 mg PO DAILY #30 tab 07/10/24 [Rx] Sodium Bicarbonate Tab 650 mg PO BID #60 tab 07/10/24 [Rx] carvediloL [Coreg] 3.125 mg PO BID #60 tab 07/10/24 [Rx] Follow up Appointment(s)/Referral(s): Leeann Bhatia MD [STAFF PHYSICIAN] - 1 Week Godwin Jc DO [Primary Care Provider] - 1-2 days Bert Young DO [STAFF PHYSICIAN] - 1 Week Patient Instructions/Handouts: Heart Failure (DC) Activity/Diet/Wound Care/Special Instructions: monitor weight closely at home and to notify physician if develop edema or gain more than 3 pounds in 1 week duration Please, watch your salt intake, limit up to 2 g/day Follow up with PCP, disintegrator operator, ekg manager . Discharge Disposition: HOME SELF-CARE
[2024-07-10] MEDS: SODIUM BICARBONATE TAB 650 MG TAB PO SCH (13:33)
[2024-07-10 13:41] VITALS: BMI 37.5
[2024-07-10 15:08] VITALS: BP 119/56; PULSE 60; TEMP 97.4
[2024-07-11] MEDS ORDERED: LOSARTAN 50 MG TAB PO SCH (09:00)
[2024-07-12 17:57] LABS: % Iron Saturation 13.31 (12.00-45.00)
== END 2024-07-10 16:45 | disposition home or self-care (01) ==
LOC: EC 23:23 → 1SOBS 07-08 03:16 → 3SCARD 07-08 10:11 → 6NMEDSUR 07-09 13:07
PROVIDERS: ADMIT Internal Medicine; ATTEND Internal Medicine
DX: I13.0 Hypertensive heart and chronic kidney disease with heart failure and stage 1 through stage 4 chronic kidney disease, or unspecified chronic kidney disease (principal); I50.33 Acute on chronic diastolic (congestive) heart failure; N18.4 Chronic kidney disease, stage 4 (severe); D63.1 Anemia in chronic kidney disease; J96.01 Acute respiratory failure with hypoxia; N17.0 Acute kidney failure with tubular necrosis; N25.89 Other disorders resulting from impaired renal tubular function; R79.89 Other specified abnormal findings of blood chemistry; D72.829 Elevated white blood cell count, unspecified; E11.22 Type 2 diabetes mellitus with diabetic chronic kidney disease; E11.65 Type 2 diabetes mellitus with hyperglycemia; E66.01 Morbid (severe) obesity due to excess calories; E78.5 Hyperlipidemia, unspecified; E87.20 Acidosis, unspecified; E87.5 Hyperkalemia; I95.9 Hypotension, unspecified; I25.10 Atherosclerotic heart disease of native coronary artery without angina pectoris; I27.20 Pulmonary hypertension, unspecified; G47.30 Sleep apnea, unspecified; K21.9 Gastro-esophageal reflux disease without esophagitis; M54.9 Dorsalgia, unspecified; G89.29 Other chronic pain; M25.511 Pain in right shoulder; Z68.35 Body mass index [BMI] 35.0-35.9, adult; Z79.4 Long term (current) use of insulin; Z79.82 Long term (current) use of aspirin; Z79.899 Other long term (current) drug therapy; Z88.0 Allergy status to penicillin; Z88.2 Allergy status to sulfonamides
CPT/HCPCS: 96372 ×3; 96376; 96365; 96366 ×2; 96375; 99285; 36415; 93005; 93306; 83880; 80053; 80048 ×3; 82728; 83540; 83550; 83735 ×2; 84484; 85025 ×2; 85610 ×2; 85730 ×2; 87636; 71046; G0378 ×4; J1644 ×4; J1940 ×2; Q9957